=== PATIENT | female | born 1945 | race Caucasian/White ===

== ENCOUNTER → 2017-03-29 | Outpatient (CLI) | payer OTHER, MEDICAID ==
[2016-09-02 09:38] VITALS: BP 93/53
[~2017-03-29] MED LIST: ELAVIL ONE
--- NOTE | 2017-03-30 09:20 | CT ---
HISTORY: Headache. Study: CT brain without contrast Comparison: CT head dated August 31, 2016. Technique: Multiple axial images of the brain were obtained from the skull base to the vertex without administr ation of IV contrast. Dose reduction techniques including Automated Exposure Control (AEC) and adju stment of mA and kV were utilized. Findings: No acute intraparenchymal hemorrhage or mass can be identified. No extra-axial fluid collections ar e seen. No alteration in the attenuation of the brain parenchyma can be identified to suggest acute or subacute ischemic change. The ventricular system is symmetric and nondilated. Chronic left max illary sinus disease appears unchanged given technique. Remaining paranasal sinuses and mastoid air cells are clear. The osseous structures are intact. IMPRESSION: 1. No acute intracranial process can be identified. Reported By:
--- NOTE | 2017-03-30 09:46 | CT ---
HISTORY: Headache Study: CT paranasal sinuses without contrast Comparison: Multiple CTs of the head dating back to August 31, 2016. Technique: Multiple axial images of the paranasal sinuses were obtained without the administration o f IV contrast. Coronal and sagittal reformats were performed and reviewed. Dose reduction techniqu es including Automated Exposure Control (AEC) and adjustment of mA and kV were utilized. Findings: Chronic left maxillary sinus mucosal thickening and osseous changes. The right maxillary sinus, ante rior and posterior ethmoid air cells, sphenoid sinuses, and frontal sinuses demonstrate no evidence for mucosal inflammatory disease. The nasal septum is mildly deviated to the right with a small bon y spur. There is mucosal obstruction of the left ostiomeatal unit. The ostiomeatal unit on the righ t is widely patent without inflammatory change. The left and right frontal recesses are unremarkabl e in their appearance. Visualized portions of the posterior fossa and intracranial structures are u nremarkable as well. IMPRESSION: 1. Chronic left maxillary sinus changes as above. 2. Remaining exam is unremarkable. Reported By:
== END ==
LOC: RAD 16:54
PROVIDERS: ATTEND Internal Medicine
DX: R51 Headache (principal)
CPT/HCPCS: 70450; 70486

== ENCOUNTER → 2017-04-11 | Outpatient (CLI) | payer OTHER, MEDICAID ==
[2016-09-02 09:38] VITALS: BP 93/53
--- NOTE | 2017-04-11 20:47 | RAD ---
Right knee, two views Indication: Knee pain. Comparison: None Findings: Total knee arthroplasty hardware projects in satisfactory alignment. No perihardware lucen cy is identified. No cortical disruption or malalignment. No significant joint effusion. Impression: Satisfactory appearance of the total knee arthroplasty hardware without evidence for acu te skeletal injury of the knee. Reported By:
== END ==
LOC: RAD 14:08
PROVIDERS: ATTEND Internal Medicine
DX: M25.561 Pain in right knee (principal); Z96.651 Presence of right artificial knee joint
CPT/HCPCS: 73560

== ENCOUNTER 2017-09-21 08:26 | Day surgery (SDC) | payer OTHER, MEDICAID ==
[~2017-09-21 08:26] MED LIST changes: +D5 LR 1000 ML 1,000 ML IV ONE; -ELAVIL ONE
[2017-09-21] MEDS ORDERED: DIPRIVAN VIAL 20 ML ONE (10:03)
[2017-09-21 10:43] VITALS: BP 125/69
== END 2017-09-21 10:47 ==
LOC: SURG1 08:26
PROVIDERS: ATTEND Internal Medicine Gastroenterology
PROC: 0DB68ZX Excision of Stomach, Via Natural or Artificial Opening Endoscopic, Diagnostic (ICD-10-PCS; principal; 2017-09-21 10:30)
PROC: 0D757ZZ Dilation of Esophagus, Via Natural or Artificial Opening (ICD-10-PCS; principal; 2017-09-21 10:30)
PROC: 0DJ08ZZ Inspection of Upper Intestinal Tract, Via Natural or Artificial Opening Endoscopic (ICD-10-PCS; principal; 2017-09-21 10:30)
DX: R13.19 Other dysphagia (principal); R10.13 Epigastric pain; R11.2 Nausea with vomiting, unspecified; R19.7 Diarrhea, unspecified; K22.10 Ulcer of esophagus without bleeding; K22.2 Esophageal obstruction; D64.89 Other specified anemias
CPT/HCPCS: 99100; A4217; J3490; J7120

== ENCOUNTER 2017-09-29 22:57 | Emergency (ER) | payer OTHER, MEDICAID ==
[2017-09-29] MEDS ORDERED: ATROPINE SULFATE ABBOJECT IVP ONE (23:38)
[2017-09-29 23:42] VITALS: BMI 31.4
[2017-09-29] MEDS ORDERED: ATROPINE SULFATE ABBOJECT ONE (23:55)
--- NOTE | 2017-09-30 00:05 | RAD ---
AP Chest Indication: Shortness of breath Comparison: 08/18/2016 Findings: The trachea is midline. The cardiac silhouette is unremarkable. Small round calcified granulomas ar e noted within the lung apex on the right. The lungs are clear without focal infiltrate or effusion. The bony thorax is unremarkable. IMPRESSION: 1. No acute cardiopulmonary abnormality. Reported By:
[2017-09-30] MEDS ORDERED: ATROPINE SULFATE ABBOJECT ONE (00:27)
[2017-09-30] MEDS ORDERED: NS 1000 ML 1,000 ML ONE ×4 (00:27→08:33)
[2017-09-30 00:29] LABS: BASOPHILS % (AUTO) 0.6 % (0.2-1.0); EOSINOPHILS # (AUTO) 0.2 x10^3/uL (0.0-0.2); EOSINOPHILS % (AUTO) 2.4 % (0.9-2.9); HEMATOCRIT 29.5 % (36.0-47.0); HEMOGLOBIN 9.9 g/dL (12.0-16.0); LYMPHOCYTES # (AUTO) 1.8 X10^3/uL (1.3-2.9); LYMPHOCYTES % (AUTO) 21.9 % (21.0-51.0); MEAN CORPUSCULAR HEMOGLOBIN 29.7 pg (27.0-34.0); MEAN CORPUSCULAR HGB CONC 33.7 g/dL (33.0-35.0); MONOCYTES # (AUTO) 1.1 x10^3/uL (0.3-0.8); MONOCYTES % (AUTO) 13.6 % (0.0-13.0); NEUTROPHILS % (AUTO) 61.5 % (42.0-75.0); PLATELET COUNT 204 X10^3/uL (150.0-450.0); RED BLOOD COUNT 3.35 X10^6/uL (3.5-5.4); RED CELL DISTRIBUTION WIDTH 14.7 % (11.6-16.5); WHITE BLOOD COUNT 8.1 X10^3/uL (3.6-10.0)
[2017-09-30] MEDS ORDERED: ATROPINE SULFATE ABBOJECT IVP ONE (00:35)
[2017-09-30] MEDS ORDERED: NS 1000 ML 1,000 ML IV ONE (00:41)
[2017-09-30 00:42] LABS: BLOOD UREA NITROGEN 39 mg/dL (7-18); CALCIUM 7.8 mg/dL (8.5-10.1); CARBON DIOXIDE 21.7 mmol/L (21-32); CHLORIDE 98 mmol/L (98-107); CREATININE 2.52 mg/dL (0.55-1.02); SODIUM 130 mmol/L (136-145); TROPONIN I < 0.02 ng/mL (0-1.5); eGFR BLACK RACES 24 (>60); eGFR NON BLACK RACES 20 (>60)
[2017-09-30 00:47] LABS: ALANINE AMINOTRANSFERASE 14 Units/L (12-78); ALBUMIN 2.7 g/dL (3.4-5.0); ALKALINE PHOSPHATASE 62 Units/L (46-116); ASPARTATE AMINO TRANSFERASE 23 Units/L (15-37); CKMB % 1.6 % (<4); COR CA(FOR HYPOALB) 8.8 mg/dL (8.5-10.1); CREATINE KINASE 62 Units/L (26-192); TOTAL PROTEIN 5.7 g/dL (6.4-8.2)
--- NOTE | 2017-09-30 00:47 | ED.ABDFE ---
HPI - Time seen Time seen: 23:05 - PCP Primary Care Physician: HELENE - HPI Comment HPI Comment: HISTORY BELOW. - Complaint Chief Complaint Doctors Comments: PATIENT HAD SYNCOPAL EPISODE AT THE HALFWAY. WHEN VITAL SIGNS WERE CHECK, SHE WAS FOUND TO HAVE LOW BLOOD PRESSURE AND LOW PULSE RATE. SHE TAKES ATENOLOL. IV FLUIDS WERE GIVEN IN HALFWAY. NO IMPROVEMENT. BROUGHT TO ED FOR FURTHER EVALUATION. Chief Complaint:: SYNCOPAL EPISODE, BRADYCARDIA - Nurses notes reviewed Nurses Notes Review: Yes - Source History Provided: Patient, Family Member, Assisted - Mode of arrival Mode of Arrival: Stretcher - Timing Onset of Chief Complaint: 09/29/17 Came on: Suddenly - Duration Duration: Constant Duration: Hours - Quality Quality: Other (none) - Context History of: None - Associated signs and symptoms Associated Signs and Symptoms: None <MALLORY GORDON - Last Filed: 09/30/17 06:39> PMH - PMH Past Medical History: Yes Past Medical History: Anxiety, Arthritis, Depression, Diabetes, Migraines Past Medical History Comment: Mike-FIBRonna Past Surgical History: Yes Surgical History: Cholecystectomy, 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, Ortho Surgery, Weight Loss Surgery - Family History History of Family Medical Conditions: Yes Family Medical History: Diabetes Mellitus, [place], Coronary Artery Disease, Heart Failure, Hypertension - Social History Does patient currently use any type of tobacco product: No Have you used tobacco products in the last 12 months: No Type of Tobacco Use: None Does any household member use tobacco: No Alcohol Use: None Do you use any recreational Drugs:: No Lives With: Other Lives Where: Assisted - infectious screening In the last 2 months have you had wt loss of >10#?: NO Have you had fever, night sweats or hemotysis?: No Have you traveled outside the country in the last 6 months?: No Isolation: Standard <MALLORY GORDON - Last Filed: 09/30/17 06:39> ROS - Review of Systems Constitutional: Weakness, Fatigue Eyes: negative: Eye Pain, Discharge ENTM: negative: Ear Pain, Nose Discharge, Nose Congestion, Throat Pain Respiratoy: Short of Breath. negative: Productive Cough, Non-Productive Cough, Wheezing, Hemoptysis Cardiovascular: Other (bradycardia). negative: Chest Pain Gastrointestinal/Abdominal: negative: Abdominal Pain, Constipation, Diarrhea, Nausea, Vomiting Genitourinary: negative: Dysuria, Hematuria Neurological: Weakness, Dizziness. negative: Headache Musculoskeletal: No Symptoms Reported Integumentary: No Symptoms Reported Hematologic/Lymphatic: Easy Bleeding, Easy Bruising Endocrine: No Symptoms Reported All Other Systems: Reviewed and Negative <MALLORY GORDON - Last Filed: 09/30/17 06:39> PE - General Limitations: No Limitations General Appearance: Alert, Other (sleepy) - Head Head Exam: Normal Inspection - Eyes Eye exam: negative: Scleral Icterus, Conjunctival Injection - ENT ENT Exam: Normal Oropharynx, Normal External Ear Exam, TM's Normal Bilaterally - Neck Neck Exam: Trachea Midline - Chest Chest Inspection: Symmetric Chest Wall Rise - Respiratory Respiratory Exam: Normal Lung Sounds Bilat Respiratory Exam: Bilateral Rhonchi, Upper Rhonchi, Lower Rhonchi - Cardiovascular Cardiovascular Exam: Regular Rate, Normal Rhythm, Normal Heart Sounds - Abdominal Exam Abdominal Exam: Normal Bowel Sounds, Soft. negative: Tenderness - Rectal Rectal Exam: Deferred - Back Back Exam: Paraspinal Tenderness - Extremeties Extremities Exam: negative: Tenderness, Edema - External Exam: Female: Deferred : Speculum Exam (Female): Deferred : Bimanual Exam (female): Deferred - Neurologic Neurological Exam: Alert, Oriented X3 - Psychiatric Psychiatric Exam: Normal Affect, Normal Mood - Skin Skin Exam: Normal Color <MALLORY GORDON - Last Filed: 09/30/17 06:39> - Vital Signs Vitals: Temperature 98.1 F Pulse Rate [Left Radial] 43 Pulse Rate 43 Respiratory Rate 20 Blood Pressure [Left Arm] 110/79 Blood Pressure 77/47 O2 Sat by Pulse Oximetry 100 MDM - Differential Diagnosis Other differential diagnosis: BRADYCARDIA, HYPOTENSION, SYNCOPAL EPISODE. <MALLORY GORDON - Last Filed: 09/30/17 06:39> Course - Treatment Treatment: SEE ORDERS. - Education/Counseling Education/Counseling: Patient, Family Educated On: Diagnosis <MALLORY GORDON - Last Filed: 09/30/17 06:39> - Reevaluation 1st: Improved (TCP 0850-improved clinically HR 60, mental status improved) - Consultation Called: 08:40 (Patient was accepted at [facility] by Dr Goodman) <RACHELL ZELAYA - Last Filed: 09/30/17 09:05> ROR - Labs Reviewed Laboratory Results Reviewed?: Yes Result Diagrams: 09/29/17 23:50 09/29/17 23:50 - XRAY XRAY Findings: REPORT DISCUSS WITH PATIENT AND HER DAUGHTER. - EKG Rhythm: SB <MALLORY GORDON - Last Filed: 09/30/17 06:39> - Labs Reviewed Result Diagrams: 09/30/17 07:30 09/30/17 07:10 <RACHELL ZELAYA - Last Filed: 09/30/17 09:05> - Labs Reviewed Laboratory: WBC 7.5 X10^3/uL (3.6-10.0) 09/30/17 07:30 RBC 3.79 X10^6/uL (3.5-5.4) 09/30/17 07:30 Hgb 11.0 g/dL (12.0-16.0) L 09/30/17 07:30 Hct 33.4 % (36.0-47.0) L 09/30/17 07:30 MCV 88.2 fL (80.0-100.0) 09/30/17 07:30 MCH 29.1 pg (27.0-34.0) 09/30/17 07:30 MCHC 33.0 g/dL (33.0-35.0) 09/30/17 07:30 RDW 14.7 % (11.6-16.5) 09/30/17 07:30 Plt Count 34 X10^3/uL (150.0-450.0) L 09/30/17 07:30 MPV 8.6 fL (7.4-11.0) 09/30/17 07:30 Neut % 63.9 % (42.0-75.0) 09/30/17 07:30 Lymph % 17.6 % (21.0-51.0) L 09/30/17 07:30 [place] % 14.0 % (0.0-13.0) H 09/30/17 07:30 Eos % 3.9 % (0.9-2.9) H 09/30/17 07:30 Baso % 0.6 % (0.2-1.0) 09/30/17 07:30 Neut # 4.8 x10^3/uL (2.2-4.8) 09/30/17 07:30 Lymph # 1.3 X10^3/uL (1.3-2.9) 09/30/17 07:30 [place] # 1.1 x10^3/uL (0.3-0.8) H 09/30/17 07:30 Eos # 0.3 x10^3/uL (0.0-0.2) H 09/30/17 07:30 Baso # 0.0 X10^3/uL (0.0-0.1) 09/30/17 07:30 Absolute Nucleated RBC 0.2 /100WBC 09/30/17 07:30 Sodium 135 mmol/L (136-145) L 09/30/17 07:10 Corrected Sodium TNP 09/30/17 07:10 Potassium 4.5 mmol/L (3.5-5.1) 09/30/17 07:10 Chloride 101 mmol/L (98-107) 09/30/17 07:10 Carbon Dioxide 21.4 mmol/L (21-32) 09/30/17 07:10 BUN 34 mg/dL (7-18) H 09/30/17 07:10 Creatinine 2.23 mg/dL (0.55-1.02) H 09/30/17 07:10 Est GFR (MDRD) Af Amer 28 (>60) L 09/30/17 07:10 Est GFR (MDRD) Non-Af 23 (>60) L 09/30/17 07:10 Glucose 78 mg/dL (65-99) 09/30/17 07:10 Lactic Acid 1.1 mmol/L (0.4-2.0) 09/30/17 07:10 Calcium 7.2 mg/dL (8.5-10.1) L 09/30/17 07:10 Corrected Calcium 8.2 mg/dL (8.5-10.1) L 09/30/17 07:10 Total Bilirubin 0.30 mg/dL (0.2-1.0) 09/30/17 07:10 AST 24 Units/L (15-37) 09/30/17 07:10 ALT 19 Units/L (12-78) 09/30/17 07:10 Alkaline Phosphatase 65 Units/L (46-116) 09/30/17 07:10 Creatine Kinase 67 Units/L (26-192) 09/30/17 07:10 CK-MB (CK-2) 1.3 ng/mL (0-4.0) 09/30/17 07:10 CK/CKMB % Calc 1.9 % (<4) 09/30/17 07:10 Troponin I < 0.02 ng/mL (0-1.5) 09/30/17 07:10 C-Reactive Protein 13.60 mg/L (0-3.0) H 09/30/17 07:10 B-Natriuretic Peptide 360 pg/mL (0-79) H 09/30/17 07:10 Total Protein 6.0 g/dL (6.4-8.2) L 09/30/17 07:10 Albumin 2.7 g/dL (3.4-5.0) L 09/30/17 07:10 Globulin 3.3 g/dL (2.5-4.5) 09/30/17 07:10 Albumin/Globulin Ratio 0.8 Ratio (1.1-2.1) L 09/30/17 07:10 Specimen Type Catherized urine 09/30/17 01:38 Urine Color Yellow (YELLOW) 09/30/17 01:38 Urine Appearance Clear (CLEAR) 09/30/17 01:38 Urine pH 5.0 (5.0 - 8.0) 09/30/17 01:38 Ur Specific [place] 1.020 (1.000-1.030) 09/30/17 01:38 Urine Protein Negative (NEGATIVE) 09/30/17 01:38 Urine Glucose (UA) Negative (NEGATIVE) 09/30/17 01:38 Urine Ketones Negative (NEGATIVE) 09/30/17 01:38 Urine Occult Blood Negative (NEGATIVE) 09/30/17 01:38 Urine Nitrite Negative (NEGATIVE) 09/30/17 01:38 Urine Bilirubin Negative (NEGATIVE) 09/30/17 01:38 Urine Urobilinogen Normal (NORMAL) 09/30/17 01:38 Ur Leukocyte Esterase 2+ (NEGATIVE) 09/30/17 01:38 Urine RBC 0-3 /HPF (NEGATIVE) 09/30/17 01:38 Urine WBC 2-6 /HPF (NEGATIVE) 09/30/17 01:38 Ur Squamous Epith Cells Few /HPF (NEGATIVE) 09/30/17 01:38 Amorphous Sediment Trace /HPF (NEGATIVE) 09/30/17 01:38 Urine Bacteria Negative /HPF (NEGATIVE) 09/30/17 01:38 Hyaline Casts Few /LPF (NEGATIVE) 09/30/17 01:38 Ur Culture Indicated? No/not indicated 09/30/17 01:38 <MALLORY GORDON - Last Filed: 09/30/17 06:39> <RACHELL ZELAYA - Last Filed: 09/30/17 09:05> - Diagnosis Discharge Problem: Bradycardia, Symptomatic bradycardia Episode of syncope Qualifiers: Syncope type: unspecified Qualified Code(s): R55 - Syncope and collapse Hypotension Qualifiers: Hypotension type: unspecified hypotension type Qualified Code(s): I95.9 - Hypotension, unspecified - Discharge Plan Condition: Stable - Follow ups/Referrals Follow ups/Referrals: Pk Hartman [Primary Care Provider] - 3 days - Instructions Instructions: Hypotension, [id number], Bradycardia Additional Instructions: HOLD ATENOLOL RETURN TO ED IF WORSE.
[2017-09-30] MEDS: NS 1000 ML 1,000 ML IV SCH ×4 (02:06→09:37)
[2017-09-30 02:24] LABS: BILIRUBIN,URINE NEGATIVE (NEGATIVE); BLOOD/HEMOGLOBIN,URINE NEGATIVE (NEGATIVE); GLUCOSE, URINE NEGATIVE (NEGATIVE); KETONES,URINE NEGATIVE (NEGATIVE); LEUKOCYTE ESTERASE ,URINE 2+ (NEGATIVE); NITRITES,URINE NEGATIVE (NEGATIVE); PROTEIN,URINE NEGATIVE (NEGATIVE); UROBILINOGEN,URINE NORMAL (NORMAL)
[2017-09-30 02:37] LABS: AMORPHOUS SEDIMENT,UR TRACE /HPF (NEGATIVE); APPEARANCE,URINE CLEAR (CLEAR); BACTERIA,URINE NEGATIVE /HPF (NEGATIVE); COLOR,URINE YELLOW (YELLOW); HYALINE CASTS, URINE FEW /LPF (NEGATIVE); RBC,URINE 0-3 /HPF (NEGATIVE); SQUAMOUS EPITHELIAL CELL,UR FEW /HPF (NEGATIVE)
[2017-09-30 07:32] LABS: BASOPHILS % (AUTO) 0.6 % (0.2-1.0); EOSINOPHILS # (AUTO) 0.3 x10^3/uL (0.0-0.2); EOSINOPHILS % (AUTO) 3.9 % (0.9-2.9); HEMATOCRIT 33.4 % (36.0-47.0); LYMPHOCYTES # (AUTO) 1.3 X10^3/uL (1.3-2.9); LYMPHOCYTES % (AUTO) 17.6 % (21.0-51.0); MEAN CORPUSCULAR HEMOGLOBIN 29.1 pg (27.0-34.0); MEAN CORPUSCULAR VOLUME 88.2 fL (80.0-100.0); MEAN PLATELET VOLUME 8.6 fL (7.4-11.0); MONOCYTES # (AUTO) 1.1 x10^3/uL (0.3-0.8); NEUTROPHILS # (AUTO) 4.8 x10^3/uL (2.2-4.8); NEUTROPHILS % (AUTO) 63.9 % (42.0-75.0); PLATELET COUNT 34 X10^3/uL (150.0-450.0); RED BLOOD COUNT 3.79 X10^6/uL (3.5-5.4); RED CELL DISTRIBUTION WIDTH 14.7 % (11.6-16.5); WHITE BLOOD COUNT 7.5 X10^3/uL (3.6-10.0)
[2017-09-30 07:38] VITALS: BP 110/79
[2017-09-30 07:42] LABS: B-TYPE NATRIURETIC PEPTIDE 360 pg/mL (0-79)
--- NOTE | 2017-09-30 07:44 | CT ---
CT head without contrast Indication: Altered mental status Comparison: 03/29/2017 Technique: CT images of the head were obtained without contrast. Automatic exposure control was utili FRUCTd. Findings: There is mild age-appropriate generalized brain atrophy with concomitant ventricular and torres lcal enlargement. Patchy areas of periventricular and deep white matter hypoattenuation are most sugg estive for moderate microangiopathy. There is no acute bleed, mass, mass effect, or abnormal extra-ax ial collection. No significant skeletal abnormality. Chronic left maxillary sinusitis is similar to p rior. The remaining visualized paranasal sinuses and mastoid air cells are clear. Impression: No acute intracranial abnormality. Chronic white matter microangiopathy, left maxillary sinusitis. Reported By:
--- NOTE | 2017-09-30 07:46 | RAD ---
Chest, AP portable Indication: Shortness of breath Comparison: 09/29/2017 Findings: There is hazy right perihilar opacity that has developed. The left lung is essentially hussein r. No evidence for significant pleural effusion. Normal heart size. Impression: New right perihilar opacity suggesting developing pneumonitis. Correlation recommended. T wo-view chest could be helpful. Reported By:
[2017-09-30 08:16] LABS: ALANINE AMINOTRANSFERASE 19 Units/L (12-78); ALBUMIN 2.7 g/dL (3.4-5.0); ALKALINE PHOSPHATASE 65 Units/L (46-116); ASPARTATE AMINO TRANSFERASE 24 Units/L (15-37); BLOOD UREA NITROGEN 34 mg/dL (7-18); CALCIUM 7.2 mg/dL (8.5-10.1); CARBON DIOXIDE 21.4 mmol/L (21-32); CHLORIDE 101 mmol/L (98-107); CKMB % 1.9 % (<4); COR CA(FOR HYPOALB) 8.2 mg/dL (8.5-10.1); CREATINE KINASE 67 Units/L (26-192); CREATINE KINASE MB 1.3 ng/mL (0-4.0); CREATININE 2.23 mg/dL (0.55-1.02); SODIUM 135 mmol/L (136-145); TROPONIN I < 0.02 ng/mL (0-1.5); eGFR BLACK RACES 28 (>60); eGFR NON BLACK RACES 23 (>60)
[2017-09-30] MEDS ORDERED: ROCEPHIN VIAL 1 GM 1 GM in NS 50 ML IV + SPIKE MINIBAG* 50 ML IV ONE (08:17)
[2017-09-30 08:24] LABS: LACTIC ACID 1.1 mmol/L (0.4-2.0)
[2017-09-30] MEDS ORDERED: NS 50 ML IV 50 ML IV ONE (08:24)
[2017-09-30] MEDS ORDERED: ROCEPHIN VIAL 1 GM ONE (08:24)
[2017-09-30] MEDS ORDERED: MORPHINE SULFATE INJ 4 MG IVP ONE (08:58)
[2017-09-30] MEDS ORDERED: ZOFRAN INJ 4 MG VIAL IVP ONE ×2 (08:58→09:27)
[2017-09-30] MEDS ORDERED: MORPHINE SULFATE INJ 4 MG ONE (09:00)
[2017-09-30] MEDS ORDERED: ZOFRAN INJ 4 MG VIAL ONE ×2 (09:00→09:23)
[2017-09-30] MEDS ORDERED: DOPAMINE IV PREMIX 400 MG/250 ML 400 MG/250 ML BAG IV PRN (09:28)
== END 2017-09-30 10:15 | disposition short-term general hospital (02) ==
LOC: ER 22:57
DX: R00.1 Bradycardia, unspecified (principal); R55 Syncope and collapse; I95.9 Hypotension, unspecified
CPT/HCPCS: 36415; 51702; 70450; 71010; 80053; 81001; 82550; 82553; 83605; 83880; 84484; 85025; 86140; 87040; 93005; 93041; 96365; 96367; 96374; 96375; 99284; 99285; A4222; J0696; J2270; J2405

== ENCOUNTER → 2017-12-12 | Outpatient (CLI) | payer OTHER, MEDICAID ==
--- NOTE | 2017-12-12 15:44 | RAD ---
Left hip three views Indication: Left hip pain Findings: There is postsurgical change of the left hip with femoral neck and shaft screw and karey. Het erotopic calcification noted inferior to the humeral head. Bilateral hip joint degenerative change no ellen. Spine DJD and SI joint DJD noted. Knee arthroplasty and distal femur karey appear grossly intact w ere visualized. Impression: No acute displaced fracture, with degenerative changes as above. Reported By:
== END ==
LOC: RAD 14:52
PROVIDERS: ATTEND Internal Medicine
DX: M25.552 Pain in left hip (principal)
CPT/HCPCS: 73501

== ENCOUNTER 2018-02-20 21:19 | Observation (INO) | payer OTHER, MEDICAID ==
[2018-02-20] MEDS ORDERED: NS 1000 ML 1,000 ML ONE (21:30)
--- NOTE | 2018-02-20 21:38 | DR.GENAD ---
HPI - PCP Primary Care Physician: casey - HPI Comment HPI Comment: PATIENT IS ORIENTED AND DENIES CHEST PAIN. SHE IS DIZZY. 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 negative: Eye Pain, Discharge ENTM: No Symptoms Reported. negative: Ear Pain, Nose Discharge, Nose Congestion , Throat Pain Respiratoy: negative: Productive Cough, Non-Productive Cough, Short of Breath, Wheezing, Hemoptysis Gastrointestinal/Abdominal: negative: Abdominal Pain, Nausea, Vomiting Neurological: Dizziness Musculoskeletal: No Symptoms Reported Integumentary: No Symptoms Reported Hematologic/Lymphatic: Anemia, Easy Bruising Endocrine: negative: Flushing, Increased Thirst, Increased Urine All Other Systems: Reviewed and Negative PE - Vital Signs Vitals: Temperature 97.7 F Pulse Rate [Left] 61 Pulse Rate 64 Respiratory Rate 20 Blood Pressure [Left Arm] 87/51 Blood Pressure 75/46 O2 Sat by Pulse Oximetry 99 - General Limitations: No Limitations General Appearance: In No Apparent Distress - Head Head Exam: Normal Inspection - Eyes Eye exam: Normal Appearance - ENT ENT Exam: Normal External Ear Exam External Ear Exam: Normal External Inspection TM/Canal Exam: Bilateral Normal Nose Exam: Normal Nose Exam Mouth Exam: Normal Inspection Throat Exam: Normal Inspection - Neck Neck Exam: Trachea Midline - Chest Chest Inspection: Symmetric Chest Wall Rise - Respiratory Respiratory Exam: Normal Lung Sounds Bilat Respiratory Exam: Bilateral Rhonchi, Lower Rhonchi - Cardiovascular Cardiovascular Exam: Regular Rate, Normal Rhythm, Normal Heart Sounds - Abdominal Exam Abdominal Exam: Normal Bowel Sounds, Soft. negative: Tenderness - Extremities Extremities Exam: Normal Inspection - Back Back Exam: Normal Inspection - Neurologic Neurological Exam: Alert, Oriented X3, CN II-XII Intact. negative: Motor Sensory Deficit - Psychiatric Psychiatric Exam: Normal Affect, Normal Mood - Skin Skin Exam: Normal Color MDM - Additional Information Additional Information Obtained From: Family - Differential Diagnosis Differential Diagnosis: DIZZINESS, HYPOTENSION, ANEMIA, UTI Course - Treatment Treatment: SEE ORDERS. IV FLUIDS IN ED, BP IMPROVED. - Education/Counseling Education/Counseling: Patient, Family, Education Educated On: Diagnosis, Needs for Follow Up ROR - Labs Reviewed Laboratory Results Reviewed?: Yes Result Diagrams: 02/22/18 05:19 02/22/18 05:19 Laboratory: WBC 5.7 X10^3/uL (3.6-10.0) 02/20/18 21:28 RBC 3.02 X10^6/uL (3.5-5.4) L 02/20/18 21:28 Hgb 9.0 g/dL (12.0-16.0) L 02/20/18 21:28 Hct 26.2 % (36.0-47.0) L 02/20/18 21:28 MCV 86.8 fL (80.0-100.0) 02/20/18 21:28 MCH 29.7 pg (27.0-34.0) 02/20/18 21:28 MCHC 34.2 g/dL (33.0-35.0) 02/20/18 21:28 RDW 16.3 % (11.6-16.5) 02/20/18 21:28 Plt Count 197 X10^3/uL (150.0-450.0) 02/20/18 21:28 MPV 8.0 fL (7.4-11.0) 02/20/18 21:28 Neut % (Auto) 53.5 % (42.0-75.0) 02/20/18 21:28 Lymph % (Auto) 34.4 % (21.0-51.0) 02/20/18 21: [place] % (Auto) 10.1 % (0.0-13.0) 02/20/18 21: Eos % (Auto) 1.1 % (0.9-2.9) 02/20/18 21: Baso % (Auto) 0.9 % (0.2-1.0) 02/20/18: Neut # (Auto) 3.1 x10^3/uL (2.2-4.8) 02/20/18 21: Lymph # (Auto) 2.0 X10^3/uL (1.3-2.9) 02/20/18: [place] # (Auto) 0.6 x10^3/uL (0.3-0.8) 02/20/18: Eos # (Auto) 0.1 x10^3/uL (0.0-0.2) 02/20/18: Baso # (Auto) 0.1 X10^3/uL (0.0-0.1) 02/20/18 21: Absolute Nucleated RBC 0.0 /100WBC 02/20/18 21: Sodium 137 mmol/L (136-145) 02/20/18 21: Corrected Sodium TNP 02/20/18: Potassium 4.4 mmol/L (3.5-5.1) 02/20/18: Chloride 104 mmol/L (98-107) 02/20/18: Carbon Dioxide 25.3 mmol/L (21-32) 02/20/18 21: BUN 20 mg/dL (7-18) H 02/20/18 21: Creatinine 1.24 mg/dL (0.55-1.02) H 02/20/18 21:28 Est GFR (MDRD) Af Amer 54 (>60) L 02/20/18: Est GFR (MDRD) Non-Af 45 (>60) L 02/20/18 21: Glucose 63 mg/dL (65-99) L 02/20/18 21: Calcium 8.1 mg/dL (8.5-10.1) L 02/20/18: Corrected Calcium 9.2 mg/dL (8.5-10.1) 02/20/18 21:28 Total Bilirubin 0.30 mg/dL (0.2-1.0) 02/20/18 21:28 AST 36 Units/L (15-37) 02/20/18 21:28 ALT 21 Units/L (12-78) 02/20/18 21:28 Alkaline Phosphatase 63 Units/L (46-116) 02/20/18 21:28 Creatine Kinase 61 Units/L (26-192) 02/20/18 21:28 CK-MB (CK-2) 1.1 ng/mL (0-4.0) 02/20/18 21:28 CK/CKMB % Calc 1.8 % (<4) 02/20/18 21: Troponin I < 0.02 ng/mL (0-1.5) 02/20/18 21:28 Total Protein 5.8 g/dL (6.4-8.2) L 02/20/18 21:28 Albumin 2.6 g/dL (3.4-5.0) L 02/20/18 21:28 Globulin 3.2 g/dL (2.5-4.5) 02/20/18 21:28 Albumin/Globulin Ratio 0.8 Ratio (1.1-2.1) L 02/20/18 21:28 - XRAY XRAY Interpreted by: Radiologist XRAY Findings: REPORT DISCUSS WITH PATIENT ANDHER DAUGHTER. - EKG Rhythm: NSR (EKG NOTED.) - Diagnosis Discharge Problem: Dizziness Hypotension Qualifiers: Hypotension type: unspecified hypotension type Qualified Code(s): I95.9 - Hypotension, unspecified - Discharge Plan Disposition: ADMITTED INPATIENT Condition: Stable - Follow ups/Referrals - Instructions
[2018-02-20] MEDS ORDERED: NS 1000 ML 1,000 ML IV ONE (22:08)
[2018-02-20 22:23] LABS: BASOPHILS # (AUTO) 0.1 X10^3/uL (0.0-0.1); BASOPHILS % (AUTO) 0.9 % (0.2-1.0); EOSINOPHILS # (AUTO) 0.1 x10^3/uL (0.0-0.2); EOSINOPHILS % (AUTO) 1.1 % (0.9-2.9); HEMATOCRIT 26.2 % (36.0-47.0); LYMPHOCYTES % (AUTO) 34.4 % (21.0-51.0); MEAN CORPUSCULAR HEMOGLOBIN 29.7 pg (27.0-34.0); MEAN CORPUSCULAR HGB CONC 34.2 g/dL (33.0-35.0); MEAN CORPUSCULAR VOLUME 86.8 fL (80.0-100.0); MONOCYTES # (AUTO) 0.6 x10^3/uL (0.3-0.8); MONOCYTES % (AUTO) 10.1 % (0.0-13.0); NEUTROPHILS # (AUTO) 3.1 x10^3/uL (2.2-4.8); NEUTROPHILS % (AUTO) 53.5 % (42.0-75.0); PLATELET COUNT 197 X10^3/uL (150.0-450.0); RED BLOOD COUNT 3.02 X10^6/uL (3.5-5.4); RED CELL DISTRIBUTION WIDTH 16.3 % (11.6-16.5); WHITE BLOOD COUNT 5.7 X10^3/uL (3.6-10.0)
--- NOTE | 2018-02-20 22:35 | RAD ---
Chest, AP Indication: Lightheadedness, dizziness Comparison: 09/30/2017 Findings: The cardiac silhouette is unremarkable. The lungs are grossly clear without focal infiltrat es or significant pleural effusion. Impression: No acute chest process. Reported By:
[2018-02-20 22:36] LABS: BLOOD UREA NITROGEN 20 mg/dL (7-18); CALCIUM 8.1 mg/dL (8.5-10.1); CARBON DIOXIDE 25.3 mmol/L (21-32); CHLORIDE 104 mmol/L (98-107); CREATININE 1.24 mg/dL (0.55-1.02); SODIUM 137 mmol/L (136-145); TROPONIN I < 0.02 ng/mL (0-1.5); eGFR BLACK RACES 54 (>60); eGFR NON BLACK RACES 45 (>60)
[2018-02-20 22:41] LABS: ALANINE AMINOTRANSFERASE 21 Units/L (12-78); ALBUMIN 2.6 g/dL (3.4-5.0); ALKALINE PHOSPHATASE 63 Units/L (46-116); ASPARTATE AMINO TRANSFERASE 36 Units/L (15-37); CKMB % 1.8 % (<4); COR CA(FOR HYPOALB) 9.2 mg/dL (8.5-10.1); CREATINE KINASE 61 Units/L (26-192); CREATINE KINASE MB 1.1 ng/mL (0-4.0); TOTAL PROTEIN 5.8 g/dL (6.4-8.2)
[2018-02-21] MEDS ORDERED: TYLENOL 325 MG TAB PO PRN (00:02)
[2018-02-21] MEDS ORDERED: ULTRAM PO PRN (00:02)
[2018-02-21] MEDS ORDERED: ANTIVERT TAB 25 MG PO PRN (00:02)
[2018-02-21] MEDS ORDERED: MYLICON TAB 80 MG CHEW PO PRN (00:02)
[2018-02-21 01:00] LABS: BILIRUBIN,URINE NEGATIVE (NEGATIVE); BLOOD/HEMOGLOBIN,URINE NEGATIVE (NEGATIVE); GLUCOSE, URINE NEGATIVE (NEGATIVE); KETONES,URINE NEGATIVE (NEGATIVE); LEUKOCYTE ESTERASE ,URINE 1+ (NEGATIVE); NITRITES,URINE NEGATIVE (NEGATIVE); PH,URINE 6.5 (5.0 - 8.0); PROTEIN,URINE NEGATIVE (NEGATIVE); UROBILINOGEN,URINE NORMAL (NORMAL)
[2018-02-21 01:16] LABS: APPEARANCE,URINE CLEAR (CLEAR); BACTERIA,URINE NEGATIVE /HPF (NEGATIVE); COLOR,URINE YELLOW (YELLOW); RBC,URINE 0-2 /HPF (NONE SEEN); SQUAMOUS EPITHELIAL CELL,UR RARE /HPF (NEGATIVE)
[2018-02-21 01:29] VITALS: BMI 20.6
[2018-02-21 06:38] LABS: BASOPHILS # (AUTO) 0.1 X10^3/uL (0.0-0.1); BASOPHILS % (AUTO) 1.2 % (0.2-1.0); EOSINOPHILS # (AUTO) 0.1 x10^3/uL (0.0-0.2); EOSINOPHILS % (AUTO) 2.2 % (0.9-2.9); HEMATOCRIT 28.3 % (36.0-47.0); HEMOGLOBIN 9.8 g/dL (12.0-16.0); LYMPHOCYTES # (AUTO) 1.9 X10^3/uL (1.3-2.9); MEAN CORPUSCULAR HGB CONC 34.8 g/dL (33.0-35.0); MEAN CORPUSCULAR VOLUME 86.3 fL (80.0-100.0); MEAN PLATELET VOLUME 7.7 fL (7.4-11.0); MONOCYTES # (AUTO) 0.5 x10^3/uL (0.3-0.8); MONOCYTES % (AUTO) 10.2 % (0.0-13.0); NEUTROPHILS # (AUTO) 2.6 x10^3/uL (2.2-4.8); NEUTROPHILS % (AUTO) 50.4 % (42.0-75.0); PLATELET COUNT 198 X10^3/uL (150.0-450.0); RED BLOOD COUNT 3.28 X10^6/uL (3.5-5.4); RED CELL DISTRIBUTION WIDTH 15.9 % (11.6-16.5); WHITE BLOOD COUNT 5.2 X10^3/uL (3.6-10.0)
[2018-02-21 06:59] LABS: ALANINE AMINOTRANSFERASE 22 Units/L (12-78); ALBUMIN 2.5 g/dL (3.4-5.0); ALKALINE PHOSPHATASE 59 Units/L (46-116); ASPARTATE AMINO TRANSFERASE 32 Units/L (15-37); BLOOD UREA NITROGEN 15 mg/dL (7-18); CALCIUM 7.2 mg/dL (8.5-10.1); CARBON DIOXIDE 25.1 mmol/L (21-32); CHLORIDE 109 mmol/L (98-107); COR CA(FOR HYPOALB) 8.4 mg/dL (8.5-10.1); CREATININE 1.04 mg/dL (0.55-1.02); MAGNESIUM 1.6 mg/dL (1.7-2.9); SODIUM 143 mmol/L (136-145); TOTAL PROTEIN 5.7 g/dL (6.4-8.2); eGFR BLACK RACES > 60 (>60); eGFR NON BLACK RACES 55 (>60)
[2018-02-21 07:14] LABS: CKMB % 2.2 % (<4); CREATINE KINASE 54 Units/L (26-192); CREATINE KINASE MB 1.2 ng/mL (0-4.0); TROPONIN I < 0.02 ng/mL (0-1.5)
[2018-02-21] MEDS: NS 1000 ML 1,000 ML IV SCH ×3 (07:17→12:26)
[2018-02-21] MEDS: TAB-A-VITE PO SCH (08:15)
[2018-02-21] MEDS: PROTONIX TAB 40 MG PO SCH (08:15)
[2018-02-21] MEDS: CELEXA PO SCH (08:15)
[2018-02-21] MEDS: OXYBUTYNIN CHLORIDE ER PO SCH (08:15)
[2018-02-21] MEDS: ZANAFLEX PO SCH (08:15)
--- NOTE | 2018-02-21 08:15 | DR.H&P ---
H&P - History & Physical for Day of: H&P Date: 02/20/18 - Chief Complaint Chief Complaint: DIZZINESS, HYPOTENSION - Allergies Allergies/Adverse Reactions: Allergies Allergy/AdvReac Type Severity Reaction Status Date / Time adhesive tape Allergy Uncoded 08/31/16 18:05 - History of Present Illness History of Present Illness: IS A 72 YEAR OLD PATIENT OF OURS WHO RESIDES AT [facility]. SHE PRESENTED TO THE EMERGENCY ROOM WITH COMPLAINTS OF DIZZINESS AND LOW BLOOD PRESSURE. SHE IS ALERT AND ORIENTED ON ARRIVAL AND DENIES CHEST PAIN OR FEVER. CORRECTION STAFF STATED THAT HER BLOOD PRESSURE WAS 54/32 PRIOR TO ARRIVAL. ON ARRIVAL TO THE ER, VITALS WERE NOTED TO BE 97.7-64-20-97%-75/46. LABS WERE OBTAINED. ABNORMAL LAB VALUES WERE RBC 3.02, HGB 9.0, HCT 26.2, BUN 20, CREATININE 1.24, GLUCOSE 63 ,CALCIUM 8.1, TOTAL PROTEIN 5.8, ALBUMIN 2.6. URINALYSIS REVEAED WBC 0-2, LEUKOCYTES 1+, BACTERIA NEGATIVE. A CHEST XRAY WAS OBTAINED AND REVEALED NO ACUTE CHEST PROCESS. EKG REVEALED SINUS RHYTHM WITH HR 62. PATIENT WAS GIVEN A NORMAL SALINE BOLUS IN THE ER WITH NO IMPROVEMENT IN BLOOD PRESSURE NOTED. PATIENT WAS ADMITTED TO THE HOSPITAL FOR FURTHER EVALUATION AND TREATMENT. SHE WAS STARTED ON NORMAL SALINE AT 100ML/HR. HOME MEDICATIONS WERE RESUMED. WE PLAN TO FOLLOW UP WITH AM LABS AND CONTINUE TO MONITOR PATIENT. - Past Medical History Past Medical History: Anxiety, Arthritis, Depression, Diabetes, Migraines - Past Surgical History Surgical History: Cholecystectomy, Ortho Surgery - Family History Family Medical History: Diabetes Mellitus, [place], Coronary Artery Disease, Heart Failure, Hypertension - Social History Does patient currently use any type of tobacco product: No Have you used tobacco products in the last 12 months: No Type of Tobacco Use: None Alcohol Use: None Drug Use: None - Medications Home Medications: Acetaminophen [Tylenol 325 mg Tab] 650 mg PO Q4H PRN 02/20/18 [History Confirmed 02/21/18] Alprazolam [Xanax] 0.5 mg PO TID PRN 02/20/18 [History Confirmed 02/21/18] Artificial Tears (Ophth) [Artificial Tears Drops] 1 drop AFFEYE BID 02/20/18 [ History Confirmed 02/21/18] Citalopram 20 mg Tab [CELEXA 20 MG *] 20 mg PO DAILY 02/20/18 [History Confirmed 02/21/18] Diclofenac Sodium (Topical) [Voltaren 1 % Gel Multi Dose Tube] 1 applic EXT BID 02/20/18 [History Confirmed 02/21/18] Diltiazem HCl Ext Rel [CARDIZEM SR 60 mg (12 hr) *] 1 cap PO DAILY 02/20/18 [ History Confirmed 02/21/18] Divalproex Sodium [Depakote D.r. Tab] 250 mg PO HS 02/20/18 [History Confirmed 02/21/18] Fluticasone Nasal [place] [FLONASE NASAL SPRAY *] 1 spray ENOSTRIL BID 02/20/18 [ History Confirmed 02/21/18] Gabapentin [NEURONTIN CAP 100 MG *] 200 mg PO HS 02/20/18 [History Confirmed 07/03] Meclizine HCl [Antivert Tab 25 mg] 25 mg PO TID PRN 02/20/18 [History Confirmed 02/21/18] Melatonin 10 mg PO HS 02/20/18 [History Confirmed 02/21/18] Multivitamin [Multi Vitamin Daily] 1 tab PO DAILY 02/20/18 [History Confirmed ] Oxybutynin Chloride [Ditropan XL] 5 mg PO DAILY 02/20/18 [History Confirmed 07/03] Pantoprazole Sodium 40 mg [Protonix Tab 40 mg] 40 mg PO DAILY 02/20/18 [History Confirmed 02/21/18] Rivaroxaban [XARELTO 15 MG *] 15 mg PO DAILY 02/20/18 [History Confirmed ] Simethicone [Gas Relief] 160 mg PO TID PRN 02/20/18 [History Confirmed 02/21/18] Tizanidine HCl [Zanaflex] 2 mg PO DAILY 02/20/18 [History Confirmed 02/21/18] Tramadol HCl [ULTRAM 50 MG *] 50 mg PO Q6H PRN 02/20/18 [History Confirmed 02/21] Trazodone HCl [Desyrel] 50 mg PO HS 02/20/18 [History Confirmed 02/21/18] [place] Tonic 30 ml [Eldertonic + Wine] 30 ml PO DAILYWS 02/20/18 [History Confirmed 02/21/18] - Review of Systems Constitutional: Weakness, Malaise Eyes: No Symptoms Reported ENT: No Symptoms Reported Respiratory: No Symptoms Reported Cardiovascular: Light Headedness. denies: Chest Pain Gastrointestinal: No Symptoms Reported Genitourinary: No Symptoms Reported Musculoskeletal: No Symptoms Reported Skin: No Symptoms Reported Neurological: Other (dizziness ) - Physical Exam Vital Signs: Temperature 97.3 F Pulse Rate [Left] 73 Pulse Rate 64 Respiratory Rate 18 Blood Pressure [Left Arm] 136/75 Blood Pressure 75/46 O2 Sat by Pulse Oximetry 94 Oriented: Normal Eyes: Normal Ear: Normal Nose: Normal Throat: Normal Respiratory: Clear Throughout Cardiovascular: Normal : Normal Auscultation: Bowel Sounds: Normal Palpation: Normal Skin: Normal Musculoskeletal: Normal Psychiatric: Normal Mood Description: Calm Affect: Normal Speech Pattern: Clear - Assessment/Plan (1) Hypotension Qualifiers: Hypotension type: unspecified hypotension type Qualified Code(s): I95.9 - Hypotension, unspecified Status: Acute Plan: normal saline at 100ml/hr, continue to monitor NIBP (2) Dizziness Status: Acute Plan: meclizine 25mg po tid prn, continue to monitor
[2018-02-21] MEDS: SNACK - Diabetic Appropriate PO SCH ×2 (08:41→22:01)
[2018-02-21] MEDS ORDERED: ARTIFICIAL TEARS DROPS AFFEYE SCH (09:00)
[2018-02-21] MEDS ORDERED: FLONASE NASAL SPRAY ENOSTRIL SCH (09:00)
[2018-02-21] MEDS ORDERED: VOLTAREN 1 % GEL MULTI DOSE TUBE EXT SCH (09:00)
[2018-02-21] MEDS ORDERED: TIZANIDINE HCL 2 MG PO SCH (09:00)
[2018-02-21 12:10] LABS: CKMB % 2.1 % (<4); CREATINE KINASE 47 Units/L (26-192); CREATINE KINASE MB < 1.0 ng/mL (0-4.0); TROPONIN I < 0.02 ng/mL (0-1.5)
[2018-02-21] MEDS: XARELTO PO SCH (16:35)
[2018-02-21] MEDS ORDERED: ELDERTONIC + WINE PO SCH ×2 (17:00→20:00)
[2018-02-21] MEDS: CARDIZEM SR 60 MG PO SCH (18:22)
[2018-02-21] MEDS ORDERED: DUONEB 0.5 MG/3 MG ONE (20:17)
[2018-02-21] MEDS ORDERED: NEURONTIN CAP 100 MG PO SCH (21:00)
[2018-02-21] MEDS ORDERED: DEPAKOTE D.R. TAB PO SCH (21:00)
[2018-02-21] MEDS ORDERED: DESYREL PO SCH (21:00)
--- NOTE | 2018-02-21 22:05 | PCM.PROG ---
Progress Note - Progress Note for Day of Date: 02/21/18 - Subjective Subjective: WAS ADMITTED FOR HYPOTENSION, DIZZINESS, AND A HISTORY OF ANEMIA. TODAY, SHE IS ALERT AND ORIENTED, LYING IN BED ON MORNING ROUNDS. SHE CONTINUES WITH DIZZINESS AND IS NOTED WITH COMPLAINTS OF GENERALIZED WEAKNESS. HER VITALS ARE 97.3-73-18-94% RA-136/75. ABNORMAL LAB VALUES INCLUDE THE FOLLOWING: RBC 3.28, HGB 9.8, HCT 28.3, CHLORIDE 109, CREATININE 1.04, GLUCOSE 58, CALCIUM 7.2, MAGNESIUM 1.6, TOTAL PROTEIN 5.7, ALBUMIN 2.5. CARDIAC ENZYMES HAVE BEEN WITHIN NORMAL LIMITS. MOST RECENT EKG REVEALS SINUS RHYTHM WITH HR 70. TODAY, WE WILL CONTINUE WITH IV HYDRATION. WE WILL FOLLOW UP WITH AM LABS AND CONTINUE TO MONITOR PATIENT. - Past Medical Family Social History Past Med/Fam/Surg Hx: No changes since H&P Allergies: Allergies adhesive tape Allergy (Uncoded 08/31/16 18:05) - Review of Systems ROS: No change since H&P - Vital Signs and I&O's Vital Signs: Temperature 99.3 F Pulse Rate [Left] 75 Pulse Rate 64 Respiratory Rate 20 Blood Pressure [Left Arm] 137/70 Blood Pressure 75/46 O2 Sat by Pulse Oximetry 95 Intake and Output: Intake & Output 02/19/18 02/20/18 02/21/18 02/22/18 11:59 11:59 11:59 11:59 Intake Total 513 1980 Output Total 1100 Balance -587 1979 - Physical Exam Oriented: Normal Eyes: Normal Ear: Normal Nose: Normal Throat: Normal Respiratory: Normal Cardiovascular: Normal : Normal Auscultation: Bowel Sounds: Normal Palpation: Normal Tenderness: Normal Skin: Normal Musculoskeletal: Normal Psychiatric: Normal Mood Description: Calm Affect: Normal Speech Pattern: Appropriate - Laboratory and Diagnostics Result Diagrams: 02/21/18 06:15 02/21/18 06:15 Labs: Laboratory WBC 5.2 X10^3/uL (3.6-10.0) 02/21/18 06:15 RBC 3.28 X10^6/uL (3.5-5.4) L 02/21/18 06:15 Hgb 9.8 g/dL (12.0-16.0) L 02/21/18 06:15 Hct 28.3 % (36.0-47.0) L 02/21/18 06:15 MCV 86.3 fL (80.0-100.0) 02/21/18 06:15 MCH 30.0 pg (27.0-34.0) 02/21/18 06:15 MCHC 34.8 g/dL (33.0-35.0) 02/21/18 06:15 RDW 15.9 % (11.6-16.5) 02/21/18 06:15 Plt Count 198 X10^3/uL (150.0-450.0) 02/21/18 06:15 MPV 7.7 fL (7.4-11.0) 02/21/18 06:15 Neut % (Auto) 50.4 % (42.0-75.0) 02/21/18 06:15 Lymph % (Auto) 36.0 % (21.0-51.0) 02/21/18 06:15 [place] % (Auto) 10.2 % (0.0-13.0) 02/21/18 06:15 Eos % (Auto) 2.2 % (0.9-2.9) 02/21/18 06:15 Baso % (Auto) 1.2 % (0.2-1.0) H 02/21/18 06:15 Neut # (Auto) 2.6 x10^3/uL (2.2-4.8) 02/21/18 06:15 Lymph # (Auto) 1.9 X10^3/uL (1.3-2.9) 02/21/18 06:15 [place] # (Auto) 0.5 x10^3/uL (0.3-0.8) 02/21/18 06:15 Eos # (Auto) 0.1 x10^3/uL (0.0-0.2) 02/21/18 06:15 Baso # (Auto) 0.1 X10^3/uL (0.0-0.1) 02/21/18 06:15 Absolute Nucleated RBC 0.0 /100WBC 02/21/18 06:15 Sodium 143 mmol/L (136-145) 02/21/18 06:15 Corrected Sodium TNP 02/21/18 06:15 Potassium 4.0 mmol/L (3.5-5.1) 02/21/18 06:15 Chloride 109 mmol/L (98-107) H 02/21/18 06:15 Carbon Dioxide 25.1 mmol/L (21-32) 02/21/18 06:15 BUN 15 mg/dL (7-18) 02/21/18 06:15 Creatinine 1.04 mg/dL (0.55-1.02) H 02/21/18 06:15 Est GFR (MDRD) Af Amer > 60 (>60) 02/21/18 06:15 Est GFR (MDRD) Non-Af 55 (>60) L 02/21/18 06:15 Glucose 58 mg/dL (65-99) L 02/21/18 06:15 POC Glucose (mg/dL) 64 mg/dL (65-99) L 02/21/18 21:56 Calcium 7.2 mg/dL (8.5-10.1) L 02/21/18 06:15 Corrected Calcium 8.4 mg/dL (8.5-10.1) L 02/21/18 06:15 Magnesium 1.6 mg/dL (1.7-2.9) L 02/21/18 06:15 Total Bilirubin 0.40 mg/dL (0.2-1.0) 02/21/18 06:15 AST 32 Units/L (15-37) 02/21/18 06:15 ALT 22 Units/L (12-78) 02/21/18 06:15 Alkaline Phosphatase 59 Units/L (46-116) 02/21/18 06:15 Creatine Kinase 47 Units/L (26-192) 02/21/18 11:42 CK-MB (CK-2) < 1.0 ng/mL (0-4.0) 02/21/18 11:42 CK/CKMB % Calc 2.1 % (<4) 02/21/18 11:42 Troponin I < 0.02 ng/mL (0-1.5) 02/21/18 11:42 Total Protein 5.7 g/dL (6.4-8.2) L 02/21/18 06:15 Albumin 2.5 g/dL (3.4-5.0) L 02/21/18 06:15 Globulin 3.2 g/dL (2.5-4.5) 02/21/18 06:15 Albumin/Globulin Ratio 0.8 Ratio (1.1-2.1) L 02/21/18 06:15 Specimen Type Clean catch urine 02/21/18 00:52 Urine Color Yellow (YELLOW) 02/21/18 00:52 Urine Appearance Clear (CLEAR) 02/21/18 00:52 Urine pH 6.5 (5.0 - 8.0) 02/21/18 00:52 Ur Specific [place] 1.010 (1.000-1.030) 02/21/18 00:52 Urine Protein Negative (NEGATIVE) 02/21/18 00:52 Urine Glucose (UA) Negative (NEGATIVE) 02/21/18 00:52 Urine Ketones Negative (NEGATIVE) 02/21/18 00:52 Urine Occult Blood Negative (NEGATIVE) 02/21/18 00:52 Urine Nitrite Negative (NEGATIVE) 02/21/18 00:52 Urine Bilirubin Negative (NEGATIVE) 02/21/18 00:52 Urine Urobilinogen Normal (NORMAL) 02/21/18 00:52 Ur Leukocyte Esterase 1+ (NEGATIVE) 02/21/18 00:52 Urine RBC 0-2 /HPF (NONE SEEN) 02/21/18 00:52 Urine WBC 0-2 /HPF (NONE SEEN) 02/21/18 00:52 Ur Squamous Epith Cells Rare /HPF (NEGATIVE) 02/21/18 00:52 Urine Bacteria Negative /HPF (NEGATIVE) 02/21/18 00:52 Ur Culture Indicated? No/not indicated 02/21/18 00:52 Stool Description Fob 02/21/18 01:05 Stl Occult Blood (IFOB) Negative (NEGATIVE) 02/21/18 01:05 - Plan (1) Hypotension Status: Acute Qualifiers: Hypotension type: unspecified hypotension type Qualified Code(s): I95.9 - Hypotension, unspecified Plan: normal saline at 100ml/hr, continue to monitor NIBP (2) Dizziness Status: Acute Plan: meclizine 25mg po tid prn, continue to monitor
[2018-02-22] MEDS: NS 1000 ML 1,000 ML IV SCH (01:58)
[2018-02-22 06:00] LABS: BASOPHILS # (AUTO) 0.1 X10^3/uL (0.0-0.1); BASOPHILS % (AUTO) 1.2 % (0.2-1.0); EOSINOPHILS # (AUTO) 0.1 x10^3/uL (0.0-0.2); EOSINOPHILS % (AUTO) 2.5 % (0.9-2.9); HEMATOCRIT 32.2 % (36.0-47.0); HEMOGLOBIN 11.1 g/dL (12.0-16.0); LYMPHOCYTES # (AUTO) 1.8 X10^3/uL (1.3-2.9); MEAN CORPUSCULAR HEMOGLOBIN 29.7 pg (27.0-34.0); MEAN CORPUSCULAR HGB CONC 34.4 g/dL (33.0-35.0); MEAN CORPUSCULAR VOLUME 86.4 fL (80.0-100.0); MEAN PLATELET VOLUME 8.3 fL (7.4-11.0); MONOCYTES # (AUTO) 0.6 x10^3/uL (0.3-0.8); MONOCYTES % (AUTO) 11.3 % (0.0-13.0); PLATELET COUNT 183 X10^3/uL (150.0-450.0); RED BLOOD COUNT 3.72 X10^6/uL (3.5-5.4); RED CELL DISTRIBUTION WIDTH 15.9 % (11.6-16.5); WHITE BLOOD COUNT 5.7 X10^3/uL (3.6-10.0)
[2018-02-22 06:11] LABS: ALANINE AMINOTRANSFERASE 23 Units/L (12-78); ALBUMIN 2.5 g/dL (3.4-5.0); ALKALINE PHOSPHATASE 66 Units/L (46-116); ASPARTATE AMINO TRANSFERASE 42 Units/L (15-37); BLOOD UREA NITROGEN 8 mg/dL (7-18); CALCIUM 7.4 mg/dL (8.5-10.1); CARBON DIOXIDE 25.6 mmol/L (21-32); CHLORIDE 109 mmol/L (98-107); COR CA(FOR HYPOALB) 8.6 mg/dL (8.5-10.1); CREATININE 0.97 mg/dL (0.55-1.02); SODIUM 142 mmol/L (136-145); eGFR BLACK RACES > 60 (>60); eGFR NON BLACK RACES 60 (>60)
[2018-02-22] MEDS: CARDIZEM SR 60 MG PO SCH (09:24)
[2018-02-22] MEDS: ZANAFLEX PO SCH ×2 (09:24→09:25)
[2018-02-22] MEDS: OXYBUTYNIN CHLORIDE ER PO SCH (09:25)
[2018-02-22] MEDS: CELEXA PO SCH (09:25)
[2018-02-22] MEDS: XARELTO PO SCH (09:26)
[2018-02-22] MEDS: PROTONIX TAB 40 MG PO SCH (09:26)
[2018-02-22] MEDS: TAB-A-VITE PO SCH (09:26)
[2018-02-22] MEDS: XANAX PO PRN ×2 (11:19)
[2018-02-22 12:42] VITALS: BP 165/94
== END 2018-02-22 13:35 ==
LOC: ER 21:30 → OBS 23:55 → MED/SURG 02-21 13:20
PROVIDERS: ADMIT Internal Medicine; ATTEND Internal Medicine
DX: I95.9 Hypotension, unspecified (principal); R42 Dizziness and giddiness; D64.9 Anemia, unspecified; R94.31 Abnormal electrocardiogram [ECG] [EKG]
CPT/HCPCS: 36415; 71045; 80053; 81001; 82274; 82550; 82553; 83735; 84484; 85025; 93005; 94760; 96365; 96367; 99284; 99285; A4222; G0378; J7620

== ENCOUNTER 2018-06-12 13:29 | Inpatient (IN) ==
[2018-06-12 13:46] VITALS: BMI 20.1
--- NOTE | 2018-06-12 13:59 | DR.CP ---
HPI Time Seen Time Seen by Provider: 06/12/18 13:58 PCP Primary Care Physician: HELENE CROW HPI Comment HPI Comment: HERE FROM CUSTODIAL WITH CHEST PAIN. SHE ALSO HAVE ABDOMINAL PAIN AND STARTED VOMITING BEFORE COMING. Complaint Chief Complaint Doctor Comments: CHEST PAIN, ABDOMINAL PAIN, N/V NOTED TODAY. Chief Complaint:: PT TO ER WITH C/O CHEST PAIN STAFF STATES IT STARTED ABOUT 15 MIN AGO, AND PT HAS A APPT IN THE AM WITH [employer],, Self Treatment fo Chief Complaint: PT STATES " I WAS DRINKING WATER AND THEN I HURT IN MY CHEST AND I THREW UP 3 TIMES". Reviewed Nurses Notes Review: Yes Source History Provided: Patient Mode of Arrival Mode of Arrival: Stretcher Timing Onset of Chief Complaint: 06/12/18 Pain: Present Now Duration Duration: Constant Duration: Hours Location Chest Pain Radiation Location: None Context Onset: At rest Cardiac Risk Factors: HTN and Diabetes PE Risk Factors: Immobilization History of: None Prehospital Care: None Quality Quality: Sharp Severity Severity: Moderate Modifying Factors Worsens: Nothing Impoves: Nothing Associated Signs and Symptoms Associated Signs and Symptoms: None, Abdominal Pain and Nausea/Vomiting PMH PMH Past Medical History: Yes Past Medical History: Depression, Diabetes, Dyslipidemia, GERD and Hypertension Past Surgical History: No Surgical History: Unknown Family History History of Family Medical Conditions: No Social History Does patient currently use any type of tobacco product: No Have you used tobacco products in the last 12 months: No Type of Tobacco Use: None Does any household member use tobacco: No Alcohol Use: None Do you use any recreational Drugs:: No Lives With: Family Lives Where: Home infectious screening In the last 2 months have you had wt loss of >10#?: NO Have you had fever, night sweats or hemotysis?: No Have you traveled outside the country in the last 6 months?: No Isolation: Standard ROS Review of Systems Constitutional: Weakness and Fatigue Eyes: negative Eye Pain ENTM: Throat Pain Respiratoy: Non-Productive Cough and Short of Breath Cardiovascular: Chest Pain Gastrointestinal/Abdominal: Abdominal Pain, Nausea and Vomiting Genitourinary: No Symptoms Reported Neurological: Weakness Musculoskeletal: Back Pain Integumentary: No Symptoms Reported Hematologic/Lymphatic: Easy Bleeding and Easy Bruising Endocrine: No Symptoms Reported Psychiatric: No Symptoms Reported All Other Systems: Reviewed and Negative PE Vitals Vitals: Temperature 98.6 F Pulse Rate [Left Brachial] 99 Pulse Rate 89 Respiratory Rate 22 Blood Pressure [Left Arm] 112/62 Blood Pressure 116/72 O2 Sat by Pulse Oximetry 99 General Limitations: No Limitations General Appearance: Alert and In No Apparent Distress Head Head Exam: Normal Inspection Eyes Eye exam: Normal Appearance ENT ENT Exam: Normal Oropharynx, Normal External Ear Exam and TM's Normal Bilaterally Chest Chest Inspection: Normal Inspection Respiratory Respiratory Exam: Normal Lung Sounds Bilat Respiratory Exam: Bilateral: Rales and Lower: Rales Cardiovascular Cardiovascular Exam: Regular Rate, Normal Rhythm and Normal Heart Sounds Pulse: Normal, Radial and Femoral Edema: Normal Abdominal Exam Abdominal Exam: Normal Bowel Sounds, Soft and Tenderness Abdominal Tenderness: Diffuse and Moderate Extremities Extremities Exam: Normal Inspection Back Back Exam: Normal Inspection Neurologic Neurological Exam: Alert and Oriented X3 Psychiatric Psychiatric Exam: Normal Affect and Normal Mood Skin Skin Exam: Dry MDM Additional Information Additional Information Obtained From: Family Differential Diagnosis Differential Diagnosis: Angina, Chest Wall Pain, CHF, Costochondritis, Gastritis , Myocardial Infarction, Pericarditis, Pancreatitis, Pneumonia and Pneumothorax COURSE Treatment Treatment: SEE ORDERS. Consultation Consultation Comments: DISCUSS PATIENT WITH DR. ALEMAN. HE WILL ADMIT PATIENT. Education/Counseling Education/Counseling: Patient, Family and Education Educated On: Diagnosis ROR Labs Reviewed Laboratory Results Reviewed?: Yes Result Diagrams: 06/12/18 15:05 06/12/18 15:05 Laboratory: WBC 5.6 X10^3/uL (3.6-10.0) 06/12/18 15:05 RBC 3.89 X10^6/uL (3.5-5.4) 06/12/18 15:05 Hgb 11.5 g/dL (12.0-16.0) L 06/12/18 15:05 Hct 33.5 % (36.0-47.0) L 06/12/18 15:05 MCV 85.9 fL (80.0-100.0) 06/12/18 15:05 MCH 29.6 pg (27.0-34.0) 06/12/18 15:05 MCHC 34.4 g/dL (33.0-35.0) 06/12/18 15:05 RDW 14.1 % (11.6-16.5) 06/12/18 15:05 Plt Count 259 X10^3/uL (150.0-450.0) 06/12/18 15:05 MPV 7.7 fL (7.4-11.0) 06/12/18 15:05 Neut % (Auto) 54.2 % (42.0-75.0) 06/12/18 15:05 Lymph % (Auto) 30.9 % (21.0-51.0) 06/12/18 15:05 [place] % (Auto) 11.4 % (0.0-13.0) 06/12/18 15:05 Eos % (Auto) 2.6 % (0.9-2.9) 06/12/18 15:05 Baso % (Auto) 0.9 % (0.2-1.0) 06/12/18 15:05 Neut # (Auto) 3.0 x10^3/uL (2.2-4.8) 06/12/18 15:05 Lymph # (Auto) 1.7 X10^3/uL (1.3-2.9) 06/12/18 15:05 [place] # (Auto) 0.6 x10^3/uL (0.3-0.8) 06/12/18 15:05 Eos # (Auto) 0.1 x10^3/uL (0.0-0.2) 06/12/18 15:05 Baso # (Auto) 0.0 X10^3/uL (0.0-0.1) 06/12/18 15:05 Absolute Nucleated RBC 0.2 /100WBC 06/12/18 15:05 Sodium 128 mmol/L (136-145) L 06/12/18 15:05 Corrected Sodium TNP 06/12/18 15:05 Potassium 4.4 mmol/L (3.5-5.1) 06/12/18 15:05 Chloride 96 mmol/L (98-107) L 06/12/18 15:05 Carbon Dioxide 26.9 mmol/L (21-32) 06/12/18 15:05 BUN 11 mg/dL (7-18) 06/12/18 15:05 Creatinine 1.07 mg/dL (0.55-1.02) H 06/12/18 15:05 Est GFR (MDRD) Af Amer > 60 (>60) 06/12/18 15:05 Est GFR (MDRD) Non-Af 53 (>60) L 06/12/18 15:05 Glucose 85 mg/dL (65-99) 06/12/18 15:05 Calcium 8.6 mg/dL (8.5-10.1) 06/12/18 15:05 Corrected Calcium TNP 06/12/18 15:05 Total Bilirubin 0.40 mg/dL (0.2-1.0) 06/12/18 15:05 AST 17 Units/L (15-37) 06/12/18 15:05 ALT 17 Units/L (12-78) 06/12/18 15:05 Alkaline Phosphatase 63 Units/L (46-116) 06/12/18 15:05 Creatine Kinase 40 Units/L (26-192) 06/12/18 15:05 CK-MB (CK-2) < 1.0 ng/mL (0-4.0) 06/12/18 15:05 CK/CKMB % Calc 2.5 % (<4) 06/12/18 15:05 Troponin I < 0.02 ng/mL (0-1.5) 06/12/18 15:05 Total Protein 7.0 g/dL (6.4-8.2) 06/12/18 15:05 Albumin 3.4 g/dL (3.4-5.0) 06/12/18 15:05 Globulin 3.6 g/dL (2.5-4.5) 06/12/18 15:05 Albumin/Globulin Ratio 0.9 Ratio (1.1-2.1) L 06/12/18 15:05 Amylase 56 Units/L (25-115) 06/12/18 15:05 Lipase 119 Units/L (73-393) 06/12/18 15:05 XRAY XRAY Interpreted by: Radiologist XRAY Findings: REPORT DISCUSS WITH PATIENT AND HER SON-IN-LAW. Diagnosis Discharge Problem: Acute hyponatremia, Chest pain
[2018-06-12] MEDS ORDERED: ZOFRAN SYRUP 4 MG UDC PO ONE (14:36)
--- NOTE | 2018-06-12 15:10 | CT ---
CT OF THE ABDOMEN AND PELVIS WITHOUT CONTRAST HISTORY: Chest pain Comparison: None Technique: Multiple axial images of the abdomen and pelvis were obtained from the lung bases to the pubic symphy sis without the administration of IV contrast. Dose reduction techniques including Automated Exposur e Control (AEC) and adjustment of mA and kV were utlized. Findings: The heart is normal in size. Severe coronary artery disease. The esophagus is markedly dilated and de bris-filled. Bilateral tree-in-bud nodularity. The sensitivity for focal lesion detection within the solid abdominal viscera is diminished without t he use of IV contrast. Stomach is dilated, evidence of prior gastric surgery. Liver and spleen are normal in size, and conto ur. No focal lesions. No ductal dilitation. Gallbladder absent. The pancreas is unremarkable. Adrenal glands are normal. Kidneys are normal in contour without hydronephrosis or nephrolithiasis. No bowel obstruction or inflammation. Severe diverticulosis without focal inflammation No abnormal ap pearing mesenteric or retroperitoneal lymph nodes. No free fluid or fluid collections. The bladder is normal in appearance. Uterus not well seen. No free fluid or abnormal pelvic lymph nod es. No aggressive osseous lesions. IMPRESSION: 1. Dilated esophagus with large amount of internal debris as well as a dilated stomach. There appear s to be prior gastric surgery. Reported By:
[2018-06-12] MEDS ORDERED: ZOFRAN SYRUP 4 MG UDC ONE (15:13)
[2018-06-12 15:27] LABS: BASOPHILS % (AUTO) 0.9 % (0.2-1.0); EOSINOPHILS # (AUTO) 0.1 x10^3/uL (0.0-0.2); EOSINOPHILS % (AUTO) 2.6 % (0.9-2.9); HEMATOCRIT 33.5 % (36.0-47.0); HEMOGLOBIN 11.5 g/dL (12.0-16.0); LYMPHOCYTES # (AUTO) 1.7 X10^3/uL (1.3-2.9); LYMPHOCYTES % (AUTO) 30.9 % (21.0-51.0); MEAN CORPUSCULAR HEMOGLOBIN 29.6 pg (27.0-34.0); MEAN CORPUSCULAR HGB CONC 34.4 g/dL (33.0-35.0); MEAN CORPUSCULAR VOLUME 85.9 fL (80.0-100.0); MEAN PLATELET VOLUME 7.7 fL (7.4-11.0); MONOCYTES # (AUTO) 0.6 x10^3/uL (0.3-0.8); MONOCYTES % (AUTO) 11.4 % (0.0-13.0); NEUTROPHILS % (AUTO) 54.2 % (42.0-75.0); PLATELET COUNT 259 X10^3/uL (150.0-450.0); RED BLOOD COUNT 3.89 X10^6/uL (3.5-5.4); RED CELL DISTRIBUTION WIDTH 14.1 % (11.6-16.5); WHITE BLOOD COUNT 5.6 X10^3/uL (3.6-10.0)
[2018-06-12 15:44] LABS: ALANINE AMINOTRANSFERASE 17 Units/L (12-78); ALBUMIN 3.4 g/dL (3.4-5.0); ALKALINE PHOSPHATASE 63 Units/L (46-116); AMYLASE 56 Units/L (25-115); ASPARTATE AMINO TRANSFERASE 17 Units/L (15-37); BLOOD UREA NITROGEN 11 mg/dL (7-18); CALCIUM 8.6 mg/dL (8.5-10.1); CARBON DIOXIDE 26.9 mmol/L (21-32); CHLORIDE 96 mmol/L (98-107); CKMB % 2.5 % (<4); CREATINE KINASE 40 Units/L (26-192); CREATINE KINASE MB < 1.0 ng/mL (0-4.0); CREATININE 1.07 mg/dL (0.55-1.02); LIPASE 119 Units/L (73-393); SODIUM 128 mmol/L (136-145); TROPONIN I < 0.02 ng/mL (0-1.5); eGFR NON BLACK RACES 53 (>60)
[2018-06-12] MEDS ORDERED: NS 1000 ML 1,000 ML ONE (16:21)
[2018-06-12] MEDS: NS 1000 ML 1,000 ML IV SCH (16:35)
[2018-06-12] MEDS ORDERED: HumuLIN R SUBCUT PRN (17:56)
[2018-06-12] MEDS ORDERED: ZOFRAN INJ 4 MG VIAL IVP PRN (18:19)
[2018-06-12] MEDS ORDERED: NS 1000 ML 1,000 ML IV SCH (18:19)
[2018-06-12] MEDS ORDERED: PEPCID 20 MG IV PREMIX* 20 MG/50 ML BAG IV PRN (18:19)
[2018-06-12] MEDS ORDERED: NYSTATIN TOP PRN (18:19)
[2018-06-12] MEDS ORDERED: GENTAMICIN TOPICAL CRM TOP PRN (18:19)
[2018-06-12] MEDS ORDERED: ACETAMINOPHEN PO PRN (18:19)
[2018-06-12] MEDS ORDERED: NYSTATIN OINT TOP PRN (18:32)
[2018-06-12] MEDS ORDERED: TYLENOL 325 MG TAB PO PRN (18:35)
[2018-06-12] MEDS: XANAX PO SCH (19:27)
[2018-06-12] MEDS ORDERED: DIVALPROEX PO SCH (21:00)
[2018-06-12] MEDS: NEURONTIN CAP 100 MG PO SCH (21:17)
[2018-06-12] MEDS: DESYREL PO SCH (21:17)
[2018-06-12 21:18] LABS: CKMB % 2.8 % (<4); CREATINE KINASE 36 Units/L (26-192); CREATINE KINASE MB < 1.0 ng/mL (0-4.0); TROPONIN I < 0.02 ng/mL (0-1.5)
[2018-06-12] MEDS: DEPAKOTE D.R. TAB PO SCH (21:18)
[2018-06-12] MEDS ORDERED: COLACE CAP 100 MG PO PRN (21:43)
[2018-06-13] MEDS: NS 1000 ML 1,000 ML IV SCH ×2 (01:24→08:47)
[2018-06-13 03:38] LABS: BASOPHILS % (AUTO) 0.9 % (0.2-1.0); EOSINOPHILS # (AUTO) 0.1 x10^3/uL (0.0-0.2); EOSINOPHILS % (AUTO) 2.2 % (0.9-2.9); HEMATOCRIT 26.7 % (36.0-47.0); HEMOGLOBIN 9.1 g/dL (12.0-16.0); LYMPHOCYTES % (AUTO) 39.1 % (21.0-51.0); MEAN CORPUSCULAR HEMOGLOBIN 29.6 pg (27.0-34.0); MEAN CORPUSCULAR HGB CONC 34.2 g/dL (33.0-35.0); MEAN CORPUSCULAR VOLUME 86.5 fL (80.0-100.0); MEAN PLATELET VOLUME 7.8 fL (7.4-11.0); MONOCYTES # (AUTO) 0.6 x10^3/uL (0.3-0.8); MONOCYTES % (AUTO) 11.9 % (0.0-13.0); NEUTROPHILS # (AUTO) 2.4 x10^3/uL (2.2-4.8); NEUTROPHILS % (AUTO) 45.9 % (42.0-75.0); PLATELET COUNT 220 X10^3/uL (150.0-450.0); RED BLOOD COUNT 3.08 X10^6/uL (3.5-5.4); RED CELL DISTRIBUTION WIDTH 14.1 % (11.6-16.5); WHITE BLOOD COUNT 5.2 X10^3/uL (3.6-10.0)
[2018-06-13] MEDS: XANAX PO SCH ×3 (03:45→19:17)
[2018-06-13 03:55] LABS: ALANINE AMINOTRANSFERASE 12 Units/L (12-78); ALBUMIN 2.7 g/dL (3.4-5.0); ALKALINE PHOSPHATASE 49 Units/L (46-116); ASPARTATE AMINO TRANSFERASE 16 Units/L (15-37); BLOOD UREA NITROGEN 9 mg/dL (7-18); CALCIUM 7.8 mg/dL (8.5-10.1); CHLORIDE 103 mmol/L (98-107); CHOL/HDL RATIO 2.1 (0.0-5.0); CHOLESTEROL 99 mg/dL (0-200); CKMB % 2.9 % (<4); COR CA(FOR HYPOALB) 8.8 mg/dL (8.5-10.1); CREATINE KINASE 34 Units/L (26-192); CREATINE KINASE MB < 1.0 ng/mL (0-4.0); CREATININE 1.04 mg/dL (0.55-1.02); HDL CHOLESTEROL 48 mg/dL (40-60); MAGNESIUM 1.9 mg/dL (1.7-2.9); SODIUM 133 mmol/L (136-145); TOTAL PROTEIN 5.6 g/dL (6.4-8.2); TRIGLYCERIDES 31 mg/dL (0-150); TROPONIN I < 0.02 ng/mL (0-1.5); eGFR NON BLACK RACES 55 (>60)
[2018-06-13] MEDS: NEURONTIN CAP 100 MG PO SCH ×3 (05:25→21:20)
[2018-06-13] MEDS: REGLAN TAB 10 MG PO SCH ×3 (06:37→16:37)
[2018-06-13] MEDS: XARELTO PO SCH (08:46)
[2018-06-13] MEDS: DITROPAN TAB 5 MG PO SCH (08:46)
--- NOTE | 2018-06-13 11:32 | DR.H&P ---
H&P - History & Physical for Day of: H&P Date: 06/12/18 - Chief Complaint Chief Complaint: CHEST PAIN - History of Present Illness History of Present Illness: IS A 72 YEAR OLD PATIENT OF OURS WHO PRESENTED TO THE EMERGENCY ROOM WITH COMPLAINTS OF CHEST PAIN. SHE REPORTED THAT SYMPTOMS STARTED APPROXIMATELY 15 MINUTES PRIOR TO ARRIVAL. ASSOCIATED SYMPTOMS INCLUDE NAUSEA, VOMITING, ABDOMINAL PAIN, WEAKNESS, FATIGUE, AND A NON- PRODUCTIVE COUGH. CHEST PAIN IS DESCRIBED SHARP AND CONSTANT. DETENTION STAFF REPORTS THAT PATIENT HAS NOT HAD A BOWEL MOVMEMENT SINCE 06/08/18. ON ARRIVAL, VITALS WERE 98.6-89-20-98%-116/72. LABS WERE OBTAINED. ABNORMAL LAB VALUES INCLUDE THE FOLLOWING: HGB 11.5, HCT 33.5, SODIUM 128, CHLORIDE 96, CREATININE 1.07. CARDIAC ENZYMES WITHIN NORMAL LIMITS. ABDOMEN/PELVIS CT OBTAINED AND REVEALED: Dilated esophagus with large amount of internal debris as well as a dilated stomach. There appears to be prior gastric surgery. EKG REVEALED: SINUS RHYTHM WITH HR 75. SHE WAS STARTED ON NORMAL SALINE AT 125ML/HR AND ADMITTED TO THE HOSPITAL FOR FURTHER EVALUATION AND TREATMENT OF HYPONATREMIA AND CHEST PAIN. WE WILL OBTAIN SERIAL CARDIAC ENZYMES AND EKGS AND CONTINUE TO MONITOR PATIENT. - Past Medical History Past Medical History: Hypertension, Dyslipidemia, Diabetes, Depression, GERD - Past Surgical History Surgical History: Unknown - Family History Family Medical History: Diabetes Mellitus, Hypertension - Social History Does patient currently use any type of tobacco product: No Have you used tobacco products in the last 12 months: No Type of Tobacco Use: None Does any household member use tobacco: No Alcohol Use: None Drug Use: None - Medications Home Medications: adhesive tape Allergy (Verified 06/12/18 18:12) adhesive tape Allergy (Uncoded 08/31/16 18:05) CONTINUE taking the following medications acetaminophen [Tylenol] 2 tab PO Q4H PRN 06/12/18 [History] alprazolam [Xanax] 1 tab PO Q8H 06/12/18 [History] dexlansoprazole [Dexilant] 1 tab PO DAILY 06/12/18 [History] diclofenac sodium [Voltaren] 1 tube TOPICAL PRN PRN 06/12/18 [History] divalproex [Depakote] 1 tab PO HS 06/12/18 [History] ferrous fumarate [Hemocyte] 106 mg PO DAILY 06/12/18 [History] gabapentin [Neurontin] 1 tab PO TID 06/12/18 [History] gentamicin 1 % TOPICAL PRN PRN 06/12/18 [History] megestrol 1 tab PO BID 06/12/18 [History] melatonin 1 tab PO HS 06/12/18 [History] metoclopramide HCl [Reglan] 1 tab PO AC 06/12/18 [History] multivitamin 1 tab PO DAILY 06/12/18 [History] nystatin 1 % PRN PRN 06/12/18 [History] ondansetron HCl [Zofran] 1 tab PO Q8H PRN 06/12/18 [History] oxybutynin chloride 1 tab PO DAILY 06/12/18 [History] ranitidine HCl [Zantac] 1 tab PO HS 06/12/18 [History] rivaroxaban [Xarelto] 1 tab PO DAILY 06/12/18 [History] simethicone 2 tab PO Q8H PRN 06/12/18 [History] tizanidine [Zanaflex] 1 tab PO HS 06/12/18 [History] tramadol [Ultram] 1 tab PO Q6H 06/12/18 [History] trazodone 1 tab PO HS 06/12/18 [History] - Review of Systems Constitutional: Weakness, Malaise Eyes: No Symptoms Reported ENT: Throat Pain Respiratory: Cough, Shortness of Breath Cardiovascular: Chest Pain Gastrointestinal: Nausea, Vomiting, Abdominal Pain, Constipation Genitourinary: No Symptoms Reported Musculoskeletal: Back Pain Skin: No Symptoms Reported Neurological: Weakness - Physical Exam Vital Signs: Temperature 97.7 F Pulse Rate [Left Brachial] 72 Pulse Rate 89 Respiratory Rate 18 Blood Pressure [Left Arm] 108/56 Blood Pressure [Left Arm] 165/94 Blood Pressure 116/72 O2 Sat by Pulse Oximetry 96 Oriented: Normal Eyes: Normal Ear: Normal Nose: Normal Throat: Normal Respiratory: Diminished Throughout Cardiovascular: Normal. negative: S3, S4, Murmur : Normal Auscultation: Bowel Sounds: Normal Palpation: Normal Tenderness: Diffuse, Moderate. negative: Rebound, Guarding, Rigidity Skin: Normal Musculoskeletal: Normal Psychiatric: Normal Mood Description: Calm Affect: Normal Speech Pattern: Clear - Assessment/Plan (1) Acute hyponatremia Status: Acute Plan: ADMIT, NORMAL SALINE AT 125ML/HR, CONTINUE TO MONITOR (2) Chest pain Qualifiers: Chest pain type: precordial pain Qualified Code(s): R07.2 - Precordial pain Status: Acute Plan: SERIAL CARDIAC ENZYMES AND EKG, SUPPLEMENTAL OXYGEN, CONTINUE TO MONITOR - Allergies Allergies/Adverse Reactions: Allergies Allergy/AdvReac Type Severity Reaction Status Date / Time adhesive tape Allergy Verified 06/12/18 18:12 adhesive tape Allergy Uncoded 08/31/16 18:05
[2018-06-13] MEDS ORDERED: GLUTOSE 15 GEL ORAL PO PRN (11:35)
[2018-06-13] MEDS: D5W 1000 ML IV 1,000 ML IV SCH (13:55)
[2018-06-13] MEDS ORDERED: VALIUM INJ IVP PRN (17:45)
[2018-06-13] MEDS: ATIVAN INJ 2 MG VIAL IVP PRN (18:29)
--- NOTE | 2018-06-13 18:43 | DR.CONSULT ---
Consult - Consultation for Day of: Date: 06/13/18 - Chief Complaint Chief Complaint: Patient referred for retained food in esophagus. Patient wiht complaints of dysphagia, nausea, vomiting and upper abdominal pain. - History of Present Illness History of Present Illness: Patient is a 72yo female who was referred for retained food in esophagus. Patient with complaints of dysphagia, nausea, vomiting and upper abdominal pain. she has not been able to keep anything down without vomiting since admission. Patient has a history of gastric bypass surgery. Last EGD was 09/21/2017 which showed distal esophageal ulcer, retained food material and esophageal stricture. Abdomen and pelvis CT showed Dilated esophagus with large amount of internal debris as well as a dilated stomach. There appears to be prior gastric surgery. Patient noted to have epigastric and LUQ tenderness. - Past Medical History Past Medical History: Hypertension, Dyslipidemia, Diabetes, Depression, GERD - Past Surgical History Surgical History: Unknown Additional Surgical History: gastric bypass - Family History Family Medical History: Diabetes Mellitus, Hypertension - Social History Does patient currently use any type of tobacco product: No Have you used tobacco products in the last 12 months: No Type of Tobacco Use: None Does any household member use tobacco: No Alcohol Use: None Drug Use: None - Medications Home Medications: adhesive tape Allergy (Verified 06/12/18 18:12) adhesive tape Allergy (Uncoded 08/31/16 18:05) CONTINUE taking the following medications acetaminophen [Tylenol] 2 tab PO Q4H PRN 06/12/18 [History] alprazolam [Xanax] 1 tab PO Q8H 06/12/18 [History] dexlansoprazole [Dexilant] 1 tab PO DAILY 06/12/18 [History] diclofenac sodium [Voltaren] 1 tube TOPICAL PRN PRN 06/12/18 [History] divalproex [Depakote] 1 tab PO HS 06/12/18 [History] ferrous fumarate [Hemocyte] 106 mg PO DAILY 06/12/18 [History] gabapentin [Neurontin] 1 tab PO TID 06/12/18 [History] gentamicin 1 % TOPICAL PRN PRN 06/12/18 [History] megestrol 1 tab PO BID 06/12/18 [History] melatonin 1 tab PO HS 06/12/18 [History] metoclopramide HCl [Reglan] 1 tab PO AC 08/28/18 [History] multivitamin 1 tab PO DAILY 06/12/18 [History] nystatin 1 % PRN PRN 06/12/18 [History] ondansetron HCl [Zofran] 1 tab PO Q8H PRN 06/12/18 [History] oxybutynin chloride 1 tab PO DAILY 06/12/18 [History] ranitidine HCl [Zantac] 1 tab PO HS 06/12/18 [History] rivaroxaban [Xarelto] 1 tab PO DAILY 06/12/18 [History] simethicone 2 tab PO Q8H PRN 06/12/18 [History] tizanidine [Zanaflex] 1 tab PO HS 06/12/18 [History] tramadol [Ultram] 1 tab PO Q6H 06/12/18 [History] trazodone 1 tab PO HS 06/12/18 [History] - Review of Systems Gastrointestinal: Nausea, Vomiting, Abdominal Pain (upper abdomen), Other ( dysphagia). denies: Diarrhea, Constipation, Melena, Hematochezia - Physical Exam Vital Signs: Temperature 98.6 F Pulse Rate [Left Brachial] 73 Pulse Rate 89 Respiratory Rate 18 Blood Pressure [Left Arm] 114/62 Blood Pressure [Left Arm] 165/94 Blood Pressure 116/72 O2 Sat by Pulse Oximetry 97 Oriented: Normal Eyes: Normal Ear: Normal Nose: Normal Throat: Normal Respiratory: Clear Throughout Cardiovascular: Normal Auscultation: Bowel Sounds: Normal Palpation: Normal. negative: Spleen Enlarged, Liver Enlarged, Mass Pulsatile Tenderness: LUQ, Epigastric Skin: Normal Musculoskeletal: Normal Psychiatric: Normal Mood Description: Calm Affect: Normal Speech Pattern: Clear - Plan Plan: Assessment. 1. Dysphagia r/o esophageal stricture, retained food in esophagus. 2.Nausea, vomiting, epigastric pain r/o gastric ulcer. Plan. 1. EGD in am. 2. Protonix IV and Zofran IV. Plan reviewed with Dr. Islas - Allergies Allergies/Adverse Reactions: Allergies Allergy/AdvReac Type Severity Reaction Status Date / Time adhesive tape Allergy Verified 06/12/18 18:12 adhesive tape Allergy Uncoded 08/31/16 18:05
[2018-06-13] MEDS: DEPAKOTE D.R. TAB PO SCH (21:01)
[2018-06-13] MEDS: DESYREL PO SCH (21:01)
[2018-06-13] MEDS: SNACK - Diabetic Appropriate PO SCH (21:01)
[2018-06-13] MEDS ORDERED: D50W ABBOJECT SYR ONE (23:37)
[2018-06-13] MEDS ORDERED: D50W ABBOJECT SYR IV ONE (23:37)
[2018-06-14] MEDS: XANAX PO SCH ×4 (02:53→21:12)
[2018-06-14] MEDS: D5W 1000 ML IV 1,000 ML IV SCH ×2 (05:17→21:18)
[2018-06-14] MEDS: NEURONTIN CAP 100 MG PO SCH ×3 (05:17→21:11)
[2018-06-14 05:23] LABS: BASOPHILS % (AUTO) 0.6 % (0.2-1.0); EOSINOPHILS # (AUTO) 0.1 x10^3/uL (0.0-0.2); HEMATOCRIT 29.9 % (36.0-47.0); HEMOGLOBIN 10.1 g/dL (12.0-16.0); LYMPHOCYTES # (AUTO) 1.3 X10^3/uL (1.3-2.9); MEAN CORPUSCULAR HEMOGLOBIN 29.1 pg (27.0-34.0); MEAN CORPUSCULAR HGB CONC 33.7 g/dL (33.0-35.0); MEAN CORPUSCULAR VOLUME 86.3 fL (80.0-100.0); MEAN PLATELET VOLUME 7.5 fL (7.4-11.0); MONOCYTES # (AUTO) 0.6 x10^3/uL (0.3-0.8); MONOCYTES % (AUTO) 10.6 % (0.0-13.0); NEUTROPHILS # (AUTO) 3.8 x10^3/uL (2.2-4.8); NEUTROPHILS % (AUTO) 65.8 % (42.0-75.0); PLATELET COUNT 252 X10^3/uL (150.0-450.0); RED BLOOD COUNT 3.46 X10^6/uL (3.5-5.4); WHITE BLOOD COUNT 5.8 X10^3/uL (3.6-10.0)
[2018-06-14 05:32] LABS: ALANINE AMINOTRANSFERASE 14 Units/L (12-78); ALBUMIN 2.9 g/dL (3.4-5.0); ALKALINE PHOSPHATASE 57 Units/L (46-116); ASPARTATE AMINO TRANSFERASE 16 Units/L (15-37); BLOOD UREA NITROGEN 6 mg/dL (7-18); CALCIUM 8.3 mg/dL (8.5-10.1); CARBON DIOXIDE 24.7 mmol/L (21-32); CHLORIDE 102 mmol/L (98-107); COR CA(FOR HYPOALB) 9.2 mg/dL (8.5-10.1); CREATININE 0.92 mg/dL (0.55-1.02); SODIUM 132 mmol/L (136-145); TOTAL PROTEIN 6.2 g/dL (6.4-8.2); eGFR NON BLACK RACES > 60 (>60)
[2018-06-14] MEDS: REGLAN TAB 10 MG PO SCH ×2 (05:42→12:33)
[2018-06-14] MEDS: ATIVAN INJ 2 MG VIAL IVP PRN (08:05)
[2018-06-14] MEDS: XARELTO PO SCH (08:36)
[2018-06-14] MEDS: DITROPAN TAB 5 MG PO SCH (08:36)
[2018-06-14] MEDS ORDERED: DIPRIVAN VIAL 20 ML ONE ×2 (10:31→11:59)
[2018-06-14] MEDS ORDERED: MILK OF MAGNESIA PO SCH (21:00)
[2018-06-14] MEDS: DEPAKOTE D.R. TAB PO SCH (21:11)
[2018-06-14] MEDS: DESYREL PO SCH (21:12)
[2018-06-14] MEDS: PROTONIX INJ 40 MG VIAL IVP SCH (21:12)
[2018-06-14] MEDS: SNACK - Diabetic Appropriate PO SCH (21:18)
[2018-06-15] MEDS: XANAX PO SCH ×2 (02:33→11:36)
[2018-06-15] MEDS: D5W 1000 ML IV 1,000 ML IV SCH (05:07)
[2018-06-15 05:19] LABS: BASOPHILS % (AUTO) 0.9 % (0.2-1.0); EOSINOPHILS # (AUTO) 0.1 x10^3/uL (0.0-0.2); EOSINOPHILS % (AUTO) 2.7 % (0.9-2.9); HEMATOCRIT 29.9 % (36.0-47.0); HEMOGLOBIN 10.3 g/dL (12.0-16.0); LYMPHOCYTES # (AUTO) 2.3 X10^3/uL (1.3-2.9); LYMPHOCYTES % (AUTO) 41.4 % (21.0-51.0); MEAN CORPUSCULAR HEMOGLOBIN 29.4 pg (27.0-34.0); MEAN CORPUSCULAR HGB CONC 34.4 g/dL (33.0-35.0); MEAN CORPUSCULAR VOLUME 85.4 fL (80.0-100.0); MEAN PLATELET VOLUME 7.7 fL (7.4-11.0); MONOCYTES # (AUTO) 0.7 x10^3/uL (0.3-0.8); MONOCYTES % (AUTO) 12.6 % (0.0-13.0); NEUTROPHILS # (AUTO) 2.3 x10^3/uL (2.2-4.8); NEUTROPHILS % (AUTO) 42.4 % (42.0-75.0); PLATELET COUNT 250 X10^3/uL (150.0-450.0); RED CELL DISTRIBUTION WIDTH 14.1 % (11.6-16.5); WHITE BLOOD COUNT 5.5 X10^3/uL (3.6-10.0)
[2018-06-15] MEDS: REGLAN TAB 10 MG PO SCH ×3 (05:30→11:37)
[2018-06-15] MEDS: NEURONTIN CAP 100 MG PO SCH (05:31)
[2018-06-15 05:34] LABS: ALANINE AMINOTRANSFERASE 14 Units/L (12-78); ALBUMIN 2.9 g/dL (3.4-5.0); ALKALINE PHOSPHATASE 56 Units/L (46-116); ASPARTATE AMINO TRANSFERASE 17 Units/L (15-37); BLOOD UREA NITROGEN 3 mg/dL (7-18); CALCIUM 8.3 mg/dL (8.5-10.1); CARBON DIOXIDE 23.5 mmol/L (21-32); CHLORIDE 99 mmol/L (98-107); COR CA(FOR HYPOALB) 9.2 mg/dL (8.5-10.1); CREATININE 0.86 mg/dL (0.55-1.02); SODIUM 131 mmol/L (136-145); eGFR NON BLACK RACES > 60 (>60)
[2018-06-15] MEDS: DITROPAN TAB 5 MG PO SCH (08:49)
[2018-06-15] MEDS: PROTONIX INJ 40 MG VIAL IVP SCH (08:50)
[2018-06-15] MEDS: XARELTO PO SCH (08:50)
--- NOTE | 2018-06-15 10:54 | CT ---
HEAD CT WITHOUT IV CONTRAST CLINICAL INDICATION: Altered mental status and weakness TECHNIQUE: Axial CT images from skull base to vertex without IV contrast.Dose reduction techniques in cluding Automated Exposure Control (AEC) and adjustment of mA and kV were utlized. COMPARISON: 09/30/2017 FINDINGS: There is no abnormal brain parenchymal density. There is no evidence of acute infarction, intracrani al hemorrhage, mass or mass effect, or abnormal extra-axial collection. The density of the larger dur al venous sinuses is normal. The ventricles are normal in size, shape and position. The skull base an d calvarium are normal. 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 IMPRESSION: 1. No acute intracranial abnormality. 2. Chronic left maxillary sinusitis. Reported By:
[2018-06-15 12:07] VITALS: BP 91/64
== END 2018-06-15 12:30 | DRG 641 ==
LOC: ER 13:29 → MED/SURG 17:36 → MERGE 17:36 → MED/SURG 17:59
PROVIDERS: ADMIT Internal Medicine; ATTEND Internal Medicine
DX: F32.89 Other specified depressive episodes; R06.02 Shortness of breath; R07.2 Precordial pain; E87.6 Hypokalemia; Z98.84 Bariatric surgery status; E11.65 Type 2 diabetes mellitus with hyperglycemia; K22.8 Other specified diseases of esophagus; K22.70 Barrett's esophagus without dysplasia; R10.84 Generalized abdominal pain; R93.3 Abnormal findings on diagnostic imaging of other parts of digestive tract; R11.2 Nausea with vomiting, unspecified; I10 Essential (primary) hypertension; E78.2 Mixed hyperlipidemia; K21.9 Gastro-esophageal reflux disease without esophagitis; R26.89 Other abnormalities of gait and mobility; R13.11 Dysphagia, oral phase
CPT/HCPCS: 36415; 70450; 74176; 80053; 80061; 82150; 82550; 82553; 82947; 83690; 83735; 84484; 85025; 86677; 88305; 93005; 94760; 96365; 96367; 97163; 97167; 97535; 99100; 99283; 99284; A4216; A4222; C9113; A4217; J1815; J2060; J2704; J3490; J7030; J7060; Q0162

== ENCOUNTER 2018-06-20 13:50 | Observation (INO) ==
[2018-06-20 14:28] LABS: BASOPHILS % (AUTO) 0.7 % (0.2-1.0); EOSINOPHILS % (AUTO) 0.6 % (0.9-2.9); HEMATOCRIT 31.1 % (36.0-47.0); HEMOGLOBIN 10.6 g/dL (12.0-16.0); LYMPHOCYTES # (AUTO) 1.2 X10^3/uL (1.3-2.9); LYMPHOCYTES % (AUTO) 20.9 % (21.0-51.0); MEAN CORPUSCULAR HEMOGLOBIN 29.4 pg (27.0-34.0); MEAN CORPUSCULAR HGB CONC 34.2 g/dL (33.0-35.0); MEAN CORPUSCULAR VOLUME 85.9 fL (80.0-100.0); MEAN PLATELET VOLUME 7.9 fL (7.4-11.0); MONOCYTES # (AUTO) 0.6 x10^3/uL (0.3-0.8); MONOCYTES % (AUTO) 10.8 % (0.0-13.0); NEUTROPHILS # (AUTO) 3.8 x10^3/uL (2.2-4.8); PLATELET COUNT 238 X10^3/uL (150.0-450.0); RED BLOOD COUNT 3.62 X10^6/uL (3.5-5.4); RED CELL DISTRIBUTION WIDTH 13.8 % (11.6-16.5); WHITE BLOOD COUNT 5.7 X10^3/uL (3.6-10.0)
[2018-06-20 14:29] VITALS: BMI 28.3
[2018-06-20] MEDS ORDERED: NS 1000 ML 1,000 ML ONE (14:47)
[2018-06-20 14:51] LABS: CALCIUM 8.5 mg/dL (8.5-10.1); CARBON DIOXIDE 24.3 mmol/L (21-32); COR CA(FOR HYPOALB) 9.3 mg/dL (8.5-10.1); CREATININE 1.21 mg/dL (0.55-1.02); TOTAL PROTEIN 6.4 g/dL (6.4-8.2); TSH (3RD GENERATION) 3.019 uIU/mL (0.358-3.74)
[2018-06-20] MEDS: NS 1000 ML 1,000 ML IV SCH ×2 (14:56→22:53)
--- NOTE | 2018-06-20 15:25 | DR.GENAD ---
HPI Time Seen Time Seen by Provider: 06/20/18 14:11 PCP Primary Care Physician: HELENE CROW Complaint/Symptoms Chief Complaint Doctors Comments: Patient to be evaluated from the senior care secondary to low blood pressure. Chief Complaint:: [facility] STAFF STATES " PT'S VS WERE 80/50 B/P AND HER HR IS 127- 150'S ".. AND PT IS NOT C/O OF PAIN AND THAT WANTS HIME TO BE EVALUATED .,,,,,,, PT DID NOT GET BP MEDS THIS AM AND SHE HAS A HX AFIB,,BR Source History Provided: Patient and [facility] Mode of Arrival Mode of Arrival: Stretcher Timing Onset of Chief Complaint: 06/20/18 PMH PMH Past Medical History: Yes Past Medical History: Anxiety, Arthritis, Depression, Diabetes, Dyslipidemia, Migraines, GERD and Hypertension Past Medical History Comment: AFIB Past Surgical History: Yes Surgical History: Unknown, Cholecystectomy, [employer] Surgery, Ortho Surgery and Weight Loss Surgery Family History History of Family Medical Conditions: Yes Family Medical History: Diabetes Mellitus, [place], Coronary Artery Disease, Heart Failure and Hypertension Social History Does patient currently use any type of tobacco product: No Have you used tobacco products in the last 12 months: No Type of Tobacco Use: None Does any household member use tobacco: No Alcohol Use: None and Rarely Do you use any recreational Drugs:: No Lives With: Family Lives Where: Home infectious screening In the last 2 months have you had wt loss of >10#?: NO Have you had fever, night sweats or hemotysis?: No Have you traveled outside the country in the last 6 months?: No Isolation: Standard PE Vital Signs Vitals: Temperature 98.7 F Pulse Rate [Left Brachial] 130 Pulse Rate 140 Respiratory Rate 16 Blood Pressure [Left Arm] 92/53 Blood Pressure [Left Arm] 165/94 Blood Pressure 85/61 O2 Sat by Pulse Oximetry 99 General Limitations: No Limitations; negative Altered Mental Status General Appearance: Alert and In No Apparent Distress Head Head Exam: Normal Inspection, Atraumatic and Normocephalic Eyes Eye exam: Normal Appearance, PERRL and EOMI ENT ENT Exam: Normal Exam, Normal Oropharynx, Normal External Ear Exam and Other External Ear Exam: Normal External Inspection TM/Canal Exam: Bilateral: Normal Nose Exam: Normal Nose Exam Mouth Exam: Normal Inspection Neck Neck Exam: Normal Inspection and Full ROM Chest Chest Inspection: Normal Inspection and Symmetric Chest Wall Rise Respiratory Respiratory Exam: Normal Lung Sounds Bilat Respiratory Exam: Bilateral: Clear to Auscultation Cardiovascular Cardiovascular Exam: Regular Rate and Normal Rhythm Abdominal Exam Abdominal Tenderness: negative RUQ, RLQ and LUQ Extremities Extremities Exam: Normal Inspection Neurologic Neurological Exam: Alert, Oriented X3 and CN II-XII Intact Psychiatric Psychiatric Exam: Normal Affect and Normal Mood Skin Skin Exam: Warm, Dry and Intact; negative Mottled COURSE Consultation Called: 15:10 Call Returned: 15:25 Consultation Comments: Dr. Hartman agreed to admit for IVF hydration of NS @75ml/ hr ROR Labs Reviewed Result Diagrams: 06/20/18 14:21 06/20/18 14:21 Laboratory: WBC 5.7 X10^3/uL (3.6-10.0) 06/20/18 14:21 RBC 3.62 X10^6/uL (3.5-5.4) 06/20/18 14:21 Hgb 10.6 g/dL (12.0-16.0) L 06/20/18 14:21 Hct 31.1 % (36.0-47.0) L 06/20/18 14:21 MCV 85.9 fL (80.0-100.0) 06/20/18 14:21 MCH 29.4 pg (27.0-34.0) 06/20/18 14:21 MCHC 34.2 g/dL (33.0-35.0) 06/20/18 14:21 RDW 13.8 % (11.6-16.5) 06/20/18 14:21 Plt Count 238 X10^3/uL (150.0-450.0) 06/20/18 14:21 MPV 7.9 fL (7.4-11.0) 06/20/18 14:21 Neut % (Auto) 67.0 % (42.0-75.0) 06/20/18 14:21 Lymph % (Auto) 20.9 % (21.0-51.0) L 06/20/18 14:21 [place] % (Auto) 10.8 % (0.0-13.0) 06/20/18 14:21 Eos % (Auto) 0.6 % (0.9-2.9) L 06/20/18 14:21 Baso % (Auto) 0.7 % (0.2-1.0) 06/20/18 14:21 Neut # (Auto) 3.8 x10^3/uL (2.2-4.8) 06/20/18 14:21 Lymph # (Auto) 1.2 X10^3/uL (1.3-2.9) L 06/20/18 14:21 [place] # (Auto) 0.6 x10^3/uL (0.3-0.8) 06/20/18 14:21 Eos # (Auto) 0.0 x10^3/uL (0.0-0.2) 06/20/18 14:21 Baso # (Auto) 0.0 X10^3/uL (0.0-0.1) 06/20/18 14:21 Absolute Nucleated RBC 0.1 /100WBC 06/20/18 14:21 Sodium 126 mmol/L (136-145) L 06/20/18 14:21 Corrected Sodium 128 mmol/L (136-145) L 06/20/18 14:21 Potassium 4.7 mmol/L (3.5-5.1) 06/20/18 14:21 Chloride 94 mmol/L (98-107) L 06/20/18 14:21 Carbon Dioxide 24.3 mmol/L (21-32) 06/20/18 14:21 BUN 20 mg/dL (7-18) H 06/20/18 14:21 Creatinine 1.21 mg/dL (0.55-1.02) H 06/20/18 14:21 Est GFR (MDRD) Af Amer 56 (>60) L 06/20/18 14:21 Est GFR (MDRD) Non-Af 46 (>60) L 06/20/18 14:21 Glucose 170 mg/dL (65-99) H 06/20/18 14:21 Calcium 8.5 mg/dL (8.5-10.1) 06/20/18 14:21 Corrected Calcium 9.3 mg/dL (8.5-10.1) 06/20/18 14:21 Total Bilirubin 0.40 mg/dL (0.2-1.0) 06/20/18 14:21 AST 17 Units/L (15-37) 06/20/18 14:21 ALT 15 Units/L (12-78) 06/20/18 14:21 Alkaline Phosphatase 73 Units/L (46-116) 06/20/18 14:21 Total Protein 6.4 g/dL (6.4-8.2) 06/20/18 14:21 Albumin 3.0 g/dL (3.4-5.0) L 06/20/18 14:21 Globulin 3.4 g/dL (2.5-4.5) 06/20/18 14:21 Albumin/Globulin Ratio 0.9 Ratio (1.1-2.1) L 06/20/18 14:21 TSH 3rd Generation 3.019 uIU/mL (0.358-3.74) 06/20/18 14:21 ADDITIONAL NOTES Additional Notes Additional Notes: Patient admitted for hydration
--- NOTE | 2018-06-20 15:39 | DR.GENAD ---
HPI Time Seen Time Seen by Provider: 06/20/18 14:11 PCP Primary Care Physician: HELENE CROW Complaint/Symptoms [facility] " [facility]'S VS WERE 80/50 B/P AND HER HR IS 127- 150'S ".. AND PT IS NOT C/O OF PAIN AND THAT WANTS HIME TO BE EVALUATED .,,,,,,, PT DID NOT GET BP MEDS THIS AM AND SHE HAS A HX AFIB,,BR Source History Provided: Patient and Mcfp Mode of Arrival Mode of Arrival: Stretcher Timing Onset of Chief Complaint: 06/20/18 PMH PMH Past Medical History: Yes Past Medical History: Anxiety, Arthritis, Depression, Diabetes, Dyslipidemia, Migraines, GERD and Hypertension Past Medical History Comment: AFIB Past Surgical History: Yes Surgical History: Unknown, Cholecystectomy, [employer] Surgery, Ortho Surgery and Weight Loss Surgery Family History History of Family Medical Conditions: Yes Family Medical History: Diabetes Mellitus, [place], Coronary Artery Disease, Heart Failure and Hypertension Social History Does patient currently use any type of tobacco product: No Have you used tobacco products in the last 12 months: No Type of Tobacco Use: None Does any household member use tobacco: No Alcohol Use: None and Rarely Do you use any recreational Drugs:: No Lives With: Family Lives Where: Home infectious screening In the last 2 months have you had wt loss of >10#?: NO Have you had fever, night sweats or hemotysis?: No Have you traveled outside the country in the last 6 months?: No Isolation: Standard [place] Vital Signs Vitals: Temperature 98.7 F Pulse Rate [Left Brachial] 130 Pulse Rate 140 Respiratory Rate 16 Blood Pressure [Left Arm] 92/53 Blood Pressure [Left Arm] 165/94 Blood Pressure 85/61 O2 Sat by Pulse Oximetry 99 General Limitations: No Limitations; negative Language Barrier and Altered Mental Status General Appearance: Alert and In No Apparent Distress Head Head Exam: Normal Inspection and Atraumatic Eyes Eye exam: Normal Appearance and EOMI ENT ENT Exam: Normal Exam and Normal Oropharynx External Ear Exam: Normal External Inspection TM/Canal Exam: Bilateral: Normal Nose Exam: Normal Nose Exam Mouth Exam: Normal Inspection Throat Exam: Normal Inspection Neck Neck Exam: Normal Inspection and Full ROM Chest Chest Inspection: Normal Inspection and Symmetric Chest Wall Rise Respiratory Respiratory Exam: Normal Lung Sounds Bilat Respiratory Exam: Bilateral: Clear to Auscultation Cardiovascular Cardiovascular Exam: Regular Rate and Normal Rhythm Abdominal Exam Abdominal Exam: Normal Inspection, Normal Bowel Sounds and Soft; negative Tenderness Abdominal Tenderness: negative RUQ, RLQ, LUQ, LLQ, Epigastrium and Suprapubic Extremities Extremities Exam: Normal Inspection and Normal Capillary Refill (delayed); negative Edema and Joint Swelling Back Back Exam: Normal Inspection and Full ROM Neurologic Neurological Exam: Alert, Oriented X3 and CN II-XII Intact Psychiatric Psychiatric Exam: Normal Affect Skin Skin Exam: Warm, Dry and Intact COURSE Treatment Treatment: NS Consultation Called: 15:10 Call Returned: 15:25 Consultation Comments: Dr Hartman agreed to admit for further evaluation and treatment ROR Labs Reviewed Result Diagrams: 06/20/18 14:21 06/20/18 14: Laboratory: WBC 5.7 X10^3/uL (3.6-10.0) 06/20/18 14:21 RBC 3.62 X10^6/uL (3.5-5.4) 06/20/18 14:21 Hgb 10.6 g/dL (12.0-16.0) L 06/20/18 14:21 Hct 31.1 % (36.0-47.0) L 06/20/18 14:21 MCV 85.9 fL (80.0-100.0) 06/20/18 14:21 MCH 29.4 pg (27.0-34.0) 06/20/18 14:21 MCHC 34.2 g/dL (33.0-35.0) 06/20/18 14:21 RDW 13.8 % (11.6-16.5) 06/20/18 14:21 Plt Count 238 X10^3/uL (150.0-450.0) 06/20/18 14:21 MPV 7.9 fL (7.4-11.0) 06/20/18 14:21 Neut % (Auto) 67.0 % (42.0-75.0) 06/20/18 14:21 Lymph % (Auto) 20.9 % (21.0-51.0) L 06/20/18 14:21 [place] % (Auto) 10.8 % (0.0-13.0) 06/20/18 14:21 Eos % (Auto) 0.6 % (0.9-2.9) L 06/20/18 14:21 Baso % (Auto) 0.7 % (0.2-1.0) 06/20/18 14:21 Neut # (Auto) 3.8 x10^3/uL (2.2-4.8) 06/20/18 14:21 Lymph # (Auto) 1.2 X10^3/uL (1.3-2.9) L 06/20/18 14:21 [place] # (Auto) 0.6 x10^3/uL (0.3-0.8) 06/20/18 14:21 Eos # (Auto) 0.0 x10^3/uL (0.0-0.2) 06/20/18 14:21 Baso # (Auto) 0.0 X10^3/uL (0.0-0.1) 06/20/18 14:21 Absolute Nucleated RBC 0.1 /100WBC 06/20/18 14:21 Sodium 126 mmol/L (136-145) L 06/20/18 14:21 Corrected Sodium 128 mmol/L (136-145) L 06/20/18 14:21 Potassium 4.7 mmol/L (3.5-5.1) 06/20/18 14:21 Chloride 94 mmol/L (98-107) L 06/20/18 14:21 Carbon Dioxide 24.3 mmol/L (21-32) 06/20/18 14:21 BUN 20 mg/dL (7-18) H 06/20/18 14:21 Creatinine 1.21 mg/dL (0.55-1.02) H 06/20/18 14:21 Est GFR (MDRD) Af Amer 56 (>60) L 06/20/18 14:21 Est GFR (MDRD) Non-Af 46 (>60) L 06/20/18 14:21 Glucose 170 mg/dL (65-99) H 06/20/18 14:21 Calcium 8.5 mg/dL (8.5-10.1) 06/20/18 14:21 Corrected Calcium 9.3 mg/dL (8.5-10.1) 06/20/18 14:21 Total Bilirubin 0.40 mg/dL (0.2-1.0) 06/20/18 14:21 AST 17 Units/L (15-37) 06/20/18 14:21 ALT 15 Units/L (12-78) 06/20/18 14:21 Alkaline Phosphatase 73 Units/L (46-116) 06/20/18 14:21 Total Protein 6.4 g/dL (6.4-8.2) 06/20/18 14:21 Albumin 3.0 g/dL (3.4-5.0) L 06/20/18 14:21 Globulin 3.4 g/dL (2.5-4.5) 06/20/18 14:21 Albumin/Globulin Ratio 0.9 Ratio (1.1-2.1) L 06/20/18 14:21 TSH 3rd Generation 3.019 uIU/mL (0.358-3.74) 06/20/18 14:21 ADDITIONAL NOTES Additional Notes Additional Notes: admitted for hydration
--- NOTE | 2018-06-20 15:41 | DR.GENAD ---
HPI Time Seen Time Seen by Provider: 06/20/18 14:11 PCP Primary Care Physician: HELENE CROW Complaint/Symptoms Chief Complaint[facility] " PT'S VS WERE 80/50 B/P AND HER HR IS 127- 150'S ".. 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 [employer] Surgery, Ortho Surgery and Weight Loss Surgery Family History History of Family Medical Conditions: Yes Family Medical History: Diabetes Mellitus, [place], Coronary Artery Disease, Heart Failure and Hypertension Social History Does patient currently use any type of tobacco product: No Have you used tobacco products in the last 12 months: No Type of Tobacco Use: None Does any household member use tobacco: No Alcohol Use: None and Rarely Do you use any recreational Drugs:: No Lives With: Family Lives Where: Home infectious screening In the last 2 months have you had wt loss of >10#?: NO Have you had fever, night sweats or hemotysis?: No Have you traveled outside the country in the last 6 months?: No Isolation: Standard [place] Vital Signs Vitals: Temperature 97.4 F Pulse Rate [Left Brachial] 155 Pulse Rate 140 Respiratory Rate 25 Blood Pressure [Left Arm] 131/78 Blood Pressure [Left Arm] 165/94 Blood Pressure 85/61 O2 Sat by Pulse Oximetry 100 General Limitations: No Limitations General Appearance: Alert and In No Apparent Distress; negative In Distress Head Head Exam: Normal Inspection, Atraumatic and Normocephalic Eyes Eye exam: Normal Appearance, PERRL and EOMI ENT ENT Exam: Normal Exam, Normal Oropharynx and Normal External Ear Exam External Ear Exam: Normal External Inspection TM/Canal Exam: Bilateral: Normal Nose Exam: Normal Nose Exam Mouth Exam: Normal Inspection Throat Exam: Normal Inspection Neck Neck Exam: Normal Inspection and Full ROM Chest Chest Inspection: Normal Inspection and Symmetric Chest Wall Rise Respiratory Respiratory Exam: Normal Lung Sounds Bilat Respiratory Exam: Bilateral: Clear to Auscultation Cardiovascular Cardiovascular Exam: Regular Rate Abdominal Exam Abdominal Exam: Normal Inspection, Normal Bowel Sounds and Soft Extremities Extremities Exam: Normal Inspection, Full ROM and Normal Capillary Refill ( delayed); negative Tenderness Back Back Exam: Normal Inspection Neurologic Neurological Exam: Alert, Oriented X3 and CN II-XII Intact Skin Skin Exam: Warm, Dry and Intact ROR Labs Reviewed Result Diagrams: 06/20/18 14:21 06/20/18 14:21 Laboratory: WBC 5.7 X10^3/uL (3.6-10.0) 06/20/18 14:21 RBC 3.62 X10^6/uL (3.5-5.4) 06/20/18 14:21 Hgb 10.6 g/dL (12.0-16.0) L 06/20/18 14:21 Hct 31.1 % (36.0-47.0) L 06/20/18 14:21 MCV 85.9 fL (80.0-100.0) 06/20/18 14:21 MCH 29.4 pg (27.0-34.0) 06/20/18 14:21 MCHC 34.2 g/dL (33.0-35.0) 06/20/18 14:21 RDW 13.8 % (11.6-16.5) 06/20/18 14:21 Plt Count 238 X10^3/uL (150.0-450.0) 06/20/18 14:21 MPV 7.9 fL (7.4-11.0) 06/20/18 14:21 Neut % (Auto) 67.0 % (42.0-75.0) 06/20/18 14:21 Lymph % (Auto) 20.9 % (21.0-51.0) L 06/20/18 14:21 [place] % (Auto) 10.8 % (0.0-13.0) 06/20/18 14:21 Eos % (Auto) 0.6 % (0.9-2.9) L 06/20/18 14:21 Baso % (Auto) 0.7 % (0.2-1.0) 06/20/18 14:21 Neut # (Auto) 3.8 x10^3/uL (2.2-4.8) 06/20/18 14:21 Lymph # (Auto) 1.2 X10^3/uL (1.3-2.9) L 06/20/18 14:21 [place] # (Auto) 0.6 x10^3/uL (0.3-0.8) 06/20/18 14:21 Eos # (Auto) 0.0 x10^3/uL (0.0-0.2) 06/20/18 14:21 Baso # (Auto) 0.0 X10^3/uL (0.0-0.1) 06/20/18 14:21 Absolute Nucleated RBC 0.1 /100WBC 06/20/18 14:21 Sodium 126 mmol/L (136-145) L 06/20/18 14:21 Corrected Sodium 128 mmol/L (136-145) L 06/20/18 14:21 Potassium 4.7 mmol/L (3.5-5.1) 06/20/18 14:21 Chloride 94 mmol/L (98-107) L 06/20/18 14:21 Carbon Dioxide 24.3 mmol/L (21-32) 06/20/18 14:21 BUN 20 mg/dL (7-18) H 06/20/18 14:21 Creatinine 1.21 mg/dL (0.55-1.02) H 06/20/18 14:21 Est GFR (MDRD) Af Amer 56 (>60) L 06/20/18 14:21 Est GFR (MDRD) Non-Af 46 (>60) L 06/20/18 14:21 Glucose 170 mg/dL (65-99) H 06/20/18 14:21 Calcium 8.5 mg/dL (8.5-10.1) 06/20/18 14:21 Corrected Calcium 9.3 mg/dL (8.5-10.1) 06/20/18 14:21 Total Bilirubin 0.40 mg/dL (0.2-1.0) 06/20/18 14:21 AST 17 Units/L (15-37) 06/20/18 14:21 ALT 15 Units/L (12-78) 06/20/18 14:21 Alkaline Phosphatase 73 Units/L (46-116) 06/20/18 14:21 Total Protein 6.4 g/dL (6.4-8.2) 06/20/18 14:21 Albumin 3.0 g/dL (3.4-5.0) L 06/20/18 14:21 Globulin 3.4 g/dL (2.5-4.5) 06/20/18 14:21 Albumin/Globulin Ratio 0.9 Ratio (1.1-2.1) L 06/20/18 14:21 TSH 3rd Generation 3.019 uIU/mL (0.358-3.74) 06/20/18 14:21 Specimen Type Clean catch urine 06/20/18 17:20 Urine Color Yellow (YELLOW) 06/20/18 17:20 Urine Appearance Slightly hazy (CLEAR) 06/20/18 17:20 Urine pH 7.0 (5.0 - 8.0) 06/20/18 17:20 Ur Specific [place] 1.010 (1.000-1.030) 06/20/18 17:20 Urine Protein Negative (NEGATIVE) 06/20/18 17:20 Urine Glucose (UA) Negative (NEGATIVE) 06/20/18 17:20 Urine Ketones Negative (NEGATIVE) 06/20/18 17:20 Urine Occult Blood 1+ (NEGATIVE) 06/20/18 17:20 Urine Nitrite Negative (NEGATIVE) 06/20/18 17:20 Urine Bilirubin Negative (NEGATIVE) 06/20/18 17:20 Urine Urobilinogen Normal (NORMAL) 06/20/18 17:20 Ur Leukocyte Esterase 2+ (NEGATIVE) 06/20/18 17:20 Urine RBC 0-2 /HPF (NONE SEEN) 06/20/18 17:20 Urine WBC 3-5 /HPF (NONE SEEN) 06/20/18 17:20 Ur Squamous Epith Cells Few /HPF (NEGATIVE) 06/20/18 17:20 Urine Bacteria 1+ /HPF (NEGATIVE) 06/20/18 17:20 Ur Culture Indicated? No/not indicated 06/20/18 17:20 Diagnosis Discharge Problem: Hyponatremia
--- NOTE | 2018-06-20 15:53 | RAD ---
AP Chest Indication: Hypertension Comparison: 05/10/2018 Findings: The trachea is midline. The cardiac silhouette is unremarkable. Chronic interstitial lung change ar e noted bilateral with calcified pulmonary nodule within the right upper lobe and pleural parenchymal scarring within the right lung apex.. Rounded sclerotic lesion within the proximal right femoral di aphysis has a nonaggressive appearance potentially representing a bone enostosis or small cartilagino us lesion. IMPRESSION: 1. no acute cardiopulmonary abnormality or change from prior examination. 2. Round sclerotic lesion within the proximal right humeral diaphysis has a nonaggressive appearance suggesting a bone enostosis or a low-grade cartilaginous lesion; however, if there is pain in this lo cation or history of primary malignancy consider dedicated right humeral radiographs for further eval uation. Reported By:
[2018-06-20 17:43] LABS: BILIRUBIN,URINE NEGATIVE (NEGATIVE); BLOOD/HEMOGLOBIN,URINE 1+ (NEGATIVE); GLUCOSE, URINE NEGATIVE (NEGATIVE); KETONES,URINE NEGATIVE (NEGATIVE); LEUKOCYTE ESTERASE ,URINE 2+ (NEGATIVE); NITRITES,URINE NEGATIVE (NEGATIVE); PROTEIN,URINE NEGATIVE (NEGATIVE); UROBILINOGEN,URINE NORMAL (NORMAL)
[2018-06-20 17:59] LABS: APPEARANCE,URINE SLIGHTLY HAZY (CLEAR); BACTERIA,URINE 1+ /HPF (NEGATIVE); COLOR,URINE YELLOW (YELLOW); RBC,URINE 0-2 /HPF (NONE SEEN); SQUAMOUS EPITHELIAL CELL,UR FEW /HPF (NEGATIVE)
[2018-06-20] MEDS ORDERED: TYLENOL 325 MG TAB PO PRN ×2 (21:25→22:15)
[2018-06-20] MEDS ORDERED: ZOFRAN TAB 4 MG SL PRN (21:25)
[2018-06-20] MEDS ORDERED: XANAX PO PRN (22:16)
[2018-06-20] MEDS ORDERED: ZOFRAN TAB 4 MG PO PRN (22:20)
[2018-06-20] MEDS ORDERED: LEVSIN/MAALOX/LIDOC VISC PO PRN (22:21)
[2018-06-20] MEDS: DESYREL PO SCH (22:51)
[2018-06-20] MEDS: MEGACE PO SCH (22:52)
[2018-06-20] MEDS: NEURONTIN CAP 100 MG PO SCH (22:52)
[2018-06-20] MEDS: EFFEXOR XR 75 MG CAP PO SCH (22:52)
[2018-06-20] MEDS: PROTONIX TAB 40 MG PO SCH (22:53)
[2018-06-20] MEDS: PEPCID TAB 20 MG PO SCH (22:53)
[2018-06-20] MEDS: ZANAFLEX PO SCH (22:54)
[2018-06-20] MEDS: REGLAN TAB 10 MG PO SCH (22:54)
[2018-06-20] MEDS: ULTRAM PO PRN (22:55)
[2018-06-20] MEDS: VOLTAREN 1 % GEL MULTI DOSE TUBE TOP SCH (23:35)
[2018-06-20] MEDS: DEPAKOTE D.R. TAB PO SCH (23:44)
[2018-06-21] MEDS: NS 1000 ML 1,000 ML IV SCH ×4 (06:17→22:08)
[2018-06-21 06:19] LABS: BASOPHILS # (AUTO) 0.1 X10^3/uL (0.0-0.1); BASOPHILS % (AUTO) 1.1 % (0.2-1.0); EOSINOPHILS # (AUTO) 0.1 x10^3/uL (0.0-0.2); EOSINOPHILS % (AUTO) 1.4 % (0.9-2.9); HEMATOCRIT 29.7 % (36.0-47.0); HEMOGLOBIN 9.9 g/dL (12.0-16.0); LYMPHOCYTES # (AUTO) 2.3 X10^3/uL (1.3-2.9); LYMPHOCYTES % (AUTO) 35.5 % (21.0-51.0); MEAN CORPUSCULAR HEMOGLOBIN 28.8 pg (27.0-34.0); MEAN CORPUSCULAR HGB CONC 33.2 g/dL (33.0-35.0); MEAN CORPUSCULAR VOLUME 86.5 fL (80.0-100.0); MEAN PLATELET VOLUME 8.2 fL (7.4-11.0); MONOCYTES # (AUTO) 1.1 x10^3/uL (0.3-0.8); MONOCYTES % (AUTO) 16.8 % (0.0-13.0); NEUTROPHILS # (AUTO) 2.9 x10^3/uL (2.2-4.8); NEUTROPHILS % (AUTO) 45.2 % (42.0-75.0); PLATELET COUNT 229 X10^3/uL (150.0-450.0); RED BLOOD COUNT 3.43 X10^6/uL (3.5-5.4); WHITE BLOOD COUNT 6.4 X10^3/uL (3.6-10.0)
[2018-06-21 06:24] LABS: ALANINE AMINOTRANSFERASE 14 Units/L (12-78); ALBUMIN 2.7 g/dL (3.4-5.0); ALKALINE PHOSPHATASE 60 Units/L (46-116); ASPARTATE AMINO TRANSFERASE 21 Units/L (15-37); BLOOD UREA NITROGEN 14 mg/dL (7-18); CALCIUM 7.6 mg/dL (8.5-10.1); CARBON DIOXIDE 18.5 mmol/L (21-32); CHLORIDE 105 mmol/L (98-107); COR CA(FOR HYPOALB) 8.6 mg/dL (8.5-10.1); SODIUM 135 mmol/L (136-145); TOTAL PROTEIN 5.6 g/dL (6.4-8.2)
[2018-06-21 06:29] LABS: CREATININE 0.91 mg/dL (0.55-1.02); eGFR NON BLACK RACES > 60 (>60)
[2018-06-21] MEDS: REGLAN TAB 10 MG PO SCH ×4 (06:35→20:53)
[2018-06-21] MEDS: PROTONIX TAB 40 MG PO SCH ×2 (06:35→16:49)
[2018-06-21] MEDS: NEURONTIN CAP 100 MG PO SCH ×3 (06:35→22:07)
[2018-06-21] MEDS: XARELTO PO SCH (09:32)
--- NOTE | 2018-06-21 10:09 | DR.H&P ---
H&P - History & Physical for Day of: H&P Date: 06/20/18 - Chief Complaint Chief Complaint: WEAKNESS, HYPOTENSION, ELEVATED HEART RATE - History of Present Illness History of Present Illness: IS A 72 YEAR OLD PATIENT OF OURS WHO PRESENTED TO THE EMERGENCY ROOM FROM [facility] WITH COMPLAINTS OF WEAKNESS, DECREASED BLOOD PRESSURE, INCRESED HEART RATE, AND DECREASED APPETITE. FAMILY REPORTS THAT PATIENT IS NOT EATING OR DRINKING. PATIENT REPORTS THE SHE IS UNABLE TO TAKE ANYTHING IN WITHOUT BEING NAUSEATED OR FEELING LIKE SHE IS CHOKING. AN EGD WAS DONE ON HER LAST ADMISSION ON 06/14/18. IT REVEALED: Ectopic mucosa in the distal 2 cm of the esophagus consistent with Barretts esophagus, mildly dilated esophagus, surgical changes consistent with gastric bypass surgery. No other significant mucosal abnormalities noted. ON ARRIVAL, VITALS WERE 98.7-140-16-98%RA-85/61. LABS WERE OBTAINED. ABNORMAL LAB VALUES INCLUDE THE FOLLOWING: HGB 10.6, HCT 31.1, SODIUM 126, CHLORIDE 94, BUN 20, CREATININE 1.21, GLOUCOSE 170, ALBUMIN 3.0. URINALYSIS REVEALED WBC 3-5 , RBC 0-2, LEUKOCYTES 2+, BACTERIA 1+. A CHEST XRAY WAS OBTAINED AND REVEALED: no acute cardiopulmonary abnormality or change from prior examination. Round sclerotic lesion within the proximal right humeral diaphysis has a nonaggressive appearance suggesting a bone enostosis or a low-grade cartilaginous lesion; however, if there is pain in this location or history of primary malignancy consider dedicated right humeral radiographs for further evaluation. SHE WAS STARTED ON NORMAL SALINE AT 125ML/HR. WE DISCUSSED POSSIBLE PLACEMENT OF PEG TUBE WITH PATIENT AND FAMILY. THEY REQUEST TO HAVE PEG TUBE. WE PLAN TO CONSULT . PATIENT WAS ADMITTED FOR FURTHER EVALUATION AND TREATMENT. WE PLAN TO FOLLOW UP WITH AM LABS AND CONTINUE TO MONITOR PATIENT. 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, Ortho Surgery, Unknown, Weight Loss Surgery Additional Surgical History: gastric bypass - Family History Family Medical History: Diabetes Mellitus, [place], Coronary Artery Disease, Heart Failure, Hypertension - Social History Does patient currently use any type of tobacco product: No Have you used tobacco products in the last 12 months: No Type of Tobacco Use: None Does any household member use tobacco: No Alcohol Use: None, Rarely Drug Use: None - Medications Home Medications: adhesive tape Allergy (Verified 06/12/18 18:12) adhesive tape Allergy (Uncoded 08/31/16 18:05) CONTINUE taking the following medications Gi Cocktail 10 ml PO Q6H PRN 06/20/18 [History] iron-folic acid-mv, min cmb#15 [Hemocyte-Plus] 1 tab PO DAILY 06/20/18 [History] venlafaxine [Effexor XR] 1 cap PO HS 06/20/18 [History] - Review of Systems Constitutional: Weakness, Malaise, Other (DECREASED APPETITE ) Eyes: No Symptoms Reported ENT: No Symptoms Reported Respiratory: No Symptoms Reported Cardiovascular: Palpitations Gastrointestinal: No Symptoms Reported Genitourinary: No Symptoms Reported Musculoskeletal: No Symptoms Reported Skin: No Symptoms Reported Neurological: Weakness - Physical Exam Vital Signs: Temperature 97.4 F Pulse Rate [Left Brachial] 97 Pulse Rate 140 Respiratory Rate 19 Blood Pressure [Left Arm] 104/59 Blood Pressure [Left Arm] 165/94 Blood Pressure 85/61 O2 Sat by Pulse Oximetry 100 Oriented: Normal Eyes: Normal Ear: Normal Nose: Normal Throat: Normal Respiratory: Diminished Throughout Cardiovascular: Tachycardia. negative: S3, S4, Murmur : Normal Auscultation: Bowel Sounds: Normal Palpation: Normal Tenderness: Normal Skin: Normal Musculoskeletal: Normal Psychiatric: Normal Mood Description: Calm Affect: Normal Speech Pattern: Clear - Assessment/Plan (1) Failure to thrive Qualifiers: Failure to thrive age range: in adult Qualified Code(s): R62.7 - Adult failure to thrive Status: Acute Plan: CONSULT FOR PEG TUBE, CONTINUE TO MONITOR (2) Dehydration Status: Acute Plan: NORMAL SALINE AT 125ML/HR, CONTINUE TO MONITOR (3) Hyponatremia Status: Acute Plan: NORMAL SALINE AT 125ML/HR, CONTINUE TO MONITOR - Allergies Allergies/Adverse Reactions: Allergies Allergy/AdvReac Type Severity Reaction Status Date / Time adhesive tape Allergy Verified 06/12/18 18:12 adhesive tape Allergy Uncoded 08/31/16 18:05
[2018-06-21] MEDS: VOLTAREN 1 % GEL MULTI DOSE TUBE TOP SCH ×2 (11:01→21:00)
[2018-06-21] MEDS ORDERED: DIPRIVAN VIAL 20 ML ONE (12:34)
[2018-06-21] MEDS ORDERED: ANCEF VIAL 1 GRAM 2 G in NS 100 ML IV 100 ML IV ONE (13:06)
[2018-06-21] MEDS ORDERED: ANCEF VIAL 1 GRAM ONE (13:15)
[2018-06-21] MEDS: MEGACE PO SCH ×2 (13:43→20:54)
[2018-06-21] MEDS: PEPCID TAB 20 MG PO SCH ×2 (13:44→20:54)
[2018-06-21] MEDS: HEMOCYTE-PLUS PO SCH (13:44)
[2018-06-21] MEDS: TAB-A-VITE PO SCH (13:44)
[2018-06-21] MEDS: DITROPAN TAB 5 MG PO SCH (14:03)
[2018-06-21] MEDS: ULTRAM PO PRN (15:53)
[2018-06-21] MEDS ORDERED: NORCO 5/325 MG TAB PO PRN (16:41)
[2018-06-21] MEDS: NORCO 5/325 MG TAB PO PRN (16:48)
[2018-06-21] MEDS ORDERED: MYLICON TAB 80 MG CHEW PO PRN ×2 (17:10→17:16)
[2018-06-21] MEDS: MYLICON TAB 80 MG CHEW PO PRN (17:27)
[2018-06-21] MEDS: MORPHINE SULFATE INJ 2 MG INJ IVP PRN (18:15)
--- NOTE | 2018-06-21 20:42 | PCM.PROG ---
Progress Note - Progress Note for Day of Date of Exam: 06/21/18 - Subjective Subjective: WAS ADMITTED FOR HYPONATREMIA, DEHYDRATION, AND ADULT FAILURE TO THRIVE. TODAY, SHE IS ALERT AND ORIENTED, LYING IN BED ON MORNING ROUNDS. SHE CONTINUES WITH GENERALIZED WEAKNESS AND DIFFICULTY SWALLOWING. PATIENT REPORTS THAT SHE ATTEMPTED TO DRINK SOME COFFEE EARLY THIS MORNING, BUT WAS UNABLE TO SWALLOW WITHOUT GETTING CHOKED. ON EXAMINATION, HEART IS REGULAR IN RATE AND RHYTHM. BILATERAL LUNGS ARE CLEAR TO AUSCULTATION. ABDOMEN IS FLAT, SOFT, AND NON-TENDER WITH NORMAL BOWEL SOUNDS NOTED IN ALL QUADRANTS. HER VITALS THIS MORNING ARE 98.7-73-17-99%-107/62. LABS WERE OBTAINED. ABNORMAL LAB VALUES INCLUDE THE FOLLOWING: RBC 3.43, HGB 9.9, HCT 29.7, SODIUM 135, CARBON DIOXIDE 18.5, CALCIUM 7.6, TOTAL PROTEIN 5.6, ALBUMIN 2.7. HAS BEEN CONSULTED FOR POSSIBLE PEG TUBE PLACEMENT. OTHERWISE, WE WILL CONTINUE WITH IV FLUIDS AND CURRENT PLAN OF CARE. WE PLAN TO FOLLOW UP WITH AM LABS AND CONTINUE TO MONITOR PATIENT. - Past Medical Family Social History Past Med/Fam/Surg Hx: No changes since H&P Allergies: Allergies adhesive tape Allergy (Verified 06/12/18 18:12) adhesive tape Allergy (Uncoded 08/31/16 18:05) - Review of Systems ROS: No change since H&P - Vital Signs and I&O's Vital Signs: Temperature 98.2 F Pulse Rate [Left Brachial] 86 Pulse Rate 140 Respiratory Rate 20 Blood Pressure [Left Arm] 127/75 Blood Pressure [Left Arm] 165/94 Blood Pressure 85/61 O2 Sat by Pulse Oximetry 97 Intake and Output: Intake & Output 06/19/18 06/20/18 06/21/18 06/22/18 11:59 11:59 11:59 11:59 Intake Total 2415 / 2415 2649 / 2649 Output Total 2925 / 2925 500 / 500 Balance -510 / -510 2149 / 2149 - Physical Exam Oriented: Normal Eyes: Normal Ear: Normal Nose: Normal Throat: Normal Respiratory: Normal Cardiovascular: Normal. negative: S3, S4, Murmur : Normal Auscultation: Bowel Sounds: Normal Palpation: Normal Tenderness: Normal Skin: Normal Musculoskeletal: Normal Psychiatric: Normal Mood Description: Calm Affect: Normal Speech Pattern: Clear, Appropriate - Laboratory and Diagnostics Result Diagrams: 06/21/18 05:50 06/21/18 05:50 Labs: Laboratory WBC 6.4 X10^3/uL (3.6-10.0) 06/21/18 05:50 RBC 3.43 X10^6/uL (3.5-5.4) L 06/21/18 05:50 Hgb 9.9 g/dL (12.0-16.0) L 06/21/18 05:50 Hct 29.7 % (36.0-47.0) L 06/21/18 05:50 MCV 86.5 fL (80.0-100.0) 06/21/18 05:50 MCH 28.8 pg (27.0-34.0) 06/21/18 05:50 MCHC 33.2 g/dL (33.0-35.0) 06/21/18 05:50 RDW 14.0 % (11.6-16.5) 06/21/18 05:50 Plt Count 229 X10^3/uL (150.0-450.0) 06/21/18 05:50 MPV 8.2 fL (7.4-11.0) 06/21/18 05:50 Neut % (Auto) 45.2 % (42.0-75.0) 06/21/18 05:50 Lymph % (Auto) 35.5 % (21.0-51.0) 06/21/18 05:50 [place] % (Auto) 16.8 % (0.0-13.0) H 06/21/18 05:50 Eos % (Auto) 1.4 % (0.9-2.9) 06/21/18 05:50 Baso % (Auto) 1.1 % (0.2-1.0) H 06/21/18 05:50 Neut # (Auto) 2.9 x10^3/uL (2.2-4.8) 06/21/18 05:50 Lymph # (Auto) 2.3 X10^3/uL (1.3-2.9) 06/21/18 05:50 [place] # (Auto) 1.1 x10^3/uL (0.3-0.8) H 06/21/18 05:50 Eos # (Auto) 0.1 x10^3/uL (0.0-0.2) 06/21/18 05:50 Baso # (Auto) 0.1 X10^3/uL (0.0-0.1) 06/21/18 05:50 Absolute Nucleated RBC 0.1 /100WBC 06/21/18 05:50 Sodium 135 mmol/L (136-145) L 06/21/18 05:50 Corrected Sodium TNP 06/21/18 05:50 Potassium 4.7 mmol/L (3.5-5.1) 06/21/18 05:50 Chloride 105 mmol/L (98-107) 06/21/18 05:50 Carbon Dioxide 18.5 mmol/L (21-32) L 06/21/18 05:50 BUN 14 mg/dL (7-18) 06/21/18 05:50 Creatinine 0.91 mg/dL (0.55-1.02) 06/21/18 05:50 Est GFR (MDRD) Af Amer > 60 (>60) 06/21/18 05:50 Est GFR (MDRD) Non-Af > 60 (>60) 06/21/18 05:50 Glucose 66 mg/dL (65-99) 06/21/18 05:50 Calcium 7.6 mg/dL (8.5-10.1) L 06/21/18 05:50 Corrected Calcium 8.6 mg/dL (8.5-10.1) 06/21/18 05:50 Total Bilirubin 0.30 mg/dL (0.2-1.0) 06/21/18 05:50 AST 21 Units/L (15-37) 06/21/18 05:50 ALT 14 Units/L (12-78) 06/21/18 05:50 Alkaline Phosphatase 60 Units/L (46-116) 06/21/18 05:50 Total Protein 5.6 g/dL (6.4-8.2) L 06/21/18 05:50 Albumin 2.7 g/dL (3.4-5.0) L 06/21/18 05:50 Globulin 2.9 g/dL (2.5-4.5) 06/21/18 05:50 Albumin/Globulin Ratio 0.9 Ratio (1.1-2.1) L 06/21/18 05:50 TSH 3rd Generation 3.019 uIU/mL (0.358-3.74) 06/20/18 14:21 Specimen Type Clean catch urine 06/20/18 17:20 Urine Color Yellow (YELLOW) 06/20/18 17:20 Urine Appearance Slightly hazy (CLEAR) 06/20/18 17:20 Urine pH 7.0 (5.0 - 8.0) 06/20/18 17:20 Ur Specific Adel 1.010 (1.000-1.030) 06/20/18 17:20 Urine Protein Negative (NEGATIVE) 06/20/18 17:20 Urine Glucose (UA) Negative (NEGATIVE) 06/20/18 17:20 Urine Ketones Negative (NEGATIVE) 06/20/18 17:20 Urine Occult Blood 1+ (NEGATIVE) 06/20/18 17:20 Urine Nitrite Negative (NEGATIVE) 06/20/18 17:20 Urine Bilirubin Negative (NEGATIVE) 06/20/18 17:20 Urine Urobilinogen Normal (NORMAL) 06/20/18 17:20 Ur Leukocyte Esterase 2+ (NEGATIVE) 06/20/18 17:20 Urine RBC 0-2 /HPF (NONE SEEN) 06/20/18 17:20 Urine WBC 3-5 /HPF (NONE SEEN) 06/20/18 17:20 Ur Squamous Epith Cells Few /HPF (NEGATIVE) 06/20/18 17:20 Urine Bacteria 1+ /HPF (NEGATIVE) 06/20/18 17:20 Ur Culture Indicated? No/not indicated 06/20/18 17:20 - Plan (1) Failure to thrive Status: Acute Qualifiers: Failure to thrive age range: in adult Qualified Code(s): R62.7 - Adult failure to thrive Plan: CONSULT FOR PEG TUBE, CONTINUE TO MONITOR (2) Dehydration Status: Acute Plan: NORMAL SALINE AT 125ML/HR, CONTINUE TO MONITOR (3) Hyponatremia Status: Acute Plan: NORMAL SALINE AT 125ML/HR, CONTINUE TO MONITOR
[2018-06-21] MEDS: EFFEXOR XR 75 MG CAP PO SCH (20:52)
[2018-06-21] MEDS: DESYREL PO SCH (20:53)
[2018-06-21] MEDS: DEPAKOTE D.R. TAB PO SCH (20:53)
[2018-06-21] MEDS: ZANAFLEX PO SCH (20:55)
[2018-06-21] MEDS ORDERED: PATIENT'S HOME MEDICATION PO SCH (21:00)
[2018-06-21] MEDS ORDERED: LANOXIN INJ IVP ONE (22:25)
[2018-06-21] MEDS ORDERED: NS 500 ML IV 500 ML IV ONE (22:36)
[2018-06-21] MEDS ORDERED: LANOXIN INJ IVP SCH (23:00)
[2018-06-21] MEDS ORDERED: LANOXIN INJ ONE (23:04)
[2018-06-21] MEDS ORDERED: CARDIZEM INJ 50 MG VIAL ONE (23:05)
[2018-06-22] MEDS: MORPHINE SULFATE INJ 2 MG INJ IVP PRN (00:25)
[2018-06-22] MEDS: NORCO 5/325 MG TAB PO PRN (01:30)
[2018-06-22 06:18] LABS: ALANINE AMINOTRANSFERASE 11 Units/L (12-78); ALBUMIN 2.2 g/dL (3.4-5.0); ALKALINE PHOSPHATASE 47 Units/L (46-116); ASPARTATE AMINO TRANSFERASE 15 Units/L (15-37); BASOPHILS % (AUTO) 0.4 % (0.2-1.0); BLOOD UREA NITROGEN 11 mg/dL (7-18); CALCIUM 7.8 mg/dL (8.5-10.1); CARBON DIOXIDE 22.6 mmol/L (21-32); CHLORIDE 106 mmol/L (98-107); COR CA(FOR HYPOALB) 9.2 mg/dL (8.5-10.1); CREATININE 0.89 mg/dL (0.55-1.02); EOSINOPHILS % (AUTO) 0.2 % (0.9-2.9); HEMATOCRIT 25.8 % (36.0-47.0); HEMOGLOBIN 8.8 g/dL (12.0-16.0); LYMPHOCYTES # (AUTO) 1.2 X10^3/uL (1.3-2.9); LYMPHOCYTES % (AUTO) 9.9 % (21.0-51.0); MEAN CORPUSCULAR HEMOGLOBIN 29.8 pg (27.0-34.0); MEAN CORPUSCULAR HGB CONC 34.3 g/dL (33.0-35.0); MEAN CORPUSCULAR VOLUME 86.9 fL (80.0-100.0); MEAN PLATELET VOLUME 7.8 fL (7.4-11.0); MONOCYTES % (AUTO) 8.9 % (0.0-13.0); NEUTROPHILS # (AUTO) 9.4 x10^3/uL (2.2-4.8); NEUTROPHILS % (AUTO) 80.6 % (42.0-75.0); PLATELET COUNT 204 X10^3/uL (150.0-450.0); RED BLOOD COUNT 2.96 X10^6/uL (3.5-5.4); RED CELL DISTRIBUTION WIDTH 13.7 % (11.6-16.5); SODIUM 136 mmol/L (136-145); TOTAL PROTEIN 5.1 g/dL (6.4-8.2); WHITE BLOOD COUNT 11.7 X10^3/uL (3.6-10.0); eGFR NON BLACK RACES > 60 (>60)
[2018-06-22] MEDS: REGLAN TAB 10 MG PO SCH ×2 (06:21→12:39)
[2018-06-22] MEDS: PROTONIX TAB 40 MG PO SCH (06:21)
[2018-06-22] MEDS: NEURONTIN CAP 100 MG PO SCH (06:21)
[2018-06-22] MEDS: PEPCID TAB 20 MG PO SCH (08:18)
[2018-06-22] MEDS: HEMOCYTE-PLUS PO SCH (08:18)
[2018-06-22] MEDS: TAB-A-VITE PO SCH (08:18)
[2018-06-22] MEDS: MEGACE PO SCH (08:18)
[2018-06-22] MEDS: XARELTO PO SCH (08:18)
[2018-06-22] MEDS: VOLTAREN 1 % GEL MULTI DOSE TUBE TOP SCH (08:19)
[2018-06-22] MEDS: DITROPAN TAB 5 MG PO SCH (08:21)
[2018-06-22] MEDS: MYLICON TAB 80 MG CHEW PO PRN (08:31)
[2018-06-22] MEDS: NS 1000 ML 1,000 ML IV SCH (08:37)
[2018-06-22 12:29] VITALS: BP 151/81
== END 2018-06-22 12:45 ==
LOC: ER 13:50 → ICU 13:50
PROVIDERS: ADMIT Internal Medicine; ATTEND Internal Medicine
DX: I48.2 Chronic atrial fibrillation; Z79.84 Long term (current) use of oral hypoglycemic drugs; F32.89 Other specified depressive episodes; R94.4 Abnormal results of kidney function studies; K21.9 Gastro-esophageal reflux disease without esophagitis; R26.89 Other abnormalities of gait and mobility; R62.7 Adult failure to thrive; E11.65 Type 2 diabetes mellitus with hyperglycemia; I95.89 Other hypotension; I10 Essential (primary) hypertension; E86.0 Dehydration; K22.70 Barrett's esophagus without dysplasia; E46 Unspecified protein-calorie malnutrition; R13.11 Dysphagia, oral phase; F41.8 Other specified anxiety disorders; E78.2 Mixed hyperlipidemia
CPT/HCPCS: 36415; 71010; 71045; 80053; 81001; 84443; 85025; 96365; 96367; 97163; 97167; 99100; 99283; 99284; A4222; S0179; A4217; G0378; J0690; J1160; J2270; J2704; J3490; J7030

== ENCOUNTER 2018-11-06 22:31 | Observation (INO) ==
[2018-11-06] MEDS ORDERED: CARDIZEM INJ 50 MG VIAL ONE (22:53)
[2018-11-06] MEDS ORDERED: CARDIZEM INJ 50 MG VIAL IVP ONE (23:00)
[2018-11-06 23:10] LABS: BASOPHILS # (AUTO) 0.1 X10^3/uL (0.0-0.1); BASOPHILS % (AUTO) 0.5 % (0.2-1.0); EOSINOPHILS # (AUTO) 0.1 x10^3/uL (0.0-0.2); EOSINOPHILS % (AUTO) 0.7 % (0.9-2.9); HEMATOCRIT 42.6 % (36.0-47.0); HEMOGLOBIN 14.5 g/dL (12.0-16.0); LYMPHOCYTES # (AUTO) 0.9 X10^3/uL (1.3-2.9); LYMPHOCYTES % (AUTO) 8.7 % (21.0-51.0); MEAN CORPUSCULAR HEMOGLOBIN 29.7 pg (27.0-34.0); MEAN CORPUSCULAR HGB CONC 34.1 g/dL (33.0-35.0); MEAN PLATELET VOLUME 7.7 fL (7.4-11.0); MONOCYTES % (AUTO) 9.5 % (0.0-13.0); NEUTROPHILS # (AUTO) 8.3 x10^3/uL (2.2-4.8); NEUTROPHILS % (AUTO) 80.6 % (42.0-75.0); PLATELET COUNT 336 X10^3/uL (150.0-450.0); WHITE BLOOD COUNT 10.3 X10^3/uL (3.6-10.0)
--- NOTE | 2018-11-06 23:26 | RAD ---
HISTORY: 73-year-old female with chest pain. Study: Frontal view of the chest. Comparison: Chest radiograph 06/20/2018 Findings: The trachea is midline. The cardiac silhouette is unremarkable with chronic prominence interstitium and perihilar lung markings with hyper expansion of the lungs. The lungs are clear without focal consolidation, effusion or pneumothorax. Soft tissues are unremarkable. Osseous structures are unremarkable. IMPRESSION: 1. No acute cardiopulmonary disease with findings consistent with COPD. Reported By:
[2018-11-06 23:27] LABS: BLOOD UREA NITROGEN 35 mg/dL (7-18); CALCIUM 9.2 mg/dL (8.5-10.1); CARBON DIOXIDE 23.8 mmol/L (21-32); CREATININE 0.97 mg/dL (0.55-1.02); TROPONIN I < 0.02 ng/mL (0-1.5); eGFR NON BLACK RACES 60 (>60)
[2018-11-06 23:31] LABS: ALANINE AMINOTRANSFERASE 29 Units/L (12-78); ALBUMIN 3.5 g/dL (3.4-5.0); ALKALINE PHOSPHATASE 111 Units/L (46-116); CKMB % 1.6 % (<4); CREATINE KINASE 63 Units/L (26-192); CREATINE KINASE MB < 1.0 ng/mL (0-4.0); MAGNESIUM 1.7 mg/dL (1.7-2.9); TOTAL PROTEIN 7.6 g/dL (6.4-8.2)
[2018-11-06] MEDS ORDERED: TOPROL XL PO ONE (23:32)
--- NOTE | 2018-11-06 23:40 | DR.CP ---
HPI Time Seen Time Seen by Provider: 11/06/18 23:26 PCP Primary Care Physician: HELENE HPI Comment HPI Comment: HISTORY A FIB. VOMITED TIMES ONE IN ED. TACHYCARDIA/A FIB PRESENT. PATIENT HAVING CHEST PAIN WELL. Complaint Chief Complaint Doctor Comments: RAPID HEART RATE WITH CHEST PAIN. 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 UPON ARRIVAL TO ED PATIENT VOMITING IN [place], [facility] [place]. Reviewed Nurses Notes Review: Yes Source History Provided: Patient and Long Term Mode of Arrival Mode of Arrival: Stretcher Timing Onset of Chief Complaint: 11/06/18 Came on: Suddenly Duration Duration: Constant Duration: Hours Location Chest Pain Radiation Location: None Context Onset: At rest History of: None Prehospital Care: None Quality Quality: Squeezing Modifying Factors Worsens: Nothing Impoves: Nothing Associated Signs and Symptoms Associated Signs and Symptoms: Palpitations PMH PMH Past Medical History: Yes Past Medical History: Anxiety, Arthritis, Depression, Diabetes, Dyslipidemia, Migraines, GERD and Hypertension Past Surgical History: Yes Surgical History: Unknown, Cholecystectomy, 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, Ortho Surgery and Weight Loss Surgery Family History History of Family Medical Conditions: Yes Family Medical History: Diabetes Mellitus, [place], Coronary Artery Disease, Heart Failure and Hypertension Social History Does patient currently use any type of tobacco product: No Have you used tobacco products in the last 12 months: No Type of Tobacco Use: None Does any household member use tobacco: No Alcohol Use: None Do you use any recreational Drugs:: No Lives With: Other Lives Where: Long Term infectious screening Have you traveled outside the country in the last 6 months?: No Isolation: Standard ROS Review of Systems Constitutional: Weakness and Fatigue Eyes: No Symptoms Reported ENTM: No Symptoms Reported Respiratoy: Short of Breath Cardiovascular: Palpitations Gastrointestinal/Abdominal: Nausea and Vomiting Genitourinary: Other (INCONTINENCE) Neurological: Tremors Musculoskeletal: Back Pain Integumentary: No Symptoms Reported, See HPI and Change in Color Hematologic/Lymphatic: No Symptoms Reported Endocrine: No Symptoms Reported Psychiatric: No Symptoms Reported All Other Systems: Reviewed and Negative PE Vitals Vitals: Temperature 98.1 F Pulse Rate [Apical] 101 Pulse Rate 103 Respiratory Rate 25 Blood Pressure [Right Arm] 100/66 Blood Pressure [Left Arm] 124/88 Blood Pressure [Left Arm] 165/94 Blood Pressure 105/56 O2 Sat by Pulse Oximetry 93 General Limitations: No Limitations General Appearance: Alert and In Distress Head Head Exam: Normal Inspection Eyes Eye exam: Normal Appearance and PERRL; negative Scleral Icterus and Conjunctival Injection ENT ENT Exam: Normal Exam Chest Chest Inspection: Symmetric Chest Wall Rise Respiratory Respiratory Exam: Normal Lung Sounds Bilat Respiratory Exam: Bilateral: Rhonchi and Lower: Rhonchi Cardiovascular Cardiovascular Exam: Irregular Rhythm (A FIB.) Pulse: Irregular (RAPID.) Edema: Normal Abdominal Exam Abdominal Exam: Normal Inspection, Normal Bowel Sounds and Soft; negative Tenderness Back Back Exam: Normal Inspection Neurologic Neurological Exam: Oriented X3 and Other (TREMORS PRESENT.); negative Motor Sen jonh Deficit Psychiatric Psychiatric Exam: Normal Affect and Normal Mood Skin Skin Exam: Warm, Dry, Intact and Normal Color MDM Additional Information Additional Information Obtained From: Family Differential Diagnosis Differential Diagnosis: Angina (ARRHYTHMIA, AFIB), Myocardial Infarction and Pericarditis COURSE Treatment Treatment: SEE ORDERS. CADIOZEM IV BOLUS. RATE DECREASING.PO METROPOLO. RATE STILL RAPID. CARDIOZEM DRIP STARTED. Reevaluation 3rd: Improved Consultation Consultation Comments: DR. NARAYAN WILL ADMIT PATIENT. Education/Counseling Education/Counseling: Patient Educated On: Diagnosis ROR Labs Reviewed Laboratory Results Reviewed?: Yes Result Diagrams: 11/07/18 03:52 11/07/18 03:52 Laboratory: WBC 11.3 X10^3/uL (3.6-10.0) H 11/07/18 03:52 RBC 4.82 X10^6/uL (3.5-5.4) 11/07/18 03:52 Hgb 14.0 g/dL (12.0-16.0) 11/07/18 03:52 Hct 42.1 % (36.0-47.0) 11/07/18 03:52 MCV 87.3 fL (80.0-100.0) 11/07/18 03:52 MCH 29.1 pg (27.0-34.0) 11/07/18 03:52 MCHC 33.3 g/dL (33.0-35.0) 11/07/18 03:52 RDW 14.7 % (11.6-16.5) 11/07/18 03:52 Plt Count 321 X10^3/uL (150.0-450.0) 11/07/18 03:52 MPV 7.4 fL (7.4-11.0) 11/07/18 03:52 Neut % (Auto) 82.1 % (42.0-75.0) H 11/07/18 03:52 Lymph % (Auto) 8.9 % (21.0-51.0) L 11/07/18 03:52 [place] % (Auto) 8.6 % (0.0-13.0) 11/07/18 03:52 Eos % (Auto) 0.1 % (0.9-2.9) L 11/07/18 03:52 Baso % (Auto) 0.3 % (0.2-1.0) 11/07/18 03:52 Neut # (Auto) 9.3 x10^3/uL (2.2-4.8) H 11/07/18 03:52 Lymph # (Auto) 1.0 X10^3/uL (1.3-2.9) L 11/07/18 03:52 [place] # (Auto) 1.0 x10^3/uL (0.3-0.8) H 11/07/18 03:52 Eos # (Auto) 0.0 x10^3/uL (0.0-0.2) 11/07/18 03:52 Baso # (Auto) 0.0 X10^3/uL (0.0-0.1) 11/07/18 03:52 Absolute Nucleated RBC 0.1 /100WBC 11/07/18 03:52 INR Target Range - 11/06/18 23:00 INR 0.97 (0.8-1.3) 11/06/18 23:00 APTT 38.8 SECONDS (22.9-36.5) H 11/06/18 23:00 PTT Comment - 11/06/18 23:00 Sodium 129 mmol/L (136-145) L 11/07/18 03:52 Corrected Sodium TNP 11/07/18 03:52 Potassium 4.6 mmol/L (3.5-5.1) 11/07/18 03:52 Chloride 92 mmol/L (98-107) L 11/07/18 03:52 Carbon Dioxide 24.8 mmol/L (21-32) 11/07/18 03:52 BUN 36 mg/dL (7-18) H 11/07/18 03:52 Creatinine 1.03 mg/dL (0.55-1.02) H 11/07/18 03:52 Est GFR (MDRD) Af Amer > 60 (>60) 11/07/18 03:52 Est GFR (MDRD) Non-Af 56 (>60) L 11/07/18 03:52 Glucose 100 mg/dL (65-99) H 11/07/18 03:52 Calcium 9.1 mg/dL (8.5-10.1) 11/07/18 03:52 Corrected Calcium TNP 11/07/18 03:52 Magnesium 1.7 mg/dL (1.7-2.9) 11/06/18 23:00 Total Bilirubin 0.70 mg/dL (0.2-1.0) 11/07/18 03:52 AST 20 Units/L (15-37) 11/07/18 03:52 ALT 28 Units/L (12-78) 11/07/18 03:52 Alkaline Phosphatase 108 Units/L (46-116) 11/07/18 03:52 Creatine Kinase 42 Units/L (26-192) 11/07/18 11:16 CK-MB (CK-2) < 1.0 ng/mL (0-4.0) 11/07/18 11:16 CK/CKMB % Calc 2.4 % (<4) 11/07/18 11:16 Troponin I < 0.02 ng/mL (0-1.5) 11/07/18 11:16 B-Natriuretic Peptide 169 pg/mL (0-79) H 11/07/18 03:55 Total Protein 7.3 g/dL (6.4-8.2) 11/07/18 03:52 Albumin 3.4 g/dL (3.4-5.0) 11/07/18 03:52 Globulin 3.9 g/dL (2.5-4.5) 11/07/18 03:52 Albumin/Globulin Ratio 0.9 Ratio (1.1-2.1) L 11/07/18 03:52 EKG Rhythm: Afib (WITH RVR.)
[2018-11-06 23:48] LABS: CHLORIDE 92 mmol/L (98-107); COR NA(FOR HYPERGLY) 128 mmol/L (136-145); SODIUM 127 mmol/L (136-145)
[2018-11-06 23:56] LABS: ASPARTATE AMINO TRANSFERASE 26 Units/L (15-37)
[2018-11-07] MEDS ORDERED: TYLENOL 325 MG TAB PO ONE ×2 (00:01)
[2018-11-07] MEDS ORDERED: NS 1000 ML 1,000 ML ONE ×2 (00:26→17:25)
[2018-11-07] MEDS: NS 1000 ML 1,000 ML IV SCH ×5 (00:32→22:07)
[2018-11-07] MEDS ORDERED: NS 100 ML IV 100 ML IV ONE (01:26)
[2018-11-07] MEDS ORDERED: CARDIZEM INJ 50 MG VIAL IVP ONE ×2 (01:26)
[2018-11-07] MEDS ORDERED: CARDIZEM INJ 125 MG VIAL 125 MG in NS 100 ML IV 100 ML IV PRN (01:26)
[2018-11-07] MEDS ORDERED: CARDIZEM INJ 125 MG VIAL ONE (01:27)
[2018-11-07] MEDS ORDERED: XANAX ONE (01:44)
[2018-11-07] MEDS ORDERED: XANAX PO ONE (01:44)
[2018-11-07] MEDS ORDERED: MORPHINE SULFATE INJ 4 MG IVP ONE (03:44)
[2018-11-07] MEDS ORDERED: ZOFRAN INJ 4 MG VIAL IVP ONE (03:44)
[2018-11-07] MEDS ORDERED: ZOFRAN INJ 4 MG VIAL ONE (03:45)
[2018-11-07] MEDS ORDERED: MORPHINE SULFATE INJ 4 MG ONE (03:45)
[2018-11-07 04:10] LABS: BASOPHILS % (AUTO) 0.3 % (0.2-1.0); EOSINOPHILS % (AUTO) 0.1 % (0.9-2.9); HEMATOCRIT 42.1 % (36.0-47.0); LYMPHOCYTES % (AUTO) 8.9 % (21.0-51.0); MEAN CORPUSCULAR HEMOGLOBIN 29.1 pg (27.0-34.0); MEAN CORPUSCULAR HGB CONC 33.3 g/dL (33.0-35.0); MEAN CORPUSCULAR VOLUME 87.3 fL (80.0-100.0); MEAN PLATELET VOLUME 7.4 fL (7.4-11.0); MONOCYTES % (AUTO) 8.6 % (0.0-13.0); NEUTROPHILS # (AUTO) 9.3 x10^3/uL (2.2-4.8); NEUTROPHILS % (AUTO) 82.1 % (42.0-75.0); PLATELET COUNT 321 X10^3/uL (150.0-450.0); RED BLOOD COUNT 4.82 X10^6/uL (3.5-5.4); RED CELL DISTRIBUTION WIDTH 14.7 % (11.6-16.5); WHITE BLOOD COUNT 11.3 X10^3/uL (3.6-10.0)
[2018-11-07 04:16] LABS: ALANINE AMINOTRANSFERASE 28 Units/L (12-78); ALBUMIN 3.4 g/dL (3.4-5.0); ALKALINE PHOSPHATASE 108 Units/L (46-116); ASPARTATE AMINO TRANSFERASE 20 Units/L (15-37); BLOOD UREA NITROGEN 36 mg/dL (7-18); CALCIUM 9.1 mg/dL (8.5-10.1); CARBON DIOXIDE 24.8 mmol/L (21-32); CHLORIDE 92 mmol/L (98-107); CREATININE 1.03 mg/dL (0.55-1.02); SODIUM 129 mmol/L (136-145); TOTAL PROTEIN 7.3 g/dL (6.4-8.2); eGFR NON BLACK RACES 56 (>60)
[2018-11-07] MEDS ORDERED: PEPCID 20 MG IV PREMIX* 20 MG/50 ML BAG IV ONE ×2 (04:20→04:22)
[2018-11-07 04:28] LABS: CKMB % 2.8 % (<4); CREATINE KINASE 40 Units/L (26-192); CREATINE KINASE MB 1.1 ng/mL (0-4.0); TROPONIN I < 0.02 ng/mL (0-1.5)
[2018-11-07] MEDS ORDERED: DILAUDID INJ IVP PRN (04:41)
--- NOTE | 2018-11-07 04:55 | RAD ---
AP chest Indication: Chest pain Comparison: 11/06/2018 Findings: The trachea is midline. The lungs are clear. No pleural effusion or pneumothorax. Heart size is normal. No acute osseous abnormality. Impression: No acute cardiopulmonary abnormality or change from prior examination. Reported By:
[2018-11-07] MEDS ORDERED: ZOFRAN TAB 4 MG PO PRN (08:48)
[2018-11-07 11:45] LABS: CKMB % 2.4 % (<4); CREATINE KINASE 42 Units/L (26-192); CREATINE KINASE MB < 1.0 ng/mL (0-4.0); TROPONIN I < 0.02 ng/mL (0-1.5)
[2018-11-07] MEDS ORDERED: TYLENOL 325 MG TAB PO PRN (14:10)
[2018-11-07] MEDS: REGLAN TAB 10 MG PO SCH ×3 (14:53→21:57)
[2018-11-07] MEDS: PSYLLIUM HUSK 0.52 GM PO SCH (14:53)
[2018-11-07] MEDS ORDERED: XARELTO PO ONE (14:59)
[2018-11-07] MEDS ORDERED: TOPROL XL PO ONE (14:59)
[2018-11-07] MEDS ORDERED: NEURONTIN CAP 100 MG PO ONE (15:00)
[2018-11-07] MEDS ORDERED: DITROPAN TAB 5 MG PO ONE (15:00)
[2018-11-07] MEDS ORDERED: PEPCID TAB 20 MG ONE (15:00)
[2018-11-07] MEDS ORDERED: PROTONIX TAB 40 MG PO ONE (15:00)
[2018-11-07] MEDS: DITROPAN TAB 5 MG PO SCH (15:03)
[2018-11-07] MEDS: NEURONTIN CAP 100 MG PO SCH ×2 (15:03→21:58)
[2018-11-07] MEDS: TOPROL XL PO SCH (15:04)
[2018-11-07] MEDS: PEPCID TAB 20 MG PO SCH ×2 (15:04→21:56)
[2018-11-07] MEDS: PROTONIX TAB 40 MG PO SCH ×2 (15:04→21:57)
[2018-11-07] MEDS: XARELTO PO SCH (15:05)
[2018-11-07] MEDS: XANAX PO SCH ×2 (15:05→21:57)
[2018-11-07] MEDS: TAB-A-VITE PO SCH (15:06)
[2018-11-07] MEDS: HEMOCYTE-PLUS PO SCH (15:06)
[2018-11-07] MEDS ORDERED: LEVSIN/MAALOX/LIDOC VISC PO PRN (17:00)
[2018-11-07] MEDS ORDERED: MYLICON TAB 80 MG CHEW PO PRN (18:00)
[2018-11-07 18:29] VITALS: BMI 22.3
[2018-11-07] MEDS: DEPAKOTE D.R. TAB PO SCH (21:55)
[2018-11-07] MEDS: EFFEXOR XR 150 MG CAP PO SCH (21:56)
[2018-11-07] MEDS: ZANAFLEX PO SCH (21:58)
[2018-11-08] MEDS: PATIENT'S HOME MEDICATION (Melatonin [Melatonin] 10 MG) PO SCH ×2 (01:08→21:28)
[2018-11-08] MEDS: NS 1000 ML 1,000 ML IV SCH ×4 (02:17→19:44)
[2018-11-08] MEDS: NEURONTIN CAP 100 MG PO SCH ×3 (05:31→21:29)
[2018-11-08] MEDS: REGLAN TAB 10 MG PO SCH ×4 (05:32→21:29)
[2018-11-08 06:32] LABS: BASOPHILS # (AUTO) 0.1 X10^3/uL (0.0-0.1); EOSINOPHILS # (AUTO) 0.2 x10^3/uL (0.0-0.2); EOSINOPHILS % (AUTO) 2.7 % (0.9-2.9); HEMATOCRIT 35.8 % (36.0-47.0); HEMOGLOBIN 11.9 g/dL (12.0-16.0); LYMPHOCYTES # (AUTO) 1.4 X10^3/uL (1.3-2.9); LYMPHOCYTES % (AUTO) 21.6 % (21.0-51.0); MEAN CORPUSCULAR HEMOGLOBIN 29.2 pg (27.0-34.0); MEAN CORPUSCULAR HGB CONC 33.4 g/dL (33.0-35.0); MEAN CORPUSCULAR VOLUME 87.7 fL (80.0-100.0); MEAN PLATELET VOLUME 7.6 fL (7.4-11.0); MONOCYTES # (AUTO) 0.9 x10^3/uL (0.3-0.8); MONOCYTES % (AUTO) 13.5 % (0.0-13.0); NEUTROPHILS # (AUTO) 3.9 x10^3/uL (2.2-4.8); NEUTROPHILS % (AUTO) 61.2 % (42.0-75.0); PLATELET COUNT 222 X10^3/uL (150.0-450.0); RED BLOOD COUNT 4.08 X10^6/uL (3.5-5.4); WHITE BLOOD COUNT 6.3 X10^3/uL (3.6-10.0)
[2018-11-08 06:57] LABS: ALANINE AMINOTRANSFERASE 35 Units/L (12-78); ALBUMIN 2.7 g/dL (3.4-5.0); ALKALINE PHOSPHATASE 103 Units/L (46-116); ASPARTATE AMINO TRANSFERASE 32 Units/L (15-37); BLOOD UREA NITROGEN 20 mg/dL (7-18); CALCIUM 8.2 mg/dL (8.5-10.1); CARBON DIOXIDE 22.5 mmol/L (21-32); CHLORIDE 100 mmol/L (98-107); COR CA(FOR HYPOALB) 9.2 mg/dL (8.5-10.1); CREATININE 0.83 mg/dL (0.55-1.02); SODIUM 131 mmol/L (136-145); TOTAL PROTEIN 5.9 g/dL (6.4-8.2); eGFR NON BLACK RACES > 60 (>60)
[2018-11-08] MEDS: DITROPAN TAB 5 MG PO SCH (08:11)
[2018-11-08] MEDS: PROTONIX TAB 40 MG PO SCH ×2 (08:12→21:28)
[2018-11-08] MEDS: HEMOCYTE-PLUS PO SCH (08:12)
[2018-11-08] MEDS: PEPCID TAB 20 MG PO SCH ×2 (08:12→21:28)
[2018-11-08] MEDS: PSYLLIUM HUSK 0.52 GM PO SCH (08:13)
[2018-11-08] MEDS: TOPROL XL PO SCH (08:13)
[2018-11-08] MEDS: TAB-A-VITE PO SCH (08:13)
[2018-11-08] MEDS: XANAX PO SCH ×2 (08:13→21:29)
[2018-11-08] MEDS: XARELTO PO SCH (08:14)
[2018-11-08] MEDS: ULTRAM PO PRN ×2 (08:14→21:34)
[2018-11-08] MEDS: LANOXIN PO SCH (10:48)
[2018-11-08] MEDS ORDERED: COLACE CAP 100 MG PO SCH (21:00)
--- NOTE | 2018-11-08 21:22 | DR.H&P ---
H&P - History & Physical for Day of: H&P Date: 11/07/18 - Chief Complaint Chief Complaint: CHEST PAIN, TACHYCARDIA - History of Present Illness History of Present Illness: IS A 73 YEAR OLD PATIENT OF OURS WHO PRESENTED TO THE EMERGENCY FROM [facility] WITH COMPLAINTS OF CHEST PAIN AND TACHYCARDIA. SHE HAS A HISTORY OF ATRIAL FIBRILLATION. UPON ARRIVAL TO ER, SHE WAS NOTED TO BE VOMITING. ON ARRIVAL, VITALS WERE 97 .2-139-18-96%-127/90. LABS WERE OBTAINED. ABNORMAL LAB VALUES INCLUDE THE FOLLOWING: WBC 10.3, SODIUM 127, CHLORIDE 92, BUN 35, GLUCOSE 150. AN EKG WAS OBTAINED AND REVEALED: ATRIAL FIBRILLATION WITH HR 120. CHEST XRAY REVEALED: No acute cardiopulmonary disease with findings consistent with COPD. SHE WAS GIVEN MORPHINE 4MG IV X 1, ZOFRAN 4MG IV X 1, PEPCID 20MG IV X 1, AND STARTED ON A CARDIZEM DRIP IN THE ER. SHE WAS ADMITTED TO THE INTENSIVE CARE UNIT FOR FURTHER EVALUATION AND TREATMENT OF HYPOTENSION, ATRIAL FIBRILLATION WITH RVR, AND CHEST PAIN. SHE WAS ALSO STARTED ON NORMAL SALINE AT 125MG/HR. HOME MEDICATIONS WERE RESUMED. WE PLAN TO FOLLOW UP WITH AM LABS AND CONTINUE TO MONITOR. 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, Hysterectomy, Ortho Surgery, Weight Loss Surgery Additional Surgical History: gastric bypass - Family History Family Medical History: Diabetes Mellitus, [place], Coronary Artery Disease, Heart Failure, Hypertension - Social History Does patient currently use any type of tobacco product: No Have you used tobacco products in the last 12 months: No Type of Tobacco Use: None Does any household member use tobacco: No Alcohol Use: None Drug Use: None - Medications Home Medications: adhesive tape Allergy (Verified 11/06/18 23:04) CONTINUE taking the following medications metoprolol succinate 12.5 mg PO DAILY 11/06/18 [History] psyllium husk [Metamucil] 0.52 g PO QDAY 11/06/18 [History] venlafaxine 150 mg PO HS 11/06/18 [History] - Review of Systems Constitutional: Weakness Eyes: No Symptoms Reported ENT: No Symptoms Reported Respiratory: Shortness of Breath Cardiovascular: Chest Pain, Palpitations Gastrointestinal: Nausea Genitourinary: No Symptoms Reported Musculoskeletal: No Symptoms Reported Skin: No Symptoms Reported Neurological: Weakness - Physical Exam Vital Signs: Temperature 98.0 F Pulse Rate [Apical] 125 Pulse Rate 129 Respiratory Rate 15 Blood Pressure [Right Arm] 142/69 Blood Pressure [Left Arm] 124/88 Blood Pressure [Left Arm] 165/94 Blood Pressure 127/89 O2 Sat by Pulse Oximetry 100 Oriented: Normal Eyes: Normal Ear: Normal Nose: Normal Throat: Normal Respiratory: Diminished Throughout Cardiovascular: Tachycardia. negative: S3, S4, Murmur : Normal Auscultation: Bowel Sounds: Normal Palpation: Normal Tenderness: Normal Skin: Normal Musculoskeletal: Normal Psychiatric: Normal Mood Description: Calm Affect: Normal Speech Pattern: Clear - Assessment/Plan (1) Atrial fibrillation Qualifiers: Atrial fibrillation type: persistent Qualified Code(s): I48.1 - Persistent atrial fibrillation Status: Acute Plan: CARDIZEM DRIP, CONTINUE HOME MEDS, CONTINUE TO MONITOR (2) Hypotension Qualifiers: Hypotension type: unspecified hypotension type Qualified Code(s): I95.9 - Hypotension, unspecified Status: Acute Plan: NORMAL SALINE AT 125ML/HR, CONTINUE TO MONITOR (3) Chest pain Qualifiers: Chest pain type: unspecified Qualified Code(s): R07.9 - Chest pain, unspecified Status: Acute Plan: SERIAL CARDIAC ENZYMES AND EKGS, CONTINUE TO MONITOR. - Allergies Allergies/Adverse Reactions: Allergies Allergy/AdvReac Type Severity Reaction Status Date / Time adhesive tape Allergy Verified 11/06/18 23:04
[2018-11-08] MEDS: DEPAKOTE D.R. TAB PO SCH (21:28)
[2018-11-08] MEDS: EFFEXOR XR 150 MG CAP PO SCH (21:28)
[2018-11-08] MEDS: ZANAFLEX PO SCH (21:29)
[2018-11-08] MEDS ORDERED: RESTORIL CAP 15 MG PO PRN (23:32)
[2018-11-08] MEDS ORDERED: RESTORIL CAP 15 MG PO ONE (23:36)
[2018-11-08] MEDS ORDERED: TOPROL XL PO ONE (23:37)
[2018-11-08] MEDS ORDERED: TOPROL XL PO SCH (23:45)
[2018-11-09] MEDS: NS 1000 ML 1,000 ML IV SCH ×2 (02:07→11:14)
[2018-11-09] MEDS: NEURONTIN CAP 100 MG PO SCH (05:23)
[2018-11-09] MEDS: REGLAN TAB 10 MG PO SCH ×2 (05:30→11:14)
[2018-11-09 06:06] LABS: BASOPHILS # (AUTO) 0.1 X10^3/uL (0.0-0.1); BASOPHILS % (AUTO) 0.6 % (0.2-1.0); EOSINOPHILS # (AUTO) 0.1 x10^3/uL (0.0-0.2); EOSINOPHILS % (AUTO) 1.1 % (0.9-2.9); HEMATOCRIT 39.2 % (36.0-47.0); HEMOGLOBIN 13.3 g/dL (12.0-16.0); LYMPHOCYTES # (AUTO) 1.2 X10^3/uL (1.3-2.9); LYMPHOCYTES % (AUTO) 13.8 % (21.0-51.0); MEAN CORPUSCULAR HEMOGLOBIN 29.5 pg (27.0-34.0); MEAN CORPUSCULAR HGB CONC 33.9 g/dL (33.0-35.0); MEAN CORPUSCULAR VOLUME 87.3 fL (80.0-100.0); MEAN PLATELET VOLUME 7.7 fL (7.4-11.0); MONOCYTES # (AUTO) 0.9 x10^3/uL (0.3-0.8); MONOCYTES % (AUTO) 10.8 % (0.0-13.0); NEUTROPHILS # (AUTO) 6.3 x10^3/uL (2.2-4.8); NEUTROPHILS % (AUTO) 73.7 % (42.0-75.0); PLATELET COUNT 244 X10^3/uL (150.0-450.0); RED CELL DISTRIBUTION WIDTH 14.7 % (11.6-16.5); WHITE BLOOD COUNT 8.5 X10^3/uL (3.6-10.0)
[2018-11-09 06:21] LABS: ALANINE AMINOTRANSFERASE 34 Units/L (12-78); ALBUMIN 2.9 g/dL (3.4-5.0); ALKALINE PHOSPHATASE 106 Units/L (46-116); ASPARTATE AMINO TRANSFERASE 29 Units/L (15-37); BLOOD UREA NITROGEN 12 mg/dL (7-18); CALCIUM 8.5 mg/dL (8.5-10.1); CARBON DIOXIDE 25.1 mmol/L (21-32); CHLORIDE 98 mmol/L (98-107); COR CA(FOR HYPOALB) 9.4 mg/dL (8.5-10.1); CREATININE 0.75 mg/dL (0.55-1.02); DIGOXIN 0.41 ng/mL (0.9-2); SODIUM 132 mmol/L (136-145); TOTAL PROTEIN 6.5 g/dL (6.4-8.2); eGFR NON BLACK RACES > 60 (>60)
[2018-11-09] MEDS: HEMOCYTE-PLUS PO SCH (08:40)
[2018-11-09] MEDS: LANOXIN PO SCH (08:40)
[2018-11-09] MEDS: TAB-A-VITE PO SCH (08:42)
[2018-11-09] MEDS: PROTONIX TAB 40 MG PO SCH (08:42)
[2018-11-09] MEDS: PEPCID TAB 20 MG PO SCH (08:42)
[2018-11-09] MEDS: PSYLLIUM HUSK 0.52 GM PO SCH (08:42)
[2018-11-09] MEDS: XANAX PO SCH (08:42)
[2018-11-09] MEDS: XARELTO PO SCH (08:42)
[2018-11-09] MEDS ORDERED: MILK OF MAGNESIA PO SCH (09:00)
[2018-11-09] MEDS: DITROPAN TAB 5 MG PO SCH (09:02)
[2018-11-09] MEDS ORDERED: NS 1000 ML 1,000 ML IV ONE (09:47)
[2018-11-09 14:06] VITALS: BP 111/64
[2018-11-10] MEDS ORDERED: TOPROL XL PO SCH (09:00)
== END 2018-11-09 14:50 ==
LOC: ER 22:32 → ICU 22:32
PROVIDERS: ADMIT Internal Medicine; ATTEND Internal Medicine
DX: E78.2 Mixed hyperlipidemia; F41.8 Other specified anxiety disorders; I95.89 Other hypotension; R26.89 Other abnormalities of gait and mobility; Z79.899 Other long term (current) drug therapy; Z93.3 Colostomy status; R79.1 Abnormal coagulation profile; Z66 Do not resuscitate; R07.89 Other chest pain; R94.31 Abnormal electrocardiogram [ECG] [EKG]; K21.9 Gastro-esophageal reflux disease without esophagitis; R06.02 Shortness of breath; R94.4 Abnormal results of kidney function studies; I48.1 Persistent atrial fibrillation
CPT/HCPCS: 36415; 71010; 71045; 80053; 80162; 82550; 82553; 83735; 83880; 84484; 85025; 85610; 85730; 93005; 93306; 96365; 96367; 96374; 96375; 97163; 97166; 97535; 99282; 99284; A4222; S0028; G0378; J1170; J2270; J2405; J3490; J7030; J7050

== ENCOUNTER 2018-12-04 20:10 | Inpatient (IN) ==
[2018-12-04] MEDS ORDERED: NS 1000 ML 1,000 ML IV SCH (21:04)
[2018-12-04] MEDS ORDERED: NS 1000 ML 1,000 ML ONE (21:21)
[2018-12-04 21:29] VITALS: BMI 21.7
[2018-12-04] MEDS: NS 1000 ML 1,000 ML IV SCH (21:31)
[2018-12-04 23:40] LABS: BILIRUBIN,URINE NEGATIVE (NEGATIVE); BLOOD/HEMOGLOBIN,URINE 2+ (NEGATIVE); GLUCOSE, URINE NEGATIVE (NEGATIVE); KETONES,URINE NEGATIVE (NEGATIVE); LEUKOCYTE ESTERASE ,URINE 3+ (NEGATIVE); NITRITES,URINE NEGATIVE (NEGATIVE); PROTEIN,URINE 1+ (NEGATIVE); UROBILINOGEN,URINE NORMAL (NORMAL)
[2018-12-04 23:48] LABS: AMORPHOUS SEDIMENT,UR 1+ /HPF (NEGATIVE); APPEARANCE,URINE CLEAR (CLEAR); BACTERIA,URINE 1+ /HPF (NEGATIVE); COLOR,URINE YELLOW (YELLOW); SQUAMOUS EPITHELIAL CELL,UR RARE /HPF (NEGATIVE)
[2018-12-05 06:05] LABS: BASOPHILS % (AUTO) 0.7 % (0.2-1.0); EOSINOPHILS # (AUTO) 0.1 x10^3/uL (0.0-0.2); EOSINOPHILS % (AUTO) 1.9 % (0.9-2.9); HEMATOCRIT 39.8 % (36.0-47.0); HEMOGLOBIN 13.7 g/dL (12.0-16.0); LYMPHOCYTES # (AUTO) 1.4 X10^3/uL (1.3-2.9); LYMPHOCYTES % (AUTO) 24.7 % (21.0-51.0); MEAN CORPUSCULAR HEMOGLOBIN 30.1 pg (27.0-34.0); MEAN CORPUSCULAR HGB CONC 34.5 g/dL (33.0-35.0); MEAN CORPUSCULAR VOLUME 87.2 fL (80.0-100.0); MEAN PLATELET VOLUME 7.3 fL (7.4-11.0); MONOCYTES # (AUTO) 0.9 x10^3/uL (0.3-0.8); MONOCYTES % (AUTO) 15.1 % (0.0-13.0); NEUTROPHILS # (AUTO) 3.2 x10^3/uL (2.2-4.8); NEUTROPHILS % (AUTO) 57.6 % (42.0-75.0); PLATELET COUNT 325 X10^3/uL (150.0-450.0); RED BLOOD COUNT 4.57 X10^6/uL (3.5-5.4); RED CELL DISTRIBUTION WIDTH 14.7 % (11.6-16.5); WHITE BLOOD COUNT 5.6 X10^3/uL (3.6-10.0)
[2018-12-05 06:23] LABS: ALANINE AMINOTRANSFERASE 23 Units/L (12-78); ALBUMIN 3.2 g/dL (3.4-5.0); ALKALINE PHOSPHATASE 112 Units/L (46-116); ASPARTATE AMINO TRANSFERASE 19 Units/L (15-37); BLOOD UREA NITROGEN 15 mg/dL (7-18); CARBON DIOXIDE 26.4 mmol/L (21-32); CHLORIDE 91 mmol/L (98-107); COR CA(FOR HYPOALB) 9.6 mg/dL (8.5-10.1); CREATININE 0.83 mg/dL (0.55-1.02); TOTAL PROTEIN 7.2 g/dL (6.4-8.2); eGFR NON BLACK RACES > 60 (>60)
[2018-12-05 06:31] LABS: SODIUM 125 mmol/L (136-145)
[2018-12-05] MEDS: NS 1000 ML 1,000 ML IV SCH (10:37)
[2018-12-05] MEDS: ROCEPHIN VIAL 1 GRAM IVP SCH (10:37)
[2018-12-05] MEDS ORDERED: ZOFRAN TAB 4 MG PO PRN (10:46)
[2018-12-05] MEDS ORDERED: ULTRAM PO PRN (10:46)
[2018-12-05] MEDS: TAB-A-VITE PO SCH (13:40)
[2018-12-05] MEDS: LANOXIN PO SCH (13:41)
[2018-12-05] MEDS: NEURONTIN CAP 100 MG PO SCH ×2 (13:41→21:10)
[2018-12-05] MEDS: PROTONIX TAB 40 MG PO SCH ×2 (13:42→20:32)
[2018-12-05] MEDS: XANAX PO SCH ×2 (13:42→20:32)
[2018-12-05] MEDS: HEMOCYTE-PLUS PO SCH (13:42)
[2018-12-05] MEDS: TOPROL XL PO SCH (13:42)
[2018-12-05] MEDS: PEPCID TAB 20 MG PO SCH ×2 (13:42→20:32)
[2018-12-05] MEDS: REGLAN TAB 10 MG PO SCH ×3 (13:43→20:32)
[2018-12-05] MEDS: XARELTO PO SCH (13:43)
[2018-12-05] MEDS: ZANAFLEX PO SCH ×2 (13:43→21:08)
[2018-12-05] MEDS: LEVSIN/MAALOX/LIDOC VISC PO SCH ×3 (13:45→21:08)
[2018-12-05] MEDS: DITROPAN TAB 5 MG PO SCH (13:49)
[2018-12-05] MEDS: MYLICON TAB 80 MG CHEW PO SCH ×2 (14:01→17:24)
[2018-12-05] MEDS: PSYLLIUM HUSK 0.52 GM PO SCH (14:50)
[2018-12-05] MEDS: PATIENT'S HOME MEDICATION PO SCH (20:33)
[2018-12-05] MEDS: PATIENT'S HOME MEDICATION (Melatonin [Melatonin] 10 MG) PO SCH (20:33)
--- NOTE | 2018-12-05 21:41 | DR.H&P ---
H&P - History & Physical for Day of: H&P Date: 12/04/18 - Chief Complaint Chief Complaint: WEAKNESS, DECREASED APPETITE - History of Present Illness History of Present Illness: IS A 73 YEAR OLD PATIENT OF OURS WHO WAS A DIRECT ADMISSION FOR DEHYDRATION AND HYPONATREMIA. STAFF REPORTS THAT SHE HAS HAD A DECREASED APPETITE AND HAS BEEN REFUSING TO EAT. ON ARRIVAL, VITLAS WERE 97.7-69-29-68-113/73. LABS WERE OBTAINED. OUTPATIENT LABS OBTAINED REVEALED THE FOLLOWING ABNORMAL LAB VALUES: SODIUM 122, CHLORIDE 89, BUN 20, GLUCOSE 111, ALK PHOS 119, ALBUMIN 2.8, DIGOXIN 0.80. ON ADMISSION, A URINALYSIS WAS OBTAINED AND REVEALED: WBC 30-50, RBC 5-10, BACTERIA 1+, LEUKOCYTES 3+. A URINE CULTURE WAS SET UP. SHE WAS STARTED ON NORMAL SALINE AT 75ML/HR AND ROCEPHIN 1GM IV DAILY. WE PLAN TO FOLLOW UP WITH AM LABS AND CONTINUE TO MONITOR. - Past Medical History Past Medical History: Hypertension, Dyslipidemia, Diabetes, Depression, Anxiety, GERD, Arthritis, Migraines Additional Medical History: ATRIAL FIBRILLATION - Past Surgical History Surgical History: Cholecystectomy, Hysterectomy, Joint Replacement, Ortho Surgery, Weight Loss Surgery, Other Additional Surgical History: gastric bypass - Family History Family Medical History: Heart Failure, Hypertension - Social History Does patient currently use any type of tobacco product: No Have you used tobacco products in the last 12 months: No Type of Tobacco Use: Cigarettes How many years tobacco product used: 30 Does any household member use tobacco: No Alcohol Use: None - Medications Home Medications: adhesive tape Allergy (Verified 11/06/18 23:04) CONTINUE taking the following medications clonidine HCl 0.1 mg PO Q6H PRN 12/05/18 [History] - Review of Systems Constitutional: Weakness, Malaise, Other (DECREASED APPETITE ) Eyes: No Symptoms Reported ENT: No Symptoms Reported Respiratory: No Symptoms Reported Cardiovascular: No Symptoms Reported Gastrointestinal: No Symptoms Reported Genitourinary: No Symptoms Reported Musculoskeletal: No Symptoms Reported Skin: No Symptoms Reported Neurological: Weakness - Physical Exam Vital Signs: Temperature 97.9 F Pulse Rate [Right Radial] 93 Pulse Rate 113 Respiratory Rate 15 Blood Pressure [Right Arm] 110/68 Blood Pressure [Left Arm] 124/88 Blood Pressure [Left Arm] 165/94 Blood Pressure 111/64 O2 Sat by Pulse Oximetry 100 Oriented: Normal Eyes: Normal Ear: Normal Nose: Normal Throat: Normal Respiratory: Diminished Throughout Cardiovascular: Normal. negative: S3, S4 : Normal Auscultation: Bowel Sounds: Normal Palpation: Normal Tenderness: Normal Skin: Normal Musculoskeletal: Normal Psychiatric: Normal Mood Description: Calm Affect: Normal Speech Pattern: Clear - Assessment/Plan (1) Dehydration Status: Acute Plan: NORMAL SALINE AT 75ML/HR, CONTINUE TO MONITOR (2) Hyponatremia Status: Acute Plan: NORMAL SALINE AT 75ML/HR, CONTINUE TO MONITOR (3) Urinary tract infection Qualifiers: Urinary tract infection type: acute cystitis Hematuria presence: with hematuria Qualified Code(s): N30.01 - Acute cystitis with hematuria Status: Acute Plan: ROCEPHIN 1GM IV DAILY, CONTINUE TO MONITOR - Allergies Allergies/Adverse Reactions: Allergies Allergy/AdvReac Type Severity Reaction Status Date / Time adhesive tape Allergy Verified 11/06/18 23:04
[2018-12-06] MEDS ORDERED: NS 1000 ML 0 ML ONE (00:01)
[2018-12-06] MEDS: NEURONTIN CAP 100 MG PO SCH ×3 (06:06→22:04)
[2018-12-06] MEDS: REGLAN TAB 10 MG PO SCH ×4 (06:07→20:43)
[2018-12-06 06:09] LABS: BASOPHILS % (AUTO) 0.5 % (0.2-1.0); EOSINOPHILS # (AUTO) 0.1 x10^3/uL (0.0-0.2); EOSINOPHILS % (AUTO) 1.7 % (0.9-2.9); HEMATOCRIT 40.6 % (36.0-47.0); HEMOGLOBIN 13.9 g/dL (12.0-16.0); LYMPHOCYTES # (AUTO) 1.4 X10^3/uL (1.3-2.9); LYMPHOCYTES % (AUTO) 18.7 % (21.0-51.0); MEAN CORPUSCULAR HEMOGLOBIN 29.8 pg (27.0-34.0); MEAN CORPUSCULAR HGB CONC 34.2 g/dL (33.0-35.0); MEAN CORPUSCULAR VOLUME 87.3 fL (80.0-100.0); MEAN PLATELET VOLUME 7.2 fL (7.4-11.0); MONOCYTES # (AUTO) 1.1 x10^3/uL (0.3-0.8); MONOCYTES % (AUTO) 15.6 % (0.0-13.0); NEUTROPHILS # (AUTO) 4.6 x10^3/uL (2.2-4.8); NEUTROPHILS % (AUTO) 63.5 % (42.0-75.0); PLATELET COUNT 298 X10^3/uL (150.0-450.0); RED BLOOD COUNT 4.65 X10^6/uL (3.5-5.4); RED CELL DISTRIBUTION WIDTH 14.7 % (11.6-16.5); WHITE BLOOD COUNT 7.3 X10^3/uL (3.6-10.0)
[2018-12-06 06:20] LABS: ALANINE AMINOTRANSFERASE 24 Units/L (12-78); ALBUMIN 3.2 g/dL (3.4-5.0); ALKALINE PHOSPHATASE 111 Units/L (46-116); ASPARTATE AMINO TRANSFERASE 19 Units/L (15-37); BLOOD UREA NITROGEN 11 mg/dL (7-18); CALCIUM 9.1 mg/dL (8.5-10.1); CARBON DIOXIDE 26.4 mmol/L (21-32); CHLORIDE 93 mmol/L (98-107); COR CA(FOR HYPOALB) 9.7 mg/dL (8.5-10.1); CREATININE 0.71 mg/dL (0.55-1.02); SODIUM 126 mmol/L (136-145); TOTAL PROTEIN 7.2 g/dL (6.4-8.2); eGFR NON BLACK RACES > 60 (>60)
[2018-12-06] MEDS: TAB-A-VITE PO SCH (08:26)
[2018-12-06] MEDS: LANOXIN PO SCH (08:27)
[2018-12-06] MEDS: TOPROL XL PO SCH (08:27)
[2018-12-06] MEDS: DITROPAN TAB 5 MG PO SCH (08:27)
[2018-12-06] MEDS: PEPCID TAB 20 MG PO SCH ×2 (08:27→20:43)
[2018-12-06] MEDS: ROCEPHIN VIAL 1 GRAM IVP SCH (08:27)
[2018-12-06] MEDS: XARELTO PO SCH (08:28)
[2018-12-06] MEDS: XANAX PO SCH ×2 (08:28→20:44)
[2018-12-06] MEDS: PROTONIX TAB 40 MG PO SCH ×2 (08:28→20:44)
[2018-12-06] MEDS: MYLICON TAB 80 MG CHEW PO SCH ×3 (08:28→18:17)
[2018-12-06] MEDS: LEVSIN/MAALOX/LIDOC VISC PO SCH ×4 (08:28→21:30)
[2018-12-06] MEDS: HEMOCYTE-PLUS PO SCH (08:28)
[2018-12-06] MEDS: NS 1000 ML 1,000 ML IV SCH ×2 (10:34→22:30)
[2018-12-06] MEDS: PSYLLIUM HUSK 0.52 GM PO SCH (13:00)
--- NOTE | 2018-12-06 13:04 | PCM.PROG ---
Progress Note - Progress Note for Day of Date of Exam: 12/05/18 - Subjective Subjective: WAS ADMITTED FOR HYPONATREMIA, DEHYDRATION, AND A URINARY TRACT INFECTION. TODAY, SHE IS ALERT AND ORIENTED, LYING IN BED ON MORNING ROUNDS. SHE CONTINUES WITH COMPLAINTS OF WEAKNESS. SHE ALSO REPORTS LOWER ABDOMINAL PAIN. ON EXAMINATION, HEART IS REGULAR IN RATE AND RHYTHM. BILA TERAL LUNGS ARE NOTED WITH DIMINISHED LUNG SOUNDS THROUGOUT. ABDOMEN IS ROUND, SOFT, AND NOTED WITH MILD SUPRAPUBIC TENDERNESS. HER VITALS THIS MORNING ARE 97.5-100-18-97%-145/89. LABS WERE OBTAINED. ABNORMAL LAB VALUES INCLUDE THE FOLLOWING: SODIUM 125, CHLORIDE 91, ALBUMIN 3.2. SHE IS CURRENTLY RECEIVING NORMAL SALINE AT 75ML/HR AND ROCEPHIN 1GM IV DAILY. WE WILL CONTINUE IVY MEDICATIONS TODAY WITH THE EXCEPTION OF THE VENLAFAXINE. WE WILL DISCONTINUE THIS, IT IS THE LIKELY CAUSE OF THE HYPONATREMIA. OTHERWISE, WE PLAN TO FOLLOW UP WITH AM LABS AND CONTINUE TO MONITOR. - Past Medical Family Social History Past Med/Fam/Surg Hx: No changes since H&P Allergies: Allergies adhesive tape Allergy (Verified 11/06/18 23:04) - Review of Systems ROS: No change since H&P - Vital Signs and I&O's Vital Signs: Temperature 98.9 F Pulse Rate [Right Radial] 77 Pulse Rate 80 Respiratory Rate 16 Blood Pressure [Right Arm] 124/91 Blood Pressure [Left Arm] 124/88 Blood Pressure [Left Arm] 165/94 Blood Pressure 148/72 O2 Sat by Pulse Oximetry 99 Intake and Output: Intake & Output 12/04/18 12/05/18 12/06/18 12/07/18 11:59 11:59 11:59 11:59 Intake Total 975 / 975 2129 Balance 975 / 975 2129 - Physical Exam Oriented: Normal Eyes: Normal Ear: Normal Nose: Normal Throat: Normal Cardiovascular: Normal. negative: S3, S4 : Normal Auscultation: Bowel Sounds: Normal Palpation: Normal Tenderness: Normal Skin: Normal Musculoskeletal: Normal Psychiatric: Normal Mood Description: Calm Affect: Normal Speech Pattern: Clear, Appropriate - Laboratory and Diagnostics Result Diagrams: 12/06/18 05:38 12/06/18 05:38 Labs: 12/04/18 23:06 Urine,Catheterized Urine Culture - Preliminary Laboratory WBC 7.3 X10^3/uL (3.6-10.0) 12/06/18 05:38 RBC 4.65 X10^6/uL (3.5-5.4) 12/06/18 05:38 Hgb 13.9 g/dL (12.0-16.0) 12/06/18 05:38 Hct 40.6 % (36.0-47.0) 12/06/18 05:38 MCV 87.3 fL (80.0-100.0) 12/06/18 05:38 MCH 29.8 pg (27.0-34.0) 12/06/18 05:38 MCHC 34.2 g/dL (33.0-35.0) 12/06/18 05:38 RDW 14.7 % (11.6-16.5) 12/06/18 05:38 Plt Count 298 X10^3/uL (150.0-450.0) 12/06/18 05:38 MPV 7.2 fL (7.4-11.0) L 12/06/18 05:38 Neut % (Auto) 63.5 % (42.0-75.0) 12/06/18 05:38 Lymph % (Auto) 18.7 % (21.0-51.0) L 12/06/18 05:38 [place] % (Auto) 15.6 % (0.0-13.0) H 12/06/18 05:38 Eos % (Auto) 1.7 % (0.9-2.9) 12/06/18 05:38 Baso % (Auto) 0.5 % (0.2-1.0) 12/06/18 05:38 Neut # (Auto) 4.6 x10^3/uL (2.2-4.8) 12/06/18 05:38 Lymph # (Auto) 1.4 X10^3/uL (1.3-2.9) 12/06/18 05:38 [place] # (Auto) 1.1 x10^3/uL (0.3-0.8) H 12/06/18 05:38 Eos # (Auto) 0.1 x10^3/uL (0.0-0.2) 12/06/18 05:38 Baso # (Auto) 0.0 X10^3/uL (0.0-0.1) 12/06/18 05:38 Absolute Nucleated RBC 0.0 /100WBC 12/06/18 05:38 Sodium 126 mmol/L (136-145) L 12/06/18 05:38 Corrected Sodium TNP 12/06/18 05:38 Potassium 4.2 mmol/L (3.5-5.1) 12/06/18 05:38 Chloride 93 mmol/L (98-107) L 12/06/18 05:38 Carbon Dioxide 26.4 mmol/L (21-32) 12/06/18 05:38 BUN 11 mg/dL (7-18) 12/06/18 05:38 Creatinine 0.71 mg/dL (0.55-1.02) 12/06/18 05:38 Est GFR (MDRD) Af Amer > 60 (>60) 12/06/18 05:38 Est GFR (MDRD) Non-Af > 60 (>60) 12/06/18 05:38 Glucose 76 mg/dL (65-99) 12/06/18 05:38 Calcium 9.1 mg/dL (8.5-10.1) 12/06/18 05:38 Corrected Calcium 9.7 mg/dL (8.5-10.1) 12/06/18 05:38 Total Bilirubin 0.40 mg/dL (0.2-1.0) 12/06/18 05:38 AST 19 Units/L (15-37) 12/06/18 05:38 ALT 24 Units/L (12-78) 12/06/18 05:38 Alkaline Phosphatase 111 Units/L (46-116) 12/06/18 05:38 Total Protein 7.2 g/dL (6.4-8.2) 12/06/18 05:38 Albumin 3.2 g/dL (3.4-5.0) L 12/06/18 05:38 Globulin 4.0 g/dL (2.5-4.5) 12/06/18 05:38 Albumin/Globulin Ratio 0.8 Ratio (1.1-2.1) L 12/06/18 05:38 Specimen Type Catherized urine 12/04/18 23:06 Urine Color Yellow (YELLOW) 12/04/18 23:06 Urine Appearance Clear (CLEAR) 12/04/18 23:06 Urine pH 7.0 (5.0 - 8.0) 12/04/18 23:06 Ur Specific [place] 1.005 (1.000-1.030) 12/04/18 23:06 Urine Protein 1+ (NEGATIVE) 12/04/18 23:06 Urine Glucose (UA) Negative (NEGATIVE) 12/04/18 23:06 Urine Ketones Negative (NEGATIVE) 12/04/18 23:06 Urine Occult Blood 2+ (NEGATIVE) 12/04/18 23:06 Urine Nitrite Negative (NEGATIVE) 12/04/18 23:06 Urine Bilirubin Negative (NEGATIVE) 12/04/18 23:06 Urine Urobilinogen Normal (NORMAL) 12/04/18 23:06 Ur Leukocyte Esterase 3+ (NEGATIVE) 12/04/18 23:06 Urine RBC 5-10 /HPF (NONE SEEN) 12/04/18 23:06 Urine WBC 30-50 /HPF (NONE SEEN) 12/04/18 23:06 Ur Squamous Epith Cells Rare /HPF (NEGATIVE) 12/04/18 23:06 Amorphous Sediment 1+ /HPF (NEGATIVE) 12/04/18 23:06 Urine Bacteria 1+ /HPF (NEGATIVE) 12/04/18 23:06 Ur Culture Indicated? Yes/culture set up 12/04/18 23:06 - Plan (1) Dehydration Status: Acute Plan: NORMAL SALINE AT 75ML/HR, CONTINUE TO MONITOR (2) Hyponatremia Status: Acute Plan: NORMAL SALINE AT 75ML/HR, CONTINUE TO MONITOR (3) Urinary tract infection Status: Acute Qualifiers: Urinary tract infection type: acute cystitis Hematuria presence: with hematuria Qualified Code(s): N30.01 - Acute cystitis with hematuria Plan: ROCEPHIN 1GM IV DAILY, CONTINUE TO MONITOR
--- NOTE | 2018-12-06 13:07 | PCM.PROG ---
Progress Note - Progress Note for Day of Date of Exam: 12/06/18 - Subjective Subjective: WAS ADMITTED FOR HYPONATREMIA, DEHYDRATION, AND A URINARY TRACT INFECTION. TODAY, SHE IS ALERT AND ORIENTED, LYING IN BED ON MORNING ROUNDS. SHE CONTINUES WITH COMPLAINTS OF WEAKNESS AND ABDOMINAL PAIN, BUT REPORTS MILD IMPROVEMENT SINCE YESTERDAY. ON EXAMINATION, HEART IS REGULAR IN RATE AND RHYTHM. BILATERAL LUNGS ARE NOTED WITH DIMINISHED LUNG SOUNDS THROUGOUT. ABDOMEN IS ROUND, SOFT, AND NOTED WITH MILD SUPRAPUBIC TENDERNESS. HER VITALS THIS MORNING ARE 98.9-92-20-92%-148/72. LABS WERE OBTAINED. ABNORMAL LAB VALUES INCLUDE THE FOLLOWING: SODIUM 126, CHLORIDE 93, ALBUMIN 3.2. SHE IS CURRENTLY RECEIVING NORMAL SALINE AT 75ML/HR AND ROCEPHIN 1GM IV DAILY WELL HER HOME MEDICATIONS. WE WILL CONTINUE WITH CURRENT PLAN OF CARE TODAY. OTHERWISE, WE PLAN TO FOLLOW UP WITH AM LABS AND CONTINUE TO MONITOR. - Past Medical Family Social History Past Med/Fam/Surg Hx: No changes since H&P Allergies: Allergies adhesive tape Allergy (Verified 11/06/18 23:04) - Review of Systems ROS: No change since H&P - Vital Signs and I&O's Vital Signs: Temperature 98.5 F Pulse Rate [Right Radial] 77 Pulse Rate 77 Respiratory Rate 18 Blood Pressure [Right Arm] 124/91 Blood Pressure [Left Arm] 124/88 Blood Pressure [Left Arm] 165/94 Blood Pressure 148/72 O2 Sat by Pulse Oximetry 99 Intake and Output: Intake & Output 12/04/18 12/05/18 12/06/18 12/07/18 11:59 11:59 11:59 11:59 Intake Total 975 / 975 2129 / 2129 Balance 975 / 975 2129 - Physical Exam Oriented: Normal Eyes: Normal Ear: Normal Nose: Normal Throat: Normal Cardiovascular: Normal. negative: S3, S4 : Normal Auscultation: Bowel Sounds: Normal Tenderness: Normal Skin: Normal Musculoskeletal: Normal Psychiatric: Normal Mood Description: Calm Affect: Normal Speech Pattern: Clear, Appropriate - Laboratory and Diagnostics Result Diagrams: 12/06/18 05:38 12/06/18 05:38 Labs: 12/04/18 23:06 Urine,Catheterized Urine Culture - Preliminary Laboratory WBC 7.3 X10^3/uL (3.6-10.0) 12/06/18 05:38 RBC 4.65 X10^6/uL (3.5-5.4) 12/06/18 05:38 Hgb 13.9 g/dL (12.0-16.0) 12/06/18 05:38 Hct 40.6 % (36.0-47.0) 12/06/18 05:38 MCV 87.3 fL (80.0-100.0) 12/06/18 05:38 MCH 29.8 pg (27.0-34.0) 12/06/18 05:38 MCHC 34.2 g/dL (33.0-35.0) 12/06/18 05:38 RDW 14.7 % (11.6-16.5) 12/06/18 05:38 Plt Count 298 X10^3/uL (150.0-450.0) 12/06/18 05:38 MPV 7.2 fL (7.4-11.0) L 12/06/18 05:38 Neut % (Auto) 63.5 % (42.0-75.0) 12/06/18 05:38 Lymph % (Auto) 18.7 % (21.0-51.0) L 12/06/18 05:38 [place] % (Auto) 15.6 % (0.0-13.0) H 12/06/18 05:38 Eos % (Auto) 1.7 % (0.9-2.9) 12/06/18 05:38 Baso % (Auto) 0.5 % (0.2-1.0) 12/06/18 05:38 Neut # (Auto) 4.6 x10^3/uL (2.2-4.8) 12/06/18 05:38 Lymph # (Auto) 1.4 X10^3/uL (1.3-2.9) 12/06/18 05:38 [place] # (Auto) 1.1 x10^3/uL (0.3-0.8) H 12/06/18 05:38 Eos # (Auto) 0.1 x10^3/uL (0.0-0.2) 12/06/18 05:38 Baso # (Auto) 0.0 X10^3/uL (0.0-0.1) 12/06/18 05:38 Absolute Nucleated RBC 0.0 /100WBC 12/06/18 05:38 Sodium 126 mmol/L (136-145) L 12/06/18 05:38 Corrected Sodium TNP 12/06/18 05:38 Potassium 4.2 mmol/L (3.5-5.1) 12/06/18 05:38 Chloride 93 mmol/L (98-107) L 12/06/18 05:38 Carbon Dioxide 26.4 mmol/L (21-32) 12/06/18 05:38 BUN 11 mg/dL (7-18) 12/06/18 05:38 Creatinine 0.71 mg/dL (0.55-1.02) 12/06/18 05:38 Est GFR (MDRD) Af Amer > 60 (>60) 12/06/18 05:38 Est GFR (MDRD) Non-Af > 60 (>60) 12/06/18 05:38 Glucose 76 mg/dL (65-99) 12/06/18 05:38 Calcium 9.1 mg/dL (8.5-10.1) 12/06/18 05:38 Corrected Calcium 9.7 mg/dL (8.5-10.1) 12/06/18 05:38 Total Bilirubin 0.40 mg/dL (0.2-1.0) 12/06/18 05:38 AST 19 Units/L (15-37) 12/06/18 05:38 ALT 24 Units/L (12-78) 12/06/18 05:38 Alkaline Phosphatase 111 Units/L (46-116) 12/06/18 05:38 Total Protein 7.2 g/dL (6.4-8.2) 12/06/18 05:38 Albumin 3.2 g/dL (3.4-5.0) L 12/06/18 05:38 Globulin 4.0 g/dL (2.5-4.5) 12/06/18 05:38 Albumin/Globulin Ratio 0.8 Ratio (1.1-2.1) L 12/06/18 05:38 Specimen Type Catherized urine 12/04/18 23:06 Urine Color Yellow (YELLOW) 12/04/18 23:06 Urine Appearance Clear (CLEAR) 12/04/18 23:06 Urine pH 7.0 (5.0 - 8.0) 12/04/18 23:06 Ur Specific [place] 1.005 (1.000-1.030) 12/04/18 23:06 Urine Protein 1+ (NEGATIVE) 12/04/18 23:06 Urine Glucose (UA) Negative (NEGATIVE) 12/04/18 23:06 Urine Ketones Negative (NEGATIVE) 12/04/18 23:06 Urine Occult Blood 2+ (NEGATIVE) 12/04/18 23:06 Urine Nitrite Negative (NEGATIVE) 12/04/18 23:06 Urine Bilirubin Negative (NEGATIVE) 12/04/18 23:06 Urine Urobilinogen Normal (NORMAL) 12/04/18 23:06 Ur Leukocyte Esterase 3+ (NEGATIVE) 12/04/18 23:06 Urine RBC 5-10 /HPF (NONE SEEN) 12/04/18 23:06 Urine WBC 30-50 /HPF (NONE SEEN) 12/04/18 23:06 Ur Squamous Epith Cells Rare /HPF (NEGATIVE) 12/04/18 23:06 Amorphous Sediment 1+ /HPF (NEGATIVE) 12/04/18 23:06 Urine Bacteria 1+ /HPF (NEGATIVE) 12/04/18 23:06 Ur Culture Indicated? Yes/culture set up 12/04/18 23:06 - Plan (1) Dehydration Status: Acute Plan: NORMAL SALINE AT 75ML/HR, CONTINUE TO MONITOR (2) Hyponatremia Status: Acute Plan: NORMAL SALINE AT 75ML/HR, CONTINUE TO MONITOR (3) Urinary tract infection Status: Acute Qualifiers: Urinary tract infection type: acute cystitis Hematuria presence: with hematuria Qualified Code(s): N30.01 - Acute cystitis with hematuria Plan: ROCEPHIN 1GM IV DAILY, CONTINUE TO MONITOR
[2018-12-06] MEDS: ULTRAM PO PRN (15:03)
[2018-12-06] MEDS: ZANAFLEX PO SCH (20:43)
[2018-12-06] MEDS: PATIENT'S HOME MEDICATION (Melatonin [Melatonin] 10 MG) PO SCH (20:47)
[2018-12-06] MEDS: TYLENOL 325 MG TAB PO PRN (20:56)
[2018-12-06] MEDS ORDERED: DEPAKOTE D.R. TAB PO ONE (21:26)
[2018-12-06] MEDS: PATIENT'S HOME MEDICATION PO SCH (21:30)
[2018-12-07] MEDS: NEURONTIN CAP 100 MG PO SCH ×3 (06:25→21:05)
[2018-12-07] MEDS: REGLAN TAB 10 MG PO SCH ×4 (06:25→21:05)
[2018-12-07 06:45] LABS: BASOPHILS % (AUTO) 0.6 % (0.2-1.0); EOSINOPHILS # (AUTO) 0.2 x10^3/uL (0.0-0.2); EOSINOPHILS % (AUTO) 2.9 % (0.9-2.9); HEMATOCRIT 36.8 % (36.0-47.0); HEMOGLOBIN 12.6 g/dL (12.0-16.0); LYMPHOCYTES # (AUTO) 1.5 X10^3/uL (1.3-2.9); LYMPHOCYTES % (AUTO) 23.5 % (21.0-51.0); MEAN CORPUSCULAR HEMOGLOBIN 30.1 pg (27.0-34.0); MEAN CORPUSCULAR HGB CONC 34.2 g/dL (33.0-35.0); MEAN CORPUSCULAR VOLUME 88.1 fL (80.0-100.0); MEAN PLATELET VOLUME 7.6 fL (7.4-11.0); MONOCYTES # (AUTO) 0.8 x10^3/uL (0.3-0.8); MONOCYTES % (AUTO) 13.1 % (0.0-13.0); NEUTROPHILS # (AUTO) 3.7 x10^3/uL (2.2-4.8); NEUTROPHILS % (AUTO) 59.9 % (42.0-75.0); PLATELET COUNT 254 X10^3/uL (150.0-450.0); RED BLOOD COUNT 4.17 X10^6/uL (3.5-5.4); RED CELL DISTRIBUTION WIDTH 14.7 % (11.6-16.5); WHITE BLOOD COUNT 6.3 X10^3/uL (3.6-10.0)
[2018-12-07 06:58] LABS: ALANINE AMINOTRANSFERASE 21 Units/L (12-78); ALBUMIN 2.9 g/dL (3.4-5.0); ALKALINE PHOSPHATASE 132 Units/L (46-116); ASPARTATE AMINO TRANSFERASE 19 Units/L (15-37); BLOOD UREA NITROGEN 17 mg/dL (7-18); CALCIUM 8.5 mg/dL (8.5-10.1); CARBON DIOXIDE 21.9 mmol/L (21-32); CHLORIDE 93 mmol/L (98-107); COR CA(FOR HYPOALB) 9.4 mg/dL (8.5-10.1); CREATININE 0.78 mg/dL (0.55-1.02); TOTAL PROTEIN 6.5 g/dL (6.4-8.2); eGFR NON BLACK RACES > 60 (>60)
[2018-12-07 07:02] LABS: SODIUM 125 mmol/L (136-145)
[2018-12-07] MEDS: LEVSIN/MAALOX/LIDOC VISC PO SCH ×4 (08:59→21:04)
[2018-12-07] MEDS: MYLICON TAB 80 MG CHEW PO SCH ×3 (08:59→17:03)
[2018-12-07] MEDS: ROCEPHIN VIAL 1 GRAM IVP SCH (08:59)
[2018-12-07] MEDS: TAB-A-VITE PO SCH (08:59)
[2018-12-07] MEDS: PROTONIX TAB 40 MG PO SCH ×2 (08:59→21:05)
[2018-12-07] MEDS: LANOXIN PO SCH (08:59)
[2018-12-07] MEDS: TOPROL XL PO SCH (09:00)
[2018-12-07] MEDS: XANAX PO SCH ×2 (09:00→21:05)
[2018-12-07] MEDS: PEPCID TAB 20 MG PO SCH ×2 (09:00→21:05)
[2018-12-07] MEDS: DITROPAN TAB 5 MG PO SCH (09:00)
[2018-12-07] MEDS: XARELTO PO SCH (09:00)
[2018-12-07] MEDS: HEMOCYTE-PLUS PO SCH (09:00)
[2018-12-07] MEDS: PSYLLIUM HUSK 0.52 GM PO SCH (09:01)
[2018-12-07] MEDS: NS 1000 ML 1,000 ML IV SCH ×2 (12:05→14:13)
[2018-12-07] MEDS: ZANAFLEX PO SCH (21:04)
[2018-12-07] MEDS ORDERED: DEPAKOTE D.R. TAB PO ONE (22:22)
[2018-12-07] MEDS: PATIENT'S HOME MEDICATION (Melatonin [Melatonin] 10 MG) PO SCH (22:32)
[2018-12-07] MEDS: PATIENT'S HOME MEDICATION PO SCH (22:33)
[2018-12-08] MEDS: NS 1000 ML 1,000 ML IV SCH ×3 (00:12→09:53)
[2018-12-08] MEDS: NEURONTIN CAP 100 MG PO SCH ×2 (05:54→14:28)
[2018-12-08] MEDS: REGLAN TAB 10 MG PO SCH ×2 (05:54→11:52)
[2018-12-08 06:57] LABS: BASOPHILS % (AUTO) 0.7 % (0.2-1.0); EOSINOPHILS # (AUTO) 0.1 x10^3/uL (0.0-0.2); EOSINOPHILS % (AUTO) 1.4 % (0.9-2.9); HEMATOCRIT 43.6 % (36.0-47.0); HEMOGLOBIN 14.5 g/dL (12.0-16.0); LYMPHOCYTES # (AUTO) 1.4 X10^3/uL (1.3-2.9); LYMPHOCYTES % (AUTO) 21.3 % (21.0-51.0); MEAN CORPUSCULAR HEMOGLOBIN 30.2 pg (27.0-34.0); MEAN CORPUSCULAR HGB CONC 33.2 g/dL (33.0-35.0); MEAN PLATELET VOLUME 7.2 fL (7.4-11.0); MONOCYTES # (AUTO) 0.9 x10^3/uL (0.3-0.8); MONOCYTES % (AUTO) 13.9 % (0.0-13.0); NEUTROPHILS % (AUTO) 62.7 % (42.0-75.0); PLATELET COUNT 248 X10^3/uL (150.0-450.0); RED BLOOD COUNT 4.79 X10^6/uL (3.5-5.4); WHITE BLOOD COUNT 6.4 X10^3/uL (3.6-10.0)
[2018-12-08 07:07] LABS: ALANINE AMINOTRANSFERASE 20 Units/L (12-78); ALBUMIN 3.1 g/dL (3.4-5.0); ALKALINE PHOSPHATASE 124 Units/L (46-116); BLOOD UREA NITROGEN 13 mg/dL (7-18); CALCIUM 8.9 mg/dL (8.5-10.1); CARBON DIOXIDE 23.6 mmol/L (21-32); CHLORIDE 100 mmol/L (98-107); COR CA(FOR HYPOALB) 9.6 mg/dL (8.5-10.1); CREATININE 0.81 mg/dL (0.55-1.02); SODIUM 134 mmol/L (136-145); TOTAL PROTEIN 7.2 g/dL (6.4-8.2); eGFR NON BLACK RACES > 60 (>60)
[2018-12-08 07:15] LABS: ASPARTATE AMINO TRANSFERASE 26 Units/L (15-37)
[2018-12-08] MEDS: LEVSIN/MAALOX/LIDOC VISC PO SCH ×2 (09:41→14:28)
[2018-12-08] MEDS: HEMOCYTE-PLUS PO SCH (09:42)
[2018-12-08] MEDS: PROTONIX TAB 40 MG PO SCH (09:42)
[2018-12-08] MEDS: PEPCID TAB 20 MG PO SCH (09:42)
[2018-12-08] MEDS: MYLICON TAB 80 MG CHEW PO SCH ×2 (09:42→14:28)
[2018-12-08] MEDS: DITROPAN TAB 5 MG PO SCH (09:42)
[2018-12-08] MEDS: TAB-A-VITE PO SCH (09:42)
[2018-12-08] MEDS: XARELTO PO SCH (09:42)
[2018-12-08] MEDS: LANOXIN PO SCH (09:42)
[2018-12-08] MEDS: TOPROL XL PO SCH (09:43)
[2018-12-08] MEDS: XANAX PO SCH (09:43)
[2018-12-08] MEDS: ROCEPHIN VIAL 1 GRAM IVP SCH (09:43)
[2018-12-08] MEDS: PSYLLIUM HUSK 0.52 GM PO SCH (09:44)
[2018-12-08] MEDS: ULTRAM PO PRN ×2 (09:52→15:41)
[2018-12-08 13:01] VITALS: BP 120/64
[2018-12-08] MEDS: TYLENOL 325 MG TAB PO PRN (14:27)
== END 2018-12-08 15:45 | DRG 690 ==
LOC: ICU 20:10 → MED/SURG 12-07 13:17
PROVIDERS: ADMIT Internal Medicine; ATTEND Internal Medicine
DX: N30.01 Acute cystitis with hematuria; K21.9 Gastro-esophageal reflux disease without esophagitis; E11.65 Type 2 diabetes mellitus with hyperglycemia; F41.8 Other specified anxiety disorders; E86.0 Dehydration; R26.89 Other abnormalities of gait and mobility; I10 Essential (primary) hypertension; E87.1 Hypo-osmolality and hyponatremia; E78.2 Mixed hyperlipidemia; I48.91 Unspecified atrial fibrillation
CPT/HCPCS: 36415; 80053; 81001; 85025; 87086; 97163; 97166; 97530; 97535; A4216; A4222; J0696; J3490; J7030

== ENCOUNTER 2019-01-04 09:24 | Inpatient (IN) ==
[2019-01-04] MEDS ORDERED: NS 1000 ML 1,000 ML ONE ×2 (10:10→14:51)
--- NOTE | 2019-01-04 10:12 | DR.GENAD ---
HPI Time Seen Time Seen by Provider: 01/04/19 09:25 PCP Primary Care Physician: HELENE Complaint/Symptoms Chief Complaint Doctors Comments: A 73 y/o female NHR sent over from [facility] sent over to be seen because of in incidental finding of low Sodium (120) on this morning's lab draw. She denies having any complaints. Chief Complaint:: LOW SODIUM LEVEL 120, DR. NARAYAN JUST WANTED PT TO BE EVALUATED. Source History Provided: Patient and [place] Mode of Arrival Mode of Arrival: Stretcher Timing Onset of Chief Complaint: 01/04/19 PMH PMH Past Medical History: Yes Past Medical History: Anxiety, Arthritis, Depression, Diabetes, Dyslipidemia, Migraines, GERD and Hypertension Past Surgical History: Yes Surgical History: Cholecystectomy, Hysterectomy, Joint Replacement, Ortho Surgery, Weight Loss Surgery and Other Family History History of Family Medical Conditions: Yes Family Medical History: Heart Failure and Hypertension Social History Does any household member use tobacco: No Alcohol Use: None Do you use any recreational Drugs:: No Lives Where: [place] infectious screening In the last 2 months have you had wt loss of >10#?: NO Have you had fever, night sweats or hemotysis?: No Have you traveled outside the country in the last 6 months?: No Isolation: Standard ROS Review of Systems Constitutional: No Symptoms Reported Eyes: No Symptoms Reported ENTM: No Symptoms Reported Respiratoy: No Symptoms Reported Cardiovascular: No Symptoms Reported Gastrointestinal/Abdominal: No Symptoms Reported Genitourinary: No Symptoms Reported Neurological: No Symptoms Reported Musculoskeletal: No Symptoms Reported Integumentary: No Symptoms Reported Hematologic/Lymphatic: No Symptoms Reported Endocrine: No Symptoms Reported Psychiatric: No Symptoms Reported PE Vital Signs Vitals: Temperature 97.5 F Pulse Rate [Right Brachial] 96 Pulse Rate 93 Respiratory Rate 20 Blood Pressure [Right Arm] 178/70 Blood Pressure [Left Arm] 124/88 Blood Pressure [Left Arm] 165/94 Blood Pressure 97/57 O2 Sat by Pulse Oximetry 96 General Limitations: No Limitations General Appearance: Alert and In No Apparent Distress Head Head Exam: Normal Inspection, Atraumatic and Normocephalic Eyes Eye exam: Normal Appearance, PERRL and EOMI ENT ENT Exam: Normal Exam, Normal Oropharynx and Mucous Membranes Moist Neck Neck Exam: Normal Inspection, Full ROM and Trachea Midline Chest Chest Inspection: Normal Inspection and Symmetric Chest Wall Rise Respiratory Respiratory Exam: Normal Lung Sounds Bilat Cardiovascular Cardiovascular Exam: Regular Rate, Normal Rhythm, +S1 and +S2 Abdominal Exam Abdominal Exam: Normal Inspection, Normal Bowel Sounds and Soft Extremities Extremities Exam: Normal Inspection, Full ROM and Normal Capillary Refill; ne gative Tenderness, Edema, Joint Swelling and Calf Tenderness Neurologic Neurological Exam: Alert and Other (She is Oriented to self and responds appropriately to inquiries.) Psychiatric Psychiatric Exam: Normal Affect and Normal Mood Skin Skin Exam: Warm, Dry, Normal Color and Rash COURSE Education/Counseling Education/Counseling: Patient, Education and Counseling Educated On: Treatment, Diagnosis, Prognosis and Needs for Follow Up ROR Labs Reviewed Result Diagrams: 01/04/19 10:08 01/04/19 10:08 Laboratory: WBC 7.7 X10^3/uL (3.6-10.0) 01/04/19 10:08 RBC 4.32 X10^6/uL (3.5-5.4) 01/04/19 10:08 Hgb 12.7 g/dL (12.0-16.0) 01/04/19 10:08 Hct 37.9 % (36.0-47.0) 01/04/19 10:08 MCV 87.7 fL (80.0-100.0) 01/04/19 10:08 MCH 29.5 pg (27.0-34.0) 01/04/19 10:08 MCHC 33.6 g/dL (33.0-35.0) 01/04/19 10:08 RDW 14.0 % (11.6-16.5) 01/04/19 10:08 Plt Count 321 X10^3/uL (150.0-450.0) 01/04/19 10:08 MPV 7.7 fL (7.4-11.0) 01/04/19 10:08 Neut % (Auto) 64.1 % (42.0-75.0) 01/04/19 10:08 Lymph % (Auto) 17.9 % (21.0-51.0) L 01/04/19 10:08 [place] % (Auto) 16.7 % (0.0-13.0) H 01/04/19 10:08 Eos % (Auto) 0.9 % (0.9-2.9) 01/04/19 10:08 Baso % (Auto) 0.4 % (0.2-1.0) 01/04/19 10:08 Neut # (Auto) 4.9 x10^3/uL (2.2-4.8) H 01/04/19 10:08 Lymph # (Auto) 1.4 X10^3/uL (1.3-2.9) 01/04/19 10:08 [place] # (Auto) 1.3 x10^3/uL (0.3-0.8) H 01/04/19 10:08 Eos # (Auto) 0.1 x10^3/uL (0.0-0.2) 01/04/19 10:08 Baso # (Auto) 0.0 X10^3/uL (0.0-0.1) 01/04/19 10:08 Absolute Nucleated RBC 0.0 /100WBC 01/04/19 10:08 Sodium 124 mmol/L (136-145) L* 01/04/19 10:08 Corrected Sodium TNP 01/04/19 10:08 Potassium 4.8 mmol/L (3.5-5.1) 01/04/19 10:08 Chloride 90 mmol/L (98-107) L 01/04/19 10:08 Carbon Dioxide 26.9 mmol/L (21-32) 01/04/19 10:08 BUN 33 mg/dL (7-18) H 01/04/19 10:08 Creatinine 0.87 mg/dL (0.55-1.02) 01/04/19 10:08 Est GFR (MDRD) Af Amer > 60 (>60) 01/04/19 10:08 Est GFR (MDRD) Non-Af > 60 (>60) 01/04/19 10:08 Glucose 88 mg/dL (65-99) 01/04/19 10:08 Calcium 8.7 mg/dL (8.5-10.1) 01/04/19 10:08 Corrected Calcium 9.4 mg/dL (8.5-10.1) 01/04/19 10:08 Total Bilirubin 0.20 mg/dL (0.2-1.0) 01/04/19 10:08 AST 20 Units/L (15-37) 01/04/19 10:08 ALT 21 Units/L (12-78) 01/04/19 10:08 Alkaline Phosphatase 127 Units/L (46-116) H 01/04/19 10:08 Total Protein 6.9 g/dL (6.4-8.2) 01/04/19 10:08 Albumin 3.1 g/dL (3.4-5.0) L 01/04/19 10:08 Globulin 3.8 g/dL (2.5-4.5) 01/04/19 10:08 Albumin/Globulin Ratio 0.8 Ratio (1.1-2.1) L 01/04/19 10:08 Specimen Type Catherized urine 01/04/19 12:22 Urine Color Yellow (YELLOW) 01/04/19 12:22 Urine Appearance Cloudy (CLEAR) 01/04/19 12:22 Urine pH 7.0 (5.0 - 8.0) 01/04/19 12:22 Ur Specific [place] 1.015 (1.000-1.030) 01/04/19 12:22 Urine Protein 2+ (NEGATIVE) 01/04/19 12:22 Urine Glucose (UA) Negative (NEGATIVE) 01/04/19 12:22 Urine Ketones Negative (NEGATIVE) 01/04/19 12:22 Urine Occult Blood 3+ (NEGATIVE) 01/04/19 12:22 Urine Nitrite Negative (NEGATIVE) 01/04/19 12:22 Urine Bilirubin Negative (NEGATIVE) 01/04/19 12:22 Urine Urobilinogen Normal (NORMAL) 01/04/19 12:22 Ur Leukocyte Esterase 3+ (NEGATIVE) 01/04/19 12:22 Urine RBC Tntc /HPF (NONE SEEN) 01/04/19 12:22 Urine WBC Tntc /HPF (NONE SEEN) 01/04/19 12:22 Ur Squamous Epith Cells Few /HPF (NEGATIVE) 01/04/19 12:22 Urine Bacteria 2+ /HPF (NEGATIVE) 01/04/19 12:22 Ur Culture Indicated? Yes/culture set up 01/04/19 12:22 Diagnosis Discharge Problem: Hyponatremia, Acute UTI A-fib Qualifiers: Atrial fibrillation type: chronic Qualified Code(s): I48.2 - Chronic atrial fibrillation
--- NOTE | 2019-01-04 10:37 | RAD ---
HISTORY: Hyponatremia Study: Single view of the chest. Comparison: 06/20/2018 Findings: The cardiomediastinal silhouette is normal. No focal consolidations, pleural effusions or pneumothorax. Osseous structures demonstrate no acute abnormality. IMPRESSION: 1. No acute cardiopulmonary process. Reported By:
[2019-01-04 10:58] LABS: BASOPHILS % (AUTO) 0.4 % (0.2-1.0); EOSINOPHILS # (AUTO) 0.1 x10^3/uL (0.0-0.2); EOSINOPHILS % (AUTO) 0.9 % (0.9-2.9); HEMATOCRIT 37.9 % (36.0-47.0); HEMOGLOBIN 12.7 g/dL (12.0-16.0); LYMPHOCYTES # (AUTO) 1.4 X10^3/uL (1.3-2.9); LYMPHOCYTES % (AUTO) 17.9 % (21.0-51.0); MEAN CORPUSCULAR HEMOGLOBIN 29.5 pg (27.0-34.0); MEAN CORPUSCULAR HGB CONC 33.6 g/dL (33.0-35.0); MEAN CORPUSCULAR VOLUME 87.7 fL (80.0-100.0); MEAN PLATELET VOLUME 7.7 fL (7.4-11.0); MONOCYTES # (AUTO) 1.3 x10^3/uL (0.3-0.8); MONOCYTES % (AUTO) 16.7 % (0.0-13.0); NEUTROPHILS # (AUTO) 4.9 x10^3/uL (2.2-4.8); NEUTROPHILS % (AUTO) 64.1 % (42.0-75.0); PLATELET COUNT 321 X10^3/uL (150.0-450.0); RED BLOOD COUNT 4.32 X10^6/uL (3.5-5.4); WHITE BLOOD COUNT 7.7 X10^3/uL (3.6-10.0)
[2019-01-04 11:01] LABS: BLOOD UREA NITROGEN 33 mg/dL (7-18); CALCIUM 8.7 mg/dL (8.5-10.1); CARBON DIOXIDE 26.9 mmol/L (21-32); CHLORIDE 90 mmol/L (98-107); CREATININE 0.87 mg/dL (0.55-1.02); eGFR NON BLACK RACES > 60 (>60)
[2019-01-04 11:06] LABS: ALANINE AMINOTRANSFERASE 21 Units/L (12-78); ALBUMIN 3.1 g/dL (3.4-5.0); ALKALINE PHOSPHATASE 127 Units/L (46-116); ASPARTATE AMINO TRANSFERASE 20 Units/L (15-37); COR CA(FOR HYPOALB) 9.4 mg/dL (8.5-10.1); TOTAL PROTEIN 6.9 g/dL (6.4-8.2)
[2019-01-04 11:11] LABS: SODIUM 124 mmol/L (136-145)
[2019-01-04 12:40] LABS: BILIRUBIN,URINE NEGATIVE (NEGATIVE); BLOOD/HEMOGLOBIN,URINE 3+ (NEGATIVE); GLUCOSE, URINE NEGATIVE (NEGATIVE); KETONES,URINE NEGATIVE (NEGATIVE); LEUKOCYTE ESTERASE ,URINE 3+ (NEGATIVE); NITRITES,URINE NEGATIVE (NEGATIVE); PROTEIN,URINE 2+ (NEGATIVE); UROBILINOGEN,URINE NORMAL (NORMAL)
[2019-01-04 13:03] LABS: APPEARANCE,URINE CLOUDY (CLEAR); COLOR,URINE YELLOW (YELLOW); RBC,URINE TNTC /HPF (NONE SEEN)
[2019-01-04 13:04] LABS: BACTERIA,URINE 2+ /HPF (NEGATIVE); SQUAMOUS EPITHELIAL CELL,UR FEW /HPF (NEGATIVE)
[2019-01-04] MEDS ORDERED: ROCEPHIN VIAL 1 GRAM IVP ONE (14:23)
[2019-01-04] MEDS ORDERED: ROCEPHIN VIAL 1 GRAM ONE (14:48)
[2019-01-04] MEDS ORDERED: NS 1000 ML 1,000 ML IV SCH (15:00)
[2019-01-04] MEDS ORDERED: PSYLLIUM HUSK 0.52 GM PO SCH (15:15)
[2019-01-04] MEDS ORDERED: ULTRAM PO PRN (15:15)
[2019-01-04] MEDS ORDERED: CATAPRES TAB 0.1 MG PO PRN (15:15)
[2019-01-04] MEDS ORDERED: ZOFRAN TAB 4 MG PO PRN (15:15)
[2019-01-04 16:34] VITALS: BMI 24.1
[2019-01-04] MEDS: LEVSIN/MAALOX/LIDOC VISC PO SCH ×2 (16:46→21:17)
[2019-01-04] MEDS: REGLAN TAB 10 MG PO SCH ×2 (16:46→21:17)
[2019-01-04] MEDS ORDERED: MYLICON TAB 80 MG CHEW PO PRN (18:00)
[2019-01-04] MEDS ORDERED: PATIENT'S HOME MEDICATION (Melatonin [Melatonin] 10 MG) PO SCH (21:00)
[2019-01-04] MEDS: NS 1000 ML 1,000 ML IV SCH (21:16)
[2019-01-04] MEDS: PROTONIX TAB 40 MG PO SCH (21:17)
[2019-01-04] MEDS: PEPCID TAB 20 MG PO SCH (21:17)
[2019-01-04] MEDS: EFFEXOR XR 150 MG CAP PO SCH (21:17)
[2019-01-04] MEDS: DEPAKOTE D.R. TAB PO SCH (21:17)
[2019-01-04] MEDS: NEURONTIN CAP 100 MG PO SCH (21:18)
[2019-01-04] MEDS: XANAX PO SCH (21:18)
[2019-01-04] MEDS: ZANAFLEX PO SCH (21:18)
[2019-01-05] MEDS: NS 1000 ML 1,000 ML IV SCH ×4 (02:26→20:20)
[2019-01-05] MEDS: NEURONTIN CAP 100 MG PO SCH ×3 (05:18→21:29)
[2019-01-05] MEDS: REGLAN TAB 10 MG PO SCH ×4 (05:32→21:28)
[2019-01-05 06:41] LABS: BASOPHILS # (AUTO) 0.1 X10^3/uL (0.0-0.1); BASOPHILS % (AUTO) 0.9 % (0.2-1.0); EOSINOPHILS # (AUTO) 0.1 x10^3/uL (0.0-0.2); EOSINOPHILS % (AUTO) 1.4 % (0.9-2.9); HEMOGLOBIN 12.4 g/dL (12.0-16.0); LYMPHOCYTES # (AUTO) 1.3 X10^3/uL (1.3-2.9); MEAN CORPUSCULAR HEMOGLOBIN 29.8 pg (27.0-34.0); MEAN CORPUSCULAR HGB CONC 33.5 g/dL (33.0-35.0); MEAN CORPUSCULAR VOLUME 88.8 fL (80.0-100.0); MEAN PLATELET VOLUME 7.2 fL (7.4-11.0); MONOCYTES # (AUTO) 1.1 x10^3/uL (0.3-0.8); NEUTROPHILS # (AUTO) 3.8 x10^3/uL (2.2-4.8); NEUTROPHILS % (AUTO) 59.7 % (42.0-75.0); PLATELET COUNT 274 X10^3/uL (150.0-450.0); RED BLOOD COUNT 4.17 X10^6/uL (3.5-5.4); RED CELL DISTRIBUTION WIDTH 14.1 % (11.6-16.5); WHITE BLOOD COUNT 6.3 X10^3/uL (3.6-10.0)
[2019-01-05 07:14] LABS: ALANINE AMINOTRANSFERASE 19 Units/L (12-78); ALBUMIN 2.8 g/dL (3.4-5.0); ALKALINE PHOSPHATASE 102 Units/L (46-116); ASPARTATE AMINO TRANSFERASE 22 Units/L (15-37); BLOOD UREA NITROGEN 18 mg/dL (7-18); CALCIUM 8.6 mg/dL (8.5-10.1); CARBON DIOXIDE 24.9 mmol/L (21-32); CHLORIDE 96 mmol/L (98-107); COR CA(FOR HYPOALB) 9.6 mg/dL (8.5-10.1); CREATININE 0.69 mg/dL (0.55-1.02); SODIUM 129 mmol/L (136-145); TOTAL PROTEIN 6.4 g/dL (6.4-8.2); eGFR NON BLACK RACES > 60 (>60)
[2019-01-05] MEDS: ROCEPHIN VIAL 1 GRAM IVP SCH (08:56)
[2019-01-05] MEDS: LEVSIN/MAALOX/LIDOC VISC PO SCH ×4 (08:56→21:27)
[2019-01-05] MEDS ORDERED: LOVENOX INJ 30 MG SYR SC SCH (09:00)
[2019-01-05] MEDS ORDERED: MIRALAX POWDER (1 DOSE 17 G) PO PRN (09:00)
[2019-01-05] MEDS: PEPCID TAB 20 MG PO SCH ×2 (09:03→21:28)
[2019-01-05] MEDS: HEMOCYTE-PLUS PO SCH (09:03)
[2019-01-05] MEDS: XANAX PO SCH ×2 (09:04→21:28)
[2019-01-05] MEDS: TAB-A-VITE PO SCH (09:04)
[2019-01-05] MEDS: DITROPAN TAB 5 MG PO SCH (09:04)
[2019-01-05] MEDS: XARELTO PO SCH (09:04)
[2019-01-05] MEDS: TOPROL XL PO SCH (09:04)
[2019-01-05] MEDS: LANOXIN PO SCH (09:05)
[2019-01-05] MEDS: PROTONIX TAB 40 MG PO SCH ×3 (09:06→21:28)
[2019-01-05] MEDS: TYLENOL 325 MG TAB PO PRN (16:58)
[2019-01-05] MEDS: SINEMET (PLAIN) 10/100 MG PO SCH ×2 (18:19→20:20)
[2019-01-05] MEDS: DEPAKOTE D.R. TAB PO SCH (21:26)
[2019-01-05] MEDS: EFFEXOR XR 150 MG CAP PO SCH (21:27)
[2019-01-05] MEDS: ZANAFLEX PO SCH (23:42)
[2019-01-06] MEDS: NS 1000 ML 1,000 ML IV SCH ×5 (00:37→18:28)
[2019-01-06] MEDS: REGLAN TAB 10 MG PO SCH ×4 (05:41→20:41)
[2019-01-06] MEDS: NEURONTIN CAP 100 MG PO SCH ×3 (05:41→22:19)
[2019-01-06 06:41] LABS: BASOPHILS % (AUTO) 0.7 % (0.2-1.0); EOSINOPHILS # (AUTO) 0.1 x10^3/uL (0.0-0.2); EOSINOPHILS % (AUTO) 1.3 % (0.9-2.9); HEMATOCRIT 34.9 % (36.0-47.0); HEMOGLOBIN 11.8 g/dL (12.0-16.0); LYMPHOCYTES # (AUTO) 1.4 X10^3/uL (1.3-2.9); MEAN CORPUSCULAR HEMOGLOBIN 29.7 pg (27.0-34.0); MEAN CORPUSCULAR HGB CONC 33.7 g/dL (33.0-35.0); MEAN PLATELET VOLUME 7.6 fL (7.4-11.0); MONOCYTES # (AUTO) 1.2 x10^3/uL (0.3-0.8); MONOCYTES % (AUTO) 18.3 % (0.0-13.0); NEUTROPHILS # (AUTO) 3.7 x10^3/uL (2.2-4.8); NEUTROPHILS % (AUTO) 57.7 % (42.0-75.0); PLATELET COUNT 281 X10^3/uL (150.0-450.0); RED BLOOD COUNT 3.96 X10^6/uL (3.5-5.4); WHITE BLOOD COUNT 6.4 X10^3/uL (3.6-10.0)
[2019-01-06 07:00] LABS: ALANINE AMINOTRANSFERASE 18 Units/L (12-78); ALBUMIN 2.9 g/dL (3.4-5.0); ALKALINE PHOSPHATASE 98 Units/L (46-116); ASPARTATE AMINO TRANSFERASE 19 Units/L (15-37); BLOOD UREA NITROGEN 12 mg/dL (7-18); CALCIUM 8.8 mg/dL (8.5-10.1); CARBON DIOXIDE 24.3 mmol/L (21-32); CHLORIDE 96 mmol/L (98-107); COR CA(FOR HYPOALB) 9.7 mg/dL (8.5-10.1); CREATININE 0.64 mg/dL (0.55-1.02); SODIUM 129 mmol/L (136-145); TOTAL PROTEIN 6.5 g/dL (6.4-8.2); eGFR NON BLACK RACES > 60 (>60)
[2019-01-06] MEDS: LEVSIN/MAALOX/LIDOC VISC PO SCH ×4 (09:13→20:39)
[2019-01-06] MEDS: PROTONIX TAB 40 MG PO SCH ×2 (09:15→20:40)
[2019-01-06] MEDS: LANOXIN PO SCH (09:15)
[2019-01-06] MEDS: XANAX PO SCH ×2 (09:15→20:42)
[2019-01-06] MEDS: HEMOCYTE-PLUS PO SCH (09:15)
[2019-01-06] MEDS: XARELTO PO SCH (09:16)
[2019-01-06] MEDS: DITROPAN TAB 5 MG PO SCH (09:16)
[2019-01-06] MEDS: TAB-A-VITE PO SCH (09:16)
[2019-01-06] MEDS: PEPCID TAB 20 MG PO SCH ×2 (09:16→20:40)
[2019-01-06] MEDS: TOPROL XL PO SCH (09:16)
[2019-01-06] MEDS: SINEMET (PLAIN) 10/100 MG PO SCH ×2 (09:16→20:42)
[2019-01-06] MEDS: ROCEPHIN VIAL 1 GRAM IVP SCH (09:22)
--- NOTE | 2019-01-06 09:56 | DR.H&P ---
H&P - History & Physical for Day of: H&P Date: 01/04/19 - Chief Complaint Chief Complaint: WEAKNESS - History of Present Illness History of Present Illness: A 73 y/o female NHR sent over from [facility] sent over to be seen because of in incidental finding of low Sodium (120) on this morning's lab draw. She denies having any complaints. detention staff reports pt has increased weakness and increased bilateral upper extremity tremor. Pt has UTI. pt admitted for treatment and evaluation of acute illness. - Past Medical History Past Medical History: Hypertension, Dyslipidemia, Diabetes, Depression, Anxiety, GERD, Arthritis, Migraines Additional Medical History: ATRIAL FIBRILLATION - Past Surgical History Surgical History: Cholecystectomy, Hysterectomy, Joint Replacement, Ortho Surgery, Other, Weight Loss Surgery Additional Surgical History: gastric bypass - Family History Family Medical History: Heart Failure, Hypertension - Social History Does patient currently use any type of tobacco product: No Have you used tobacco products in the last 12 months: No Type of Tobacco Use: None Does any household member use tobacco: No Alcohol Use: None Drug Use: None - Medications Home Medications: adhesive tape Allergy (Verified 01/04/19 09:50) CONTINUE taking the following medications polyethylene glycol 3350 [Miralax] 17 g PO Q24H PRN 01/04/19 [History] - Review of Systems Constitutional: Weakness Eyes: No Symptoms Reported ENT: No Symptoms Reported Respiratory: No Symptoms Reported Cardiovascular: No Symptoms Reported Gastrointestinal: No Symptoms Reported Genitourinary: No Symptoms Reported Musculoskeletal: No Symptoms Reported Skin: No Symptoms Reported Neurological: Weakness, Other (tremor) - Physical Exam Vital Signs: Temperature 98.1 F Pulse Rate [Right Brachial] 84 Pulse Rate 93 Respiratory Rate 18 Blood Pressure [Right Arm] 129/73 Blood Pressure [Left Arm] 131/67 Blood Pressure [Left Arm] 165/94 Blood Pressure 97/57 O2 Sat by Pulse Oximetry 95 Oriented: Normal Eyes: Normal Ear: Normal Nose: Normal Throat: Dry Respiratory: RLL Diminished, LLL Diminished Cardiovascular: Normal : Normal Auscultation: Bowel Sounds: Normal Palpation: Normal Tenderness: Normal Skin: Decreased Turgur Musculoskeletal: Right, Left, Leg, Motor Deficit Psychiatric: Anxiety Speech Pattern: Clear, Appropriate - Assessment/Plan (1) Hyponatremia Status: Acute Plan: admit, gentle iv hydration. verify and resume home medication. bp monitoring, UTI with IV atbx. cultures pending, encourage oral hydration (2) UTI (urinary tract infection) Status: Acute (3) Tremor of both hands Status: Acute (4) Hypotension Qualifiers: Status: Acute (5) Dehydration Status: Acute (6) Atrial fibrillation Qualifiers: Status: Acute - Allergies Allergies/Adverse Reactions: Allergies Allergy/AdvReac Type Severity Reaction Status Date / Time adhesive tape Allergy Verified 01/04/19 09:50
[2019-01-06] MEDS: INVANZ INJ 1 GM VIAL 1 GM in NS 100 ML IV + SPIKE MINIBAG* 100 ML IV SCH (12:03)
[2019-01-06] MEDS: DEPAKOTE D.R. TAB PO SCH (20:38)
[2019-01-06] MEDS: EFFEXOR XR 150 MG CAP PO SCH (20:39)
[2019-01-06] MEDS: ZANAFLEX PO SCH (20:42)
[2019-01-07] MEDS: NS 1000 ML 1,000 ML IV SCH ×2 (05:18→17:33)
[2019-01-07] MEDS: REGLAN TAB 10 MG PO SCH ×4 (06:36→21:16)
[2019-01-07] MEDS: NEURONTIN CAP 100 MG PO SCH ×4 (06:36→21:17)
[2019-01-07 06:46] LABS: ALANINE AMINOTRANSFERASE 15 Units/L (12-78); ALBUMIN 3.3 g/dL (3.4-5.0); ALKALINE PHOSPHATASE 119 Units/L (46-116); ASPARTATE AMINO TRANSFERASE 25 Units/L (15-37); BLOOD UREA NITROGEN 11 mg/dL (7-18); CALCIUM 9.4 mg/dL (8.5-10.1); CARBON DIOXIDE 25.3 mmol/L (21-32); CHLORIDE 96 mmol/L (98-107); CREATININE 0.69 mg/dL (0.55-1.02); SODIUM 131 mmol/L (136-145); TOTAL PROTEIN 7.6 g/dL (6.4-8.2); eGFR NON BLACK RACES > 60 (>60)
[2019-01-07 06:57] LABS: BASOPHILS # (AUTO) 0.1 X10^3/uL (0.0-0.1); BASOPHILS % (AUTO) 1.5 % (0.2-1.0); EOSINOPHILS # (AUTO) 0.1 x10^3/uL (0.0-0.2); EOSINOPHILS % (AUTO) 1.3 % (0.9-2.9); HEMATOCRIT 43.9 % (36.0-47.0); HEMOGLOBIN 14.9 g/dL (12.0-16.0); LYMPHOCYTES # (AUTO) 1.8 X10^3/uL (1.3-2.9); MEAN CORPUSCULAR HEMOGLOBIN 30.1 pg (27.0-34.0); MEAN CORPUSCULAR HGB CONC 33.9 g/dL (33.0-35.0); MEAN CORPUSCULAR VOLUME 88.7 fL (80.0-100.0); MEAN PLATELET VOLUME 7.7 fL (7.4-11.0); MONOCYTES # (AUTO) 1.2 x10^3/uL (0.3-0.8); MONOCYTES % (AUTO) 17.1 % (0.0-13.0); NEUTROPHILS # (AUTO) 3.7 x10^3/uL (2.2-4.8); NEUTROPHILS % (AUTO) 54.1 % (42.0-75.0); PLATELET COUNT 300 X10^3/uL (150.0-450.0); RED BLOOD COUNT 4.95 X10^6/uL (3.5-5.4); RED CELL DISTRIBUTION WIDTH 14.1 % (11.6-16.5); WHITE BLOOD COUNT 6.9 X10^3/uL (3.6-10.0)
[2019-01-07] MEDS: LANOXIN PO SCH (09:04)
[2019-01-07] MEDS: PEPCID TAB 20 MG PO SCH ×2 (09:04→21:15)
[2019-01-07] MEDS: XANAX PO SCH ×2 (09:04→21:16)
[2019-01-07] MEDS: HEMOCYTE-PLUS PO SCH (09:04)
[2019-01-07] MEDS: TAB-A-VITE PO SCH (09:04)
[2019-01-07] MEDS: SINEMET (PLAIN) 10/100 MG PO SCH ×2 (09:05→21:16)
[2019-01-07] MEDS: XARELTO PO SCH (09:05)
[2019-01-07] MEDS: TOPROL XL PO SCH (09:05)
[2019-01-07] MEDS: LEVSIN/MAALOX/LIDOC VISC PO SCH ×4 (09:06→21:15)
[2019-01-07] MEDS: PROTONIX TAB 40 MG PO SCH ×2 (09:06→21:15)
[2019-01-07] MEDS: DITROPAN TAB 5 MG PO SCH (09:06)
[2019-01-07] MEDS: INVANZ INJ 1 GM VIAL 1 GM in NS 100 ML IV + SPIKE MINIBAG* 100 ML IV SCH (09:07)
--- NOTE | 2019-01-07 09:38 | PCM.PROG ---
Progress Note - Progress Note for Day of Date of Exam: 01/06/19 - Subjective Subjective: 73 WF RESIDENT OF [facility], ADMITTED ON 01/04 WITH HYPONATREMIA AND UTI. PT HAS RECEIVED GENTLE IV HYDRATION WITH NA 129 THIS AM, WBC 6,3. PT URINE +ECOLI, ON IV INVANZ. PT STARTED ON SINEMET FOR TREMORS, REPORTS SHE ATE WELL THIS AM, DENIES ANY CP OR SOB. WILL REPEAT AM LABS - Past Medical Family Social History Past Med/Fam/Surg Hx: No changes since H&P Allergies: Allergies adhesive tape Allergy (Verified 01/04/19 09:50) - Review of Systems ROS: No change since H&P - Vital Signs and I&O's Vital Signs: Temperature 97.7 F Pulse Rate [Right Brachial] 90 Pulse Rate 96 Respiratory Rate 18 Blood Pressure [Right Arm] 136/69 Blood Pressure [Left Arm] 131/67 Blood Pressure [Left Arm] 165/94 Blood Pressure 97/57 O2 Sat by Pulse Oximetry 96 Intake and Output: Intake & Output 01/04/19 01/05/19 01/06/19 01/07/19 11:59 11:59 11:59 11:59 Intake Total 2069 2520 / 2520 1120 / 1120 Balance 2069 2520 / 2520 1120 / 1120 - Physical Exam Oriented: Normal Eyes: Normal Ear: Normal Nose: Normal Throat: Dry Respiratory: Diminished Cardiovascular: Normal : Normal Auscultation: Bowel Sounds: Normal Tenderness: Normal Skin: Decreased Turgur Musculoskeletal: Right, Left, Leg, Motor Deficit (BILATERAL UPPER EXTREMITY TREMOR) Psychiatric: Anxiety Speech Pattern: Clear, Appropriate - Laboratory and Diagnostics Result Diagrams: 01/07/19 05:45 01/07/19 05:45 Labs: 01/04/19 12:22 Urine,Catheterized Urine Culture - Final Escherichia Coli Laboratory WBC 6.9 X10^3/uL (3.6-10.0) 01/07/19 05:45 RBC 4.95 X10^6/uL (3.5-5.4) 01/07/19 05:45 Hgb 14.9 g/dL (12.0-16.0) D 01/07/19 05:45 Hct 43.9 % (36.0-47.0) 01/07/19 05:45 MCV 88.7 fL (80.0-100.0) 01/07/19 05:45 MCH 30.1 pg (27.0-34.0) 01/07/19 05:45 MCHC 33.9 g/dL (33.0-35.0) 01/07/19 05:45 RDW 14.1 % (11.6-16.5) 01/07/19 05:45 Plt Count 300 X10^3/uL (150.0-450.0) 01/07/19 05:45 MPV 7.7 fL (7.4-11.0) 01/07/19 05:45 Neut % (Auto) 54.1 % (42.0-75.0) 01/07/19 05:45 Lymph % (Auto) 26.0 % (21.0-51.0) 01/07/19 05:45 [place] % (Auto) 17.1 % (0.0-13.0) H 01/07/19 05:45 Eos % (Auto) 1.3 % (0.9-2.9) 01/07/19 05:45 Baso % (Auto) 1.5 % (0.2-1.0) H 01/07/19 05:45 Neut # (Auto) 3.7 x10^3/uL (2.2-4.8) 01/07/19 05:45 Lymph # (Auto) 1.8 X10^3/uL (1.3-2.9) 01/07/19 05:45 [place] # (Auto) 1.2 x10^3/uL (0.3-0.8) H 01/07/19 05:45 Eos # (Auto) 0.1 x10^3/uL (0.0-0.2) 01/07/19 05:45 Baso # (Auto) 0.1 X10^3/uL (0.0-0.1) 01/07/19 05:45 Absolute Nucleated RBC 0.1 /100WBC 01/07/19 05:45 Sodium 131 mmol/L (136-145) L 01/07/19 05:45 Corrected Sodium TNP 01/07/19 05:45 Potassium 4.3 mmol/L (3.5-5.1) 01/07/19 05:45 Chloride 96 mmol/L (98-107) L 01/07/19 05:45 Carbon Dioxide 25.3 mmol/L (21-32) 01/07/19 05:45 BUN 11 mg/dL (7-18) 01/07/19 05:45 Creatinine 0.69 mg/dL (0.55-1.02) 01/07/19 05:45 Est GFR (MDRD) Af Amer > 60 (>60) 01/07/19 05:45 Est GFR (MDRD) Non-Af > 60 (>60) 01/07/19 05:45 Glucose 78 mg/dL (65-99) 01/07/19 05:45 POC Glucose (mg/dL) 66 mg/dL (65-99) 01/05/19 20:37 Calcium 9.4 mg/dL (8.5-10.1) 01/07/19 05:45 Corrected Calcium 10.0 mg/dL (8.5-10.1) 01/07/19 05:45 Total Bilirubin 0.20 mg/dL (0.2-1.0) 01/07/19 05:45 AST 25 Units/L (15-37) 01/07/19 05:45 ALT 15 Units/L (12-78) 01/07/19 05:45 Alkaline Phosphatase 119 Units/L (46-116) H 01/07/19 05:45 Total Protein 7.6 g/dL (6.4-8.2) 01/07/19 05:45 Albumin 3.3 g/dL (3.4-5.0) L 01/07/19 05:45 Globulin 4.3 g/dL (2.5-4.5) 01/07/19 05:45 Albumin/Globulin Ratio 0.8 Ratio (1.1-2.1) L 01/07/19 05:45 Specimen Type Catherized urine 01/04/19 12:22 Urine Color Yellow (YELLOW) 01/04/19 12:22 Urine Appearance Cloudy (CLEAR) 01/04/19 12:22 Urine pH 7.0 (5.0 - 8.0) 01/04/19 12:22 Ur Specific [place] 1.015 (1.000-1.030) 01/04/19 12:22 Urine Protein 2+ (NEGATIVE) 01/04/19 12:22 Urine Glucose (UA) Negative (NEGATIVE) 01/04/19 12:22 Urine Ketones Negative (NEGATIVE) 01/04/19 12:22 Urine Occult Blood 3+ (NEGATIVE) 01/04/19 12:22 Urine Nitrite Negative (NEGATIVE) 01/04/19 12:22 Urine Bilirubin Negative (NEGATIVE) 01/04/19 12:22 Urine Urobilinogen Normal (NORMAL) 01/04/19 12:22 Ur Leukocyte Esterase 3+ (NEGATIVE) 01/04/19 12:22 Urine RBC Tntc /HPF (NONE SEEN) 01/04/19 12:22 Urine WBC Tntc /HPF (NONE SEEN) 01/04/19 12:22 Ur Squamous Epith Cells Few /HPF (NEGATIVE) 01/04/19 12:22 Urine Bacteria 2+ /HPF (NEGATIVE) 01/04/19 12:22 Ur Culture Indicated? Yes/culture set up 01/04/19 12:22 Digoxin 1.51 ng/mL (0.9-2) 01/05/19 09:45 - Plan (1) Hyponatremia Status: Acute Plan: gentle iv hydration. verify and resume home medication. bp monitoring, UTI with IV atbx. cultures collected on admission, encourage oral hydration (2) UTI (urinary tract infection) Status: Acute (3) Tremor of both hands Status: Acute (4) Hypotension Status: Acute Qualifiers: (5) Dehydration Status: Acute (6) Atrial fibrillation Status: Acute Qualifiers:
--- NOTE | 2019-01-07 09:38 | PCM.PROG ---
Progress Note - Progress Note for Day of Date of Exam: 01/05/19 - Subjective Subjective: 73 WF RESIDENT OF [facility], ADMITTED ON 01/04 WITH HYPONATREMIA AND UTI. PT HAS RECEIVED GENTLE IV HYDRATION WITH NA 129 THIS AM, WBC 6,3. PT URINE +ECOLI, PHARMACY CONSULT FOR IV INVANZ. PT STARTED ON SINEMET FOR TREMORS, REPORTS SHE ATE WELL THIS AM, DENIES ANY CP OR SOB. - Past Medical Family Social History Past Med/Fam/Surg Hx: No changes since H&P Allergies: Allergies adhesive tape Allergy (Verified 01/04/19 09:50) - Review of Systems ROS: No change since H&P - Vital Signs and I&O's Vital Signs: Temperature 97.7 F Pulse Rate [Right Brachial] 90 Pulse Rate 96 Respiratory Rate 18 Blood Pressure [Right Arm] 136/69 Blood Pressure [Left Arm] 131/67 Blood Pressure [Left Arm] 165/94 Blood Pressure 97/57 O2 Sat by Pulse Oximetry 96 Intake and Output: Intake & Output 01/04/19 01/05/19 01/06/19 01/07/19 11:59 11:59 11:59 11:59 Intake Total 2069 2520 / 2520 1120 / 1120 Balance 2069 252 / 2520 1120 / 1120 - Physical Exam Oriented: Normal Eyes: Normal Ear: Normal Nose: Normal Throat: Dry Respiratory: Diminished Cardiovascular: Normal : Normal Auscultation: Bowel Sounds: Normal Tenderness: Normal Skin: Decreased Turgur Musculoskeletal: Right, Left, Leg, Motor Deficit (BILATERAL UPPER EXTREMITY TREMOR) Psychiatric: Anxiety Speech Pattern: Clear, Appropriate - Laboratory and Diagnostics Result Diagrams: 01/07/19 05:45 01/07/19 05:45 Labs: 01/04/19 12:22 Urine,Catheterized Urine Culture - Final Escherichia Coli Laboratory WBC 6.9 X10^3/uL (3.6-10.0) 01/07/19 05:45 RBC 4.95 X10^6/uL (3.5-5.4) 01/07/19 05:45 Hgb 14.9 g/dL (12.0-16.0) D 01/07/19 05:45 Hct 43.9 % (36.0-47.0) 01/07/19 05:45 MCV 88.7 fL (80.0-100.0) 01/07/19 05:45 MCH 30.1 pg (27.0-34.0) 01/07/19 05:45 MCHC 33.9 g/dL (33.0-35.0) 01/07/19 05:45 RDW 14.1 % (11.6-16.5) 01/07/19 05:45 Plt Count 300 X10^3/uL (150.0-450.0) 01/07/19 05:45 MPV 7.7 fL (7.4-11.0) 01/07/19 05:45 Neut % (Auto) 54.1 % (42.0-75.0) 01/07/19 05:45 Lymph % (Auto) 26.0 % (21.0-51.0) 01/07/19 05:45 [place] % (Auto) 17.1 % (0.0-13.0) H 01/07/19 05:45 Eos % (Auto) 1.3 % (0.9-2.9) 01/07/19 05:45 Baso % (Auto) 1.5 % (0.2-1.0) H 01/07/19 05:45 Neut # (Auto) 3.7 x10^3/uL (2.2-4.8) 01/07/19 05:45 Lymph # (Auto) 1.8 X10^3/uL (1.3-2.9) 01/07/19 05:45 [place] # (Auto) 1.2 x10^3/uL (0.3-0.8) H 01/07/19 05:45 Eos # (Auto) 0.1 x10^3/uL (0.0-0.2) 01/07/19 05:45 Baso # (Auto) 0.1 X10^3/uL (0.0-0.1) 01/07/19 05:45 Absolute Nucleated RBC 0.1 /100WBC 01/07/19 05:45 Sodium 131 mmol/L (136-145) L 01/07/19 05:45 Corrected Sodium TNP 01/07/19 05:45 Potassium 4.3 mmol/L (3.5-5.1) 01/07/19 05:45 Chloride 96 mmol/L (98-107) L 01/07/19 05:45 Carbon Dioxide 25.3 mmol/L (21-32) 01/07/19 05:45 BUN 11 mg/dL (7-18) 01/07/19 05:45 Creatinine 0.69 mg/dL (0.55-1.02) 01/07/19 05:45 Est GFR (MDRD) Af Amer > 60 (>60) 01/07/19 05:45 Est GFR (MDRD) Non-Af > 60 (>60) 01/07/19 05:45 Glucose 78 mg/dL (65-99) 01/07/19 05:45 POC Glucose (mg/dL) 66 mg/dL (65-99) 01/05/19 20:37 Calcium 9.4 mg/dL (8.5-10.1) 01/07/19 05:45 Corrected Calcium 10.0 mg/dL (8.5-10.1) 01/07/19 05:45 Total Bilirubin 0.20 mg/dL (0.2-1.0) 01/07/19 05:45 AST 25 Units/L (15-37) 01/07/19 05:45 ALT 15 Units/L (12-78) 01/07/19 05:45 Alkaline Phosphatase 119 Units/L (46-116) H 01/07/19 05:45 Total Protein 7.6 g/dL (6.4-8.2) 01/07/19 05:45 Albumin 3.3 g/dL (3.4-5.0) L 01/07/19 05:45 Globulin 4.3 g/dL (2.5-4.5) 01/07/19 05:45 Albumin/Globulin Ratio 0.8 Ratio (1.1-2.1) L 01/07/19 05:45 Specimen Type Catherized urine 01/04/19 12:22 Urine Color Yellow (YELLOW) 01/04/19 12:22 Urine Appearance Cloudy (CLEAR) 01/04/19 12:22 Urine pH 7.0 (5.0 - 8.0) 01/04/19 12:22 Ur Specific [place] 1.015 (1.000-1.030) 01/04/19 12:22 Urine Protein 2+ (NEGATIVE) 01/04/19 12:22 Urine Glucose (UA) Negative (NEGATIVE) 01/04/19 12:22 Urine Ketones Negative (NEGATIVE) 01/04/19 12:22 Urine Occult Blood 3+ (NEGATIVE) 01/04/19 12:22 Urine Nitrite Negative (NEGATIVE) 01/04/19 12:22 Urine Bilirubin Negative (NEGATIVE) 01/04/19 12:22 Urine Urobilinogen Normal (NORMAL) 01/04/19 12:22 Ur Leukocyte Esterase 3+ (NEGATIVE) 01/04/19 12:22 Urine RBC Tntc /HPF (NONE SEEN) 01/04/19 12:22 Urine WBC Tntc /HPF (NONE SEEN) 01/04/19 12:22 Ur Squamous Epith Cells Few /HPF (NEGATIVE) 01/04/19 12:22 Urine Bacteria 2+ /HPF (NEGATIVE) 01/04/19 12:22 Ur Culture Indicated? Yes/culture set up 01/04/19 12:22 Digoxin 1.51 ng/mL (0.9-2) 01/05/19 09:45 - Plan (1) Hyponatremia Status: Acute Plan: gentle iv hydration. verify and resume home medication. bp monitoring, UTI with IV atbx. cultures collected on admission, encourage oral hydration (2) UTI (urinary tract infection) Status: Acute (3) Tremor of both hands Status: Acute (4) Hypotension Status: Acute Qualifiers: (5) Dehydration Status: Acute (6) Atrial fibrillation Status: Acute Qualifiers:
[2019-01-07] MEDS: TYLENOL 325 MG TAB PO PRN (19:25)
[2019-01-07] MEDS: DEPAKOTE D.R. TAB PO SCH (21:15)
[2019-01-07] MEDS: EFFEXOR XR 150 MG CAP PO SCH (21:15)
[2019-01-07] MEDS: ZANAFLEX PO SCH (21:16)
--- NOTE | 2019-01-07 21:26 | PCM.PROG ---
Progress Note - Progress Note for Day of Date of Exam: 01/07/19 - Subjective Subjective: WAS ADMITTED FOR HYPONATREMIA, UTI, AND ATRIAL FIBRILLATION. TODAY, SHE IS LYING IN BED WITH EYES CLOSED ON MORNING ROUNDS. SHE AWAKENS TO VERBAL STIMULI. ON EXAMINATION, SHE CONTINUES TO BE IN ATRIAL FIBRILLATION, HOWEVER, RATE IS NORMAL. BILATERAL LUNGS ARE NOTED WITH DIMINISHED LUNG SOUNDS THROUGHOUT. ABDOMEN IS ROUND, SOFT, AND NOTED WITH MILD SUPRAPUBIC TENDERNESS TO PALPATION. HER VITALS THIS MORNING ARE 97.9-96-18-95%-119/72. LABS WERE OBTAINED. ABNORMAL LAB VALUES INCLUDE THE FOLLOWING: SODIUM 131, CHLORIDE 96, ALK PHOS 119, ALBUMIN 3.3. URINE CULTURE REPORTS GROWTH OF E.COLI. SHE IS CURRENTLY RECEIVING NORMAL SALINE AT 75ML/HR AND INVANZ 1GM IV DAILY. WE WILL CONTINUE WITH CURRENT PLAN OF CARE TODAY. OTHERWISE, WE WILL FOLLOW UP WITH AM LABS AND CONTINUE TO MONITOR. - Past Medical Family Social History Past Med/Fam/Surg Hx: No changes since H&P Allergies: Allergies adhesive tape Allergy (Verified 01/04/19 09:50) - Review of Systems ROS: No change since H&P - Vital Signs and I&O's Vital Signs: Temperature 97.9 F Pulse Rate [Right Brachial] 82 Pulse Rate 96 Respiratory Rate 18 Blood Pressure [Right Arm] 100/65 Blood Pressure [Left Arm] 131/67 Blood Pressure [Left Arm] 165/94 Blood Pressure 97/57 O2 Sat by Pulse Oximetry 94 Intake and Output: Intake & Output 01/05/19 01/06/19 01/07/19 01/08/19 11:59 11:59 11:59 11:59 Intake Total 2069 2520 / 2520 1120 / 1120 80 / 80 Balance 2069 2520 / 2520 1120 / 1120 80 / 80 - Physical Exam Oriented: Normal Eyes: Normal Ear: Normal Nose: Normal Throat: Dry Respiratory: Diminished Cardiovascular: Normal : Normal Auscultation: Bowel Sounds: Normal Palpation: Normal Tenderness: Normal Skin: Decreased Turgur Musculoskeletal: Right, Left, Leg, Motor Deficit (BILATERAL UPPER EXTREMITY TREMOR) Psychiatric: Anxiety Speech Pattern: Clear, Appropriate - Laboratory and Diagnostics Result Diagrams: 01/07/19 05:45 01/07/19 05:45 Labs: 01/04/19 12:22 Urine,Catheterized Urine Culture - Final Escherichia Coli Laboratory WBC 6.9 X10^3/uL (3.6-10.0) 01/07/19 05:45 RBC 4.95 X10^6/uL (3.5-5.4) 01/07/19 05:45 Hgb 14.9 g/dL (12.0-16.0) D 01/07/19 05:45 Hct 43.9 % (36.0-47.0) 01/07/19 05:45 MCV 88.7 fL (80.0-100.0) 01/07/19 05:45 MCH 30.1 pg (27.0-34.0) 01/07/19 05:45 MCHC 33.9 g/dL (33.0-35.0) 01/07/19 05:45 RDW 14.1 % (11.6-16.5) 01/07/19 05:45 Plt Count 300 X10^3/uL (150.0-450.0) 01/07/19 05:45 MPV 7.7 fL (7.4-11.0) 01/07/19 05:45 Neut % (Auto) 54.1 % (42.0-75.0) 01/07/19 05:45 Lymph % (Auto) 26.0 % (21.0-51.0) 01/07/19 05:45 [place] % (Auto) 17.1 % (0.0-13.0) H 01/07/19 05:45 Eos % (Auto) 1.3 % (0.9-2.9) 01/07/19 05:45 Baso % (Auto) 1.5 % (0.2-1.0) H 01/07/19 05:45 Neut # (Auto) 3.7 x10^3/uL (2.2-4.8) 01/07/19 05:45 Lymph # (Auto) 1.8 X10^3/uL (1.3-2.9) 01/07/19 05:45 [place] # (Auto) 1.2 x10^3/uL (0.3-0.8) H 01/07/19 05:45 Eos # (Auto) 0.1 x10^3/uL (0.0-0.2) 01/07/19 05:45 Baso # (Auto) 0.1 X10^3/uL (0.0-0.1) 01/07/19 05:45 Absolute Nucleated RBC 0.1 /100WBC 01/07/19 05:45 Sodium 131 mmol/L (136-145) L 01/07/19 05:45 Corrected Sodium TNP 01/07/19 05:45 Potassium 4.3 mmol/L (3.5-5.1) 01/07/19 05:45 Chloride 96 mmol/L (98-107) L 01/07/19 05:45 Carbon Dioxide 25.3 mmol/L (21-32) 01/07/19 05:45 BUN 11 mg/dL (7-18) 01/07/19 05:45 Creatinine 0.69 mg/dL (0.55-1.02) 01/07/19 05:45 Est GFR (MDRD) Af Amer > 60 (>60) 01/07/19 05:45 Est GFR (MDRD) Non-Af > 60 (>60) 01/07/19 05:45 Glucose 78 mg/dL (65-99) 01/07/19 05:45 POC Glucose (mg/dL) 66 mg/dL (65-99) 01/05/19 20:37 Calcium 9.4 mg/dL (8.5-10.1) 01/07/19 05:45 Corrected Calcium 10.0 mg/dL (8.5-10.1) 01/07/19 05:45 Total Bilirubin 0.20 mg/dL (0.2-1.0) 01/07/19 05:45 AST 25 Units/L (15-37) 01/07/19 05:45 ALT 15 Units/L (12-78) 01/07/19 05:45 Alkaline Phosphatase 119 Units/L (46-116) H 01/07/19 05:45 Total Protein 7.6 g/dL (6.4-8.2) 01/07/19 05:45 Albumin 3.3 g/dL (3.4-5.0) L 01/07/19 05:45 Globulin 4.3 g/dL (2.5-4.5) 01/07/19 05:45 Albumin/Globulin Ratio 0.8 Ratio (1.1-2.1) L 01/07/19 05:45 Specimen Type Catherized urine 01/04/19 12:22 Urine Color Yellow (YELLOW) 01/04/19 12:22 Urine Appearance Cloudy (CLEAR) 01/04/19 12:22 Urine pH 7.0 (5.0 - 8.0) 01/04/19 12:22 Ur Specific [place] 1.015 (1.000-1.030) 01/04/19 12:22 Urine Protein 2+ (NEGATIVE) 01/04/19 12:22 Urine Glucose (UA) Negative (NEGATIVE) 01/04/19 12:22 Urine Ketones Negative (NEGATIVE) 01/04/19 12:22 Urine Occult Blood 3+ (NEGATIVE) 01/04/19 12:22 Urine Nitrite Negative (NEGATIVE) 01/04/19 12:22 Urine Bilirubin Negative (NEGATIVE) 01/04/19 12:22 Urine Urobilinogen Normal (NORMAL) 01/04/19 12:22 Ur Leukocyte Esterase 3+ (NEGATIVE) 01/04/19 12:22 Urine RBC Tntc /HPF (NONE SEEN) 01/04/19 12:22 Urine WBC Tntc /HPF (NONE SEEN) 01/04/19 12:22 Ur Squamous Epith Cells Few /HPF (NEGATIVE) 01/04/19 12:22 Urine Bacteria 2+ /HPF (NEGATIVE) 01/04/19 12:22 Ur Culture Indicated? Yes/culture set up 01/04/19 12:22 Digoxin 1.51 ng/mL (0.9-2) 01/05/19 09:45 - Plan (1) Hyponatremia Status: Acute Plan: NORMAL SALINE AT 75ML/HR, CONTINUE TO MONITOR (2) A-fib Status: Acute Qualifiers: Atrial fibrillation type: chronic Qualified Code(s): I48.2 - Chronic atrial fibrillation (3) UTI (urinary tract infection) Status: Acute Qualifiers: Urinary tract infection type: acute cystitis Hematuria presence: with hematuria Qualified Code(s): N30.01 - Acute cystitis with hematuria Plan: INVANZ 1GM IV DAILY, CONTINUE TO MONITOR
[2019-01-08] MEDS: NS 1000 ML 1,000 ML IV SCH ×2 (05:50→19:59)
[2019-01-08] MEDS: REGLAN TAB 10 MG PO SCH ×4 (05:51→21:08)
[2019-01-08] MEDS: NEURONTIN CAP 100 MG PO SCH ×3 (05:51→21:08)
[2019-01-08 06:59] LABS: ALANINE AMINOTRANSFERASE 20 Units/L (12-78); ALKALINE PHOSPHATASE 98 Units/L (46-116); ASPARTATE AMINO TRANSFERASE 27 Units/L (15-37); BLOOD UREA NITROGEN 12 mg/dL (7-18); CALCIUM 8.7 mg/dL (8.5-10.1); CHLORIDE 98 mmol/L (98-107); COR CA(FOR HYPOALB) 9.5 mg/dL (8.5-10.1); CREATININE 0.76 mg/dL (0.55-1.02); SODIUM 133 mmol/L (136-145); TOTAL PROTEIN 6.7 g/dL (6.4-8.2); eGFR NON BLACK RACES > 60 (>60)
[2019-01-08 07:02] LABS: EOSINOPHILS # (AUTO) 0.1 x10^3/uL (0.0-0.2); EOSINOPHILS % (AUTO) 2.3 % (0.9-2.9); HEMATOCRIT 37.9 % (36.0-47.0); LYMPHOCYTES # (AUTO) 1.3 X10^3/uL (1.3-2.9); LYMPHOCYTES % (AUTO) 26.2 % (21.0-51.0); MEAN CORPUSCULAR HEMOGLOBIN 29.9 pg (27.0-34.0); MEAN CORPUSCULAR HGB CONC 34.1 g/dL (33.0-35.0); MEAN CORPUSCULAR VOLUME 87.9 fL (80.0-100.0); MEAN PLATELET VOLUME 7.3 fL (7.4-11.0); MONOCYTES # (AUTO) 0.7 x10^3/uL (0.3-0.8); NEUTROPHILS # (AUTO) 2.8 x10^3/uL (2.2-4.8); NEUTROPHILS % (AUTO) 55.5 % (42.0-75.0); PLATELET COUNT 303 X10^3/uL (150.0-450.0); RED BLOOD COUNT 4.32 X10^6/uL (3.5-5.4); RED CELL DISTRIBUTION WIDTH 14.4 % (11.6-16.5); WHITE BLOOD COUNT 4.9 X10^3/uL (3.6-10.0)
[2019-01-08 07:06] LABS: HEMOGLOBIN 12.9 g/dL (12.0-16.0)
[2019-01-08] MEDS: LANOXIN PO SCH (09:42)
[2019-01-08] MEDS: XANAX PO SCH ×2 (09:42→21:07)
[2019-01-08] MEDS: HEMOCYTE-PLUS PO SCH (09:43)
[2019-01-08] MEDS: PEPCID TAB 20 MG PO SCH ×2 (09:43→21:07)
[2019-01-08] MEDS: PROTONIX TAB 40 MG PO SCH ×2 (09:44→21:07)
[2019-01-08] MEDS: XARELTO PO SCH (09:44)
[2019-01-08] MEDS: SINEMET (PLAIN) 10/100 MG PO SCH ×2 (09:44→21:08)
[2019-01-08] MEDS: TAB-A-VITE PO SCH (09:44)
[2019-01-08] MEDS: DITROPAN TAB 5 MG PO SCH (09:45)
[2019-01-08] MEDS: TOPROL XL PO SCH (09:45)
[2019-01-08] MEDS: INVANZ INJ 1 GM VIAL 1 GM in NS 100 ML IV + SPIKE MINIBAG* 100 ML IV SCH (09:46)
[2019-01-08] MEDS: LEVSIN/MAALOX/LIDOC VISC PO SCH ×4 (09:47→21:02)
[2019-01-08] MEDS: WELLBUTRIN XL 150 MG (DAILY) PO SCH (13:48)
[2019-01-08] MEDS: TYLENOL 325 MG TAB PO PRN ×2 (14:15→19:57)
--- NOTE | 2019-01-08 19:59 | PCM.PROG ---
Progress Note - Progress Note for Day of Date of Exam: 01/08/19 - Subjective Subjective: WAS ADMITTED FOR HYPONATREMIA, UTI, AND ATRIAL FIBRILLATION. TODAY, SHE IS LYING IN BED WITH EYES CLOSED ON MORNING ROUNDS. SHE AWAKENS TO VERBAL STIMULI. ON EXAMINATION, SHE CONTINUES TO BE IN ATRIAL FIBRILLATION, HOWEVER, RATE IS NORMAL. BILATERAL LUNGS ARE NOTED WITH DIMINISHED LUNG SOUNDS THROUGHOUT. ABDOMEN IS ROUND, SOFT, AND NOTED WITH MILD SUPRAPUBIC TENDERNESS TO PALPATION. HER VITALS THIS MORNING ARE 98.0-77-18-100%-159/77. LABS WERE OBTAINED. ABNORMAL LAB VALUES INCLUDE THE FOLLOWING: SODIUM 133, ALBUMIN 3.0. URINE CULTURE REPORTS GROWTH OF E.COLI. SHE IS CURRENTLY RECEIVING NORMAL SALINE AT 75ML/HR AND INVANZ 1GM IV DAILY. WE HAVE DISCONTINUE THE EFFEXOR THAT SHE WAS ON AND STARTED WELLBUTRIN. OTHERWISE, WE WILL CONTINUE WITH CURRENT PLAN OF CARE TODAY. WE WILL FOLLOW UP WITH AM LABS AND CONTINUE TO MONITOR. - Past Medical Family Social History Past Med/Fam/Surg Hx: No changes since H&P Allergies: Allergies adhesive tape Allergy (Verified 01/04/19 09:50) - Review of Systems ROS: No change since H&P - Vital Signs and I&O's Vital Signs: Temperature 97.6 F Pulse Rate [Right Brachial] 76 Pulse Rate 77 Respiratory Rate 18 Blood Pressure [Right Arm] 117/64 Blood Pressure [Left Arm] 131/67 Blood Pressure [Left Arm] 165/94 Blood Pressure 97/57 O2 Sat by Pulse Oximetry 96 Intake and Output: Intake & Output 01/06/19 01/07/19 01/08/19 01/09/19 11:59 11:59 11:59 11:59 Intake Total 2520 / 2520 1120 / 1120 1300 / 1300 580 / 580 Balance 2520 / 2520 1120 / 1120 1300 / 1300 580 / 580 - Physical Exam Oriented: Normal Eyes: Normal Ear: Normal Nose: Normal Throat: Dry Respiratory: Diminished Cardiovascular: Normal : Normal Auscultation: Bowel Sounds: Normal Tenderness: Normal Skin: Decreased Turgur Musculoskeletal: Right, Left, Leg, Motor Deficit (BILATERAL UPPER EXTREMITY TREMOR) Psychiatric: Anxiety Speech Pattern: Clear, Appropriate - Laboratory and Diagnostics Result Diagrams: 01/08/19 05:55 01/08/19 05:55 Labs: 01/04/19 12:22 Urine,Catheterized Urine Culture - Final Escherichia Coli Laboratory WBC 4.9 X10^3/uL (3.6-10.0) 01/08/19 05:55 RBC 4.32 X10^6/uL (3.5-5.4) 01/08/19 05:55 Hgb 12.9 g/dL (12.0-16.0) D 01/08/19 05:55 Hct 37.9 % (36.0-47.0) 01/08/19 05:55 MCV 87.9 fL (80.0-100.0) 01/08/19 05:55 MCH 29.9 pg (27.0-34.0) 01/08/19 05:55 MCHC 34.1 g/dL (33.0-35.0) 01/08/19 05:55 RDW 14.4 % (11.6-16.5) 01/08/19 05:55 Plt Count 303 X10^3/uL (150.0-450.0) 01/08/19 05:55 MPV 7.3 fL (7.4-11.0) L 01/08/19 05:55 Neut % (Auto) 55.5 % (42.0-75.0) 01/08/19 05:55 Lymph % (Auto) 26.2 % (21.0-51.0) 01/08/19 05:55 [place] % (Auto) 15.0 % (0.0-13.0) H 01/08/19 05:55 Eos % (Auto) 2.3 % (0.9-2.9) 01/08/19 05:55 Baso % (Auto) 1.0 % (0.2-1.0) 01/08/19 05:55 Neut # (Auto) 2.8 x10^3/uL (2.2-4.8) 01/08/19 05:55 Lymph # (Auto) 1.3 X10^3/uL (1.3-2.9) 01/08/19 05:55 [place] # (Auto) 0.7 x10^3/uL (0.3-0.8) 01/08/19 05:55 Eos # (Auto) 0.1 x10^3/uL (0.0-0.2) 01/08/19 05:55 Baso # (Auto) 0.0 X10^3/uL (0.0-0.1) 01/08/19 05:55 Absolute Nucleated RBC 0.1 /100WBC 01/08/19 05:55 Sodium 133 mmol/L (136-145) L 01/08/19 05:55 Corrected Sodium TNP 01/08/19 05:55 Potassium 3.9 mmol/L (3.5-5.1) 01/08/19 05:55 Chloride 98 mmol/L (98-107) 01/08/19 05:55 Carbon Dioxide 26.0 mmol/L (21-32) 01/08/19 05:55 BUN 12 mg/dL (7-18) 01/08/19 05:55 Creatinine 0.76 mg/dL (0.55-1.02) 01/08/19 05:55 Est GFR (MDRD) Af Amer > 60 (>60) 01/08/19 05:55 Est GFR (MDRD) Non-Af > 60 (>60) 01/08/19 05:55 Glucose 75 mg/dL (65-99) 01/08/19 05:55 POC Glucose (mg/dL) 66 mg/dL (65-99) 01/05/19 20:37 Calcium 8.7 mg/dL (8.5-10.1) 01/08/19 05:55 Corrected Calcium 9.5 mg/dL (8.5-10.1) 01/08/19 05:55 Total Bilirubin 0.30 mg/dL (0.2-1.0) 01/08/19 05:55 AST 27 Units/L (15-37) 01/08/19 05:55 ALT 20 Units/L (12-78) 01/08/19 05:55 Alkaline Phosphatase 98 Units/L (46-116) 01/08/19 05:55 Total Protein 6.7 g/dL (6.4-8.2) 01/08/19 05:55 Albumin 3.0 g/dL (3.4-5.0) L 01/08/19 05:55 Globulin 3.7 g/dL (2.5-4.5) 01/08/19 05:55 Albumin/Globulin Ratio 0.8 Ratio (1.1-2.1) L 01/08/19 05:55 Specimen Type Catherized urine 01/04/19 12:22 Urine Color Yellow (YELLOW) 01/04/19 12:22 Urine Appearance Cloudy (CLEAR) 01/04/19 12:22 Urine pH 7.0 (5.0 - 8.0) 01/04/19 12:22 Ur Specific [place] 1.015 (1.000-1.030) 01/04/19 12:22 Urine Protein 2+ (NEGATIVE) 01/04/19 12:22 Urine Glucose (UA) Negative (NEGATIVE) 01/04/19 12:22 Urine Ketones Negative (NEGATIVE) 01/04/19 12:22 Urine Occult Blood 3+ (NEGATIVE) 01/04/19 12:22 Urine Nitrite Negative (NEGATIVE) 01/04/19 12:22 Urine Bilirubin Negative (NEGATIVE) 01/04/19 12:22 Urine Urobilinogen Normal (NORMAL) 01/04/19 12:22 Ur Leukocyte Esterase 3+ (NEGATIVE) 01/04/19 12:22 Urine RBC Tntc /HPF (NONE SEEN) 01/04/19 12:22 Urine WBC Tntc /HPF (NONE SEEN) 01/04/19 12:22 Ur Squamous Epith Cells Few /HPF (NEGATIVE) 01/04/19 12:22 Urine Bacteria 2+ /HPF (NEGATIVE) 01/04/19 12:22 Ur Culture Indicated? Yes/culture set up 01/04/19 12:22 Digoxin 1.51 ng/mL (0.9-2) 01/05/19 09:45 - Plan (1) Hyponatremia Status: Acute Plan: NORMAL SALINE AT 75ML/HR, CONTINUE TO MONITOR (2) A-fib Status: Acute Qualifiers: Atrial fibrillation type: chronic Qualified Code(s): I48.2 - Chronic atrial fibrillation (3) UTI (urinary tract infection) Status: Acute Qualifiers: Urinary tract infection type: acute cystitis Hematuria presence: with hematuria Qualified Code(s): N30.01 - Acute cystitis with hematuria Plan: INVANZ 1GM IV DAILY, CONTINUE TO MONITOR
[2019-01-08] MEDS: ZANAFLEX PO SCH (21:07)
[2019-01-08] MEDS: DEPAKOTE D.R. TAB PO SCH (21:08)
[2019-01-09] MEDS: NEURONTIN CAP 100 MG PO SCH ×2 (05:24→13:30)
[2019-01-09] MEDS: REGLAN TAB 10 MG PO SCH ×2 (05:40→12:01)
[2019-01-09 06:48] LABS: BASOPHILS # (AUTO) 0.1 X10^3/uL (0.0-0.1); BASOPHILS % (AUTO) 1.2 % (0.2-1.0); EOSINOPHILS # (AUTO) 0.1 x10^3/uL (0.0-0.2); EOSINOPHILS % (AUTO) 3.3 % (0.9-2.9); HEMATOCRIT 41.5 % (36.0-47.0); LYMPHOCYTES # (AUTO) 1.3 X10^3/uL (1.3-2.9); LYMPHOCYTES % (AUTO) 30.2 % (21.0-51.0); MEAN CORPUSCULAR HGB CONC 33.8 g/dL (33.0-35.0); MEAN CORPUSCULAR VOLUME 88.7 fL (80.0-100.0); MEAN PLATELET VOLUME 7.4 fL (7.4-11.0); MONOCYTES # (AUTO) 0.6 x10^3/uL (0.3-0.8); MONOCYTES % (AUTO) 14.4 % (0.0-13.0); NEUTROPHILS # (AUTO) 2.3 x10^3/uL (2.2-4.8); NEUTROPHILS % (AUTO) 50.9 % (42.0-75.0); PLATELET COUNT 293 X10^3/uL (150.0-450.0); RED BLOOD COUNT 4.67 X10^6/uL (3.5-5.4); RED CELL DISTRIBUTION WIDTH 14.3 % (11.6-16.5); WHITE BLOOD COUNT 4.4 X10^3/uL (3.6-10.0)
[2019-01-09 06:52] LABS: ALANINE AMINOTRANSFERASE 21 Units/L (12-78); ALBUMIN 3.3 g/dL (3.4-5.0); ALKALINE PHOSPHATASE 110 Units/L (46-116); ASPARTATE AMINO TRANSFERASE 27 Units/L (15-37); BLOOD UREA NITROGEN 11 mg/dL (7-18); CHLORIDE 100 mmol/L (98-107); COR CA(FOR HYPOALB) 9.6 mg/dL (8.5-10.1); CREATININE 0.67 mg/dL (0.55-1.02); SODIUM 134 mmol/L (136-145); TOTAL PROTEIN 7.4 g/dL (6.4-8.2); eGFR NON BLACK RACES > 60 (>60)
[2019-01-09] MEDS: LEVSIN/MAALOX/LIDOC VISC PO SCH ×2 (08:48→12:12)
[2019-01-09] MEDS: INVANZ INJ 1 GM VIAL 1 GM in NS 100 ML IV + SPIKE MINIBAG* 100 ML IV SCH (08:48)
[2019-01-09] MEDS: WELLBUTRIN XL 150 MG (DAILY) PO SCH (08:49)
[2019-01-09] MEDS: PROTONIX TAB 40 MG PO SCH (08:49)
[2019-01-09] MEDS: TOPROL XL PO SCH (08:49)
[2019-01-09] MEDS: HEMOCYTE-PLUS PO SCH (08:49)
[2019-01-09] MEDS: PEPCID TAB 20 MG PO SCH (08:50)
[2019-01-09] MEDS: DITROPAN TAB 5 MG PO SCH (08:50)
[2019-01-09] MEDS: SINEMET (PLAIN) 10/100 MG PO SCH (08:51)
[2019-01-09] MEDS: XANAX PO SCH (08:51)
[2019-01-09] MEDS: LANOXIN PO SCH (08:51)
[2019-01-09] MEDS: XARELTO PO SCH (08:52)
[2019-01-09] MEDS: TAB-A-VITE PO SCH (08:52)
[2019-01-09] MEDS: NS 1000 ML 1,000 ML IV SCH (08:53)
[2019-01-09] MEDS ORDERED: DULCOLAX SUPPOSITORY 10 MG RECTAL ONE (11:41)
[2019-01-09 12:45] VITALS: BP 137/71
[2019-01-09] MEDS: TYLENOL 325 MG TAB PO PRN (14:00)
[2019-01-09] MEDS ORDERED: FLEET ENEMA ADULT PR ONE (14:14)
[2019-01-09] MEDS ORDERED: FLEET ENEMA ADULT ONE (14:28)
== END 2019-01-09 15:10 | DRG 690 ==
LOC: ER 09:24 → MED/SURG 14:26
PROVIDERS: ADMIT Internal Medicine; ATTEND Internal Medicine
DX: E87.1 Hypo-osmolality and hyponatremia; E78.2 Mixed hyperlipidemia; K21.9 Gastro-esophageal reflux disease without esophagitis; B96.29 Other Escherichia coli [E. coli] as the cause of diseases classified elsewhere; E86.0 Dehydration; R25.1 Tremor, unspecified; I95.89 Other hypotension; I10 Essential (primary) hypertension; F41.8 Other specified anxiety disorders; R26.89 Other abnormalities of gait and mobility; N30.01 Acute cystitis with hematuria; I48.2 Chronic atrial fibrillation
CPT/HCPCS: 36415; 51702; 71010; 71045; 80053; 80162; 81001; 85025; 87086; 87088; 87186; 94760; 96365; 96367; 96374; 97110; 97112; 97162; 97166; 97530; 97535; 99284; A4222; S0106; J0696; J1335; J3490; J7030; J7050

== ENCOUNTER 2019-05-06 11:26 | Inpatient (IN) ==
[2019-05-06] MEDS ORDERED: NS 1000 ML IV ONE (14:00)
[2019-05-06] MEDS ORDERED: D50W ABBOJECT SYR IVP ONE (14:00)
[2019-05-06] MEDS ORDERED: NS 100 ML IV + SPIKE MINIBAG IV ONE (22:40)
[2019-05-06] MEDS ORDERED: ZOSYN VIAL 3.375 GRAMS IV ONE (22:40)
[2019-05-06] MEDS ORDERED: MAALOX or MYLANTA PO ONE (23:50)
[2019-05-07] MEDS ORDERED: K-RIDER 10 MEQ/NS 100 ML IV ONE (09:00)
[2019-05-07] MEDS ORDERED: ZOSYN VIAL 3.375 GRAMS IV ONE ×2 (13:18→21:30)
[2019-05-07] MEDS ORDERED: ULTRAM PO ONE (13:30)
[2019-05-07] MEDS ORDERED: NS 1000 ML IV ONE (15:31)
[2019-05-08] MEDS ORDERED: XANAX ONE ×2 (08:00→22:00)
[2019-05-08] MEDS ORDERED: ALBUMIN HUMAN 25%- 100 ML ONE (09:00)
[2019-05-08] MEDS ORDERED: NS 1000 ML ONE (10:48)
[2019-05-08] MEDS ORDERED: VANCOMYCIN HCL 1 GM VIAL ONE (12:00)
[2019-05-08] MEDS ORDERED: ULTRAM ONE ×2 (12:00→22:00)
[2019-05-08] MEDS ORDERED: ZOSYN VIAL 3.375 GRAMS IV ONE ×2 (14:00→22:00)
[2019-05-08] MEDS ORDERED: [UNRECOGNIZED DRUG - MIXTURE] ONE (16:00)
[2019-05-08] MEDS ORDERED: POTASSIUM CHL 60 MEQ/NS 0.45% 500 ML IV ONE (16:00)
[2019-05-09] MEDS ORDERED: ZOSYN VIAL 3.375 GRAMS IV ONE (06:00)
[2019-05-09] MEDS ORDERED: ALBUMIN HUMAN 25%- 100 ML IV ONE (09:00)
[2019-05-09] MEDS ORDERED: K-RIDER 10 MEQ/NS 100 ML IV ONE (12:15)
[2019-05-09] MEDS ORDERED: CARDIZEM TAB 30 MG PLAIN PO ONE (15:30)
[2019-05-09] MEDS ORDERED: ULTRAM PO ONE (16:48)
[2019-05-09] MEDS ORDERED: LOPRESSOR INJ 5 MG AMP IVP ONE ×2 (17:11→17:30)
[2019-05-09] MEDS ORDERED: XANAX PO ONE (21:00)
[2019-05-09] MEDS ORDERED: [UNRECOGNIZED DRUG - MIXTURE] IV ONE (23:00)
[2019-05-09 23:02] VITALS: BP 114/66
[2019-05-10 06:41] LABS: BLOOD UREA NITROGEN 24 mg/dL (7-18); CARBON DIOXIDE 19.7 mmol/L (21-32); CHLORIDE 108 mmol/L (98-107); CREATININE 0.68 mg/dL (0.55-1.02); SODIUM 140 mmol/L (136-145); eGFR NON BLACK RACES > 60 (>60)
[2019-05-10 06:42] LABS: ALANINE AMINOTRANSFERASE 16 Units/L (12-78); ALKALINE PHOSPHATASE 93 Units/L (46-116); ASPARTATE AMINO TRANSFERASE 23 Units/L (15-37); CALCIUM 7.6 mg/dL (8.5-10.1); COR CA(FOR HYPOALB) 9.2 mg/dL (8.5-10.1); TOTAL PROTEIN 6.2 g/dL (6.4-8.2)
[2019-05-10 06:43] LABS: BASOPHILS % (AUTO) 0.3 % (0.2-1.0); EOSINOPHILS % (AUTO) 0.1 % (0.9-2.9); HEMATOCRIT 34.3 % (36.0-47.0); HEMOGLOBIN 11.4 g/dL (12.0-16.0); LYMPHOCYTES # (AUTO) 1.3 X10^3/uL (1.3-2.9); LYMPHOCYTES % (AUTO) 7.1 % (21.0-51.0); MEAN CORPUSCULAR HEMOGLOBIN 29.6 pg (27.0-34.0); MEAN CORPUSCULAR HGB CONC 33.1 g/dL (33.0-35.0); MEAN CORPUSCULAR VOLUME 89.3 fL (80.0-100.0); MEAN PLATELET VOLUME 7.7 fL (7.4-11.0); MONOCYTES % (AUTO) 8.5 % (0.0-13.0); PLATELET COUNT 311 X10^3/uL (150.0-450.0); RED BLOOD COUNT 3.84 X10^6/uL (3.5-5.4); RED CELL DISTRIBUTION WIDTH 15.8 % (11.6-16.5)
[2019-05-10 06:44] LABS: BASOPHILS # (AUTO) 0.1 X10^3/uL (0.0-0.1); MONOCYTES # (AUTO) 1.6 x10^3/uL (0.3-0.8); PLATELET MORPHOLOGY COMMENT NORMAL (NORMAL)
[2019-05-10 06:46] LABS: CRYPTOSPORIDIUM PARVUM ANTIGEN NEGATIVE (NEGATIVE); GIARDIA LAMBLIA ANTIGEN NEGATIVE (NEGATIVE)
[2019-05-10 06:49] LABS: CKMB % 1.4 % (<4); CREATINE KINASE MB 1.5 ng/mL (0-4.0); TROPONIN I 0.03 ng/mL (0-1.5)
[2019-05-10 06:50] LABS: APPEARANCE,URINE CLOUDY (CLEAR); COLOR,URINE YELLOW (YELLOW); GLUCOSE, URINE NEGATIVE (NEGATIVE); KETONES,URINE NEGATIVE (NEGATIVE); PROTEIN,URINE 2+ (NEGATIVE)
[2019-05-10 06:51] LABS: BACTERIA,URINE 4+ /HPF (NEGATIVE); BILIRUBIN,URINE NEGATIVE (NEGATIVE); BLOOD/HEMOGLOBIN,URINE 3+ (NEGATIVE); LEUKOCYTE ESTERASE ,URINE 3+ (NEGATIVE); NITRITES,URINE POSITIVE (NEGATIVE); SQUAMOUS EPITHELIAL CELL,UR RARE /HPF (NEGATIVE); UROBILINOGEN,URINE NORMAL (NORMAL)
[2019-05-10 06:51] LABS: BASOPHILS # (AUTO) 0.1 X10^3/uL (0.0-0.1); BASOPHILS % (AUTO) 0.7 % (0.2-1.0); EOSINOPHILS # (AUTO) 0.2 x10^3/uL (0.0-0.2); EOSINOPHILS % (AUTO) 2.7 % (0.9-2.9); HEMATOCRIT 28.1 % (36.0-47.0); HEMOGLOBIN 9.6 g/dL (12.0-16.0); LYMPHOCYTES # (AUTO) 1.6 X10^3/uL (1.3-2.9); LYMPHOCYTES % (AUTO) 18.7 % (21.0-51.0); MEAN CORPUSCULAR HEMOGLOBIN 30.2 pg (27.0-34.0); MEAN CORPUSCULAR VOLUME 88.7 fL (80.0-100.0); MEAN PLATELET VOLUME 7.2 fL (7.4-11.0); MONOCYTES # (AUTO) 1.2 x10^3/uL (0.3-0.8); MONOCYTES % (AUTO) 13.5 % (0.0-13.0); NEUTROPHILS # (AUTO) 5.7 x10^3/uL (2.2-4.8); NEUTROPHILS % (AUTO) 64.4 % (42.0-75.0); PLATELET COUNT 300 X10^3/uL (150.0-450.0); RED BLOOD COUNT 3.17 X10^6/uL (3.5-5.4); RED CELL DISTRIBUTION WIDTH 16.2 % (11.6-16.5); WHITE BLOOD COUNT 8.8 X10^3/uL (3.6-10.0)
[2019-05-10 06:52] LABS: BLOOD UREA NITROGEN 10 mg/dL (7-18); CARBON DIOXIDE 21.5 mmol/L (21-32); CHLORIDE 107 mmol/L (98-107); CREATININE 0.53 mg/dL (0.55-1.02); MAGNESIUM 2.2 mg/dL (1.7-2.9); SODIUM 138 mmol/L (136-145); eGFR NON BLACK RACES > 60 (>60)
[2019-05-10 06:54] LABS: CHLORIDE 109 mmol/L (98-107); SODIUM 137 mmol/L (136-145)
[2019-05-10 06:55] LABS: ALANINE AMINOTRANSFERASE 12 Units/L (12-78); ALBUMIN 2.1 g/dL (3.4-5.0); ALKALINE PHOSPHATASE 73 Units/L (46-116); ASPARTATE AMINO TRANSFERASE 25 Units/L (15-37); BLOOD UREA NITROGEN 17 mg/dL (7-18); CALCIUM 7.5 mg/dL (8.5-10.1); CARBON DIOXIDE 18.2 mmol/L (21-32); CREATININE 0.57 mg/dL (0.55-1.02); TOTAL PROTEIN 5.4 g/dL (6.4-8.2); eGFR NON BLACK RACES > 60 (>60)
[2019-05-10 06:56] LABS: EOSINOPHILS % (AUTO) 1.2 % (0.9-2.9); HEMATOCRIT 25.9 % (36.0-47.0); HEMOGLOBIN 8.5 g/dL (12.0-16.0); LYMPHOCYTES % (AUTO) 10.1 % (21.0-51.0); MEAN CORPUSCULAR HEMOGLOBIN 29.5 pg (27.0-34.0); MEAN CORPUSCULAR VOLUME 89.5 fL (80.0-100.0); MEAN PLATELET VOLUME 7.3 fL (7.4-11.0); MONOCYTES % (AUTO) 10.3 % (0.0-13.0); NEUTROPHILS % (AUTO) 78.1 % (42.0-75.0); PLATELET COUNT 269 X10^3/uL (150.0-450.0); RED BLOOD COUNT 2.89 X10^6/uL (3.5-5.4); RED CELL DISTRIBUTION WIDTH 16.4 % (11.6-16.5)
[2019-05-10 06:57] LABS: CKMB % 1.1 % (<4); CREATINE KINASE MB 1.3 ng/mL (0-4.0)
[2019-05-10 06:57] LABS: BASOPHILS % (AUTO) 0.3 % (0.2-1.0); EOSINOPHILS # (AUTO) 0.1 x10^3/uL (0.0-0.2); NEUTROPHILS # (AUTO) 7.8 x10^3/uL (2.2-4.8)
[2019-05-10 06:58] LABS: TROPONIN I 0.04 ng/mL (0-1.5)
[2019-05-10 06:59] LABS: SODIUM 141 mmol/L (136-145)
[2019-05-10 07:01] LABS: BLOOD UREA NITROGEN 31 mg/dL (7-18); CARBON DIOXIDE 23.5 mmol/L (21-32); CHLORIDE 106 mmol/L (98-107)
[2019-05-10 07:02] LABS: CALCIUM 8.3 mg/dL (8.5-10.1); CREATININE 0.74 mg/dL (0.55-1.02); eGFR NON BLACK RACES > 60 (>60)
[2019-05-10 07:03] LABS: ALANINE AMINOTRANSFERASE 24 Units/L (12-78); ALBUMIN 2.5 g/dL (3.4-5.0); ALKALINE PHOSPHATASE 103 Units/L (46-116); ASPARTATE AMINO TRANSFERASE 29 Units/L (15-37); COR CA(FOR HYPOALB) 9.5 mg/dL (8.5-10.1); CREATINE KINASE 144 Units/L (26-192); MAGNESIUM 2.4 mg/dL (1.7-2.9); TOTAL PROTEIN 7.1 g/dL (6.4-8.2)
[2019-05-10 07:04] LABS: CKMB % 1.3 % (<4); CREATINE KINASE MB 1.8 ng/mL (0-4.0); TROPONIN I 0.04 ng/mL (0-1.5)
[2019-05-10 07:05] LABS: HEMATOCRIT 35.5 % (36.0-47.0); HEMOGLOBIN 11.8 g/dL (12.0-16.0); MEAN CORPUSCULAR HEMOGLOBIN 29.6 pg (27.0-34.0); MEAN CORPUSCULAR HGB CONC 33.3 g/dL (33.0-35.0); MEAN CORPUSCULAR VOLUME 88.8 fL (80.0-100.0); RED CELL DISTRIBUTION WIDTH 16.3 % (11.6-16.5)
[2019-05-10 07:06] LABS: BASOPHILS # (AUTO) 0.1 X10^3/uL (0.0-0.1); BASOPHILS % (AUTO) 0.4 % (0.2-1.0); EOSINOPHILS # (AUTO) 0.1 x10^3/uL (0.0-0.2); EOSINOPHILS % (AUTO) 0.3 % (0.9-2.9); LYMPHOCYTES # (AUTO) 2.2 X10^3/uL (1.3-2.9); LYMPHOCYTES % (AUTO) 14.4 % (21.0-51.0); MEAN PLATELET VOLUME 7.6 fL (7.4-11.0); MONOCYTES # (AUTO) 1.9 x10^3/uL (0.3-0.8); MONOCYTES % (AUTO) 12.4 % (0.0-13.0); NEUTROPHILS # (AUTO) 10.9 x10^3/uL (2.2-4.8); NEUTROPHILS % (AUTO) 72.5 % (42.0-75.0); PLATELET COUNT 380 X10^3/uL (150.0-450.0)
[2019-05-10 07:07] LABS: SODIUM 137 mmol/L (136-145)
[2019-05-10 07:08] LABS: ALANINE AMINOTRANSFERASE 18 Units/L (12-78); ASPARTATE AMINO TRANSFERASE 20 Units/L (15-37); BLOOD UREA NITROGEN 18 mg/dL (7-18); CALCIUM 7.6 mg/dL (8.5-10.1); CARBON DIOXIDE 20.3 mmol/L (21-32); CHLORIDE 107 mmol/L (98-107); CREATININE 0.58 mg/dL (0.55-1.02); eGFR NON BLACK RACES > 60 (>60)
[2019-05-10 07:09] LABS: ALBUMIN 2.2 g/dL (3.4-5.0); ALKALINE PHOSPHATASE 82 Units/L (46-116); TOTAL PROTEIN 5.9 g/dL (6.4-8.2); WHITE BLOOD COUNT 14.6 X10^3/uL (3.6-10.0)
[2019-05-10 07:10] LABS: BASOPHILS # (AUTO) 0.1 X10^3/uL (0.0-0.1); BASOPHILS % (AUTO) 0.4 % (0.2-1.0); EOSINOPHILS # (AUTO) 0.1 x10^3/uL (0.0-0.2); EOSINOPHILS % (AUTO) 0.7 % (0.9-2.9); HEMATOCRIT 29.8 % (36.0-47.0); HEMOGLOBIN 9.9 g/dL (12.0-16.0); LYMPHOCYTES # (AUTO) 1.3 X10^3/uL (1.3-2.9); MEAN CORPUSCULAR HEMOGLOBIN 29.4 pg (27.0-34.0); MEAN CORPUSCULAR HGB CONC 33.2 g/dL (33.0-35.0); MEAN CORPUSCULAR VOLUME 88.5 fL (80.0-100.0); MEAN PLATELET VOLUME 7.7 fL (7.4-11.0); MONOCYTES # (AUTO) 1.4 x10^3/uL (0.3-0.8); MONOCYTES % (AUTO) 9.5 % (0.0-13.0); NEUTROPHILS # (AUTO) 11.7 x10^3/uL (2.2-4.8); NEUTROPHILS % (AUTO) 80.4 % (42.0-75.0); PLATELET COUNT 262 X10^3/uL (150.0-450.0); RED BLOOD COUNT 3.37 X10^6/uL (3.5-5.4); RED CELL DISTRIBUTION WIDTH 16.3 % (11.6-16.5)
[2019-05-10] MEDS ORDERED: ULTRAM PEG PRN (07:23)
[2019-05-10] MEDS ORDERED: MAALOX or MYLANTA PEG PRN (07:24)
[2019-05-10] MEDS ORDERED: K-LYTE EFFERVESCENT PO PRN (07:26)
[2019-05-10] MEDS ORDERED: POTASSIUM CHLORIDE LIQ 20 MEQ UDC PO PRN (07:26)
[2019-05-10] MEDS ORDERED: K-RIDER 10 MEQ/NS 100 ML 10 MEQ/100 ML BAG IV PRN (07:26)
[2019-05-10] MEDS ORDERED: PROCALAMINE 3 % 1,000 ML IV SCH (08:00)
[2019-05-10] MEDS ORDERED: NS 1000 ML 1,000 ML IV SCH (08:00)
[2019-05-10] MEDS ORDERED: HumuLIN R SUBCUT PRN (08:00)
[2019-05-10] MEDS ORDERED: POTASSIUM CHL 40 MEQ/NS 0.45% 500 ML 40 MEQ/500 ML BAG IV PRN (08:05)
[2019-05-10] MEDS ORDERED: POTASSIUM CHL 60 MEQ/NS 0.45% 500 ML 60 MEQ/500 ML BAG IV PRN (08:05)
[2019-05-10] MEDS ORDERED: ALBUMIN HUMAN 25%- 100 ML 100 ML IV SCH (09:00)
[2019-05-10] MEDS ORDERED: XANAX PEG SCH (09:00)
[2019-05-10] MEDS ORDERED: CARDIZEM TAB 30 MG PLAIN PO SCH (09:00)
[2019-05-10] MEDS ORDERED: ZOSYN VIAL 3.375 GRAMS 3.375 G in NS 100 ML IV + SPIKE MINIBAG* 100 ML IV SCH (14:00)
== END 2019-05-10 15:30 | DRG 641 ==
LOC: ICU 11:26
PROVIDERS: ADMIT Internal Medicine; ATTEND Internal Medicine
DX: E87.6 Hypokalemia; I48.91 Unspecified atrial fibrillation; I10 Essential (primary) hypertension; R10.84 Generalized abdominal pain; E11.65 Type 2 diabetes mellitus with hyperglycemia; L89.309 Pressure ulcer of unspecified buttock, unspecified stage; K21.9 Gastro-esophageal reflux disease without esophagitis; R00.0 Tachycardia, unspecified; F32.89 Other specified depressive episodes; R53.1 Weakness; K59.09 Other constipation; N39.0 Urinary tract infection, site not specified; F41.8 Other specified anxiety disorders; Z43.1 Encounter for attention to gastrostomy; D72.828 Other elevated white blood cell count; B96.29 Other Escherichia coli [E. coli] as the cause of diseases classified elsewhere
CPT/HCPCS: 36415; 70450; 74177; 80048; 80053; 81001; 82270; 82550; 82553; 83630; 83735; 84132; 84484; 85025; 87040; 87045; 87086; 87088; 87186; 87328; 87329; 87427; 87449; 87493; 87899; 93005; A4222; B5200; P9047; J2543; J3370; J3480; J3490; J7030; J7050

== ENCOUNTER 2019-08-03 16:27 | Inpatient (IN) ==
[~2019-08-03 16:27] MED LIST changes: -D5 LR 1000 ML 1,000 ML IV ONE; +WELLBUTRIN SR 150 MG (BID) PO ONE
[2019-08-03] MEDS ORDERED: ZOFRAN INJ 4 MG VIAL IVP ONE (16:30)
[2019-08-03 16:34] VITALS: BMI 15.5
--- NOTE | 2019-08-03 16:37 | DR.GENAD ---
HPI Time Seen Time Seen by Provider: 08/03/19 16:30 PCP Primary Care Physician: casey HPI Comment HPI Comment: 73 yo [facility] resident presents w/ 1 day hx of n/v w/ noted black emesis, multiple episodes a/w increasing agitation. PMH of likely dementia, tapan lure to thrive, htn, hld, afib (not on ac), and copd. Limited hx secondary to altered mental status. Complaint/Symptoms Chief Complaint:: detention staff stated she has been vomiting black stuff since last night. patient was brought to [facility] where she has been yelling and jerking. Source History Provided: Snf Mode of Arrival Mode of Arrival: Stretcher Timing Onset of Chief Complaint: 08/02/19 PMH PMH Past Medical History: Yes Past Medical History: Anxiety, Arthritis, Depression, Diabetes, Dyslipidemia, Migraines, GERD and Hypertension Past Surgical History: Yes Surgical History: Cholecystectomy, Hysterectomy, Joint Replacement, Ortho Surgery, Weight Loss Surgery and Other Family History History of Family Medical Conditions: Yes Family Medical History: Heart Failure and Hypertension Social History Does patient currently use any type of tobacco product: No Have you used tobacco products in the last 12 months: No Type of Tobacco Use: None Does any household member use tobacco: No Alcohol Use: None Do you use any recreational Drugs:: No Lives With: Family Lives Where: Home infectious screening In the last 2 months have you had wt loss of >10#?: NO Have you had fever, night sweats or hemotysis?: No Have you traveled outside the country in the last 6 months?: No Isolation: Standard ROS Review of Systems Gastrointestinal/Abdominal: Nausea, Vomiting and Other (hematemesis, no blood per rectum ) PE Vital Signs Vitals: Temperature 99.6 F Pulse Rate 121 Respiratory Rate 18 Blood Pressure [Right Arm] 106/71 Blood Pressure [Left Arm] 99/58 Blood Pressure 111/56 O2 Sat by Pulse Oximetry 89 General Limitations: Other (demented. Alert. aggitated. Mumbles. localizes pain) Head Head Exam: Normal Inspection and Atraumatic Eyes Eye exam: Normal Appearance and PERRL; negative Scleral Icterus ENT ENT Exam: Normal Oropharynx and Other (dried coffee ground emesis in mouth, mm pale) Throat Exam: Normal Inspection Neck Neck Exam: Normal Inspection Chest Chest Inspection: Normal Inspection Respiratory Respiratory Exam: Normal Lung Sounds Bilat Cardiovascular Cardiovascular Exam: Regular Rate and Irregular Rhythm Abdominal Exam Abdominal Exam: Normal Inspection Extremities Extremities Exam: Normal Inspection Back Back Exam: Normal Inspection Neurologic Neurological Exam: Alert and Other (moves all 4 extremities ) Psychiatric Psychiatric Exam: Agitated COURSE Treatment Treatment: 73 yo demented female w/ prev hx of afib not currently on ac presents w/ coffee ground emesis x 1 day. BP stable on arrival;. Dried coffee ground emesis in pharynx, protecting airway, no active vomiting in ED. Zofran given on arrival. h/h stable, Plt count normal. Coags wnl. Herve ivf's given. Gave 40 mg protonix iv x 1. BMP w/ evidence of mayra. BUN elevated likely secondary to GI bleed. CXR demonstrates L sided infiltrate, likely secondary to aspiration. Zosyn begun. Blood cx's x 2 ordered. Lactate wnl. Severe sepsis w/o evidence of septic shock secondary to aspiration pna. d/w Dr Vazquez whom agrees to admit. Will page Dr Gomez for possible AM scope. ROR Labs Reviewed Laboratory Results Reviewed?: Yes Result Diagrams: 08/03/19 16:48 08/03/19 16:48 Laboratory: WBC 28.1 X10^3/uL (3.6-10.0) H 08/03/19 16:48 RBC 3.90 X10^6/uL (3.5-5.4) 08/03/19 16:48 Hgb 10.9 g/dL (12.0-16.0) L 08/03/19 16:48 Hct 33.5 % (36.0-47.0) L 08/03/19 16:48 MCV 85.7 fL (80.0-100.0) 08/03/19 16:48 MCH 27.9 pg (27.0-34.0) 08/03/19 16:48 MCHC 32.6 g/dL (33.0-35.0) L 08/03/19 16:48 RDW 16.4 % (11.6-16.5) 08/03/19 16:48 Plt Count 535 X10^3/uL (150.0-450.0) H 08/03/19 16:48 Plt Count Comment Increased (ADEQUATE) A 08/03/19 16:48 MPV 7.4 fL (7.4-11.0) 08/03/19 16:48 Neut % (Auto) 90.9 % (42.0-75.0) H 08/03/19 16:48 Lymph % (Auto) 3.3 % (21.0-51.0) L 08/03/19 16:48 [place] % (Auto) 5.0 % (0.0-13.0) 08/03/19 16:48 Eos % (Auto) 0.0 % (0.9-2.9) L 08/03/19 16:48 Baso % (Auto) 0.8 % (0.2-1.0) 08/03/19 16:48 Neut # (Auto) 25.5 x10^3/uL (2.2-4.8) H 08/03/19 16:48 Lymph # (Auto) 0.9 X10^3/uL (1.3-2.9) L 08/03/19 16:48 [place] # (Auto) 1.4 x10^3/uL (0.3-0.8) H 08/03/19 16:48 Eos # (Auto) 0.0 x10^3/uL (0.0-0.2) 08/03/19 16:48 Baso # (Auto) 0.2 X10^3/uL (0.0-0.1) H 08/03/19 16:48 Absolute Nucleated RBC 0.0 /100WBC 08/03/19 16:48 Total Counted 100 08/03/19 16:48 Neutrophils % (Manual) 68 % (39-76) 08/03/19 16:48 Band Neutrophils % 22 % (0-10) H 08/03/19 16:48 Lymphocytes % (Manual) 4 % (13-43) L 08/03/19 16:48 Monocytes % (Manual) 5 % (4-9) 08/03/19 16:48 Metamyelocytes % 1 08/03/19 16:48 Plt Morphology Comment Normal (NORMAL) 08/03/19 16:48 RBC Morphology Normal (NORMAL) 08/03/19 16:48 PT 14.5 SECONDS (11.8-14.3) 08/03/19 16:48 INR Target Range - 08/03/19 16:48 INR 1.17 (0.8-1.3) 08/03/19 16:48 APTT 38.6 SECONDS (22.9-36.5) H 08/03/19 16:48 PTT Comment - 08/03/19 16:48 Sodium 141 mmol/L (136-145) 08/03/19 16:48 Corrected Sodium 142 mmol/L (136-145) 08/03/19 16:48 Potassium 2.9 mmol/L (3.5-5.1) L* 08/03/19 16:48 Chloride 106 mmol/L (98-107) 08/03/19 16:48 Carbon Dioxide 18.1 mmol/L (21-32) L 08/03/19 16:48 BUN 52 mg/dL (7-18) H 08/03/19 16:48 Creatinine 0.90 mg/dL (0.55-1.02) 08/03/19 16:48 Est GFR (MDRD) Af Amer > 60 (>60) 08/03/19 16:48 Est GFR (MDRD) Non-Af > 60 (>60) 08/03/19 16:48 Glucose 122 mg/dL (65-99) H 08/03/19 16:48 Lactic Acid 1.6 mmol/L (0.4-2.0) 08/03/19 17:58 Calcium 8.5 mg/dL (8.5-10.1) 08/03/19 16:48 Corrected Calcium 9.9 mg/dL (8.5-10.1) 08/03/19 16:48 Total Bilirubin 0.50 mg/dL (0.2-1.0) 08/03/19 16:48 AST 25 Units/L (15-37) 08/03/19 16:48 ALT 23 Units/L (12-78) 08/03/19 16:48 Alkaline Phosphatase 97 Units/L (46-116) 08/03/19 16:48 Total Protein 6.6 g/dL (6.4-8.2) 08/03/19 16:48 Albumin 2.3 g/dL (3.4-5.0) L 08/03/19 16:48 Globulin 4.3 g/dL (2.5-4.5) 08/03/19 16:48 Albumin/Globulin Ratio 0.5 Ratio (1.1-2.1) L 08/03/19 16:48 Specimen Type Catherized urine 08/03/19 17:47 Urine Color Yellow (YELLOW) 08/03/19 17:47 Urine Appearance Clear (CLEAR) 08/03/19 17:47 Urine pH 6.0 (5.0 - 8.0) 08/03/19 17:47 Ur Specific [place] 1.020 (1.000-1.030) 08/03/19 17:47 Urine Protein 1+ (NEGATIVE) 08/03/19 17:47 Urine Glucose (UA) Negative (NEGATIVE) 08/03/19 17:47 Urine Ketones Negative (NEGATIVE) 08/03/19 17:47 Urine Occult Blood Negative (NEGATIVE) 08/03/19 17:47 Urine Nitrite Negative (NEGATIVE) 08/03/19 17:47 Urine Bilirubin Negative (NEGATIVE) 08/03/19 17:47 Urine Urobilinogen 1+ (NORMAL) 08/03/19 17:47 Ur Leukocyte Esterase 2+ (NEGATIVE) 08/03/19 17:47 Urine RBC None seen /HPF (0-3) 08/03/19 17:47 Urine WBC 5-10 /HPF (0-5) A 08/03/19 17:47 Ur Squamous Epith Cells Negative /HPF (NEGATIVE) 08/03/19 17:47 Urine Bacteria Trace /HPF (NEGATIVE) 08/03/19 17:47 Ur Culture Indicated? Yes/culture set up 08/03/19 17:47 Other Results Comments: CXR w/ Left sided infiltrate Opioid Opioid Risk Tool Age (Tab box if 16-45): No History of Preadolescent Sexual Abuse: No Total: 0 Total Score Risk Category: Low Risk Copyright: Ramon MARTINEZ predicting aberrant behaviors
[2019-08-03] MEDS ORDERED: NS 1000 ML 1,000 ML ONE (16:56)
[2019-08-03] MEDS ORDERED: NS 1000 ML 1,000 ML IV ONE ×2 (16:56→18:50)
[2019-08-03] MEDS ORDERED: ZOFRAN INJ 4 MG VIAL ONE (16:57)
[2019-08-03 17:06] LABS: BASOPHILS # (AUTO) 0.2 X10^3/uL (0.0-0.1); BASOPHILS % (AUTO) 0.8 % (0.2-1.0); HEMATOCRIT 33.5 % (36.0-47.0); HEMOGLOBIN 10.9 g/dL (12.0-16.0); LYMPHOCYTES # (AUTO) 0.9 X10^3/uL (1.3-2.9); LYMPHOCYTES % (AUTO) 3.3 % (21.0-51.0); MEAN CORPUSCULAR HEMOGLOBIN 27.9 pg (27.0-34.0); MEAN CORPUSCULAR HGB CONC 32.6 g/dL (33.0-35.0); MEAN CORPUSCULAR VOLUME 85.7 fL (80.0-100.0); MEAN PLATELET VOLUME 7.4 fL (7.4-11.0); MONOCYTES # (AUTO) 1.4 x10^3/uL (0.3-0.8); NEUTROPHILS # (AUTO) 25.5 x10^3/uL (2.2-4.8); NEUTROPHILS % (AUTO) 90.9 % (42.0-75.0); PLATELET COUNT 535 X10^3/uL (150.0-450.0); RED CELL DISTRIBUTION WIDTH 16.4 % (11.6-16.5); WHITE BLOOD COUNT 28.1 X10^3/uL (3.6-10.0)
[2019-08-03 17:13] LABS: BLOOD UREA NITROGEN 52 mg/dL (7-18); CALCIUM 8.5 mg/dL (8.5-10.1); CARBON DIOXIDE 18.1 mmol/L (21-32); CHLORIDE 106 mmol/L (98-107); COR NA(FOR HYPERGLY) 142 mmol/L (136-145); SODIUM 141 mmol/L (136-145); eGFR NON BLACK RACES > 60 (>60)
--- NOTE | 2019-08-03 17:13 | RAD ---
HISTORY: Vomiting Study: Single-view chest Comparison: 07/03/2019 Findings: The trachea is midline. The cardiac silhouette is unremarkable. Subtle opacity within the left midlung zone is observed for which developing bronchopneumonia or underlying pulmonary nodule cannot be excluded. The findings are not observed on chest radiograph just 1-month prior sub acute infiltrate would be the favored etiology. The bony thorax is unremarkable. IMPRESSION: Focal density within the left midlung zone is observed for which developing infiltrate would be suspected. Continued follow-up to complete resolution will be needed. Reported By:
[2019-08-03 17:18] LABS: ALANINE AMINOTRANSFERASE 23 Units/L (12-78); ALBUMIN 2.3 g/dL (3.4-5.0); ALKALINE PHOSPHATASE 97 Units/L (46-116); ASPARTATE AMINO TRANSFERASE 25 Units/L (15-37); COR CA(FOR HYPOALB) 9.9 mg/dL (8.5-10.1); TOTAL PROTEIN 6.6 g/dL (6.4-8.2)
[2019-08-03] MEDS ORDERED: PROTONIX INJ 40 MG VIAL IVP ONE (17:28)
[2019-08-03] MEDS ORDERED: PROTONIX INJ 40 MG VIAL ONE (17:35)
[2019-08-03 17:41] LABS: BAND NEUTROPHILS % 22 % (0-10); METAMYELOCYTES % 1; PLATELET MORPHOLOGY COMMENT NORMAL (NORMAL)
[2019-08-03 18:17] LABS: BILIRUBIN,URINE NEGATIVE (NEGATIVE); BLOOD/HEMOGLOBIN,URINE NEGATIVE (NEGATIVE); GLUCOSE, URINE NEGATIVE (NEGATIVE); KETONES,URINE NEGATIVE (NEGATIVE); LEUKOCYTE ESTERASE ,URINE 2+ (NEGATIVE); NITRITES,URINE NEGATIVE (NEGATIVE); PROTEIN,URINE 1+ (NEGATIVE); UROBILINOGEN,URINE 1+ (NORMAL)
[2019-08-03] MEDS ORDERED: MORPHINE SULFATE INJ 2 MG INJ IVP ONE (18:21)
[2019-08-03 18:29] LABS: APPEARANCE,URINE CLEAR (CLEAR); COLOR,URINE YELLOW (YELLOW)
[2019-08-03 18:30] LABS: BACTERIA,URINE TRACE /HPF (NEGATIVE); RBC,URINE NONE SEEN /HPF (0-3); SQUAMOUS EPITHELIAL CELL,UR NEGATIVE /HPF (NEGATIVE)
[2019-08-03] MEDS ORDERED: NS 100 ML IV + SPIKE MINIBAG* 100 ML IV ONE (18:36)
[2019-08-03] MEDS ORDERED: MORPHINE SULFATE INJ 2 MG INJ ONE (18:36)
[2019-08-03] MEDS: ZOSYN VIAL 3.375 GRAMS IV SCH ×2 (18:44→21:52)
[2019-08-03] MEDS ORDERED: ZOFRAN INJ 4 MG VIAL IVP PRN (18:52)
[2019-08-03] MEDS ORDERED: TYLENOL ELIXIR 325 MG UDC PO PRN (20:03)
[2019-08-03] MEDS ORDERED: SALINE 3% 15 ML NEB TX NEB ONE (21:00)
[2019-08-03] MEDS: VALPROIC ACID 250 MG PEG SCH (21:57)
[2019-08-03] MEDS: AMANTADINE HCL 50 MG PO SCH (21:57)
[2019-08-03] MEDS: ZyPREXA TAB 5 MG PO SCH (21:58)
[2019-08-03] MEDS: WELLBUTRIN IR (PLAIN) PO SCH (21:58)
[2019-08-03] MEDS: NS 1000 ML 1,000 ML IV SCH (21:59)
[2019-08-03] MEDS: PROTONIX INJ 40 MG VIAL IVP SCH (22:01)
[2019-08-03] MEDS ORDERED: POTASSIUM CHLORIDE LIQ 20 MEQ UDC PO PRN (22:07)
[2019-08-03] MEDS ORDERED: POTASSIUM CHL 40 MEQ/NS 0.45% 500 ML IV PRN (22:07)
[2019-08-03] MEDS ORDERED: POTASSIUM CHL 60 MEQ/NS 0.45% 500 ML IV PRN (22:07)
[2019-08-03] MEDS ORDERED: MAGNESIUM SULFATE 1 GRAM/100 mL PREMIX 1 GM/100 ML BAG IV PRN (22:07)
[2019-08-03] MEDS: K-RIDER 10 MEQ/NS 100 ML 10 MEQ/100 ML BAG IV PRN (22:52)
[2019-08-04 00:33] LABS: BILIRUBIN,URINE NEGATIVE (NEGATIVE); BLOOD/HEMOGLOBIN,URINE NEGATIVE (NEGATIVE); GLUCOSE, URINE NEGATIVE (NEGATIVE); KETONES,URINE NEGATIVE (NEGATIVE); LEUKOCYTE ESTERASE ,URINE 2+ (NEGATIVE); NITRITES,URINE NEGATIVE (NEGATIVE); PROTEIN,URINE 1+ (NEGATIVE); UROBILINOGEN,URINE NORMAL (NORMAL)
[2019-08-04 00:41] LABS: APPEARANCE,URINE CLEAR (CLEAR); COLOR,URINE YELLOW (YELLOW); RBC,URINE NONE SEEN /HPF (0-3)
[2019-08-04 00:42] LABS: BACTERIA,URINE TRACE /HPF (NEGATIVE); SQUAMOUS EPITHELIAL CELL,UR RARE /HPF (NEGATIVE)
[2019-08-04] MEDS: K-RIDER 10 MEQ/NS 100 ML 10 MEQ/100 ML BAG IV PRN ×4 (01:08→03:11)
[2019-08-04] MEDS ORDERED: NS 100 ML IV + SPIKE MINIBAG* 100 ML IV ONE ×3 (05:24→20:07)
[2019-08-04] MEDS: ZOSYN VIAL 3.375 GRAMS IV SCH ×3 (05:44→22:02)
[2019-08-04] MEDS: PROTONIX INJ 40 MG VIAL IVP SCH ×2 (08:27→20:58)
[2019-08-04 08:49] LABS: BASOPHILS # (AUTO) 0.1 X10^3/uL (0.0-0.1); BASOPHILS % (AUTO) 0.3 % (0.2-1.0); EOSINOPHILS % (AUTO) 0.2 % (0.9-2.9); HEMATOCRIT 26.3 % (36.0-47.0); HEMOGLOBIN 8.8 g/dL (12.0-16.0); LYMPHOCYTES # (AUTO) 1.1 X10^3/uL (1.3-2.9); LYMPHOCYTES % (AUTO) 5.6 % (21.0-51.0); MEAN CORPUSCULAR HEMOGLOBIN 28.7 pg (27.0-34.0); MEAN CORPUSCULAR HGB CONC 33.3 g/dL (33.0-35.0); MEAN PLATELET VOLUME 7.9 fL (7.4-11.0); MONOCYTES # (AUTO) 1.2 x10^3/uL (0.3-0.8); MONOCYTES % (AUTO) 5.9 % (0.0-13.0); NEUTROPHILS # (AUTO) 17.3 x10^3/uL (2.2-4.8); PLATELET COUNT 380 X10^3/uL (150.0-450.0); RED BLOOD COUNT 3.06 X10^6/uL (3.5-5.4); RED CELL DISTRIBUTION WIDTH 16.7 % (11.6-16.5); WHITE BLOOD COUNT 19.7 X10^3/uL (3.6-10.0)
[2019-08-04] MEDS: PROVENTIL NEB TX 0.083% 2.5MG/ 3ML NEB PRN ×4 (08:56→22:03)
[2019-08-04] MEDS ORDERED: SANTYL EXT SCH (09:00)
[2019-08-04] MEDS ORDERED: NYSTATIN POWDER TOP SCH (09:00)
[2019-08-04 09:09] LABS: ALANINE AMINOTRANSFERASE 21 Units/L (12-78); ALBUMIN 1.9 g/dL (3.4-5.0); ALKALINE PHOSPHATASE 86 Units/L (46-116); ASPARTATE AMINO TRANSFERASE 17 Units/L (15-37); BLOOD UREA NITROGEN 60 mg/dL (7-18); CALCIUM 7.3 mg/dL (8.5-10.1); CARBON DIOXIDE 19.1 mmol/L (21-32); CHLORIDE 110 mmol/L (98-107); CREATININE 1.09 mg/dL (0.55-1.02); MAGNESIUM 1.8 mg/dL (1.7-2.9); SODIUM 142 mmol/L (136-145); TOTAL PROTEIN 5.1 g/dL (6.4-8.2); eGFR NON BLACK RACES 52 (>60)
[2019-08-04] MEDS: TOPROL XL PO SCH (09:24)
[2019-08-04] MEDS: AMANTADINE HCL 50 MG PO SCH ×3 (09:36→20:56)
[2019-08-04] MEDS: LANOXIN PO SCH (09:37)
[2019-08-04] MEDS: VALPROIC ACID 250 MG PEG SCH ×2 (09:42→20:56)
[2019-08-04] MEDS: ZyPREXA TAB 5 MG PO SCH ×2 (09:50→20:58)
[2019-08-04] MEDS: WELLBUTRIN IR (PLAIN) PO SCH ×2 (10:18→20:57)
[2019-08-04] MEDS: NS 1000 ML 1,000 ML IV SCH ×2 (10:27→13:32)
[2019-08-04] MEDS ORDERED: NYSTATIN CREAM ONE (15:43)
--- NOTE | 2019-08-04 22:11 | DR.H&P ---
H&P - History & Physical for Day of: H&P Date: 08/03/19 - Chief Complaint Chief Complaint: N/V, AMS - History of Present Illness History of Present Illness: IS A 73 YEAR OLD PATIENT OF OURS WHO PRESENTED TO THE ER FROM [facility] WITH COMPLAINTS OF NAUSEA AND VOMITING X 1 DAY. STAFF REPORTS THAT PATIENT VOMITED BLACK EMESIS. THEY ALSO REPORT INCREASING AGITATION. SH HAS A HISTORY OF DEMENTIA. ON ARRIVAL TO THE ER, PATIENT NOTED TO BE YELLING OUT. ON ARRIVAL, VITALS WERE 99.6-105-18-99%-111/56. LABS WERE OBTAINED. ABNORMAL LAB VALUES INCLUDE THE FOLLOWING: WBC 28.1, HGB 10.9, HCT 33.5, PLT COUNT 535, POTASSIUM 2.9, CARBON DIOXIDE 18.1, BUN 52, GLUCOSE 122, ALBUMIN 2.3. A URINALYSIS WAS OBTAINED AND REVEALED: WBC 5-10, RBC NONE SEEN, BACTERIA TRACE, LEUKOCYTES 2+. URINE CULTURE AND BLOOD CULTURES OBTAINED. A CHEST XRAY WAS OBTAINED AND REVEALED: Focal density within the left midlung zone is observed for which developing infiltrate would be suspected. Continued follow-up to complete resolution will be needed. SHE WAS GIVEN PROTONIX 40MG IV X 1, MORPHINE 2MG IV X 1, ZOFRAN 4MG IV X 1, AND A NORMAL SALINE BOLUS IN THE ER. SHE WAS ADMITTED FOR FURTHER EVALUATION AND TREATMENT OF AN UPPER GI BLEED, ASPIRATION PNEUMONIA, ACUTE KIDNEY INJURY, AND HYPOKALEMIA. SHE WAS STARTED ON NORMAL SALINE AT 80ML/HR, ZOSYN 3.375G IV TID, ZOFRAN 4MG IV Q8H, POTASSIUM AND MAGNESIUM PROTOCOL, AND HOME MEDICATIONS WERE RESUMED. WE PLAN TO FOLLOW UP WITH AM LABS AND CHEST XRAY AND CONTINUE TO MONITOR. - Past Medical History Past Medical History: Hypertension, Dyslipidemia, Diabetes, Depression, Anxiety, GERD, Arthritis, Migraines Additional Medical History: ATRIAL FIBRILLATION - Past Surgical History Surgical History: Cholecystectomy, Hysterectomy, Joint Replacement, Ortho Surgery, Other, Weight Loss Surgery Additional Surgical History: gastric bypass - Family History Family Medical History: Heart Failure, Hypertension - Social History Does patient currently use any type of tobacco product: No Have you used tobacco products in the last 12 months: No Type of Tobacco Use: None Does any household member use tobacco: No Alcohol Use: None Drug Use: None - Medications Home Medications: adhesive tape Allergy (Verified 10/19/19 16:28) CONTINUE taking the following medications amantadine HCl 50 mg PO BID 08/03/19 [History] bupropion HCl 100 mg PO BID 08/03/19 [History] cyproheptadine 4 mg PO BID-QID PRN 08/03/19 [History] digoxin 250 mcg PO DAILY 08/03/19 [History] ferrous fumarate [Ferrocite] 324 mg PO DAILY 08/03/19 [History] linaclotide [Linzess] 145 mcg PO DAILY 08/03/19 [History] megestrol 40 mg PO BID 08/03/19 [History] olanzapine [Zyprexa] 10 mg PO BID 08/03/19 [History] pantoprazole [Protonix] 40 mg PO BID 08/03/19 [History] ranitidine HCl 300 mg FEEDING TUBE BID 08/03/19 [History] simethicone 80 mg FEEDING TUBE Q8H 08/03/19 [History] valproic acid (as sodium salt) 250 mg FEEDING TUBE BID 08/03/19 [History] - Review of Systems Constitutional: Weakness Eyes: No Symptoms Reported ENT: No Symptoms Reported Respiratory: Shortness of Breath Cardiovascular: No Symptoms Reported Gastrointestinal: See HPI, Nausea, Vomiting Genitourinary: No Symptoms Reported Musculoskeletal: No Symptoms Reported Skin: No Symptoms Reported Neurological: Weakness - Physical Exam Vital Signs: Temperature 99.5 F Pulse Rate [Right Brachial] 94 Pulse Rate 92 Respiratory Rate 16 Blood Pressure [Right Arm] 77/44 Blood Pressure [Left Arm] 99/58 Blood Pressure 111/56 O2 Sat by Pulse Oximetry 96 Oriented: Not Oriented Eyes: Normal Ear: Normal Nose: Normal Throat: Normal Respiratory: Diminished Throughout Cardiovascular: Tachycardia. negative: S3, S4, Murmur : Normal Auscultation: Bowel Sounds: Normal Palpation: Normal Tenderness: Normal Skin: Normal Musculoskeletal: Normal Psychiatric: Agitation Mood Description: Anxious Affect: Anxious Speech Pattern: Inappropriate - Assessment/Plan (1) Acute upper gastrointestinal bleeding Status: Acute Plan: PROTONIX, GI CONSTULT, MONITOR H&H, CONTINUE TO MONITOR (2) Aspiration pneumonia Qualifiers: Laterality: left Lung location: unspecified part of lung Status: Acute Plan: IV ANTIBIOTICS, NEB TX, CONTINUE TO MONITOR (3) Acute kidney failure Qualifiers: Acute renal failure type: unspecified Qualified Code(s): N17.9 - Acute kidney failure, unspecified Status: Acute Plan: IV FLUIDS, CONTINUE TO MONITOR (4) Hypokalemia Status: Inactive Plan: POTASSIUM PROTOCOL - Allergies Allergies/Adverse Reactions: Allergies Allergy/AdvReac Type Severity Reaction Status Date / Time adhesive tape Allergy Verified 08/03/19 16:28
[2019-08-05] MEDS: NS 1000 ML 1,000 ML IV SCH ×2 (01:14→16:50)
[2019-08-05] MEDS ORDERED: NS 100 ML IV + SPIKE MINIBAG* 100 ML IV ONE ×2 (05:19→14:09)
[2019-08-05] MEDS: ZOSYN VIAL 3.375 GRAMS IV SCH ×3 (05:46→22:45)
[2019-08-05 06:06] LABS: BASOPHILS % (AUTO) 0.2 % (0.2-1.0); EOSINOPHILS # (AUTO) 0.1 x10^3/uL (0.0-0.2); EOSINOPHILS % (AUTO) 0.6 % (0.9-2.9); HEMATOCRIT 24.4 % (36.0-47.0); LYMPHOCYTES # (AUTO) 0.8 X10^3/uL (1.3-2.9); LYMPHOCYTES % (AUTO) 6.2 % (21.0-51.0); MEAN CORPUSCULAR HEMOGLOBIN 28.4 pg (27.0-34.0); MEAN CORPUSCULAR HGB CONC 32.8 g/dL (33.0-35.0); MEAN CORPUSCULAR VOLUME 86.3 fL (80.0-100.0); MEAN PLATELET VOLUME 7.6 fL (7.4-11.0); MONOCYTES # (AUTO) 1.1 x10^3/uL (0.3-0.8); MONOCYTES % (AUTO) 7.9 % (0.0-13.0); NEUTROPHILS # (AUTO) 11.7 x10^3/uL (2.2-4.8); NEUTROPHILS % (AUTO) 85.1 % (42.0-75.0); PLATELET COUNT 343 X10^3/uL (150.0-450.0); RED BLOOD COUNT 2.83 X10^6/uL (3.5-5.4); RED CELL DISTRIBUTION WIDTH 17.4 % (11.6-16.5); WHITE BLOOD COUNT 13.7 X10^3/uL (3.6-10.0)
[2019-08-05 06:21] LABS: ALANINE AMINOTRANSFERASE 16 Units/L (12-78); ALBUMIN 1.7 g/dL (3.4-5.0); ALKALINE PHOSPHATASE 82 Units/L (46-116); ASPARTATE AMINO TRANSFERASE 15 Units/L (15-37); BLOOD UREA NITROGEN 38 mg/dL (7-18); CALCIUM 7.5 mg/dL (8.5-10.1); CARBON DIOXIDE 19.6 mmol/L (21-32); CHLORIDE 113 mmol/L (98-107); COR CA(FOR HYPOALB) 9.3 mg/dL (8.5-10.1); CREATININE 0.77 mg/dL (0.55-1.02); SODIUM 145 mmol/L (136-145); TOTAL PROTEIN 5.4 g/dL (6.4-8.2); eGFR NON BLACK RACES > 60 (>60)
--- NOTE | 2019-08-05 08:17 | RAD ---
HISTORY: Pneumonia. Prior history of hypertension and diabetes. Study: Single-view chest Comparison: 08/03/2019. Findings: Trachea is midline. Heart size is normal. There has been interval increase in bilateral perihilar infiltrates compared to the prior study. These do extend primarily into the lower lobes bilaterally. No CHF, pleural fluid or pneumothorax is seen. Osseous structures are intact. IMPRESSION: Interval increase in bilateral perihilar/lower lobe infiltrates. Reported By:
[2019-08-05] MEDS ORDERED: SANTYL EXT SCH (09:00)
[2019-08-05] MEDS: K-RIDER 10 MEQ/NS 100 ML 10 MEQ/100 ML BAG IV PRN ×2 (09:40→11:00)
[2019-08-05] MEDS: LANOXIN PO SCH (09:42)
[2019-08-05] MEDS: NYSTATIN CREAM TOP SCH (09:55)
[2019-08-05] MEDS: TOPROL XL PO SCH (10:06)
[2019-08-05] MEDS: PROTONIX INJ 40 MG VIAL IVP SCH ×2 (10:06→20:21)
[2019-08-05] MEDS: WELLBUTRIN IR (PLAIN) PO SCH ×2 (10:06→20:29)
[2019-08-05] MEDS: ZyPREXA TAB 5 MG PO SCH ×2 (10:06→20:27)
[2019-08-05] MEDS: VALPROIC ACID 250 MG PEG SCH ×2 (10:07→20:29)
[2019-08-05] MEDS: AMANTADINE HCL 50 MG PO SCH ×2 (10:28→20:28)
[2019-08-05] MEDS: MORPHINE SULFATE INJ 2 MG INJ IVP PRN ×2 (14:40→20:24)
--- NOTE | 2019-08-05 19:50 | PCM.PROG ---
Progress Note - Progress Note for Day of Date of Exam: 08/04/19 - Subjective Subjective: WAS ADMITTED FOR FURTHER EVALUATION AND TREATMENT OF AN UPPER GI BLEED, ASPIRATION PNEUMONIA, ACUTE KIDNEY INJURY, AND HYPOKALEMIA. TODAY, SHE IS LYING IN BED WITH EYES CLOSED ON MORNING ROUNDS. SHE AWAKENS TO VERBAL STIMULI. FAMILY REPORTS THAT SHE CONTINUES WITH DISORIENTATION. THEY REPORT THAT SHE HAS HAD A NON-PRODUCTIVE COUGH. ON EXAMINATION, HEART IS REGULAR IN RATE AND RHYTHM. BILATERAL LUNGS ARE NOTED WITH DIMINISHED LUNG SOUNDS THROUGHOUT. ABDOMEN IS ROUND, SOFT, AND NOTED WITH DIFFUSE TENDERNESS TO PALPATION. NORMAL BOWEL SOUNDS NOTED IN ALL QUADRANTS. HER VITALS THIS MORNING ARE: 98.2-104-24-98%-104/53. LABS WERE OBTAINED. ABNORMAL LAB VALUES INCLUDE THE FOLLOWING: WBC 19.7, RBC 3.06, HGB 8.8, HCT 26.3, CHLORIDE 110, CARBON DIOXIDE 19.1, BUN 60, CREATININE 1.09, CALCIUM 7.3, TOTAL PROTEIN 5.1, ALBUMIN 1.9. BLOOD AND URINE CULTURES ARE PENDING. SHE IS CURRENTLY RECEIVING NORMAL SALINE AT 80ML/HR, ZOSYN 3.375G IV TID, ZOFRAN 4MG IV Q8H, POTASSIUM AND MAGNESIUM PROTOCOL, AND HOME MEDICATIONS WERE RESUMED. WE WILL CONTINUE WITH CURRENT PLAN OF CARE TODAY. OTHERWISE, WE PLAN TO FOLLOW UP WITH HOME MEDS AND CONTINUE TO MONITOR. - Past Medical Family Social History Past Med/Fam/Surg Hx: No changes since H&P Allergies: Allergies adhesive tape Allergy (Verified 08/03/19 16:28) - Review of Systems ROS: No change since H&P - Vital Signs and I&O's Vital Signs: Temperature 97.9 F Pulse Rate [Right Brachial] 94 Pulse Rate 104 Respiratory Rate 22 Blood Pressure [Right Arm] 100/59 Blood Pressure [Left Arm] 99/58 Blood Pressure 111/56 O2 Sat by Pulse Oximetry 96 Intake and Output: Intake & Output 08/03/19 08/04/19 08/05/19 08/06/19 11:59 11:59 11:59 11:59 Intake Total 2440 / 2440 1906 / 1906 0 / 0 Output Total 700 / 700 651 / 651 350 / 350 Balance 1740 / 1740 1255 / 1255 -350 / -350 - Physical Exam Oriented: Not Oriented Eyes: Normal Ear: Normal Nose: Normal Throat: Normal Respiratory: Generalized, Diminished Cardiovascular: Normal. negative: S3, S4, Murmur : Normal Auscultation: Bowel Sounds: Normal Palpation: Normal Tenderness: Normal Skin: Normal Musculoskeletal: Normal Psychiatric: Agitation Mood Description: Anxious Affect: Anxious Speech Pattern: Unclear - Laboratory and Diagnostics Result Diagrams: 08/06/19 05:19 08/06/19 05:19 Labs: 08/03/19 17:58 Blood Blood Culture - Preliminary 08/03/19 17:50 Blood Blood Culture - Preliminary 08/03/19 17:47 Urine,Catheterized Urine Culture - Preliminary Laboratory WBC 13.7 X10^3/uL (3.6-10.0) H 08/05/19 05:30 RBC 2.83 X10^6/uL (3.5-5.4) L 08/05/19 05:30 Hgb 8.0 g/dL (12.0-16.0) L 08/05/19 05:30 Hct 24.4 % (36.0-47.0) L 08/05/19 05:30 MCV 86.3 fL (80.0-100.0) 08/05/19 05:30 MCH 28.4 pg (27.0-34.0) 08/05/19 05:30 MCHC 32.8 g/dL (33.0-35.0) L 08/05/19 05:30 RDW 17.4 % (11.6-16.5) H 08/05/19 05:30 Plt Count 343 X10^3/uL (150.0-450.0) 08/05/19 05:30 Plt Count Comment Increased (ADEQUATE) A 08/03/19 16:48 MPV 7.6 fL (7.4-11.0) 08/05/19 05:30 Neut % (Auto) 85.1 % (42.0-75.0) H 08/05/19 05:30 Lymph % (Auto) 6.2 % (21.0-51.0) L 08/05/19 05:30 [place] % (Auto) 7.9 % (0.0-13.0) 08/05/19 05:30 Eos % (Auto) 0.6 % (0.9-2.9) L 08/05/19 05:30 Baso % (Auto) 0.2 % (0.2-1.0) 08/05/19 05:30 Neut # (Auto) 11.7 x10^3/uL (2.2-4.8) H 08/05/19 05:30 Lymph # (Auto) 0.8 X10^3/uL (1.3-2.9) L 08/05/19 05:30 [place] # (Auto) 1.1 x10^3/uL (0.3-0.8) H 08/05/19 05:30 Eos # (Auto) 0.1 x10^3/uL (0.0-0.2) 08/05/19 05:30 Baso # (Auto) 0.0 X10^3/uL (0.0-0.1) 08/05/19 05:30 Absolute Nucleated RBC 0.0 /100WBC 08/05/19 05:30 Total Counted 100 08/03/19 16:48 Neutrophils % (Manual) 68 % (39-76) 08/03/19 16:48 Band Neutrophils % 22 % (0-10) H 08/03/19 16:48 Lymphocytes % (Manual) 4 % (13-43) L 08/03/19 16:48 Monocytes % (Manual) 5 % (4-9) 08/03/19 16:48 Metamyelocytes % 1 08/03/19 16:48 Plt Morphology Comment Normal (NORMAL) 08/03/19 16:48 RBC Morphology Normal (NORMAL) 08/03/19 16:48 PT 14.5 SECONDS (11.8-14.3) 08/03/19 16:48 INR Target Range - 08/03/19 16:48 INR 1.17 (0.8-1.3) 08/03/19 16:48 APTT 38.6 SECONDS (22.9-36.5) H 08/03/19 16:48 PTT Comment - 08/03/19 16:48 Sodium 145 mmol/L (136-145) 08/05/19 05:30 Corrected Sodium TNP 08/05/19 05:30 Potassium 3.5 mmol/L (3.5-5.1) 08/05/19 05:30 Chloride 113 mmol/L (98-107) H 08/05/19 05:30 Carbon Dioxide 19.6 mmol/L (21-32) L 08/05/19 05:30 BUN 38 mg/dL (7-18) H 08/05/19 05:30 Creatinine 0.77 mg/dL (0.55-1.02) 08/05/19 05:30 Est GFR (MDRD) Af Amer > 60 (>60) 08/05/19 05:30 Est GFR (MDRD) Non-Af > 60 (>60) 08/05/19 05:30 Glucose 63 mg/dL (65-99) L 08/05/19 05:30 POC Glucose (mg/dL) 108 mg/dL (65-99) H 08/05/19 16:33 Lactic Acid 1.4 mmol/L (0.4-2.0) 08/05/19 16:49 Calcium 7.5 mg/dL (8.5-10.1) L 08/05/19 05:30 Corrected Calcium 9.3 mg/dL (8.5-10.1) 08/05/19 05:30 Magnesium 1.8 mg/dL (1.7-2.9) 08/04/19 08:15 Total Bilirubin 0.50 mg/dL (0.2-1.0) 08/05/19 05:30 AST 15 Units/L (15-37) 08/05/19 05:30 ALT 16 Units/L (12-78) 08/05/19 05:30 Alkaline Phosphatase 82 Units/L (46-116) 08/05/19 05:30 Total Protein 5.4 g/dL (6.4-8.2) L 08/05/19 05:30 Albumin 1.7 g/dL (3.4-5.0) L 08/05/19 05:30 Globulin 3.7 g/dL (2.5-4.5) 08/05/19 05:30 Albumin/Globulin Ratio 0.5 Ratio (1.1-2.1) L 08/05/19 05:30 Specimen Type Catherized urine 08/04/19 00:20 Urine Color Yellow (YELLOW) 08/04/19 00:20 Urine Appearance Clear (CLEAR) 08/04/19 00:20 Urine pH 6.0 (5.0 - 8.0) 08/04/19 00:20 Ur Specific [place] 1.020 (1.000-1.030) 08/04/19 00:20 Urine Protein 1+ (NEGATIVE) 08/04/19 00:20 Urine Glucose (UA) Negative (NEGATIVE) 08/04/19 00:20 Urine Ketones Negative (NEGATIVE) 08/04/19 00:20 Urine Occult Blood Negative (NEGATIVE) 08/04/19 00:20 Urine Nitrite Negative (NEGATIVE) 08/04/19 00:20 Urine Bilirubin Negative (NEGATIVE) 08/04/19 00:20 Urine Urobilinogen Normal (NORMAL) 08/04/19 00:20 Ur Leukocyte Esterase 2+ (NEGATIVE) 08/04/19 00:20 Urine RBC None seen /HPF (0-3) 08/04/19 00:20 Urine WBC 5-10 /HPF (0-5) A 08/04/19 00:20 Ur Squamous Epith Cells Rare /HPF (NEGATIVE) 08/04/19 00:20 Urine Bacteria Trace /HPF (NEGATIVE) 08/04/19 00:20 Ur Culture Indicated? Yes/culture set up 08/04/19 00:20 Digoxin 1.84 ng/mL (0.9-2) 08/04/19 08:15 Blood Type O POSITIVE 08/05/19 10:15 Antibody Screen Negative 08/05/19 10:15 Crossmatch See Detail 08/05/19 10:15 - Plan (1) Acute upper gastrointestinal bleeding Status: Acute Plan: PROTONIX, GI CONSTULT, MONITOR H&H, CONTINUE TO MONITOR (2) Aspiration pneumonia Status: Acute Qualifiers: Laterality: left Lung location: unspecified part of lung Plan: IV ANTIBIOTICS, NEB TX, CONTINUE TO MONITOR (3) Acute kidney failure Status: Acute Qualifiers: Acute renal failure type: unspecified Qualified Code(s): N17.9 - Acute kidney failure, unspecified Plan: IV FLUIDS, CONTINUE TO MONITOR (4) Hypokalemia Status: Inactive Plan: POTASSIUM PROTOCOL, CONTINUE TO MONITOR
[2019-08-05] MEDS ORDERED: NS 100 ML IV 100 ML IV ONE (20:01)
[2019-08-05] MEDS: PROVENTIL NEB TX 0.083% 2.5MG/ 3ML NEB PRN (21:00)
[2019-08-06] MEDS: NS 1000 ML 1,000 ML IV SCH ×3 (05:02→15:38)
[2019-08-06] MEDS ORDERED: NS 100 ML IV + SPIKE MINIBAG* 100 ML IV ONE ×3 (05:27→21:15)
[2019-08-06] MEDS: ZOSYN VIAL 3.375 GRAMS IV SCH ×3 (05:33→22:39)
[2019-08-06 06:04] LABS: ALANINE AMINOTRANSFERASE 14 Units/L (12-78); ALBUMIN 1.5 g/dL (3.4-5.0); ALKALINE PHOSPHATASE 80 Units/L (46-116); ASPARTATE AMINO TRANSFERASE 16 Units/L (15-37); BLOOD UREA NITROGEN 27 mg/dL (7-18); CALCIUM 7.2 mg/dL (8.5-10.1); CARBON DIOXIDE 16.8 mmol/L (21-32); CHLORIDE 114 mmol/L (98-107); COR CA(FOR HYPOALB) 9.2 mg/dL (8.5-10.1); CREATININE 0.66 mg/dL (0.55-1.02); SODIUM 144 mmol/L (136-145); TOTAL PROTEIN 5.1 g/dL (6.4-8.2); eGFR NON BLACK RACES > 60 (>60)
[2019-08-06 06:12] LABS: BASOPHILS # (AUTO) 0.1 X10^3/uL (0.0-0.1); BASOPHILS % (AUTO) 0.5 % (0.2-1.0); EOSINOPHILS # (AUTO) 0.1 x10^3/uL (0.0-0.2); EOSINOPHILS % (AUTO) 1.1 % (0.9-2.9); HEMATOCRIT 25.7 % (36.0-47.0); HEMOGLOBIN 8.3 g/dL (12.0-16.0); LYMPHOCYTES # (AUTO) 1.3 X10^3/uL (1.3-2.9); LYMPHOCYTES % (AUTO) 10.7 % (21.0-51.0); MEAN CORPUSCULAR HEMOGLOBIN 28.2 pg (27.0-34.0); MEAN CORPUSCULAR HGB CONC 32.1 g/dL (33.0-35.0); MEAN CORPUSCULAR VOLUME 87.6 fL (80.0-100.0); MEAN PLATELET VOLUME 7.9 fL (7.4-11.0); MONOCYTES # (AUTO) 1.2 x10^3/uL (0.3-0.8); MONOCYTES % (AUTO) 10.2 % (0.0-13.0); NEUTROPHILS # (AUTO) 9.4 x10^3/uL (2.2-4.8); NEUTROPHILS % (AUTO) 77.5 % (42.0-75.0); PLATELET COUNT 290 X10^3/uL (150.0-450.0); RED BLOOD COUNT 2.93 X10^6/uL (3.5-5.4); RED CELL DISTRIBUTION WIDTH 17.4 % (11.6-16.5); WHITE BLOOD COUNT 12.1 X10^3/uL (3.6-10.0)
[2019-08-06 06:20] LABS: PLATELET MORPHOLOGY COMMENT NORMAL (NORMAL)
[2019-08-06] MEDS: ZyPREXA TAB 5 MG PO SCH ×2 (09:13→20:57)
[2019-08-06] MEDS: PROTONIX INJ 40 MG VIAL IVP SCH ×2 (09:13→20:56)
[2019-08-06] MEDS: LANOXIN PO SCH (09:14)
[2019-08-06] MEDS: TOPROL XL PO SCH (09:14)
[2019-08-06] MEDS: MORPHINE SULFATE INJ 2 MG INJ IVP PRN ×3 (09:22→22:52)
[2019-08-06] MEDS: NYSTATIN CREAM TOP SCH (09:24)
[2019-08-06] MEDS: VALPROIC ACID 250 MG PEG SCH ×2 (09:33→21:17)
[2019-08-06] MEDS: AMANTADINE HCL 50 MG PO SCH ×2 (09:35→21:16)
[2019-08-06] MEDS: WELLBUTRIN IR (PLAIN) PO SCH ×2 (09:35→21:17)
[2019-08-06] MEDS: DUONEB 0.5 MG/3 MG NEB SCH ×4 (10:18→21:10)
[2019-08-06] MEDS ORDERED: PHARMACY CONSULT - TPN XX SCH (11:00)
--- NOTE | 2019-08-06 11:45 | PCM.PROG ---
Progress Note - Progress Note for Day of Date of Exam: 08/05/19 - Subjective Subjective: WAS ADMITTED FOR FURTHER EVALUATION AND TREATMENT OF AN UPPER GI BLEED, ASPIRATION PNEUMONIA, ACUTE KIDNEY INJURY, AND HYPOKALEMIA. TODAY, SHE IS LYING IN BED WITH EYES CLOSED ON MORNING ROUNDS. SHE AWAKENS TO VERBAL STIMULI. SHE CONTINUES WITH DISORIENTATION AND COUGH. ON EXAMINATION, HEART IS REGULAR IN RATE AND RHYTHM. BILATERAL LUNGS ARE NOTED WITH DIMINISHED LUNG SOUNDS THROUGHOUT. ABDOMEN IS ROUND, SOFT, AND NOTED WITH DIFFUSE TENDERNESS TO PALPATION. NORMAL BOWEL SOUNDS NOTED IN ALL QUADRANTS. HER VITALS THIS MORNING ARE: 98.2-99-22-100%-108/62. LABS WERE OBTAINED. ABNORMAL LAB VALUES INCLUDE THE FOLLOWING: WBC 13.7, RBC 2.83, HGB 8.0, HCT 24.4, CHLORIDE 114, CARBON DIOXIDE 16.8, BUN 27, GLUCOSE 100, CALCIUM 7.2, TOTAL PROTEIN 5.1, ALBUMIN 1.5. BLOOD AND URINE CULTURES ARE PENDING. SHE IS CURRENTLY RECEIVING NORMAL SALINE AT 80ML/HR, ZOSYN 3.375G IV TID, ZOFRAN 4MG IV Q8H, POTASSIUM AND MAGNESIUM PROTOCOL, AND HOME MEDICATIONS WERE RESUMED. WE WILL CONTINUE WITH CURRENT PLAN OF CARE TODAY. WE WILL TYPE AND SCREEN AND CROSSMATCH TWO UNITS OF PACKED RED BLOOD CELLS. IF HEMOGLOBIN FALLS BELOW 8, WE WILL TRANSFUSE TWO UNITS. OTHERWISE, WE PLAN TO FOLLOW UP WITH HOME MEDS AND CONTINUE TO MONITOR. - Past Medical Family Social History Past Med/Fam/Surg Hx: No changes since H&P Allergies: Allergies adhesive tape Allergy (Verified 08/03/19 16:28) - Review of Systems ROS: No change since H&P - Vital Signs and I&O's Vital Signs: Temperature 98.7 F Pulse Rate [Right Brachial] 115 Pulse Rate 108 Respiratory Rate 20 Blood Pressure [Right Arm] 100/59 Blood Pressure [Left Arm] 101/57 Blood Pressure 111/56 O2 Sat by Pulse Oximetry 94 Intake and Output: Intake & Output 08/03/19 08/04/19 08/05/19 08/06/19 11:59 11:59 11:59 11:59 Intake Total 2440 / 2440 1906 / 1906 880 / 880 Output Total 700 / 700 851 / 851 850 / 850 Balance 1740 / 1740 1055 / 1055 30 / 30 - Physical Exam Oriented: Not Oriented Eyes: Normal Ear: Normal Nose: Normal Throat: Normal Respiratory: Generalized, Diminished Cardiovascular: Normal. negative: S3, S4, Murmur : Normal Auscultation: Bowel Sounds: Normal Tenderness: Normal Skin: Normal Musculoskeletal: Normal Psychiatric: Agitation Mood Description: Anxious Affect: Anxious Speech Pattern: Unclear - Laboratory and Diagnostics Result Diagrams: 08/06/19 05:19 08/06/19 05:19 Labs: 08/03/19 17:47 Urine,Catheterized Urine Culture - Final Escherichia Coli 08/03/19 17:58 Blood Blood Culture - Preliminary 08/03/19 17:50 Blood Blood Culture - Preliminary Laboratory WBC 12.1 X10^3/uL (3.6-10.0) H 08/06/19 05:19 RBC 2.93 X10^6/uL (3.5-5.4) L 08/06/19 05:19 Hgb 8.3 g/dL (12.0-16.0) L 08/06/19 05:19 Hct 25.7 % (36.0-47.0) L 08/06/19 05:19 MCV 87.6 fL (80.0-100.0) 08/06/19 05:19 MCH 28.2 pg (27.0-34.0) 08/06/19 05:19 MCHC 32.1 g/dL (33.0-35.0) L 08/06/19 05:19 RDW 17.4 % (11.6-16.5) H 08/06/19 05:19 Plt Count 290 X10^3/uL (150.0-450.0) 08/06/19 05:19 Plt Count Comment Adequate (ADEQUATE) 08/06/19 05:19 MPV 7.9 fL (7.4-11.0) 08/06/19 05:19 Neut % (Auto) 77.5 % (42.0-75.0) H 08/06/19 05:19 Lymph % (Auto) 10.7 % (21.0-51.0) L 08/06/19 05:19 [place] % (Auto) 10.2 % (0.0-13.0) 08/06/19 05:19 Eos % (Auto) 1.1 % (0.9-2.9) 08/06/19 05:19 Baso % (Auto) 0.5 % (0.2-1.0) 08/06/19 05:19 Neut # (Auto) 9.4 x10^3/uL (2.2-4.8) H 08/06/19 05:19 Lymph # (Auto) 1.3 X10^3/uL (1.3-2.9) 08/06/19 05:19 [place] # (Auto) 1.2 x10^3/uL (0.3-0.8) H 08/06/19 05:19 Eos # (Auto) 0.1 x10^3/uL (0.0-0.2) 08/06/19 05:19 Baso # (Auto) 0.1 X10^3/uL (0.0-0.1) 08/06/19 05:19 Absolute Nucleated RBC 0.0 /100WBC 08/06/19 05:19 Total Counted 100 08/03/19 16:48 Neutrophils % (Manual) 68 % (39-76) 08/03/19 16:48 Band Neutrophils % 22 % (0-10) H 08/03/19 16:48 Lymphocytes % (Manual) 4 % (13-43) L 08/03/19 16:48 Monocytes % (Manual) 5 % (4-9) 08/03/19 16:48 Metamyelocytes % 1 08/03/19 16:48 Plt Morphology Comment Normal (NORMAL) 08/06/19 05:19 RBC Morphology Normal (NORMAL) 08/06/19 05:19 PT 14.5 SECONDS (11.8-14.3) 08/03/19 16:48 INR Target Range - 08/03/19 16:48 INR 1.17 (0.8-1.3) 08/03/19 16:48 APTT 38.6 SECONDS (22.9-36.5) H 08/03/19 16:48 PTT Comment - 08/03/19 16:48 Sodium 144 mmol/L (136-145) 08/06/19 05:19 Corrected Sodium TNP 08/06/19 05:19 Potassium 3.7 mmol/L (3.5-5.1) 08/06/19 05:19 Chloride 114 mmol/L (98-107) H 08/06/19 05:19 Carbon Dioxide 16.8 mmol/L (21-32) L 08/06/19 05:19 BUN 27 mg/dL (7-18) H 08/06/19 05:19 Creatinine 0.66 mg/dL (0.55-1.02) 08/06/19 05:19 Est GFR (MDRD) Af Amer > 60 (>60) 08/06/19 05:19 Est GFR (MDRD) Non-Af > 60 (>60) 08/06/19 05:19 Glucose 100 mg/dL (65-99) H 08/06/19 05:19 POC Glucose (mg/dL) 105 mg/dL (65-99) H 08/06/19 05:33 Lactic Acid 1.4 mmol/L (0.4-2.0) 08/05/19 16:49 Calcium 7.2 mg/dL (8.5-10.1) L 08/06/19 05:19 Corrected Calcium 9.2 mg/dL (8.5-10.1) 08/06/19 05:19 Magnesium 1.8 mg/dL (1.7-2.9) 08/04/19 08:15 Total Bilirubin 0.40 mg/dL (0.2-1.0) 08/06/19 05:19 AST 16 Units/L (15-37) 08/06/19 05:19 ALT 14 Units/L (12-78) 08/06/19 05:19 Alkaline Phosphatase 80 Units/L (46-116) 08/06/19 05:19 Total Protein 5.1 g/dL (6.4-8.2) L 08/06/19 05:19 Albumin 1.5 g/dL (3.4-5.0) L 08/06/19 05:19 Globulin 3.6 g/dL (2.5-4.5) 08/06/19 05:19 Albumin/Globulin Ratio 0.4 Ratio (1.1-2.1) L 08/06/19 05:19 Specimen Type Catherized urine 08/04/19 00:20 Urine Color Yellow (YELLOW) 08/04/19 00:20 Urine Appearance Clear (CLEAR) 08/04/19 00:20 Urine pH 6.0 (5.0 - 8.0) 08/04/19 00:20 Ur Specific [place] 1.020 (1.000-1.030) 08/04/19 00:20 Urine Protein 1+ (NEGATIVE) 08/04/19 00:20 Urine Glucose (UA) Negative (NEGATIVE) 08/04/19 00:20 Urine Ketones Negative (NEGATIVE) 08/04/19 00:20 Urine Occult Blood Negative (NEGATIVE) 08/04/19 00:20 Urine Nitrite Negative (NEGATIVE) 08/04/19 00:20 Urine Bilirubin Negative (NEGATIVE) 08/04/19 00:20 Urine Urobilinogen Normal (NORMAL) 08/04/19 00:20 Ur Leukocyte Esterase 2+ (NEGATIVE) 08/04/19 00:20 Urine RBC None seen /HPF (0-3) 08/04/19 00:20 Urine WBC 5-10 /HPF (0-5) A 08/04/19 00:20 Ur Squamous Epith Cells Rare /HPF (NEGATIVE) 08/04/19 00:20 Urine Bacteria Trace /HPF (NEGATIVE) 08/04/19 00:20 Ur Culture Indicated? Yes/culture set up 08/04/19 00:20 Digoxin 1.84 ng/mL (0.9-2) 08/04/19 08:15 Blood Type O POSITIVE 08/05/19 10:15 Antibody Screen Negative 08/05/19 10:15 Crossmatch See Detail 08/05/19 10:15 - Plan (1) Acute upper gastrointestinal bleeding Status: Acute Plan: PROTONIX, GI CONSTULT, MONITOR H&H, CONTINUE TO MONITOR (2) Aspiration pneumonia Status: Acute Qualifiers: Laterality: left Lung location: unspecified part of lung Plan: IV ANTIBIOTICS, NEB TX, CONTINUE TO MONITOR (3) Acute kidney failure Status: Acute Qualifiers: Acute renal failure type: unspecified Qualified Code(s): N17.9 - Acute kidney failure, unspecified Plan: IV FLUIDS, CONTINUE TO MONITOR (4) Hypokalemia Status: Resolved Plan: POTASSIUM PROTOCOL, CONTINUE TO MONITOR (5) Anemia Status: Acute Qualifiers: Anemia type: iron deficiency Iron deficiency anemia type: unspecified iron deficiency Qualified Code(s): D50.9 - Iron deficiency anemia, unspecified Plan: MONITOR H&H, TRANSFUSE 2 UNITS PRBC IF HGB FALLS BELOW 8
--- NOTE | 2019-08-06 13:12 | RAD ---
HISTORY: Shortness of breath, pneumonia. Prior history of hypertension and diabetes. Study: Single-view chest Comparison: 08/05/2019. Findings: Trachea is midline. The heart size is normal. Further increase in bilateral perihilar infiltrates is observed. Infiltrates now extend into the right upper lobe. No CHF, pleural fluid or pneumothorax is seen. Osseous structures are intact. IMPRESSION: Further interval increase in bilateral perihilar infiltrates, now extending into the right upper lobe. Reported By:
[2019-08-06] MEDS: ALBUMIN HUMAN 25%- 100 ML 100 ML IV SCH (15:34)
[2019-08-06] MEDS: CLINIMIX 4.25 %/10 % 1,000 ML with MVI INJ (ADULT) 10 ML, TRACE ELEMENTS INJ 10 ML, DRU... IV SCH ×3 (15:37)
[2019-08-06] MEDS ORDERED: HumuLIN R SUBCUT PRN (17:31)
[2019-08-06] MEDS ORDERED: DEXTROSE 10% 1,000 ML IV PRN (17:31)
[2019-08-06 18:21] LABS: MAGNESIUM 1.5 mg/dL (1.7-2.9); PHOSPHORUS 1.7 mg/dL (2.6-4.7)
[2019-08-06] MEDS ORDERED: LIPOSYN III 20% 250ML 250 ML IV SCH (21:00)
[2019-08-06] MEDS ORDERED: LIPOSYN III 20% IV SCH (21:00)
[2019-08-07] MEDS: NS 1000 ML 1,000 ML IV SCH (00:59)
[2019-08-07] MEDS: KLOR-CON PO PRN ×2 (01:00→09:42)
[2019-08-07] MEDS: MORPHINE SULFATE INJ 2 MG INJ IVP PRN (04:31)
[2019-08-07] MEDS ORDERED: NS 100 ML IV + SPIKE MINIBAG* 100 ML IV ONE ×2 (05:26→14:03)
[2019-08-07] MEDS: ZOSYN VIAL 3.375 GRAMS IV SCH (05:31)
[2019-08-07 06:19] LABS: PREALBUMIN 10.7 mg/dL (18-35.7)
--- NOTE | 2019-08-07 06:21 | RAD ---
HISTORY: Shortness of breath Study: Chest AP portable Comparison: 08/06/2019 Findings: The heart is within normal limits in size. Bilateral perihilar infiltrates involving the right upper lobe, right lower lobe and predominantly left lower lobe are unchanged. The left upper lobe appears clear. No definite pleural effusions are identified. Bony thorax is unremarkable. IMPRESSION: No change bilateral perihilar infiltrates as described Reported By:
[2019-08-07 06:32] LABS: BASOPHILS % (AUTO) 0.4 % (0.2-1.0); EOSINOPHILS # (AUTO) 0.1 x10^3/uL (0.0-0.2); EOSINOPHILS % (AUTO) 0.6 % (0.9-2.9); HEMATOCRIT 24.7 % (36.0-47.0); HEMOGLOBIN 8.1 g/dL (12.0-16.0); LYMPHOCYTES # (AUTO) 0.8 X10^3/uL (1.3-2.9); LYMPHOCYTES % (AUTO) 7.2 % (21.0-51.0); MEAN CORPUSCULAR HEMOGLOBIN 28.6 pg (27.0-34.0); MEAN CORPUSCULAR HGB CONC 32.9 g/dL (33.0-35.0); MEAN CORPUSCULAR VOLUME 86.9 fL (80.0-100.0); MEAN PLATELET VOLUME 7.8 fL (7.4-11.0); MONOCYTES # (AUTO) 1.2 x10^3/uL (0.3-0.8); NEUTROPHILS # (AUTO) 8.3 x10^3/uL (2.2-4.8); NEUTROPHILS % (AUTO) 79.8 % (42.0-75.0); PLATELET COUNT 328 X10^3/uL (150.0-450.0); RED BLOOD COUNT 2.85 X10^6/uL (3.5-5.4); RED CELL DISTRIBUTION WIDTH 17.1 % (11.6-16.5); WHITE BLOOD COUNT 10.4 X10^3/uL (3.6-10.0)
[2019-08-07 06:54] LABS: ALANINE AMINOTRANSFERASE 11 Units/L (12-78); ALBUMIN 2.1 g/dL (3.4-5.0); ALKALINE PHOSPHATASE 80 Units/L (46-116); ASPARTATE AMINO TRANSFERASE 16 Units/L (15-37); BLOOD UREA NITROGEN 20 mg/dL (7-18); CALCIUM 7.8 mg/dL (8.5-10.1); CHLORIDE 110 mmol/L (98-107); COR CA(FOR HYPOALB) 9.3 mg/dL (8.5-10.1); COR NA(FOR HYPERGLY) 140 mmol/L (136-145); CREATININE 0.56 mg/dL (0.55-1.02); SODIUM 140 mmol/L (136-145); TOTAL PROTEIN 5.6 g/dL (6.4-8.2); eGFR NON BLACK RACES > 60 (>60)
[2019-08-07 06:57] LABS: CARBON DIOXIDE 14.6 mmol/L (21-32)
[2019-08-07] MEDS: DUONEB 0.5 MG/3 MG NEB SCH (09:00)
[2019-08-07] MEDS ORDERED: DULCOLAX SUPPOSITORY 10 MG RECTAL ONE ×2 (09:28→12:34)
[2019-08-07] MEDS: ALBUMIN HUMAN 25%- 100 ML 100 ML IV SCH (09:34)
[2019-08-07] MEDS: PROTONIX INJ 40 MG VIAL IVP SCH (09:34)
[2019-08-07] MEDS: LANOXIN PO SCH (09:41)
[2019-08-07] MEDS: ZyPREXA TAB 5 MG PO SCH (09:41)
[2019-08-07] MEDS: CLINIMIX 4.25 %/10 % 1,000 ML with MVI INJ (ADULT) 10 ML, TRACE ELEMENTS INJ 10 ML, DRU... IV SCH ×3 (09:53)
[2019-08-07] MEDS: NYSTATIN CREAM TOP SCH (09:53)
[2019-08-07] MEDS: AMANTADINE HCL 50 MG PO SCH (09:53)
[2019-08-07] MEDS: TOPROL XL PO SCH (09:57)
[2019-08-07] MEDS: WELLBUTRIN IR (PLAIN) PO SCH (09:58)
[2019-08-07] MEDS: VALPROIC ACID 250 MG PEG SCH (09:58)
[2019-08-07] MEDS ORDERED: FLEET ENEMA ADULT PR ONE (11:57)
[2019-08-07 12:16] VITALS: BP 113/65
[2019-08-07] MEDS ORDERED: LIPOSYN III 20% 250ML 250 ML IV SCH (21:00)
--- NOTE | 2019-09-15 10:02 | PCM.PROG ---
Progress Note - Progress Note for Day of Date of Exam: 08/06/19 - Subjective Subjective: WAS ADMITTED FOR FURTHER EVALUATION AND TREATMENT OF AN UPPER GI BLEED, ASPIRATION PNEUMONIA, ACUTE KIDNEY INJURY, AND HYPOKALEMIA. TODAY, SHE IS LYING IN BED WITH EYES CLOSED ON MORNING ROUNDS. SHE AWAKENS TO VERBAL STIMULI. SHE CONTINUES WITH DISORIENTATION AND COUGH. ON EXAMINATION, HEART IS REGULAR IN RATE AND RHYTHM. BILATERAL LUNGS ARE NOTED WITH DIMINISHED LUNG SOUNDS THROUGHOUT. ABDOMEN IS ROUND, SOFT, AND NOTED WITH DIFFUSE TENDERNESS TO PALPATION. NORMAL BOWEL SOUNDS NOTED IN ALL QUADRANTS. HER VITALS THIS MORNING ARE: 97.5-108-18-96%-94/61. LABS WERE OBTAINED. ABNORMAL LAB VALUES INCLUDE THE FOLLOWING: WBC 12.1, RBC 2.93, HGB 8.3, HCT 25.7, CHLORIDE 114, CARBON DIOXIDE 16.8, BUN 27, GLUCOSE 100, CALCIUM 7.2, PHOSPHORUS 1.7, MAGNESIUM 1.5, TOTAL PROTEIN 5.1, ALBUMIN 1.5. URINE CULTURE REPORTS GROWTH OF E.COLI. SHE IS CURRENTLY RECEIVING NORMAL SALINE AT 80ML/HR, ZOSYN 3.375G IV TID, ZOFRAN 4MG IV Q8H, POTASSIUM AND MAGNESIUM PROTOCOL, AND HOME MEDICATIONS WERE RESUMED. WE WILL DISCONTINUE THE ZOSYN AND START INVANZ 1G IV DAILY TODAY. OTHERWISE, WE WILL CONTINUE WITH CURRENT PLAN OF CARE. WE PLAN TO FOLLOW UP WITH HOME MEDS AND CONTINUE TO MONITOR. - Past Medical Family Social History Past Med/Fam/Surg Hx: No changes since H&P Allergies: Allergies adhesive tape Allergy (Verified 08/22/19 08:38) - Review of Systems ROS: No change since H&P - Vital Signs and I&O's Vital Signs: Temperature 98.6 F Pulse Rate [Right Brachial] 92 Pulse Rate 58 Respiratory Rate 18 Blood Pressure [Right Arm] 102/65 Blood Pressure [Left Arm] 113/65 Blood Pressure 111/56 O2 Sat by Pulse Oximetry 96 - Physical Exam Oriented: Not Oriented Eyes: Normal Ear: Normal Nose: Normal Throat: Normal Respiratory: Generalized, Diminished Cardiovascular: Normal. negative: S3, S4, Murmur : Normal Auscultation: Bowel Sounds: Normal Palpation: Normal Tenderness: Normal Skin: Normal Musculoskeletal: Normal Psychiatric: Agitation Mood Description: Anxious Affect: Anxious Speech Pattern: Unclear - Laboratory and Diagnostics Result Diagrams: 08/07/19 05:29 08/07/19 12:33 Labs: 08/03/19 17:58 Blood Blood Culture - Final 08/03/19 17:50 Blood Blood Culture - Final 08/03/19 17:47 Urine,Catheterized Urine Culture - Final Escherichia Coli Laboratory WBC 10.4 X10^3/uL (3.6-10.0) H 08/07/19 05:29 RBC 2.85 X10^6/uL (3.5-5.4) L 08/07/19 05:29 Hgb 8.1 g/dL (12.0-16.0) L 08/07/19 05:29 Hct 24.7 % (36.0-47.0) L 08/07/19 05:29 MCV 86.9 fL (80.0-100.0) 08/07/19 05:29 MCH 28.6 pg (27.0-34.0) 08/07/19 05:29 MCHC 32.9 g/dL (33.0-35.0) L 08/07/19 05:29 RDW 17.1 % (11.6-16.5) H 08/07/19 05:29 Plt Count 328 X10^3/uL (150.0-450.0) 08/07/19 05:29 Plt Count Comment Adequate (ADEQUATE) 08/06/19 05:19 MPV 7.8 fL (7.4-11.0) 08/07/19 05:29 Neut % (Auto) 79.8 % (42.0-75.0) H 08/07/19 05:29 Lymph % (Auto) 7.2 % (21.0-51.0) L 08/07/19 05:29 Baker % (Auto) 12.0 % (0.0-13.0) 08/07/19 05:29 Eos % (Auto) 0.6 % (0.9-2.9) L 08/07/19 05:29 Baso % (Auto) 0.4 % (0.2-1.0) 08/07/19 05:29 Neut # (Auto) 8.3 x10^3/uL (2.2-4.8) H 08/07/19 05:29 Lymph # (Auto) 0.8 X10^3/uL (1.3-2.9) L 08/07/19 05:29 Baker # (Auto) 1.2 x10^3/uL (0.3-0.8) H 08/07/19 05:29 Eos # (Auto) 0.1 x10^3/uL (0.0-0.2) 08/07/19 05:29 Baso # (Auto) 0.0 X10^3/uL (0.0-0.1) 08/07/19 05:29 Absolute Nucleated RBC 0.0 /100WBC 08/07/19 05:29 Total Counted 100 08/03/19 16:48 Neutrophils % (Manual) 68 % (39-76) 08/03/19 16:48 Band Neutrophils % 22 % (0-10) H 08/03/19 16:48 Lymphocytes % (Manual) 4 % (13-43) L 08/03/19 16:48 Monocytes % (Manual) 5 % (4-9) 08/03/19 16:48 Metamyelocytes % 1 08/03/19 16:48 Plt Morphology Comment Normal (NORMAL) 08/06/19 05:19 RBC Morphology Normal (NORMAL) 08/06/19 05:19 PT 14.5 SECONDS (11.8-14.3) 08/03/19 16:48 INR Target Range - 08/03/19 16:48 INR 1.17 (0.8-1.3) 08/03/19 16:48 APTT 38.6 SECONDS (22.9-36.5) H 08/03/19 16:48 PTT Comment - 08/03/19 16:48 Sodium 140 mmol/L (136-145) 08/07/19 05:29 Corrected Sodium 140 mmol/L (136-145) 08/07/19 05:29 Potassium 3.5 mmol/L (3.5-5.1) 08/07/19 12:33 Chloride 110 mmol/L (98-107) H 08/07/19 05:29 Carbon Dioxide 14.6 mmol/L (21-32) L* 08/07/19 05:29 BUN 20 mg/dL (7-18) H 08/07/19 05:29 Creatinine 0.56 mg/dL (0.55-1.02) 08/07/19 05:29 Est GFR (MDRD) Af Amer > 60 (>60) 08/07/19 05:29 Est GFR (MDRD) Non-Af > 60 (>60) 08/07/19 05:29 Glucose 119 mg/dL (65-99) H 08/07/19 05:29 POC Glucose (mg/dL) 103 mg/dL (65-99) H 08/07/19 10:53 Lactic Acid 1.4 mmol/L (0.4-2.0) 08/05/19 16:49 Calcium 7.8 mg/dL (8.5-10.1) L 08/07/19 05:29 Corrected Calcium 9.3 mg/dL (8.5-10.1) 08/07/19 05:29 Phosphorus 1.7 mg/dL (2.6-4.7) L 08/06/19 18:02 Magnesium 1.5 mg/dL (1.7-2.9) L 08/06/19 18:02 Total Bilirubin 0.50 mg/dL (0.2-1.0) 08/07/19 05:29 AST 16 Units/L (15-37) 08/07/19 05:29 ALT 11 Units/L (12-78) L 08/07/19 05:29 Alkaline Phosphatase 80 Units/L (46-116) 08/07/19 05:29 Total Protein 5.6 g/dL (6.4-8.2) L 08/07/19 05:29 Albumin 2.1 g/dL (3.4-5.0) L 08/07/19 05:29 Globulin 3.5 g/dL (2.5-4.5) 08/07/19 05:29 Albumin/Globulin Ratio 0.6 Ratio (1.1-2.1) L 08/07/19 05:29 Prealbumin 10.7 mg/dL (18-35.7) L 08/07/19 05:29 Triglycerides 54 mg/dL (0-150) 08/06/19 18:02 Specimen Type Catherized urine 08/04/19 00:20 Urine Color Yellow (YELLOW) 08/04/19 00:20 Urine Appearance Clear (CLEAR) 08/04/19 00:20 Urine pH 6.0 (5.0 - 8.0) 08/04/19 00:20 Ur Specific [place] 1.020 (1.000-1.030) 08/04/19 00:20 Urine Protein 1+ (NEGATIVE) 08/04/19 00:20 Urine Glucose (UA) Negative (NEGATIVE) 08/04/19 00:20 Urine Ketones Negative (NEGATIVE) 08/04/19 00:20 Urine Occult Blood Negative (NEGATIVE) 08/04/19 00:20 Urine Nitrite Negative (NEGATIVE) 08/04/19 00:20 Urine Bilirubin Negative (NEGATIVE) 08/04/19 00:20 Urine Urobilinogen Normal (NORMAL) 08/04/19 00:20 Ur Leukocyte Esterase 2+ (NEGATIVE) 08/04/19 00:20 Urine RBC None seen /HPF (0-3) 08/04/19 00:20 Urine WBC 5-10 /HPF (0-5) A 08/04/19 00:20 Ur Squamous Epith Cells Rare /HPF (NEGATIVE) 08/04/19 00:20 Urine Bacteria Trace /HPF (NEGATIVE) 08/04/19 00:20 Ur Culture Indicated? Yes/culture set up 08/04/19 00:20 Digoxin 1.84 ng/mL (0.9-2) 08/04/19 08:15 Blood Type O POSITIVE 08/05/19 10:15 Antibody Screen Negative 08/05/19 10:15 Crossmatch See Detail 08/05/19 10:15 - Plan (1) Acute upper gastrointestinal bleeding Status: Inactive Plan: PROTONIX, GI CONSTULT, MONITOR H&H, CONTINUE TO MONITOR (2) Aspiration pneumonia Status: Inactive Qualifiers: Laterality: left Lung location: unspecified part of lung Plan: IV ANTIBIOTICS, NEB [place], CONTINUE TO MONITOR (3) E. coli UTI Status: Acute Plan: INVANZ 1G IV DAILY (4) Acute kidney failure Status: Inactive Qualifiers: Acute renal failure type: unspecified Qualified Code(s): N17.9 - Acute kidney failure, unspecified Plan: IV FLUIDS, CONTINUE TO MONITOR (5) Hypokalemia Status: Acute Plan: POTASSIUM PROTOCOL, CONTINUE TO MONITOR (6) Anemia Status: Inactive Qualifiers: Anemia type: iron deficiency Iron deficiency anemia type: unspecified iron deficiency Qualified Code(s): D50.9 - Iron deficiency anemia, unspecified Plan: MONITOR H&H, TRANSFUSE 2 UNITS PRBC IF HGB FALLS BELOW 8
== END 2019-08-07 14:50 | DRG 377 ==
LOC: ER 16:27 → MED/SURG 18:55
PROVIDERS: ADMIT Obstetrics & Gynecology Obstetrics; ATTEND Internal Medicine
DX: D50.9 Iron deficiency anemia, unspecified; K21.9 Gastro-esophageal reflux disease without esophagitis; E11.65 Type 2 diabetes mellitus with hyperglycemia; N17.8 Other acute kidney failure; J44.9 Chronic obstructive pulmonary disease, unspecified; I10 Essential (primary) hypertension; J69.0 Pneumonitis due to inhalation of food and vomit; K92.2 Gastrointestinal hemorrhage, unspecified; I48.20 Chronic atrial fibrillation, unspecified; Z93.1 Gastrostomy status; Z66 Do not resuscitate; R13.11 Dysphagia, oral phase; E78.2 Mixed hyperlipidemia; E87.6 Hypokalemia; B96.29 Other Escherichia coli [E. coli] as the cause of diseases classified elsewhere; R11.2 Nausea with vomiting, unspecified
CPT/HCPCS: 36415; 51701; 71010; 71045; 80053; 80162; 81001; 83605; 83735; 84100; 84132; 84134; 84478; 85025; 85610; 85730; 86850; 86900; 86901; 86922; 87040; 87086; 87088; 87186; 94640; 94760; 96365; 96367; 96374; 96375; 99284; A4216; A4222; B4189; C9113; P9047; S0106; J2270; J2405; J2543; J3475; J3480; J7030; J7050; J7613; J7620

== ENCOUNTER 2019-08-26 14:51 | Inpatient (IN) ==
--- NOTE | 2019-08-26 15:57 | DR.GENAD ---
HPI Time Seen Time Seen by Provider: 08/26/19 15:38 PCP Primary Care Physician: DR. NARAYAN Complaint/Symptoms Chief Complaint:: TONH CHARGE NURSE STATES THAT PATIENT HAS C-DIFF, RUNNING A LOW GRADE FEVER, DRAINAGE COMING FROM G-TUBE, AND WOUND ON HER SACRUM THAT HAS BECOME NECROTIC. Source History Provided: [facility] Mode of Arrival Mode of Arrival: Stretcher Timing Onset of Chief Complaint: 08/26/19 PMH PMH Past Medical History: Yes Past Medical History: Anxiety, Arthritis, Depression, Diabetes, Dyslipidemia, Migraines, GERD and Hypertension Past Surgical History: Yes Surgical History: Cholecystectomy, Hysterectomy, Joint Replacement, Ortho Josue grayson, Weight Loss Surgery and Other Past Surgical History Comment: G-TUBE PLACEMENT Family History History of Family Medical Conditions: Yes Family Medical History: Heart Failure and Hypertension Social History Do you use any recreational Drugs:: No infectious screening Have you traveled outside the country in the last 6 months?: No Isolation: Standard PE Vital Signs Vitals: Temperature 99.4 F Pulse Rate [Left Brachial] 72 Pulse Rate 76 Respiratory Rate 17 Blood Pressure [Right Arm] 118/72 Blood Pressure [Left Arm] 93/61 Blood Pressure 103/57 O2 Sat by Pulse Oximetry 96 ROR Labs Reviewed Result Diagrams: 08/26/19 15:10 08/26/19 15:10 Laboratory: 08/26/19 16:02 Abdomen Gram Stain - Final 08/26/19 15:54 Sacral Gram Stain - Final WBC 14.7 X10^3/uL (3.6-10.0) H 08/26/19 15:10 RBC 3.57 X10^6/uL (3.5-5.4) 08/26/19 15:10 Hgb 9.9 g/dL (12.0-16.0) L 08/26/19 15:10 Hct 33.1 % (36.0-47.0) L 08/26/19 15:10 MCV 92.8 fL (80.0-100.0) 08/26/19 15:10 MCH 27.8 pg (27.0-34.0) 08/26/19 15:10 MCHC 29.9 g/dL (33.0-35.0) L 08/26/19 15:10 RDW 20.2 % (11.6-16.5) H 08/26/19 15:10 Plt Count 269 X10^3/uL (150.0-450.0) 08/26/19 15:10 Plt Count Comment Adequate (ADEQUATE) 08/26/19 15:10 MPV 9.1 fL (7.4-11.0) 08/26/19 15:10 Neut % (Auto) 80.1 % (42.0-75.0) H 08/26/19 15:10 Lymph % (Auto) 11.7 % (21.0-51.0) L 08/26/19 15:10 [place] % (Auto) 6.6 % (0.0-13.0) 08/26/19 15:10 Eos % (Auto) 1.0 % (0.9-2.9) 08/26/19 15:10 Baso % (Auto) 0.6 % (0.2-1.0) 08/26/19 15:10 Neut # (Auto) 11.8 x10^3/uL (2.2-4.8) H 08/26/19 15:10 Lymph # (Auto) 1.7 X10^3/uL (1.3-2.9) 08/26/19 15:10 [place] # (Auto) 1.0 x10^3/uL (0.3-0.8) H 08/26/19 15:10 Eos # (Auto) 0.1 x10^3/uL (0.0-0.2) 08/26/19 15:10 Baso # (Auto) 0.1 X10^3/uL (0.0-0.1) 08/26/19 15:10 Absolute Nucleated RBC 0.2 /100WBC 08/26/19 15:10 Total Counted 100 08/26/19 15:10 Neutrophils % (Manual) 68 % (39-76) 08/26/19 15:10 Band Neutrophils % 7 % (0-10) 08/26/19 15:10 Lymphocytes % (Manual) 18 % (13-43) 08/26/19 15:10 Monocytes % (Manual) 6 % (4-9) 08/26/19 15:10 Eosinophils % (Manual) 1 % (0-6) 08/26/19 15:10 Plt Morphology Comment Normal (NORMAL) 08/26/19 15:10 RBC Morphology Abnormal (NORMAL) A 08/26/19 15:10 Anisocytosis 1+ A 08/26/19 15:10 Sodium 179 mmol/L (136-145) H* 08/26/19 15:10 Corrected Sodium TNP 08/26/19 15:10 Potassium 3.0 mmol/L (3.5-5.1) L* 08/26/19 15:10 Chloride 137 mmol/L (98-107) H* 08/26/19 15:10 Carbon Dioxide 36.0 mmol/L (21-32) H 08/26/19 15:10 BUN 90 mg/dL (7-18) H 08/26/19 15:10 Creatinine 0.99 mg/dL (0.55-1.02) 08/26/19 15:10 Est GFR (MDRD) Af Amer > 60 (>60) 08/26/19 15:10 Est GFR (MDRD) Non-Af 58 (>60) L 08/26/19 15:10 Glucose 84 mg/dL (65-99) 08/26/19 15:10 Calcium 9.9 mg/dL (8.5-10.1) 08/26/19 15:10 Corrected Calcium 11.5 mg/dL (8.5-10.1) H 08/26/19 15:10 Total Bilirubin 0.30 mg/dL (0.2-1.0) 08/26/19 15:10 AST 19 Units/L (15-37) 08/26/19 15:10 ALT 25 Units/L (12-78) 08/26/19 15:10 Alkaline Phosphatase 160 Units/L (46-116) H 08/26/19 15:10 Total Protein 6.1 g/dL (6.4-8.2) L 08/26/19 15:10 Albumin 2.0 g/dL (3.4-5.0) L 08/26/19 15:10 Globulin 4.1 g/dL (2.5-4.5) 08/26/19 15:10 Albumin/Globulin Ratio 0.5 Ratio (1.1-2.1) L 08/26/19 15:10 Stl C. diff Tox B Gene Positive (NEGATIVE) A 08/26/19 16:03 Stl C. diff [id number] Positive (NEGATIVE) A 08/26/19 16:03 C. difficile Toxin A&B Negative (NEGATIVE) 08/26/19 16:03 Opioid Opioid Risk Tool Age (Tab box if 16-45): No History of Preadolescent Sexual Abuse: No Total: 0 Total Score Risk Category: Low Risk Copyright: Ramon MARTINEZ predicting aberrant behaviors
[2019-08-26] MEDS ORDERED: NS 1000 ML 1,000 ML ONE (16:04)
[2019-08-26 16:11] LABS: BLOOD UREA NITROGEN 90 mg/dL (7-18); CALCIUM 9.9 mg/dL (8.5-10.1); CREATININE 0.99 mg/dL (0.55-1.02); eGFR NON BLACK RACES 58 (>60)
[2019-08-26 16:13] LABS: BASOPHILS # (AUTO) 0.1 X10^3/uL (0.0-0.1); BASOPHILS % (AUTO) 0.6 % (0.2-1.0); EOSINOPHILS # (AUTO) 0.1 x10^3/uL (0.0-0.2); HEMATOCRIT 33.1 % (36.0-47.0); HEMOGLOBIN 9.9 g/dL (12.0-16.0); LYMPHOCYTES # (AUTO) 1.7 X10^3/uL (1.3-2.9); LYMPHOCYTES % (AUTO) 11.7 % (21.0-51.0); MEAN CORPUSCULAR HEMOGLOBIN 27.8 pg (27.0-34.0); MEAN CORPUSCULAR HGB CONC 29.9 g/dL (33.0-35.0); MEAN CORPUSCULAR VOLUME 92.8 fL (80.0-100.0); MEAN PLATELET VOLUME 9.1 fL (7.4-11.0); MONOCYTES % (AUTO) 6.6 % (0.0-13.0); NEUTROPHILS # (AUTO) 11.8 x10^3/uL (2.2-4.8); NEUTROPHILS % (AUTO) 80.1 % (42.0-75.0); PLATELET COUNT 269 X10^3/uL (150.0-450.0); RED BLOOD COUNT 3.57 X10^6/uL (3.5-5.4); RED CELL DISTRIBUTION WIDTH 20.2 % (11.6-16.5); WHITE BLOOD COUNT 14.7 X10^3/uL (3.6-10.0)
[2019-08-26 16:16] LABS: ALANINE AMINOTRANSFERASE 25 Units/L (12-78); ALKALINE PHOSPHATASE 160 Units/L (46-116); ASPARTATE AMINO TRANSFERASE 19 Units/L (15-37); COR CA(FOR HYPOALB) 11.5 mg/dL (8.5-10.1); TOTAL PROTEIN 6.1 g/dL (6.4-8.2)
[2019-08-26 16:20] LABS: CHLORIDE 137 mmol/L (98-107); SODIUM 179 mmol/L (136-145)
[2019-08-26 16:28] LABS: ANISOCYTOSIS 1+; BAND NEUTROPHILS % 7 % (0-10); PLATELET MORPHOLOGY COMMENT NORMAL (NORMAL)
[2019-08-26] MEDS ORDERED: NS 500 ML IV 500 ML IV ONE (17:05)
--- NOTE | 2019-08-26 17:54 | RAD ---
HISTORY: 73-year-old female for verification of G-tube. Study: Single frontal view the abdomen. Comparison: Abdominal radiograph 08/14/2019 Findings: Contrast opacifies percutaneous gastrostomy tube with contrast noted within multiple small bowel loops. No extraluminal contrast noted. Evaluation of the abdomen demonstrates a nonobstructive bowel gas pattern with significant stool overlying the rectum with stool and gas scattered throughout the colon. No radiographic evidence free intraperitoneal air. No pathological soft tissue mass or calcification can be observed. The bony structures are grossly intact. Surgical ian right lower quadrant with surgical ian right upper quadrant. Partially imaged left hip ORIF. IMPRESSION: 1. Percutaneous gastrostomy tube in apparent good position as above. 2. Significant stool burden overlying the rectum, correlate for constipation. 3. Nonobstructive bowel gas pattern. Reported By:
[2019-08-26] MEDS ORDERED: ZOSYN VIAL 3.375 GRAMS 3.375 G in NS 100 ML IV + SPIKE MINIBAG* 100 ML IV ONE (20:51)
[2019-08-26] MEDS ORDERED: ZOSYN VIAL 3.375 GRAMS IV ONE (20:55)
[2019-08-26] MEDS ORDERED: NS 100 ML IV + SPIKE MINIBAG* 100 ML IV ONE (20:55)
[2019-08-26] MEDS ORDERED: PATIENT'S HOME MEDICATION (Ranitidine Hcl 300 MG) feeding tube SCH (21:30)
[2019-08-26] MEDS ORDERED: [UNRECOGNIZED DRUG - OTHER] PO SCH (21:30)
[2019-08-26] MEDS ORDERED: AMINO ACIDS PROTEIN HYDROLYS feeding tube SCH (21:30)
[2019-08-26] MEDS ORDERED: MIRALAX POWDER (255 GRAMS BTL) PO PRN (21:30)
[2019-08-26] MEDS ORDERED: VALPROIC ACID 500 MG PEG SCH (21:30)
[2019-08-26] MEDS ORDERED: ACETAMINOPHEN 650 MG PO PRN (21:30)
[2019-08-26] MEDS ORDERED: K-RIDER 10 MEQ/NS 100 ML 10 MEQ/100 ML BAG IV ONE (21:36)
[2019-08-26] MEDS ORDERED: ZANTAC PEG SCH (22:00)
[2019-08-26] MEDS: WELLBUTRIN IR (PLAIN) PO SCH (22:00)
[2019-08-27] MEDS: MYLICON TAB 80 MG CHEW PO SCH ×4 (00:05→21:04)
[2019-08-27] MEDS: PROTONIX TAB 40 MG PO SCH ×3 (00:06→21:04)
[2019-08-27] MEDS: PERIACTIN TAB 4 MG PO SCH ×3 (00:06→21:03)
[2019-08-27] MEDS: REMERON PEG SCH ×2 (00:06→21:04)
[2019-08-27] MEDS: ZyPREXA TAB 5 MG PO SCH ×3 (00:08→21:04)
[2019-08-27] MEDS: NEURONTIN CAP 100 MG PO SCH ×2 (00:10→05:35)
[2019-08-27] MEDS ORDERED: BUTT CREAM (COMPOUND) ONE (00:41)
[2019-08-27 02:44] VITALS: BMI 19.1
[2019-08-27 02:45] LABS: BLOOD UREA NITROGEN 83 mg/dL (7-18); CALCIUM 8.9 mg/dL (8.5-10.1); CARBON DIOXIDE 33.9 mmol/L (21-32); CREATININE 1.06 mg/dL (0.55-1.02); eGFR NON BLACK RACES 54 (>60)
[2019-08-27 02:50] LABS: CHLORIDE 137 mmol/L (98-107); SODIUM 178 mmol/L (136-145)
[2019-08-27] MEDS ORDERED: PHARMACY CONSULT LTC MEDICATIONS XX SCH ×2 (03:00)
[2019-08-27] MEDS: D5W + KCL 20 MEQ/L 1,000 ML IV SCH ×4 (03:05→19:30)
[2019-08-27] MEDS: ZOSYN VIAL 3.375 GRAMS 3.375 G in NS 100 ML IV + SPIKE MINIBAG* 100 ML IV SCH ×3 (05:35→22:00)
[2019-08-27 06:20] LABS: BASOPHILS # (AUTO) 0.1 X10^3/uL (0.0-0.1); BASOPHILS % (AUTO) 0.5 % (0.2-1.0); EOSINOPHILS # (AUTO) 0.1 x10^3/uL (0.0-0.2); EOSINOPHILS % (AUTO) 1.1 % (0.9-2.9); HEMATOCRIT 29.1 % (36.0-47.0); HEMOGLOBIN 8.9 g/dL (12.0-16.0); LYMPHOCYTES # (AUTO) 1.6 X10^3/uL (1.3-2.9); LYMPHOCYTES % (AUTO) 13.2 % (21.0-51.0); MEAN CORPUSCULAR HEMOGLOBIN 27.9 pg (27.0-34.0); MEAN CORPUSCULAR HGB CONC 30.6 g/dL (33.0-35.0); MEAN CORPUSCULAR VOLUME 91.2 fL (80.0-100.0); MEAN PLATELET VOLUME 8.4 fL (7.4-11.0); MONOCYTES % (AUTO) 7.9 % (0.0-13.0); NEUTROPHILS # (AUTO) 9.3 x10^3/uL (2.2-4.8); NEUTROPHILS % (AUTO) 77.3 % (42.0-75.0); PLATELET COUNT 213 X10^3/uL (150.0-450.0); RED BLOOD COUNT 3.19 X10^6/uL (3.5-5.4); RED CELL DISTRIBUTION WIDTH 19.5 % (11.6-16.5)
[2019-08-27 06:31] LABS: ALBUMIN 1.7 g/dL (3.4-5.0); CALCIUM 8.6 mg/dL (8.5-10.1); CARBON DIOXIDE 30.9 mmol/L (21-32); COR CA(FOR HYPOALB) 10.4 mg/dL (8.5-10.1); CREATININE 1.15 mg/dL (0.55-1.02); MAGNESIUM 2.7 mg/dL (1.7-2.9); TOTAL PROTEIN 5.5 g/dL (6.4-8.2)
[2019-08-27] MEDS ORDERED: PATIENT'S HOME MEDICATION (Ferrous Fumarate [Ferrocite] 324 MG) PEG SCH (09:00)
[2019-08-27] MEDS ORDERED: AMANTADINE HCL 100 MG PEG SCH (09:00)
[2019-08-27] MEDS ORDERED: AMINO ACIDS PROTEIN HYDROLYS PEG SCH (09:00)
[2019-08-27] MEDS ORDERED: PATIENT'S HOME MEDICATION (Ferrous Fumarate [Ferrocite] 324 MG) PO SCH (09:00)
[2019-08-27] MEDS ORDERED: PATIENT'S HOME MEDICATION (Zinc 50 MG) PEG SCH (09:00)
[2019-08-27] MEDS: ZANTAC PEG SCH (09:19)
[2019-08-27] MEDS: TAB-A-VITE PO SCH (09:19)
[2019-08-27] MEDS: LOVENOX INJ 30 MG SYR SC SCH (09:44)
--- NOTE | 2019-08-27 10:33 | DR.H&P ---
H&P - History & Physical for Day of: H&P Date: 08/26/19 - Chief Complaint Chief Complaint: FEVER, DRAINAGE FROM PEG TUBE SITE, A SACRAL DECUBITUS WITH NECROSIS, AMS - History of Present Illness History of Present Illness: IS A 73 YEAR OLD PATIENT OF OURS WHO IS A RESIDENT OF [facility]. SHE REPORTED TO THE ER WITH STAFF REPORTING FEVER, DRAINAGE FROM PEG TUBE SITE, A SACRAL DECUBITUS WITH NECROSIS, AMS. SHE IS CURRENTLY BEING TREATED FOR C-DIFF. ON ARRIVAL TO THE ER, VITALS WERE 99.4-79-18-98%-89/55. LABS WERE OBTAINED. ABNORMAL LAB VALUES INCLUDE THE FOLLOWING: WBC 14.7, HGB 9.9, HCT 33.1, SODIUM 179, POTASSIUM 3.0, CHLORIDE 137, CARBON DIOXIDE 36.0, BUN 90, ALK PHOS 160, TOTAL PROTEIN 6.1, ALBUMIN 2.0. THE C.DIFF B GENE IS POSITIVE, HOWEVER, THE TOXIN IS NEGATIVE. BLOOD AND WOUND CULTURES WERE OBTAINED. A KUB WAS OBTAINED AND REVEALED: Percutaneous gastrostomy tube in apparent good position as above. Significant stool burden overlying the rectum, correlate for constipation. Nonobstructive bowel gas pa ttern. SHE WAS STARTED ON NORMAL SALINE AT 75ML/HR AND ZOSYN 3.375G IV IN THE ER. WE ADMITTED PATIENT FOR FURTHER EVALUATION AND TREATMENT OF HYPERNATREMIA, HYPOKALEMIA, HYPOTENSION, AND A SACRAL DECUBITUS. FAMILY REFUSES SURGICAL CONSULT FOR DEBRIDEMENT. WE WILL START D5W WITH 20MEQ KCL AT 125ML/HR, IV ZOSYN, AND WE WILL RESUME HER HOME MEDICATIONS. OTHERWISE, WE PLAN TO FOLLOW UP WITH AM LABS AND CONTINUE TO MONITOR. - Past Medical History Past Medical History: Hypertension, Dyslipidemia, Diabetes, Depression, Anxiety, GERD, Arthritis, Migraines Additional Medical History: ATRIAL FIBRILLATION - Past Surgical History Surgical History: Cholecystectomy, Joint Replacement, Ortho Surgery, Other Additional Surgical History: gastric bypass - Family History Family Medical History: Heart Failure, Hypertension - Social History Does patient currently use any type of tobacco product: No Have you used tobacco products in the last 12 months: No Type of Tobacco Use: None Does any household member use tobacco: No Alcohol Use: None Prescription drug monitoring program results: PDMP was not reviewed - Medications Home Medications: adhesive tape Allergy (Verified 08/22/19 08:38) CONTINUE taking the following medications [id number] HMB [Khurram] 1 ea PO TID 08/26/19 [History] olanzapine [Zyprexa] 2.5 mg PO BID 08/26/19 [History] olanzapine [Zyprexa] 5 mg PO BID 08/26/19 [History] vancomycin 125 mg FEEDING TUBE Q6H 08/27/19 [History] - Review of Systems Constitutional: Weakness Eyes: No Symptoms Reported ENT: No Symptoms Reported Respiratory: No Symptoms Reported Cardiovascular: No Symptoms Reported Gastrointestinal: See HPI (DRAINAGE FROM PEG SITE ) Genitourinary: No Symptoms Reported Musculoskeletal: No Symptoms Reported Skin: Wound (STAGE 3 SACRAL DECUBITIS WHICH MEASURES 4CM X 5CM WITH NECROSIS) Neurological: Weakness - Physical Exam Vital Signs: Temperature 99.4 F Pulse Rate [Left Brachial] 75 Pulse Rate 75 Respiratory Rate 30 Blood Pressure [Right Arm] 107/65 Blood Pressure [Left Arm] 103/64 Blood Pressure 99/58 O2 Sat by Pulse Oximetry 98 Oriented: Unable to test Eyes: Normal Ear: Normal Nose: Normal Throat: Normal Respiratory: Diminished Throughout Cardiovascular: Normal : Normal Auscultation: Bowel Sounds: Decreased Palpation: Normal Tenderness: Diffuse, Mild. negative: Rebound, Guarding Skin: Wound (STAGE 3 SACRAL DECUBITIS WHICH MEASURES 4CM X 5CM) Musculoskeletal: Normal Mood Description: Calm Affect: Flat Speech Pattern: Aphasic - Assessment/Plan (1) Hypernatremia Status: Acute Plan: D5W WITH 20MEQ KCL AT 125ML/HR, CONTINUE TO MONITOR (2) Hypokalemia Status: Acute Plan: D5W WITH 20MEQ KCL AT 125ML/HR, CONTINUE TO MONITOR (3) Decubitus ulcer Qualifiers: Pressure injury location: sacral region Pressure injury stage: stage 3 Qualified Code(s): L89.153 - Pressure ulcer of sacral region, stage 3 Status: Acute Plan: WOUND CARE, IV ANTIBIOTICS, CONTINUE TO MONITOR (4) Hypotension Qualifiers: Hypotension type: unspecified hypotension type Status: Acute Plan: D5W WITH 20MEQ KCL AT 125ML/HR, CONTINUE TO MONITOR - Review Patient was examined?: Yes - Allergies Allergies/Adverse Reactions: Allergies Allergy/AdvReac Type Severity Reaction Status Date / Time adhesive tape Allergy Verified 08/22/19 08:38
--- NOTE | 2019-08-27 10:45 | PCM.PROG ---
Progress Note - Progress Note for Day of Date of Exam: 08/27/19 - Subjective Subjective: IS BEING TREATED FOR HYPERNATREMIA, HYPOKALEMIA, HYPOTENSION, AND A STAGE 3 SACRAL DECUBITUS. TODAY, SHE IS ALERT AND ORIENTED, LYING IN BED ON MORNING ROUNDS. SHE DOES NOT AWAKEN TO VERBAL STIMULI, BUT DOES GRIMACE TO PAINFUL STIMULI. ON EXAMINATION, HEART IS REGULAR IN RATE AND RHYTHM. BILATERAL LUNGS ARE NOTED WITH DIMINISHED LUNG SOUNDS THROUGHOUT. PEG TUBE NOTED WITH PURULENT DRAINAGE AROUND SITE. HYPOACTIVE BOWEL SOUNDS NOTED. THERE IS DRAINAGE NOTED FROM WOUND TO SACRUM. HER VITALS THIS MORNING ARE: 99.4-75-29-96%-99/58. LABS WERE OBTAINED. ABNORMAL LAB VALUES INCLUDE THE FOLLOWING: WBC 12.0, RBC 3.19, HGB 8.9, HCT 29.1, SODIUM 171, POTASSIUM 3.1, CHLORIDE 133, BUN 81, CREATININE 1.15, GLUCOSE 160, ALK PHOS 135, TOTAL PROTEIN 5.5, ALBUMIN 1.7. FAMILY REFUSED SURGICAL CONSULT FOR DEBRIDEMENT OF WOUND. SHE IS CURRENTLY RECEIVING D5W WITH 20MEQ KCL AT 125ML/HR, IV ZOSYN, AND HOME MEDICATIONS WERE RESUMED. WE WILL START ALBUMIN 25% IV DAILY TODAY. WE WILL RESUME WOUND CARE. OTHERWISE, WE WILL FOLLOW UP WITH AM LABS AND CONTINUE TO MONITOR. - Past Medical Family Social History Past Med/Fam/Surg Hx: No changes since H&P Allergies: Allergies adhesive tape Allergy (Verified 08/22/19 08:38) - Review of Systems ROS: No change since H&P - Vital Signs and I&O's Vital Signs: Temperature 99.4 F Pulse Rate [Left Brachial] 75 Pulse Rate 75 Respiratory Rate 30 Blood Pressure [Right Arm] 107/65 Blood Pressure [Left Arm] 103/64 Blood Pressure 99/58 O2 Sat by Pulse Oximetry 98 Intake and Output: Intake & Output 08/24/19 08/25/19 08/26/19 08/27/19 11:59 11:59 11:59 11:59 Intake Total 978 / 978 Balance 978 / 978 - Physical Exam Oriented: Unable to test Eyes: Normal Ear: Normal Nose: Normal Throat: Normal Cardiovascular: Normal : Normal Auscultation: Bowel Sounds: Decreased Palpation: Normal Tenderness: Diffuse, Mild. negative: Rebound, Guarding Skin: Wound (STAGE 3 SACRAL DECUBITIS WHICH MEASURES 4CM X 5CM) Musculoskeletal: Normal Mood Description: Calm Affect: Flat Speech Pattern: Aphasic - Laboratory and Diagnostics Result Diagrams: 08/27/19 06:00 08/27/19 06:00 Labs: 08/26/19 16:02 Abdomen Gram Stain - Final 08/26/19 16:02 Abdomen Wound Culture - Preliminary 08/26/19 15:54 Sacral Gram Stain - Final 08/26/19 15:54 Sacral Wound Culture - Preliminary Laboratory WBC 12.0 X10^3/uL (3.6-10.0) H 08/27/19 06:00 RBC 3.19 X10^6/uL (3.5-5.4) L 08/27/19 06:00 Hgb 8.9 g/dL (12.0-16.0) L 08/27/19 06:00 Hct 29.1 % (36.0-47.0) L 08/27/19 06:00 MCV 91.2 fL (80.0-100.0) 08/27/19 06:00 MCH 27.9 pg (27.0-34.0) 08/27/19 06:00 MCHC 30.6 g/dL (33.0-35.0) L 08/27/19 06:00 RDW 19.5 % (11.6-16.5) H 08/27/19 06:00 Plt Count 213 X10^3/uL (150.0-450.0) 08/27/19 06:00 Plt Count Comment Adequate (ADEQUATE) 08/26/19 15:10 MPV 8.4 fL (7.4-11.0) 08/27/19 06:00 Neut % (Auto) 77.3 % (42.0-75.0) H 08/27/19 06:00 Lymph % (Auto) 13.2 % (21.0-51.0) L 08/27/19 06:00 [place] % (Auto) 7.9 % (0.0-13.0) 08/27/19 06:00 Eos % (Auto) 1.1 % (0.9-2.9) 08/27/19 06:00 Baso % (Auto) 0.5 % (0.2-1.0) 08/27/19 06:00 Neut # (Auto) 9.3 x10^3/uL (2.2-4.8) H 08/27/19 06:00 Lymph # (Auto) 1.6 X10^3/uL (1.3-2.9) 08/27/19 06:00 [place] # (Auto) 1.0 x10^3/uL (0.3-0.8) H 08/27/19 06:00 Eos # (Auto) 0.1 x10^3/uL (0.0-0.2) 08/27/19 06:00 Baso # (Auto) 0.1 X10^3/uL (0.0-0.1) 08/27/19 06:00 Absolute Nucleated RBC 0.1 /100WBC 08/27/19 06:00 Total Counted 100 08/26/19 15:10 Neutrophils % (Manual) 68 % (39-76) 08/26/19 15:10 Band Neutrophils % 7 % (0-10) 08/26/19 15:10 Lymphocytes % (Manual) 18 % (13-43) 08/26/19 15:10 Monocytes % (Manual) 6 % (4-9) 08/26/19 15:10 Eosinophils % (Manual) 1 % (0-6) 08/26/19 15:10 Plt Morphology Comment Normal (NORMAL) 08/26/19 15:10 RBC Morphology Abnormal (NORMAL) A 08/26/19 15:10 Anisocytosis 1+ A 08/26/19 15:10 Sodium 171 mmol/L (136-145) H* 08/27/19 06:00 Corrected Sodium 172 mmol/L (136-145) H 08/27/19 06:00 Potassium 3.1 mmol/L (3.5-5.1) L 08/27/19 06:00 Chloride 133 mmol/L (98-107) H* 08/27/19 06:00 Carbon Dioxide 30.9 mmol/L (21-32) 08/27/19 06:00 BUN 81 mg/dL (7-18) H 08/27/19 06:00 Creatinine 1.15 mg/dL (0.55-1.02) H 08/27/19 06:00 Est GFR (MDRD) Af Amer 59 (>60) 08/27/19 06:00 Est GFR (MDRD) Non-Af 49 (>60) L 08/27/19 06:00 Glucose 160 mg/dL (65-99) H 08/27/19 06:00 Calcium 8.6 mg/dL (8.5-10.1) 08/27/19 06:00 Corrected Calcium 10.4 mg/dL (8.5-10.1) H 08/27/19 06:00 Magnesium 2.7 mg/dL (1.7-2.9) 08/27/19 06:00 Total Bilirubin 0.40 mg/dL (0.2-1.0) 08/27/19 06:00 AST 23 Units/L (15-37) 08/27/19 06:00 ALT 13 Units/L (12-78) 08/27/19 06:00 Alkaline Phosphatase 135 Units/L (46-116) H 08/27/19 06:00 Total Protein 5.5 g/dL (6.4-8.2) L 08/27/19 06:00 Albumin 1.7 g/dL (3.4-5.0) L 08/27/19 06:00 Globulin 3.8 g/dL (2.5-4.5) 08/27/19 06:00 Albumin/Globulin Ratio 0.4 Ratio (1.1-2.1) L 08/27/19 06:00 Stl C. diff Tox B Gene Positive (NEGATIVE) A 08/26/19 16:03 Stl C. diff [id number] Positive (NEGATIVE) A 08/26/19 16:03 C. difficile Toxin A&B Negative (NEGATIVE) 08/26/19 16:03 - Plan (1) Hypernatremia Status: Acute Plan: D5W WITH 20MEQ KCL AT 125ML/HR, CONTINUE TO MONITOR (2) Hypokalemia Status: Acute Plan: D5W WITH 20MEQ KCL AT 125ML/HR, CONTINUE TO MONITOR (3) Decubitus ulcer Status: Acute Qualifiers: Pressure injury location: sacral region Pressure injury stage: stage 3 Qualified Code(s): L89.153 - Pressure ulcer of sacral region, stage 3 Plan: WOUND CARE, IV ANTIBIOTICS, CONTINUE TO MONITOR (4) Hypotension Status: Acute Qualifiers: Hypotension type: unspecified hypotension type Plan: D5W WITH 20MEQ KCL AT 125ML/HR, CONTINUE TO MONITOR (5) Hypoalbuminemia Status: Acute Plan: ALBUMN 25% IV DAILY, CONTINUE TO MONITOR
[2019-08-27] MEDS: NEURONTIN CAP 100 MG PEG SCH ×2 (13:55→22:00)
[2019-08-27] MEDS: LANOXIN PO SCH (13:55)
[2019-08-27] MEDS: TYLENOL 325 MG TAB PO PRN (13:58)
[2019-08-27] MEDS: WELLBUTRIN IR (PLAIN) PO SCH ×2 (13:59→21:02)
[2019-08-27] MEDS: ALBUMIN HUMAN 25%- 100 ML 100 ML IV SCH (13:59)
[2019-08-27] MEDS: VANCOMYCIN 125 MG PEG SCH ×3 (14:00→22:45)
[2019-08-27] MEDS: PATIENT'S HOME MEDICATION PEG SCH ×2 (14:00→21:00)
[2019-08-28] MEDS: D5W + KCL 20 MEQ/L 1,000 ML IV SCH ×4 (03:15→22:30)
[2019-08-28] MEDS: VANCOMYCIN 125 MG PEG SCH ×4 (04:43→22:45)
--- NOTE | 2019-08-28 04:53 | RAD ---
AP abdomen Indication: Constipation Comparison: 08/26/2019 Findings: There has been transit of the recently injected contrast into the colon. Mild gaseous colonic distention has resolved. No significant distal colonic stool burden is appreciated. No dilated small bowel loops or free air identified. Percutaneous gastrostomy overlies the stomach, similar to prior. Lumbar spine and hip degenerative changes are noted. Impression: No acute abdominal abnormality. Improved colonic stool burden. Reported By:
[2019-08-28] MEDS: MYLICON TAB 80 MG CHEW PO SCH ×3 (06:12→20:50)
[2019-08-28] MEDS: NEURONTIN CAP 100 MG PEG SCH ×3 (06:13→22:00)
[2019-08-28] MEDS: ZOSYN VIAL 3.375 GRAMS 3.375 G in NS 100 ML IV + SPIKE MINIBAG* 100 ML IV SCH ×3 (06:13→22:00)
[2019-08-28 06:19] LABS: BASOPHILS % (AUTO) 0.2 % (0.2-1.0); EOSINOPHILS # (AUTO) 0.2 x10^3/uL (0.0-0.2); EOSINOPHILS % (AUTO) 2.1 % (0.9-2.9); HEMATOCRIT 26.4 % (36.0-47.0); HEMOGLOBIN 8.3 g/dL (12.0-16.0); LYMPHOCYTES # (AUTO) 1.5 X10^3/uL (1.3-2.9); LYMPHOCYTES % (AUTO) 14.2 % (21.0-51.0); MEAN CORPUSCULAR HEMOGLOBIN 28.6 pg (27.0-34.0); MEAN CORPUSCULAR HGB CONC 31.4 g/dL (33.0-35.0); MEAN CORPUSCULAR VOLUME 90.9 fL (80.0-100.0); MEAN PLATELET VOLUME 8.9 fL (7.4-11.0); MONOCYTES # (AUTO) 0.8 x10^3/uL (0.3-0.8); MONOCYTES % (AUTO) 7.6 % (0.0-13.0); NEUTROPHILS # (AUTO) 7.9 x10^3/uL (2.2-4.8); NEUTROPHILS % (AUTO) 75.9 % (42.0-75.0); PLATELET COUNT 143 X10^3/uL (150.0-450.0); WHITE BLOOD COUNT 10.4 X10^3/uL (3.6-10.0)
[2019-08-28 06:31] LABS: ALBUMIN 1.8 g/dL (3.4-5.0); CALCIUM 7.5 mg/dL (8.5-10.1); CARBON DIOXIDE 26.8 mmol/L (21-32); COR CA(FOR HYPOALB) 9.3 mg/dL (8.5-10.1); CREATININE 1.26 mg/dL (0.55-1.02); TOTAL PROTEIN 4.9 g/dL (6.4-8.2)
[2019-08-28 07:11] LABS: BAND NEUTROPHILS % 5 % (0-10); HYPOCHROMASIA SLIGHT; METAMYELOCYTES % 4; PLATELET MORPHOLOGY COMMENT NORMAL (NORMAL)
[2019-08-28] MEDS: ALBUMIN HUMAN 25%- 100 ML 100 ML IV SCH (08:53)
[2019-08-28] MEDS: PROTONIX TAB 40 MG PO SCH ×2 (08:54→20:50)
[2019-08-28] MEDS: LANOXIN PO SCH (08:54)
[2019-08-28] MEDS: TAB-A-VITE PO SCH (08:54)
[2019-08-28] MEDS: LOVENOX INJ 30 MG SYR SC SCH (08:55)
[2019-08-28] MEDS: ZANTAC PEG SCH (08:55)
[2019-08-28] MEDS: ZyPREXA TAB 5 MG PO SCH ×2 (08:55→20:50)
[2019-08-28] MEDS: PERIACTIN TAB 4 MG PO SCH ×2 (08:55→20:49)
[2019-08-28] MEDS: PATIENT'S HOME MEDICATION PEG SCH ×3 (08:56→20:51)
[2019-08-28] MEDS: WELLBUTRIN IR (PLAIN) PO SCH ×2 (09:13→20:48)
[2019-08-28] MEDS: REMERON PEG SCH (20:49)
[2019-08-28] MEDS: TYLENOL 325 MG TAB PO PRN (20:51)
--- NOTE | 2019-08-28 22:23 | PCM.PROG ---
Progress Note - Progress Note for Day of Date of Exam: 08/28/19 - Subjective Subjective: IS BEING TREATED FOR HYPERNATREMIA, HYPOKALEMIA, HYPOTENSION, AND A STAGE 3 SACRAL DECUBITUS. TODAY, SHE IS LYING IN BED ON MORNING ROUNDS. SHE DOES NOT AWAKEN TO VERBAL STIMULI, BUT DOES GRIMACE TO PAINFUL STIMULI. ON EXAMINATION, HEART IS REGULAR IN RATE AND RHYTHM. BILATERAL LUNGS ARE NOTED WITH DIMINISHED LUNG SOUNDS THROUGHOUT. PEG TUBE NOTED WITH PURULENT DRAINAGE AROUND SITE. HYPOACTIVE BOWEL SOUNDS NOTED. THERE IS DRAINAGE NOTED FROM WOUND TO SACRUM. HER VITALS THIS MORNING ARE: 97.8-69-14-100%-89/54. LABS WERE OBTAINED. ABNORMAL LAB VALUES INCLUDE THE FOLLOWING: WBC 10.4, RBC 2.90, HGB 8.3, HCT 26.4, PLT COUNT 143, SODIUM 154, CHLORIDE 119, BUN 59, CREATININE 1.26, GLUCOSE 335, CALCIUM 7.5, TOTAL PROTEIN 4.9, ALBUMIN 1.8. WOUND CULTURES AND BLOOD CULTURES ARE PENDING. FAMILY REFUSED SURGICAL CONSULT FOR DEBRIDEMENT OF WOUND. SHE IS CURRENTLY RECEIVING D5W WITH 20MEQ KCL AT 125ML/HR, IV ZOSYN, ALBUMIN, AND HOME MEDICATIONS WERE RESUMED. WE WILL CONTINUE WITH CURRENT PLAN OF CARE TODAY. OTHERWISE, WE WILL FOLLOW UP WITH AM LABS AND CONTINUE TO MONITOR. - Past Medical Family Social History Past Med/Fam/Surg Hx: No changes since H&P Allergies: Allergies adhesive tape Allergy (Verified 08/22/19 08:38) - Review of Systems ROS: No change since H&P - Vital Signs and I&O's Vital Signs: Temperature 98.4 F Pulse Rate [Left Brachial] 75 Pulse Rate 67 Respiratory Rate 19 Blood Pressure [Right Arm] 107/65 Blood Pressure [Left Arm] 103/64 Blood Pressure 86/49 O2 Sat by Pulse Oximetry 100 Intake and Output: Intake & Output 08/26/19 08/27/19 08/28/19 08/29/19 11:59 11:59 11:59 11:59 Intake Total 978 / 978 3144 / 3144 1770 / 1770 Balance 978 / 978 3144 / 3144 1769 - Physical Exam Oriented: Unable to test Eyes: Normal Ear: Normal Nose: Normal Throat: Normal Cardiovascular: Normal : Normal Auscultation: Bowel Sounds: Decreased Palpation: Normal Tenderness: Diffuse, Mild. negative: Rebound, Guarding Skin: Wound (STAGE 3 SACRAL DECUBITIS WHICH MEASURES 4CM X 5CM) Musculoskeletal: Normal Mood Description: Calm Affect: Flat Speech Pattern: Aphasic - Laboratory and Diagnostics Result Diagrams: 08/28/19 05:30 08/28/19 05:30 Labs: 08/26/19 15:10 Blood Blood Culture - Preliminary 08/26/19 15:16 Blood Blood Culture - Preliminary 08/26/19 16:02 Abdomen Gram Stain - Final 08/26/19 16:02 Abdomen Wound Culture - Final Escherichia Coli Escherichia Coli#2 Klebsiella Pneumoniae 08/26/19 15:54 Sacral Gram Stain - Final 08/26/19 15:54 Sacral Wound Culture - Final Proteus Mirabilis Escherichia Coli Laboratory WBC 10.4 X10^3/uL (3.6-10.0) H 08/28/19 05:30 RBC 2.90 X10^6/uL (3.5-5.4) L 08/28/19 05:30 Hgb 8.3 g/dL (12.0-16.0) L 08/28/19 05:30 Hct 26.4 % (36.0-47.0) L 08/28/19 05:30 MCV 90.9 fL (80.0-100.0) 08/28/19 05:30 MCH 28.6 pg (27.0-34.0) 08/28/19 05:30 MCHC 31.4 g/dL (33.0-35.0) L 08/28/19 05:30 RDW 19.0 % (11.6-16.5) H 08/28/19 05:30 Plt Count 143 X10^3/uL (150.0-450.0) L 08/28/19 05:30 Plt Count Comment Adequate (ADEQUATE) 08/28/19 05:30 MPV 8.9 fL (7.4-11.0) 08/28/19 05:30 Neut % (Auto) 75.9 % (42.0-75.0) H 08/28/19 05:30 Lymph % (Auto) 14.2 % (21.0-51.0) L 08/28/19 05:30 [place] % (Auto) 7.6 % (0.0-13.0) 08/28/19 05:30 Eos % (Auto) 2.1 % (0.9-2.9) 08/28/19 05:30 Baso % (Auto) 0.2 % (0.2-1.0) 08/28/19 05:30 Neut # (Auto) 7.9 x10^3/uL (2.2-4.8) H 08/28/19 05:30 Lymph # (Auto) 1.5 X10^3/uL (1.3-2.9) 08/28/19 05:30 [place] # (Auto) 0.8 x10^3/uL (0.3-0.8) 08/28/19 05:30 Eos # (Auto) 0.2 x10^3/uL (0.0-0.2) 08/28/19 05:30 Baso # (Auto) 0.0 X10^3/uL (0.0-0.1) 08/28/19 05:30 Absolute Nucleated RBC 0.1 /100WBC 08/28/19 05:30 Total Counted 100 08/28/19 05:30 Neutrophils % (Manual) 72 % (39-76) 08/28/19 05:30 Band Neutrophils % 5 % (0-10) 08/28/19 05:30 Lymphocytes % (Manual) 13 % (13-43) 08/28/19 05:30 Monocytes % (Manual) 4 % (4-9) 08/28/19 05:30 Eosinophils % (Manual) 2 % (0-6) 08/28/19 05:30 Metamyelocytes % 4 08/28/19 05:30 Plt Morphology Comment Normal (NORMAL) 08/28/19 05:30 RBC Morphology Abnormal (NORMAL) A 08/28/19 05:30 Hypochromasia Slight A 08/28/19 05:30 Anisocytosis 1+ A 08/26/19 15:10 Sodium 154 mmol/L (136-145) H* 08/28/19 05:30 Corrected Sodium 160 mmol/L (136-145) H 08/28/19 05:30 Potassium 4.0 mmol/L (3.5-5.1) 08/28/19 05:30 Chloride 119 mmol/L (98-107) H* 08/28/19 05:30 Carbon Dioxide 26.8 mmol/L (21-32) 08/28/19 05:30 BUN 59 mg/dL (7-18) H 08/28/19 05:30 Creatinine 1.26 mg/dL (0.55-1.02) H 08/28/19 05:30 Est GFR (MDRD) Af Amer 53 (>60) L 08/28/19 05:30 Est GFR (MDRD) Non-Af 44 (>60) L 08/28/19 05:30 Glucose 335 mg/dL (65-99) H 08/28/19 05:30 Calcium 7.5 mg/dL (8.5-10.1) L 08/28/19 05:30 Corrected Calcium 9.3 mg/dL (8.5-10.1) 08/28/19 05:30 Magnesium 2.7 mg/dL (1.7-2.9) 08/27/19 06:00 Total Bilirubin 0.30 mg/dL (0.2-1.0) 08/28/19 05:30 AST 19 Units/L (15-37) 08/28/19 05:30 ALT 14 Units/L (12-78) 08/28/19 05:30 Alkaline Phosphatase 111 Units/L (46-116) 08/28/19 05:30 Total Protein 4.9 g/dL (6.4-8.2) L 08/28/19 05:30 Albumin 1.8 g/dL (3.4-5.0) L 08/28/19 05:30 Globulin 3.1 g/dL (2.5-4.5) 08/28/19 05:30 Albumin/Globulin Ratio 0.6 Ratio (1.1-2.1) L 08/28/19 05:30 Stl C. diff Tox B Gene Positive (NEGATIVE) A 08/26/19 16:03 Stl C. diff 027-NAP1-BI Positive (NEGATIVE) A 08/26/19 16:03 Digoxin 1.69 ng/mL (0.9-2) 08/27/19 14:23 C. difficile Toxin A&B Negative (NEGATIVE) 08/26/19 16:03 - Plan (1) Hypernatremia Status: Acute Plan: D5W WITH 20MEQ KCL AT 125ML/HR, CONTINUE TO MONITOR (2) Hypokalemia Status: Acute Plan: D5W WITH 20MEQ KCL AT 125ML/HR, CONTINUE TO MONITOR (3) Decubitus ulcer Status: Acute Qualifiers: Pressure injury location: sacral region Pressure injury stage: stage 3 Qualified Code(s): L89.153 - Pressure ulcer of sacral region, stage 3 Plan: WOUND CARE, IV ANTIBIOTICS, CONTINUE TO MONITOR (4) Hypotension Status: Acute Qualifiers: Hypotension type: unspecified hypotension type Plan: D5W WITH 20MEQ KCL AT 125ML/HR, CONTINUE TO MONITOR (5) Hypoalbuminemia Status: Acute Plan: ALBUMN 25% IV DAILY, CONTINUE TO MONITOR
[2019-08-29] MEDS: D5W + KCL 20 MEQ/L 1,000 ML IV SCH ×3 (03:00→21:16)
[2019-08-29] MEDS: VANCOMYCIN 125 MG PEG SCH ×4 (04:55→22:56)
[2019-08-29 06:15] LABS: BASOPHILS % (AUTO) 0.3 % (0.2-1.0); EOSINOPHILS # (AUTO) 0.1 x10^3/uL (0.0-0.2); EOSINOPHILS % (AUTO) 1.2 % (0.9-2.9); HEMATOCRIT 25.6 % (36.0-47.0); LYMPHOCYTES # (AUTO) 1.3 X10^3/uL (1.3-2.9); LYMPHOCYTES % (AUTO) 10.5 % (21.0-51.0); MEAN CORPUSCULAR HEMOGLOBIN 27.9 pg (27.0-34.0); MEAN CORPUSCULAR HGB CONC 31.4 g/dL (33.0-35.0); MEAN CORPUSCULAR VOLUME 88.9 fL (80.0-100.0); MEAN PLATELET VOLUME 8.9 fL (7.4-11.0); MONOCYTES # (AUTO) 1.1 x10^3/uL (0.3-0.8); NEUTROPHILS # (AUTO) 9.6 x10^3/uL (2.2-4.8); PLATELET COUNT 126 X10^3/uL (150.0-450.0); RED BLOOD COUNT 2.88 X10^6/uL (3.5-5.4); WHITE BLOOD COUNT 12.1 X10^3/uL (3.6-10.0)
[2019-08-29] MEDS: NEURONTIN CAP 100 MG PEG SCH ×3 (06:21→21:21)
[2019-08-29] MEDS: MYLICON TAB 80 MG CHEW PO SCH ×3 (06:21→21:21)
[2019-08-29] MEDS: ZOSYN VIAL 3.375 GRAMS 3.375 G in NS 100 ML IV + SPIKE MINIBAG* 100 ML IV SCH ×3 (06:22→21:23)
[2019-08-29 06:25] LABS: ALANINE AMINOTRANSFERASE 19 Units/L (12-78); ALBUMIN 2.1 g/dL (3.4-5.0); ALKALINE PHOSPHATASE 116 Units/L (46-116); ASPARTATE AMINO TRANSFERASE 42 Units/L (15-37); BLOOD UREA NITROGEN 41 mg/dL (7-18); CALCIUM 7.3 mg/dL (8.5-10.1); CARBON DIOXIDE 25.1 mmol/L (21-32); CHLORIDE 113 mmol/L (98-107); COR CA(FOR HYPOALB) 8.8 mg/dL (8.5-10.1); COR NA(FOR HYPERGLY) 147 mmol/L (136-145); CREATININE 1.08 mg/dL (0.55-1.02); SODIUM 146 mmol/L (136-145); TOTAL PROTEIN 5.2 g/dL (6.4-8.2); eGFR NON BLACK RACES 53 (>60)
[2019-08-29 06:45] LABS: BAND NEUTROPHILS % 11 % (0-10)
[2019-08-29 06:46] LABS: PLATELET MORPHOLOGY COMMENT NORMAL (NORMAL)
[2019-08-29] MEDS: WELLBUTRIN IR (PLAIN) PO SCH ×2 (09:56→21:20)
[2019-08-29] MEDS: ALBUMIN HUMAN 25%- 100 ML 100 ML IV SCH (09:56)
[2019-08-29] MEDS: PEPCID TAB 20 MG PO SCH (09:57)
[2019-08-29] MEDS: LANOXIN PO SCH (09:57)
[2019-08-29] MEDS: TAB-A-VITE PO SCH (09:57)
[2019-08-29] MEDS: PATIENT'S HOME MEDICATION PEG SCH ×3 (09:58→21:16)
[2019-08-29] MEDS: ZyPREXA TAB 5 MG PO SCH ×2 (09:58→21:20)
[2019-08-29] MEDS: PERIACTIN TAB 4 MG PO SCH ×2 (09:58→21:17)
--- NOTE | 2019-08-29 14:03 | PCM.PROG ---
Progress Note - Progress Note for Day of Date of Exam: 08/29/19 - Subjective Subjective: IS BEING TREATED FOR HYPERNATREMIA, HYPOKALEMIA, HYPOTENSION, AND A STAGE 3 SACRAL DECUBITUS. TODAY, SHE IS LYING IN BED ON MORNING ROUNDS. HER EYES ARE OPEN ON MORNING ROUNDS, BUT SHE DOES NOT RESPOND TO VERBAL STIMULI. ON EXAMINATION, HEART IS REGULAR IN RATE AND RHYTHM. BILATERAL LUNGS ARE NOTED WITH DIMINISHED LUNG SOUNDS THROUGHOUT. PEG TUBE NOTED TO ABDOMEN WITHOUT DRAINAGE THIS MORNING. HYPOACTIVE BOWEL SOUNDS NOTED. THERE IS DRAINAGE NOTED FROM WOUND TO SACRUM. HER VITALS THIS MORNING ARE: 97.0-16-06-100-98/53. LABS WERE OBTAINED. ABNORMAL LAB VALUES INCLUDE THE FOL LOWING: WBC 12.1, RBC 2.88, HGB 8.0, HCT 25.6, PLT COUNT 126, SODIUM 146, CHLORIDE 113, BUN 41, CREATININE 1.08, GLUCOSE 140, CALCIUM 7.3, AST 42, TOTAL PROTEIN 5.2, ALBUMIN 2.1. WOUND CULTURES REVEAL GROWTH OF E.COLI, E.COLI #2, AND KLEBSIELLA PNEUMONIAE FROM THE ABDOMEN AND PROTEUS MIRABILIS AND E.COLI FROM THE SACRAL WOUND. ALL ARE SENSITIVE TO THE ZOSYN THAT SHE IS CURRENTLY RECEIVING. SHE IS CURRENTLY RECEIVING D5W WITH 20MEQ KCL AT 125ML/HR, IV ZOSYN, ALBUMIN, AND HOME MEDICATIONS WERE RESUMED. WE WILL CONTINUE WITH CURRENT PLAN OF CARE TODAY. OTHERWISE, WE WILL FOLLOW UP WITH AM LABS AND CONTINUE TO MONITOR. - Past Medical Family Social History Past Med/Fam/Surg Hx: No changes since H&P Allergies: Allergies adhesive tape Allergy (Verified 08/22/19 08:38) - Review of Systems ROS: No change since H&P - Vital Signs and I&O's Vital Signs: Temperature 98.3 F Pulse Rate [Left Brachial] 75 Pulse Rate 71 Respiratory Rate 18 Blood Pressure [Right Arm] 107/65 Blood Pressure [Left Arm] 103/64 Blood Pressure 81/45 O2 Sat by Pulse Oximetry 100 Intake and Output: Intake & Output 08/27/19 08/28/19 08/29/19 08/30/19 11:59 11:59 11:59 11:59 Intake Total 978 / 978 3144 / 3144 3882 / 3882 Balance 978 / 978 3144 / 3144 3882 / 3882 - Physical Exam Oriented: Unable to test Eyes: Normal Ear: Normal Nose: Normal Throat: Normal Respiratory: Generalized, Diminished Cardiovascular: Normal : Normal Auscultation: Bowel Sounds: Decreased Palpation: Normal Tenderness: Diffuse, Mild. negative: Rebound, Guarding Skin: Wound (STAGE 3 SACRAL DECUBITIS WHICH MEASURES 4CM X 5CM) Musculoskeletal: Normal Mood Description: Calm Affect: Flat Speech Pattern: Aphasic - Laboratory and Diagnostics Result Diagrams: 08/29/19 05:35 08/29/19 05:35 Labs: 08/26/19 15:10 Blood Blood Culture - Preliminary 08/26/19 15:16 Blood Blood Culture - Preliminary 08/26/19 16:02 Abdomen Gram Stain - Final 08/26/19 16:02 Abdomen Wound Culture - Final Escherichia Coli Escherichia Coli#2 Klebsiella Pneumoniae 08/26/19 15:54 Sacral Gram Stain - Final 08/26/19 15:54 Sacral Wound Culture - Final Proteus Mirabilis Escherichia Coli Laboratory WBC 12.1 X10^3/uL (3.6-10.0) H 08/29/19 05:35 RBC 2.88 X10^6/uL (3.5-5.4) L 08/29/19 05:35 Hgb 8.0 g/dL (12.0-16.0) L 08/29/19 05:35 Hct 25.6 % (36.0-47.0) L 08/29/19 05:35 MCV 88.9 fL (80.0-100.0) 08/29/19 05:35 MCH 27.9 pg (27.0-34.0) 08/29/19 05:35 MCHC 31.4 g/dL (33.0-35.0) L 08/29/19 05:35 RDW 18.0 % (11.6-16.5) H 08/29/19 05:35 Plt Count 126 X10^3/uL (150.0-450.0) L 08/29/19 05:35 Plt Count Comment Adequate (ADEQUATE) 08/29/19 05:35 MPV 8.9 fL (7.4-11.0) 08/29/19 05:35 Neut % (Auto) 79.0 % (42.0-75.0) H 08/29/19 05:35 Lymph % (Auto) 10.5 % (21.0-51.0) L 08/29/19 05:35 [place] % (Auto) 9.0 % (0.0-13.0) 08/29/19 05:35 Eos % (Auto) 1.2 % (0.9-2.9) 08/29/19 05:35 Baso % (Auto) 0.3 % (0.2-1.0) 08/29/19 05:35 Neut # (Auto) 9.6 x10^3/uL (2.2-4.8) H 08/29/19 05:35 Lymph # (Auto) 1.3 X10^3/uL (1.3-2.9) 08/29/19 05:35 [place] # (Auto) 1.1 x10^3/uL (0.3-0.8) H 08/29/19 05:35 Eos # (Auto) 0.1 x10^3/uL (0.0-0.2) 08/29/19 05:35 Baso # (Auto) 0.0 X10^3/uL (0.0-0.1) 08/29/19 05:35 Absolute Nucleated RBC 0.4 /100WBC 08/29/19 05:35 Total Counted 100 08/29/19 05:35 Neutrophils % (Manual) 59 % (39-76) 08/29/19 05:35 Band Neutrophils % 11 % (0-10) H 08/29/19 05:35 Lymphocytes % (Manual) 26 % (13-43) 08/29/19 05:35 Monocytes % (Manual) 1 % (4-9) L 08/29/19 05:35 Eosinophils % (Manual) 3 % (0-6) 08/29/19 05:35 Metamyelocytes % 4 08/28/19 05:30 Plt Morphology Comment Normal (NORMAL) 08/29/19 05:35 RBC Morphology Normal (NORMAL) 08/29/19 05:35 Hypochromasia Slight A 08/28/19 05:30 Anisocytosis 1+ A 08/26/19 15:10 Sodium 146 mmol/L (136-145) H 08/29/19 05:35 Corrected Sodium 147 mmol/L (136-145) H 08/29/19 05:35 Potassium 4.4 mmol/L (3.5-5.1) 08/29/19 05:35 Chloride 113 mmol/L (98-107) H 08/29/19 05:35 Carbon Dioxide 25.1 mmol/L (21-32) 08/29/19 05:35 BUN 41 mg/dL (7-18) H 08/29/19 05:35 Creatinine 1.08 mg/dL (0.55-1.02) H 08/29/19 05:35 Est GFR (MDRD) Af Amer > 60 (>60) 08/29/19 05:35 Est GFR (MDRD) Non-Af 53 (>60) L 08/29/19 05:35 Glucose 140 mg/dL (65-99) H 08/29/19 05:35 Calcium 7.3 mg/dL (8.5-10.1) L 08/29/19 05:35 Corrected Calcium 8.8 mg/dL (8.5-10.1) 08/29/19 05:35 Magnesium 2.7 mg/dL (1.7-2.9) 08/27/19 06:00 Total Bilirubin 0.40 mg/dL (0.2-1.0) 08/29/19 05:35 AST 42 Units/L (15-37) H 08/29/19 05:35 ALT 19 Units/L (12-78) 08/29/19 05:35 Alkaline Phosphatase 116 Units/L (46-116) 08/29/19 05:35 Total Protein 5.2 g/dL (6.4-8.2) L 08/29/19 05:35 Albumin 2.1 g/dL (3.4-5.0) L 08/29/19 05:35 Globulin 3.1 g/dL (2.5-4.5) 08/29/19 05:35 Albumin/Globulin Ratio 0.7 Ratio (1.1-2.1) L 08/29/19 05:35 Stl C. diff Tox B Gene Positive (NEGATIVE) A 08/26/19 16:03 Stl C. diff 027-NAP1-BI Positive (NEGATIVE) A 08/26/19 16:03 Digoxin 1.69 ng/mL (0.9-2) 08/27/19 14:23 C. difficile Toxin A&B Negative (NEGATIVE) 08/26/19 16:03 - Plan (1) Hypernatremia Status: Acute Plan: D5W WITH 20MEQ KCL AT 125ML/HR, CONTINUE TO MONITOR (2) Hypokalemia Status: Acute Plan: D5W WITH 20MEQ KCL AT 125ML/HR, CONTINUE TO MONITOR (3) Decubitus ulcer Status: Acute Qualifiers: Pressure injury location: sacral region Pressure injury stage: stage 3 Qualified Code(s): L89.153 - Pressure ulcer of sacral region, stage 3 Plan: WOUND CARE, IV ANTIBIOTICS, CONTINUE TO MONITOR (4) Hypotension Status: Acute Qualifiers: Hypotension type: unspecified hypotension type Plan: D5W WITH 20MEQ KCL AT 125ML/HR, CONTINUE TO MONITOR (5) Hypoalbuminemia Status: Acute Plan: ALBUMN 25% IV DAILY, CONTINUE TO MONITOR
[2019-08-29] MEDS: PROTONIX INJ 40 MG VIAL IVP SCH (21:17)
[2019-08-29] MEDS: REMERON PEG SCH (21:19)
[2019-08-29] MEDS: BUTT CREAM (COMPOUND) TOP PRN (23:00)
[2019-08-30] MEDS: D5W + KCL 20 MEQ/L 1,000 ML IV SCH ×2 (03:10→12:30)
[2019-08-30] MEDS: VANCOMYCIN 125 MG PEG SCH ×4 (05:32→21:44)
[2019-08-30] MEDS: MYLICON TAB 80 MG CHEW PO SCH ×3 (05:33→21:43)
[2019-08-30] MEDS: ZOSYN VIAL 3.375 GRAMS 3.375 G in NS 100 ML IV + SPIKE MINIBAG* 100 ML IV SCH ×4 (05:33→21:44)
[2019-08-30] MEDS: NEURONTIN CAP 100 MG PEG SCH ×3 (05:33→21:42)
[2019-08-30 05:52] LABS: BASOPHILS % (AUTO) 0.2 % (0.2-1.0); EOSINOPHILS # (AUTO) 0.1 x10^3/uL (0.0-0.2); EOSINOPHILS % (AUTO) 0.4 % (0.9-2.9); HEMATOCRIT 27.5 % (36.0-47.0); HEMOGLOBIN 8.7 g/dL (12.0-16.0); LYMPHOCYTES # (AUTO) 1.7 X10^3/uL (1.3-2.9); LYMPHOCYTES % (AUTO) 8.2 % (21.0-51.0); MEAN CORPUSCULAR HEMOGLOBIN 27.7 pg (27.0-34.0); MEAN CORPUSCULAR HGB CONC 31.5 g/dL (33.0-35.0); MEAN CORPUSCULAR VOLUME 87.7 fL (80.0-100.0); MEAN PLATELET VOLUME 9.1 fL (7.4-11.0); MONOCYTES # (AUTO) 1.8 x10^3/uL (0.3-0.8); MONOCYTES % (AUTO) 8.6 % (0.0-13.0); NEUTROPHILS # (AUTO) 17.5 x10^3/uL (2.2-4.8); NEUTROPHILS % (AUTO) 82.6 % (42.0-75.0); PLATELET COUNT 101 X10^3/uL (150.0-450.0); RED BLOOD COUNT 3.14 X10^6/uL (3.5-5.4); RED CELL DISTRIBUTION WIDTH 17.6 % (11.6-16.5)
[2019-08-30 06:00] LABS: ALANINE AMINOTRANSFERASE 23 Units/L (12-78); ALBUMIN 2.2 g/dL (3.4-5.0); ALKALINE PHOSPHATASE 108 Units/L (46-116); ASPARTATE AMINO TRANSFERASE 28 Units/L (15-37); BLOOD UREA NITROGEN 31 mg/dL (7-18); CALCIUM 7.3 mg/dL (8.5-10.1); CARBON DIOXIDE 24.9 mmol/L (21-32); CHLORIDE 109 mmol/L (98-107); COR CA(FOR HYPOALB) 8.7 mg/dL (8.5-10.1); CREATININE 0.98 mg/dL (0.55-1.02); SODIUM 143 mmol/L (136-145); TOTAL PROTEIN 5.4 g/dL (6.4-8.2); eGFR NON BLACK RACES 59 (>60)
[2019-08-30 06:17] LABS: WHITE BLOOD COUNT 21.2 X10^3/uL (3.6-10.0)
[2019-08-30 06:19] LABS: PLATELET MORPHOLOGY COMMENT NORMAL (NORMAL)
[2019-08-30] MEDS: ALBUMIN HUMAN 25%- 100 ML 100 ML IV SCH (10:31)
[2019-08-30] MEDS: PROTONIX INJ 40 MG VIAL IVP SCH ×2 (10:32→21:53)
[2019-08-30] MEDS: TAB-A-VITE PO SCH (10:32)
[2019-08-30] MEDS: PERIACTIN TAB 4 MG PO SCH ×2 (10:32→21:42)
[2019-08-30] MEDS: LANOXIN PO SCH (10:32)
[2019-08-30] MEDS: PEPCID TAB 20 MG PO SCH (10:33)
[2019-08-30] MEDS: ZyPREXA TAB 5 MG PO SCH ×2 (10:34→21:42)
[2019-08-30] MEDS: PATIENT'S HOME MEDICATION PEG SCH ×3 (10:35→21:43)
[2019-08-30] MEDS: WELLBUTRIN IR (PLAIN) PO SCH ×2 (10:35→21:43)
--- NOTE | 2019-08-30 18:08 | PCM.PROG ---
Progress Note - Progress Note for Day of Date of Exam: 08/30/19 - Subjective Subjective: IS BEING TREATED FOR HYPERNATREMIA, HYPOKALEMIA, HYPOTENSION, AND A STAGE 3 SACRAL DECUBITUS. TODAY, SHE IS LYING IN BED WITH EYES CLOSED ON MORNING ROUNDS. SHE DOES NOT RESPOND TO VERBAL STIMULI. ON EXAMINATION, SHE IS NOTED TO BE TACHYCARDIC. BILATERAL LUNGS ARE NOTED WITH DIMI NISHED LUNG SOUNDS THROUGHOUT. PEG TUBE NOTED TO ABDOMEN WITHOUT DRAINAGE THIS MORNING. HYPOACTIVE BOWEL SOUNDS NOTED. THERE IS DRAINAGE NOTED FROM WOUND TO SACRUM. HER VITALS THIS MORNING ARE: 98.7-81-31-100%-102/55. LABS WERE OBTAINED. ABNORMAL LAB VALUES INCLUDE THE FOLLOWING: WBC INCREASED FROM 12.1 TO 21.2, RBC 3.14, HGB 8.7, HCT 27.5, PLT COUNT 101, CHLORIDE 109, BUN 31, CALCIUM 7.3, TOTAL PROTEIN 5.4, ALBUMIN 2.2. WOUND CULTURES REVEAL GROWTH OF E.COLI, E.COLI #2, AND KLEBSIELLA PNEUMONIAE FROM THE ABDOMEN AND. PROTEUS MIRABILIS AND E.COLI FROM THE SACRAL WOUND. ALL ARE SENSITIVE TO THE ZOSYN THAT SHE IS CURRENTLY RECEIVING. SHE IS CURRENTLY RECEIVING D5W WITH 20MEQ KCL AT 125ML/HR, IV ZOSYN, ALBUMIN, AND HOME MEDICATIONS WERE RESUMED. WE WILL CONTINUE WITH CURRENT PLAN OF CARE TODAY. OTHERWISE, WE WILL FOLLOW UP WITH AM LABS AND CONTINUE TO MONITOR. - Past Medical Family Social History Past Med/Fam/Surg Hx: No changes since H&P Allergies: Allergies adhesive tape Allergy (Verified 08/22/19 08:38) - Review of Systems ROS: No change since H&P - Vital Signs and I&O's Vital Signs: Temperature 98.2 F Pulse Rate [Left Brachial] 75 Pulse Rate 85 Respiratory Rate 25 Blood Pressure [Right Arm] 107/65 Blood Pressure [Left Arm] 103/64 Blood Pressure 129/62 O2 Sat by Pulse Oximetry 100 Intake and Output: Intake & Output 08/28/19 08/29/19 08/30/19 08/31/19 11:59 11:59 11:59 11:59 Intake Total 3144 / 3144 3882 / 3882 3411 / 3411 Output Total 3 / 3 Balance 3144 / 3144 3882 / 3882 3408 / 3408 - Physical Exam Oriented: Unable to test Eyes: Normal Ear: Normal Nose: Normal Throat: Normal Respiratory: Generalized, Diminished Cardiovascular: Normal : Normal Auscultation: Bowel Sounds: Decreased Tenderness: Diffuse, Mild. negative: Rebound, Guarding Skin: Wound (STAGE 3 SACRAL DECUBITIS WHICH MEASURES 4CM X 5CM) Musculoskeletal: Normal Mood Description: Calm Affect: Flat Speech Pattern: Aphasic - Laboratory and Diagnostics Result Diagrams: 08/30/19 05:32 08/30/19 05:32 Labs: 08/26/19 15:10 Blood Blood Culture - Preliminary 08/26/19 15:16 Blood Blood Culture - Preliminary 08/26/19 16:02 Abdomen Gram Stain - Final 08/26/19 16:02 Abdomen Wound Culture - Final Escherichia Coli Escherichia Coli#2 Klebsiella Pneumoniae 08/26/19 15:54 Sacral Gram Stain - Final 08/26/19 15:54 Sacral Wound Culture - Final Proteus Mirabilis Escherichia Coli Laboratory WBC 21.2 X10^3/uL (3.6-10.0) H D 08/30/19 05:32 RBC 3.14 X10^6/uL (3.5-5.4) L 08/30/19 05:32 Hgb 8.7 g/dL (12.0-16.0) L 08/30/19 05:32 Hct 27.5 % (36.0-47.0) L 08/30/19 05:32 MCV 87.7 fL (80.0-100.0) 08/30/19 05:32 MCH 27.7 pg (27.0-34.0) 08/30/19 05:32 MCHC 31.5 g/dL (33.0-35.0) L 08/30/19 05:32 RDW 17.6 % (11.6-16.5) H 08/30/19 05:32 Plt Count 101 X10^3/uL (150.0-450.0) L 08/30/19 05:32 Plt Count Comment Decreased (ADEQUATE) A 08/30/19 05:32 MPV 9.1 fL (7.4-11.0) 08/30/19 05:32 Neut % (Auto) 82.6 % (42.0-75.0) H 08/30/19 05:32 Lymph % (Auto) 8.2 % (21.0-51.0) L 08/30/19 05:32 [place] % (Auto) 8.6 % (0.0-13.0) 08/30/19 05:32 Eos % (Auto) 0.4 % (0.9-2.9) L 08/30/19 05:32 Baso % (Auto) 0.2 % (0.2-1.0) 08/30/19 05:32 Neut # (Auto) 17.5 x10^3/uL (2.2-4.8) H 08/30/19 05:32 Lymph # (Auto) 1.7 X10^3/uL (1.3-2.9) 08/30/19 05:32 [place] # (Auto) 1.8 x10^3/uL (0.3-0.8) H 08/30/19 05:32 Eos # (Auto) 0.1 x10^3/uL (0.0-0.2) 08/30/19 05:32 Baso # (Auto) 0.0 X10^3/uL (0.0-0.1) 08/30/19 05:32 Absolute Nucleated RBC 0.1 /100WBC 08/30/19 05:32 Total Counted 100 08/30/19 05:32 Neutrophils % (Manual) 82 % (39-76) H 08/30/19 05:32 Band Neutrophils % 11 % (0-10) H 08/29/19 05:35 Lymphocytes % (Manual) 12 % (13-43) L 08/30/19 05:32 Monocytes % (Manual) 5 % (4-9) 08/30/19 05:32 Eosinophils % (Manual) 1 % (0-6) 08/30/19 05:32 Metamyelocytes % 4 08/28/19 05:30 Plt Morphology Comment Normal (NORMAL) 08/30/19 05:32 RBC Morphology Normal (NORMAL) 08/30/19 05:32 Hypochromasia Slight A 08/28/19 05:30 Anisocytosis 1+ A 08/26/19 15:10 Sodium 143 mmol/L (136-145) 08/30/19 05:32 Corrected Sodium TNP 08/30/19 05:32 Potassium 4.4 mmol/L (3.5-5.1) 08/30/19 05:32 Chloride 109 mmol/L (98-107) H 08/30/19 05:32 Carbon Dioxide 24.9 mmol/L (21-32) 08/30/19 05:32 BUN 31 mg/dL (7-18) H 08/30/19 05:32 Creatinine 0.98 mg/dL (0.55-1.02) 08/30/19 05:32 Est GFR (MDRD) Af Amer > 60 (>60) 08/30/19 05:32 Est GFR (MDRD) Non-Af 59 (>60) 08/30/19 05:32 Glucose 85 mg/dL (65-99) 08/30/19 05:32 Calcium 7.3 mg/dL (8.5-10.1) L 08/30/19 05:32 Corrected Calcium 8.7 mg/dL (8.5-10.1) 08/30/19 05:32 Magnesium 2.7 mg/dL (1.7-2.9) 08/27/19 06:00 Total Bilirubin 0.50 mg/dL (0.2-1.0) 08/30/19 05:32 AST 28 Units/L (15-37) 08/30/19 05:32 ALT 23 Units/L (12-78) 08/30/19 05:32 Alkaline Phosphatase 108 Units/L (46-116) 08/30/19 05:32 Total Protein 5.4 g/dL (6.4-8.2) L 08/30/19 05:32 Albumin 2.2 g/dL (3.4-5.0) L 08/30/19 05:32 Globulin 3.2 g/dL (2.5-4.5) 08/30/19 05:32 Albumin/Globulin Ratio 0.7 Ratio (1.1-2.1) L 08/30/19 05:32 Stl C. diff Tox B Gene Positive (NEGATIVE) A 08/26/19 16:03 Stl C. diff 027-NAP1-BI Positive (NEGATIVE) A 08/26/19 16:03 Digoxin 1.69 ng/mL (0.9-2) 08/27/19 14:23 C. difficile Toxin A&B Negative (NEGATIVE) 08/26/19 16:03 - Plan (1) Hypernatremia Status: Acute Plan: D5W WITH 20MEQ KCL AT 125ML/HR, CONTINUE TO MONITOR (2) Hypokalemia Status: Acute Plan: D5W WITH 20MEQ KCL AT 125ML/HR, CONTINUE TO MONITOR (3) Decubitus ulcer Status: Acute Qualifiers: Pressure injury location: sacral region Pressure injury stage: stage 3 Qualified Code(s): L89.153 - Pressure ulcer of sacral region, stage 3 Plan: WOUND CARE, IV ANTIBIOTICS, CONTINUE TO MONITOR (4) Hypotension Status: Acute Qualifiers: Hypotension type: unspecified hypotension type Plan: D5W WITH 20MEQ KCL AT 125ML/HR, CONTINUE TO MONITOR (5) Hypoalbuminemia Status: Acute Plan: ALBUMN 25% IV DAILY, CONTINUE TO MONITOR
[2019-08-30] MEDS: REMERON PEG SCH (21:43)
[2019-08-31] MEDS: D5W + KCL 20 MEQ/L 1,000 ML IV SCH ×4 (04:15→18:55)
[2019-08-31] MEDS: VANCOMYCIN 125 MG PEG SCH ×4 (05:08→22:34)
[2019-08-31] MEDS: ZOSYN VIAL 3.375 GRAMS 3.375 G in NS 100 ML IV + SPIKE MINIBAG* 100 ML IV SCH ×3 (05:09→21:06)
[2019-08-31] MEDS: NYSTATIN CREAM TOP PRN (05:09)
[2019-08-31] MEDS: NEURONTIN CAP 100 MG PEG SCH ×3 (05:10→21:07)
[2019-08-31] MEDS: MYLICON TAB 80 MG CHEW PO SCH ×3 (05:10→20:34)
[2019-08-31 05:27] LABS: BASOPHILS % (AUTO) 0.1 % (0.2-1.0); EOSINOPHILS # (AUTO) 0.1 x10^3/uL (0.0-0.2); EOSINOPHILS % (AUTO) 0.7 % (0.9-2.9); LYMPHOCYTES # (AUTO) 1.1 X10^3/uL (1.3-2.9); MEAN CORPUSCULAR HEMOGLOBIN 28.1 pg (27.0-34.0); MEAN CORPUSCULAR HGB CONC 31.8 g/dL (33.0-35.0); MEAN CORPUSCULAR VOLUME 88.5 fL (80.0-100.0); MEAN PLATELET VOLUME 9.5 fL (7.4-11.0); MONOCYTES # (AUTO) 0.8 x10^3/uL (0.3-0.8); NEUTROPHILS # (AUTO) 13.7 x10^3/uL (2.2-4.8); NEUTROPHILS % (AUTO) 87.2 % (42.0-75.0); PLATELET COUNT 87 X10^3/uL (150.0-450.0); RED BLOOD COUNT 2.48 X10^6/uL (3.5-5.4); RED CELL DISTRIBUTION WIDTH 17.6 % (11.6-16.5); WHITE BLOOD COUNT 15.7 X10^3/uL (3.6-10.0)
[2019-08-31 05:34] LABS: ALANINE AMINOTRANSFERASE 15 Units/L (12-78); ALKALINE PHOSPHATASE 89 Units/L (46-116); ANISOCYTOSIS SLIGHT; ASPARTATE AMINO TRANSFERASE 15 Units/L (15-37); BLOOD UREA NITROGEN 23 mg/dL (7-18); CALCIUM 7.4 mg/dL (8.5-10.1); CHLORIDE 113 mmol/L (98-107); CREATININE 0.82 mg/dL (0.55-1.02); HYPOCHROMASIA 1+; MICROCYTOSIS SLIGHT; PLATELET MORPHOLOGY COMMENT NORMAL (NORMAL); SODIUM 145 mmol/L (136-145); TOTAL PROTEIN 4.9 g/dL (6.4-8.2); eGFR NON BLACK RACES > 60 (>60)
[2019-08-31] MEDS: PERIACTIN TAB 4 MG PO SCH ×2 (09:33→20:34)
[2019-08-31] MEDS: PROTONIX INJ 40 MG VIAL IVP SCH ×2 (09:33→20:36)
[2019-08-31] MEDS: ZyPREXA TAB 5 MG PO SCH ×2 (09:33→20:34)
[2019-08-31] MEDS: TAB-A-VITE PO SCH (09:33)
[2019-08-31] MEDS: LANOXIN PO SCH (09:33)
[2019-08-31] MEDS: PEPCID TAB 20 MG PO SCH (09:34)
[2019-08-31] MEDS: ALBUMIN HUMAN 25%- 100 ML 100 ML IV SCH (09:37)
[2019-08-31] MEDS: WELLBUTRIN IR (PLAIN) PO SCH ×2 (09:38→20:35)
[2019-08-31] MEDS: PATIENT'S HOME MEDICATION PEG SCH ×3 (09:39→20:35)
[2019-08-31] MEDS ORDERED: NS 500 ML IV 500 ML IV ONE (10:55)
[2019-08-31] MEDS: SANTYL EXT SCH ×2 (13:34→21:07)
[2019-08-31] MEDS: TYLENOL 325 MG TAB PO PRN (18:27)
[2019-08-31] MEDS: REMERON PEG SCH (20:33)
[2019-09-01] MEDS: D5W + KCL 20 MEQ/L 1,000 ML IV SCH ×4 (04:59→20:12)
[2019-09-01] MEDS: VANCOMYCIN 125 MG PEG SCH ×3 (05:01→16:29)
[2019-09-01] MEDS: MYLICON TAB 80 MG CHEW PO SCH ×3 (05:05→20:32)
[2019-09-01] MEDS: NEURONTIN CAP 100 MG PEG SCH ×3 (05:05→21:32)
[2019-09-01] MEDS: ZOSYN VIAL 3.375 GRAMS 3.375 G in NS 100 ML IV + SPIKE MINIBAG* 100 ML IV SCH ×3 (05:05→21:32)
[2019-09-01] MEDS: SANTYL EXT SCH ×3 (05:05→21:32)
[2019-09-01 05:06] LABS: BASOPHILS % (AUTO) 0.1 % (0.2-1.0); EOSINOPHILS # (AUTO) 0.1 x10^3/uL (0.0-0.2); HEMATOCRIT 32.8 % (36.0-47.0); LYMPHOCYTES # (AUTO) 1.3 X10^3/uL (1.3-2.9); LYMPHOCYTES % (AUTO) 12.2 % (21.0-51.0); MEAN CORPUSCULAR HEMOGLOBIN 28.9 pg (27.0-34.0); MEAN CORPUSCULAR HGB CONC 33.3 g/dL (33.0-35.0); MEAN CORPUSCULAR VOLUME 86.8 fL (80.0-100.0); MEAN PLATELET VOLUME 9.6 fL (7.4-11.0); MONOCYTES # (AUTO) 0.5 x10^3/uL (0.3-0.8); NEUTROPHILS # (AUTO) 8.8 x10^3/uL (2.2-4.8); NEUTROPHILS % (AUTO) 81.7 % (42.0-75.0); PLATELET COUNT 79 X10^3/uL (150.0-450.0); RED BLOOD COUNT 3.78 X10^6/uL (3.5-5.4); RED CELL DISTRIBUTION WIDTH 16.1 % (11.6-16.5); WHITE BLOOD COUNT 10.8 X10^3/uL (3.6-10.0)
[2019-09-01 05:09] LABS: HEMOGLOBIN 10.9 g/dL (12.0-16.0)
[2019-09-01 05:27] LABS: ALANINE AMINOTRANSFERASE 17 Units/L (12-78); ALBUMIN 2.5 g/dL (3.4-5.0); ALKALINE PHOSPHATASE 98 Units/L (46-116); ASPARTATE AMINO TRANSFERASE 15 Units/L (15-37); BLOOD UREA NITROGEN 19 mg/dL (7-18); CARBON DIOXIDE 22.7 mmol/L (21-32); CHLORIDE 113 mmol/L (98-107); COR CA(FOR HYPOALB) 9.2 mg/dL (8.5-10.1); CREATININE 0.75 mg/dL (0.55-1.02); SODIUM 146 mmol/L (136-145); TOTAL PROTEIN 5.8 g/dL (6.4-8.2); eGFR NON BLACK RACES > 60 (>60)
[2019-09-01 05:36] LABS: PLATELET MORPHOLOGY COMMENT NORMAL (NORMAL)
[2019-09-01] MEDS: NYSTATIN CREAM TOP PRN (06:05)
[2019-09-01] MEDS: PATIENT'S HOME MEDICATION PEG SCH ×3 (08:16→20:13)
[2019-09-01] MEDS: TAB-A-VITE PO SCH (08:20)
[2019-09-01] MEDS: PROTONIX INJ 40 MG VIAL IVP SCH ×2 (08:20→20:13)
[2019-09-01] MEDS: PEPCID TAB 20 MG PO SCH (08:20)
[2019-09-01] MEDS: PERIACTIN TAB 4 MG PO SCH ×2 (08:20→20:13)
[2019-09-01] MEDS: ZyPREXA TAB 5 MG PO SCH ×2 (08:21→20:14)
[2019-09-01] MEDS: LANOXIN PO SCH (08:21)
[2019-09-01] MEDS: BUTT CREAM (COMPOUND) TOP PRN ×3 (08:36→14:45)
[2019-09-01] MEDS: WELLBUTRIN IR (PLAIN) PO SCH ×2 (08:37→20:13)
[2019-09-01] MEDS: ALBUMIN HUMAN 25%- 100 ML 100 ML IV SCH (08:38)
[2019-09-01] MEDS: TYLENOL 325 MG TAB PO PRN (11:45)
[2019-09-01] MEDS ORDERED: LOVENOX INJ 30 MG SYR SC SCH (14:00)
[2019-09-01] MEDS: REMERON PEG SCH (20:13)
[2019-09-02] MEDS: D5W + KCL 20 MEQ/L 1,000 ML IV SCH ×5 (02:31→21:09)
[2019-09-02] MEDS: NYSTATIN CREAM TOP PRN ×3 (02:31→15:20)
[2019-09-02] MEDS: BUTT CREAM (COMPOUND) TOP PRN ×2 (02:32→05:32)
[2019-09-02 05:07] LABS: BASOPHILS % (AUTO) 0.3 % (0.2-1.0); EOSINOPHILS # (AUTO) 0.1 x10^3/uL (0.0-0.2); EOSINOPHILS % (AUTO) 1.4 % (0.9-2.9); HEMATOCRIT 32.3 % (36.0-47.0); HEMOGLOBIN 10.7 g/dL (12.0-16.0); LYMPHOCYTES # (AUTO) 1.2 X10^3/uL (1.3-2.9); LYMPHOCYTES % (AUTO) 13.8 % (21.0-51.0); MEAN CORPUSCULAR HEMOGLOBIN 28.5 pg (27.0-34.0); MEAN CORPUSCULAR HGB CONC 33.2 g/dL (33.0-35.0); MEAN CORPUSCULAR VOLUME 85.9 fL (80.0-100.0); MONOCYTES # (AUTO) 0.7 x10^3/uL (0.3-0.8); MONOCYTES % (AUTO) 8.6 % (0.0-13.0); NEUTROPHILS # (AUTO) 6.4 x10^3/uL (2.2-4.8); NEUTROPHILS % (AUTO) 75.9 % (42.0-75.0); PLATELET COUNT 83 X10^3/uL (150.0-450.0); RED BLOOD COUNT 3.75 X10^6/uL (3.5-5.4); RED CELL DISTRIBUTION WIDTH 16.1 % (11.6-16.5); WHITE BLOOD COUNT 8.4 X10^3/uL (3.6-10.0)
[2019-09-02 05:29] LABS: ALANINE AMINOTRANSFERASE 13 Units/L (12-78); ALBUMIN 2.6 g/dL (3.4-5.0); ALKALINE PHOSPHATASE 99 Units/L (46-116); ASPARTATE AMINO TRANSFERASE 13 Units/L (15-37); BLOOD UREA NITROGEN 16 mg/dL (7-18); CALCIUM 8.3 mg/dL (8.5-10.1); CARBON DIOXIDE 23.7 mmol/L (21-32); CHLORIDE 110 mmol/L (98-107); COR CA(FOR HYPOALB) 9.4 mg/dL (8.5-10.1); CREATININE 0.65 mg/dL (0.55-1.02); DIGOXIN 1.51 ng/mL (0.9-2); SODIUM 143 mmol/L (136-145); TOTAL PROTEIN 5.9 g/dL (6.4-8.2); eGFR NON BLACK RACES > 60 (>60)
[2019-09-02] MEDS: NEURONTIN CAP 100 MG PEG SCH ×3 (05:32→21:10)
[2019-09-02] MEDS: SANTYL EXT SCH (05:32)
[2019-09-02] MEDS: MYLICON TAB 80 MG CHEW PO SCH ×3 (05:32→21:11)
[2019-09-02] MEDS: ZOSYN VIAL 3.375 GRAMS 3.375 G in NS 100 ML IV + SPIKE MINIBAG* 100 ML IV SCH ×3 (05:33→21:10)
[2019-09-02 05:37] LABS: PLATELET MORPHOLOGY COMMENT NORMAL (NORMAL)
[2019-09-02] MEDS: PROTONIX INJ 40 MG VIAL IVP SCH ×2 (08:12→21:09)
[2019-09-02] MEDS: PERIACTIN TAB 4 MG PO SCH ×2 (08:19→21:11)
[2019-09-02] MEDS: PEPCID TAB 20 MG PO SCH (08:19)
[2019-09-02] MEDS: ALBUMIN HUMAN 25%- 100 ML 100 ML IV SCH (08:20)
[2019-09-02] MEDS: TAB-A-VITE PO SCH (08:20)
[2019-09-02] MEDS: ZyPREXA TAB 5 MG PO SCH ×2 (08:20→21:11)
[2019-09-02] MEDS: LANOXIN PO SCH (08:24)
[2019-09-02] MEDS: PATIENT'S HOME MEDICATION PEG SCH ×3 (08:26→21:12)
[2019-09-02] MEDS: WELLBUTRIN IR (PLAIN) PO SCH ×2 (08:27→21:13)
[2019-09-02] MEDS ORDERED: LOVENOX INJ 30 MG SYR SC SCH (09:00)
--- NOTE | 2019-09-02 09:53 | RAD ---
HISTORY: Abdominal distension. Prior history of hypertension and diabetes. Study: KUB Comparison: 08/28/2019. Findings: A feeding tube is present at the level of the gastric body. No significant stool burden is seen. There is no evidence of obstruction. No significant rectal fecal impaction is seen. Severe multilevel degenerative changes scoliosis is seen involving the lumbar spine. A left hip nail is present. IMPRESSION: No evidence of bowel obstruction. No significant stool burden is seen. Reported By:
--- NOTE | 2019-09-02 11:55 | RAD ---
HISTORY: Leaky G-tube, confirm placement Study: KUB Comparison: 09/02/2019 at 9:54 a.m.. Technique: KUB was exposed following water-soluble contrast materials through the patient's G-tube. A radiologist was not present during the procedure ,to my knowledge. Findings: Contrast material is present within the G-tube and involving multiple small bowel loops in the right lower quadrant. There is no extravasation of contrast materials G-tube balloon is at the level of the gastric antrum. IMPRESSION: Intraluminal position of G-tube. This may now be used for feeding. Reported By:
[2019-09-02] MEDS ORDERED: POTASSIUM CHL 40 MEQ/NS 0.45% 500 ML IV PRN (19:53)
[2019-09-02] MEDS ORDERED: MICRO K EXTEN CAP 10 MEQ PO PRN (19:53)
[2019-09-02] MEDS ORDERED: POTASSIUM CHLORIDE LIQ 20 MEQ UDC PO PRN (19:53)
[2019-09-02] MEDS ORDERED: POTASSIUM CHL 60 MEQ/NS 0.45% 500 ML IV PRN (19:53)
[2019-09-02] MEDS ORDERED: K-RIDER 10 MEQ/NS 100 ML 10 MEQ/100 ML BAG IV PRN (19:53)
[2019-09-02] MEDS ORDERED: K-DUR TAB 20 MEQ PO PRN (19:53)
[2019-09-02] MEDS ORDERED: KLOR-CON PO PRN (19:53)
[2019-09-02] MEDS: REMERON PEG SCH (21:11)
[2019-09-02] MEDS: MAGNESIUM SULFATE 1 GRAM/100 mL PREMIX 1 GM/100 ML BAG IV PRN ×2 (21:24→23:00)
[2019-09-02] MEDS ORDERED: NS 100 ML IV + SPIKE MINIBAG* 100 ML IV ONE (21:54)
[2019-09-03] MEDS: TYLENOL 325 MG TAB PO PRN ×2 (00:25→10:34)
[2019-09-03 04:56] LABS: BASOPHILS % (AUTO) 0.3 % (0.2-1.0); EOSINOPHILS # (AUTO) 0.1 x10^3/uL (0.0-0.2); EOSINOPHILS % (AUTO) 1.8 % (0.9-2.9); HEMATOCRIT 30.3 % (36.0-47.0); HEMOGLOBIN 10.2 g/dL (12.0-16.0); LYMPHOCYTES # (AUTO) 1.4 X10^3/uL (1.3-2.9); LYMPHOCYTES % (AUTO) 18.2 % (21.0-51.0); MEAN CORPUSCULAR HEMOGLOBIN 28.8 pg (27.0-34.0); MEAN CORPUSCULAR HGB CONC 33.7 g/dL (33.0-35.0); MEAN CORPUSCULAR VOLUME 85.5 fL (80.0-100.0); MEAN PLATELET VOLUME 8.3 fL (7.4-11.0); MONOCYTES # (AUTO) 0.9 x10^3/uL (0.3-0.8); MONOCYTES % (AUTO) 12.5 % (0.0-13.0); NEUTROPHILS # (AUTO) 5.1 x10^3/uL (2.2-4.8); NEUTROPHILS % (AUTO) 67.2 % (42.0-75.0); PLATELET COUNT 87 X10^3/uL (150.0-450.0); RED BLOOD COUNT 3.54 X10^6/uL (3.5-5.4); WHITE BLOOD COUNT 7.6 X10^3/uL (3.6-10.0)
[2019-09-03 05:08] LABS: ALANINE AMINOTRANSFERASE 12 Units/L (12-78); ALBUMIN 2.7 g/dL (3.4-5.0); ALKALINE PHOSPHATASE 93 Units/L (46-116); ASPARTATE AMINO TRANSFERASE 12 Units/L (15-37); BLOOD UREA NITROGEN 13 mg/dL (7-18); CALCIUM 8.2 mg/dL (8.5-10.1); CARBON DIOXIDE 25.9 mmol/L (21-32); CHLORIDE 108 mmol/L (98-107); COR CA(FOR HYPOALB) 9.2 mg/dL (8.5-10.1); COR NA(FOR HYPERGLY) 144 mmol/L (136-145); CREATININE 0.58 mg/dL (0.55-1.02); MAGNESIUM 2.1 mg/dL (1.7-2.9); SODIUM 143 mmol/L (136-145); TOTAL PROTEIN 5.9 g/dL (6.4-8.2); eGFR NON BLACK RACES > 60 (>60)
[2019-09-03] MEDS: NEURONTIN CAP 100 MG PEG SCH (05:15)
[2019-09-03] MEDS: D5W + KCL 20 MEQ/L 1,000 ML IV SCH (05:15)
[2019-09-03] MEDS: MYLICON TAB 80 MG CHEW PO SCH (05:15)
[2019-09-03] MEDS: ZOSYN VIAL 3.375 GRAMS 3.375 G in NS 100 ML IV + SPIKE MINIBAG* 100 ML IV SCH (05:16)
[2019-09-03 05:27] LABS: PLATELET MORPHOLOGY COMMENT NORMAL (NORMAL)
[2019-09-03] MEDS: ALBUMIN HUMAN 25%- 100 ML 100 ML IV SCH (08:19)
[2019-09-03] MEDS: PROTONIX INJ 40 MG VIAL IVP SCH (08:20)
[2019-09-03] MEDS: LANOXIN PO SCH (08:21)
[2019-09-03] MEDS: ZyPREXA TAB 5 MG PO SCH (08:22)
[2019-09-03] MEDS: PEPCID TAB 20 MG PO SCH (08:22)
[2019-09-03] MEDS: WELLBUTRIN IR (PLAIN) PO SCH (09:19)
[2019-09-03] MEDS: PATIENT'S HOME MEDICATION PEG SCH ×2 (10:32)
[2019-09-03] MEDS: PERIACTIN TAB 4 MG PO SCH (10:32)
[2019-09-03] MEDS: BUTT CREAM (COMPOUND) TOP PRN (10:33)
[2019-09-03] MEDS: TAB-A-VITE PO SCH (10:33)
[2019-09-03 14:55] VITALS: BP 117/57
== END 2019-09-03 14:26 | DRG 593 ==
LOC: ER 14:51 → ICU 20:47
PROVIDERS: ADMIT Internal Medicine; ATTEND Internal Medicine
DX: I10 Essential (primary) hypertension; E87.0 Hyperosmolality and hypernatremia; K21.9 Gastro-esophageal reflux disease without esophagitis; A04.72 Enterocolitis due to Clostridium difficile, not specified as recurrent; B96.1 Klebsiella pneumoniae [K. pneumoniae] as the cause of diseases classified elsewhere; N28.9 Disorder of kidney and ureter, unspecified; D69.6 Thrombocytopenia, unspecified; K94.22 Gastrostomy infection; Z66 Do not resuscitate; E87.6 Hypokalemia; R62.7 Adult failure to thrive; I95.89 Other hypotension; E86.0 Dehydration; R41.82 Altered mental status, unspecified; E11.622 Type 2 diabetes mellitus with other skin ulcer; L89.153 Pressure ulcer of sacral region, stage 3; R53.1 Weakness; B96.29 Other Escherichia coli [E. coli] as the cause of diseases classified elsewhere; B96.4 Proteus (mirabilis) (morganii) as the cause of diseases classified elsewhere
CPT/HCPCS: 36415; 36430; 74000; 74018; 80048; 80053; 80162; 83735; 85025; 86850; 86900; 86901; 86922; 87040; 87070; 87075; 87077; 87186; 87205; 87324; 87493; 96365; 96374; 99284; A4222; C9113; P9016; P9047; J1650; J2543; J3475; J3480; J3490; J7030; J7040; J7050; S5012